=== PATIENT | male | born 1930 | race Caucasian/White ===

== ENCOUNTER 2016-12-13 21:48 | Inpatient (IN) ==
[2016-12-13] MEDS ORDERED: NITROGLYCERIN 2% OINT 1 INCH/GM PACK TOP STA (22:16)
[2016-12-13] MEDS ORDERED: FUROSEMIDE 100 MG/10 ML VIAL IV STA (22:16)
[2016-12-13] MEDS ORDERED: MORPHINE 2 MG/1 ML SYRINGE IV STA (22:16)
[2016-12-13] MEDS ORDERED: ONDANSETRON 4 MG/2 ML VIAL IV STA (22:16)
[2016-12-13] MEDS ORDERED: methylPREDNISolone SOD SUC 125 MG/2 ML VIAL IV STA (22:16)
--- NOTE | 2016-12-13 22:19 | EKG Report ---
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
[2016-12-13] MEDS ORDERED: MORPHINE 2 MG/1 ML SYRINGE ONE (22:20)
[2016-12-13] MEDS ORDERED: methylPREDNISolone SOD SUC 125 MG/2 ML VIAL ONE (22:20)
[2016-12-13] MEDS ORDERED: FUROSEMIDE 100 MG/10 ML VIAL ONE (22:20)
[2016-12-13] MEDS ORDERED: ONDANSETRON 4 MG/2 ML VIAL ONE (22:20)
[2016-12-13] MEDS ORDERED: ALBUTEROL 2.5 MG/3 ML NEB RESP TX SCH (22:30)
[2016-12-13 22:31] LABS: Basophils % 0.2 % (0.0-0.8); Eosinophils # 0.1 10*3/uL (0.0-0.87); Eosinophils % 0.4 % (0.00-10.9); Hematocrit 38.5 VOL% (42.0-52.0); Immature Granulocytes % 1.5 %; Lymphocytes # 1.6 10*3/uL (1.4-4.0); Lymphocytes % 11.7 % (21.2-54.2); Mean Corpuscular HGB Conc 31.2 GM/DL (32-36); Mean Corpuscular Hemoglobin 26 PG (27-34); Mean Corpuscular Volume 81.7 FL (87-102); Mean Platelet Volume 9.1 FL (9.6-12.0); Monocytes # 0.6 10*3/uL (0.11-0.8); Monocytes % 4.3 % (1.7-12.7); Neutrophils % 81.9 % (38.7-73.9); Platelet Count 266 T/CUMM (130-400); Red Blood Count 4.71 MC/CUMM (3.8-5.5); Red Cell Distribution Width 18.1 % (9.3-17.3); White Blood Count 13.4 T/CUMM (4-12)
[2016-12-13 22:37] LABS: PT Patient Result 10.9 SECS; Partial Thromboplastin Time 22.6 SECS (0-40)
[2016-12-13 22:44] LABS: ABG Base Excess 2.7 MMOL/L (-2.5-2.5); ABG HCO3 26.8 MMOL/L (20-26); ABG Oxygen Saturation 95.5 % (95-100); ABG PCO2 36.5 MM HG (35-48); ABG PH 7.466 (7.35-7.45); ABG PO2 75.9 MM HG (80-95); ABG TCO2 23.2 MMOL/L (23-27)
[2016-12-13 22:47] LABS: Apearance,Urine CLEAR (Clear); Bilirubin,Urine Negative (Negative); Blood, Urine Negative (Negative); Glucose,Urine (UA) Negative (Negative); Ketones,Urine Negative (Negative); Mucus,Urine Occasional /LPF (Occasional); Nitrite,Urine Negative (Negative); Protein,Urine Negative; RBC,Urine 2 /HPF (0-4); Squamous Epithelial Cell,Urine Occasional /HPF (0-10); Urine Color Yellow (Yellow); Urine Specific Gravity 1.024 (1.001-1.035); WBC,Urine 1 /HPF (0-6)
[2016-12-13 22:48] LABS: Alanine Aminotransferase 23 U/L (16-61); Albumin 2.9 G/DL (3.4-5.0); Alkaline Phosphatase 61 U/L (45-117); Aspartate Amino Transferase 22 U/L (0-37); Blood Urea Nitrogen 18 MG/DL (7-18); Calcium 8.4 MG/DL (8.5-10.1); Glucose 110 MG/DL (74-106); Magnesium 2.4 MG/DL (1.8-2.4); Osmolality,Calculated 275.8 MOS/KG (273-304); Potassium 4.4 MMOL/L (3.5-5.1); Sodium 137 MMOL/L (136-145); Total Protein 6.6 G/DL (6.4-8.3); Troponin I Only < 0.015 NG/ML (0.00-0.045)
[2016-12-13] MEDS ORDERED: NITROGLYCERIN 2% OINT 1 INCH/GM PACK TOP ONE (22:54)
[2016-12-13] MEDS ORDERED: cefTRIAXone 1,000 MG in SODIUM CHLORIDE 0.9% 100 ML IV STA (23:08)
--- NOTE | 2016-12-13 23:08 | Emergency Department Note ---
Juan F Muir Brittany, am scribing for, and in the presence of, Jose Cruz Meza MD 22:29. Derrick Muir Charles R, MD, personally performed the services described in this documentation, ascribed by Lina Rogel in my presence, and it is both accurate and complete . Arrival - Arrival Chief Complaint: Shortness of Breath Stated Complaint: shortness of breath ED Nursing Triage Note: Patient to room via ems. Patient is from [facility]. They state that patient has been SOB for 3 days. Patient has wet lung sounds and O2sat is 82 on room air. Mode of Arrival: Stretcher Limitations: No Limitations Source: Patient Time Seen by Provider: 12/13/16 21:58 - History of Present Illness HPI Narrative: This is an 86 y/o white male, who presents to the ED by EMS for further evaluation of fluid overload which started 3 days ago. Pt is a current resident of [facility]. He states he has had chest pain, LE edema, and weight loss over the past few days. He reports he is SOB with the chest pain and it is worse when laying down. Pt has no other complaints/pain in the ED at this time. PT has a pMHx of HTN, CAD, dyslipidemia, ASHD, RA, COPD, pneumonia, prostate problems, problems, polyps, GERD, anemia, and back/neck problems. Pt has had an eye surgery, appendectomy, cystoscopy, orthopedic surgery, colonoscopy, EGD, spinal surgery, and genitourinary surgery. Pt has a family medical Hx of lung cancer, diabetes, heart disease, HTN, and stroke. Pt denies a socia Hx. Onset (ago): day(s) (Started 3 days ago) Consistency: constant Severity: moderate, severe Allergies/Adverse Reactions: Allergies Allergy/AdvReac Type Severity Reaction Status Date / Time lisinopril Allergy Unknown RASH Verified 12/13/16 21:57 carvedilol [From Coreg] Allergy RASH Verified 12/13/16 21:57 hydrochlorothiazide Allergy RASH Verified 12/13/16 21:57 metoclopramide [From Reglan] Allergy Unknown/Unable Verified 12/13/16 21:57 to obtain propoxyphene Allergy RASH Verified 12/13/16 21:57 [From Darvocet-N] Sulfa (Sulfonamide Allergy RASH Verified 12/13/16 21:57 Antibiotics) tramadol Allergy RASH Verified 12/13/16 21:57 aspirin AdvReac Intermediate Gastrointestinal Verified 12/13/16 21:57 Upset rofecoxib [From Vioxx] AdvReac Intermediate Gastrointestinal Verified 12/13/16 21:57 Upset Home Medications: Home Medications Medication Instructions Recorded Confirmed Type Acetaminophen Tab [Tylenol Tab] 650 mg PO Q6H PRN 10/25/16 12/11/16 History Calcium Carbonate Chew [Tums] 1 tablet PO Q8H 10/25/16 12/11/16 History Cyanocobalamin (Vitamin B-12) 1,000 mcg IJ Q30D 10/25/16 12/11/16 History [Cyanocobalamin Injection] Dexlansoprazole [Dexilant] 60 mg PO DAILY 10/25/16 12/06/16 History Docusate Sodium Cap [Colace Cap] 100 mg PO BID 10/25/16 12/11/16 History Loratadine [Claritin] 10 mg PO BEDTIME 10/25/16 12/11/16 History Magnesium Oxide 400 mg PO BID 10/25/16 12/06/16 History Meclizine [Antivert] 25 mg PO TID 10/25/16 12/06/16 History Megestrol Acetate [Megace] 400 mg PO BID 10/25/16 12/11/16 History Metoprolol Tartrate 25 mg PO BID 10/25/16 12/06/16 History Montelukast Tab [Singulair Tab] 10 mg PO BEDTIME 10/25/16 12/06/16 History Polyethylene Glycol Powder 17 gm PO DAILY PRN 10/25/16 12/11/16 History [Miralax] Polyvinyl Alcohol 1.4% Oph Marylou 1 drop BOTH EYES QID PRN 10/25/16 12/11/16 History [Artificial Tears Oph Soln] Simvastatin 5 mg PO BEDTIME 10/25/16 12/06/16 History Tamsulosin [Flomax] 0.4 mg PO DAILY 10/25/16 12/06/16 History amLODIPine [Norvasc] 5 mg PO BID 10/25/16 12/06/16 History methylPREDNISolone 4 mg PO BID 10/25/16 12/06/16 History [Methylprednisolone] Oxycodone HCl/Acetaminophen 1 each PO Q8HR 12/06/16 12/11/16 History [Percocet 10-325 mg Tablet] Albuterol/Ipratropium Neb [Duoneb] 3 ml RESP TX RT Q4H PRN 12/11/16 12/11/16 History HydrOXYzine PAMOATE CAP [Vistaril 25 mg PO Q6HR PRN 12/11/16 12/11/16 History Cap] Phenyleph/Mineral Oil/Petrolat 1 applic TOP Q4HR PRN 12/11/16 12/11/16 History [Preparation H Ointment] Pramoxine 1% Rectal Foam 1 applic TOP Q8HR PRN 12/11/16 12/11/16 History [Proctofoam 1% Foam] Review of System - Review of System 12 point system: reviewed and no additional remarkable complaints except as stated - Review of System Respiratory: Present: other (Fluid overload) Cardiovascular: Present: chest pain, dyspnea on exertion, orthopnea Musculoskeletal: Present: other (LE Edema) Medical,Surgical,& Family Hx - Medical History Cardio: History of: Cardiac Dysrhythmia (Hx: A. Fib), CAD, Hypertension, Cardiovascular Problems (ASHD) No history of: [place], Pacemaker Neurology: History of: Dementia, Peripheral Neuropathy, Vertigo No history of: Seizures HEENT: History of: HEENT Problems (zoster, right side of face) Endocrine: History of: Dyslipidemia No history of: Diabetes Mellitus (NIDDM) Rheumatology: History of;: Rheumatoid Arthritis, Rheumatological Problems Respiratory: History of: COPD, Pneumonia (x12 times since 2010), Respiratory Problems (Bronchospastic Disease) No history of: Obstructive Sleep Apnea Genitourinary: History of: Prostate Problems (enlarged), Problems (r/t enlarged prostate) Gastrointestinal: History of: GERD, Polyps (Colon and Gastric), GI Problems ( esophageal stricture, Sena's esophagus, erosive gastritis, hiatal hernia) Musculoskeletal: History of: Back/Neck Problems (chronic back pain ), Musculoskeletal Problems (wedge comp. fx t11, t12; DJD) No history of: Amputation Hematology: History of: Anemia (Pernicious) No history of: Blood Transfusion Reaction Other: History of: Skin Problems (marylou 2013) No history of: Anesthesia Reactions, Cancer - Surgical History Cardiac Surgeries: Patient Denies: Cardiac Catheterization, Cardiac Surgery Thoracic Surgeries: Patient denies;: Kidney (Renal Surgery), Lithotripsy, Nephrectomy HEENT Surgeries: Surgical HX of: Eye Surgery (cataract) Patient denies: Tonsilectomy & Adenoidectomy Abdominal Surgeries: Surgical HX of: Abdominal Surgery, Appendectomy, Colonoscopy, EGD Patient denies: Cholecystectomy, Gastric Bypass Surgery, Hernia Repair Reproductive Surgeries: Surgical HX of;: Cystoscopy (HE THINKS MAY HAVE HAD), Genitourinary Surgery Patient denies;: Prostate Surgery Orthopedic Surgeries: Surgical HX of;: Orthopedic Surgery (ankles, wrist, back, neck), Spinal Surgery (kypoplasty) Patient denies;: Implanted Devices - Family History Family History: Reports;: Family Cancer (Brother (lung)), Family Diabetes ( Mother), Family Heart Disease (Mother), Family Hypertension (Mother), Family Stroke Denies;: Family Anesthesia Reaction, Family Psychiatric Problems - Social History Smoking Status: Unknown if ever smoked Frequency of Alcohol Use: None Type of Drug Use: None Exam Vital Signs: Vital Signs Temperature 98.0 F 12/13/16 21:49 Pulse Rate 84 12/13/16 23:04 Respiratory Rate 28 H 12/13/16 23:04 Blood Pressure 138/68 12/13/16 21:49 O2 Sat by Pulse Oximetry 95 12/13/16 23:04 - General General appearance: alert, in distress - Head Head exam: Present: atraumatic, normocephalic, normal inspection - Eye Eye exam: Present: normal appearance, PERRL, EOMI. Absent: nystagmus, miosis, mydriasis - ENT ENT exam: Present: normal exam, normal oropharynx, mucous membranes moist - Neck Neck exam: Present: normal inspection, full ROM, trachea midline. Absent: tenderness, meningismus, lymphadenopathy, thyromegaly - Chest Chest inspection: Present: normal inspection, symmetric chest wall rise. Absent : tenderness, rash, abscess - Respiratory Respiratory exam: Present: accessory muscle use, rales, other (Decreased Breath sounds bilaterally) - Cardiovascular Cardiovascular exam: Present: normal rhythm, normal heart sounds, other. Absent : regular rate (Tachypnea, Retractions) - Abdominal Exam Abdominal exam: Present: soft, distention, normal bowel sounds. Absent: tenderness, guarding, rebound, rigidity - Rectal Exam Rectal exam: Present: deferred - Extremities Exam Extremities exam: Present: normal capillary refill, pedal edema (+3 pitting edema to the bilateral LE). Absent: normal inspection, full ROM, tenderness, joint swelling, calf tenderness - Back Exam Back exam: Present: normal inspection, full ROM. Absent: tenderness, muscle spasm, rashes - Neurological Exam Neurological exam: Present: alert, oriented X3, CN II-XII intact. Absent: motor sensory deficit - Psychiatric Psychiatric exam: Present: normal affect, normal mood. Absent: depressed, agitated, anxious, flat affect, manic - Skin Skin exam: Present: warm, dry, intact, normal color. Absent: rash, cyanosis, diaphoresis, erythema, pallor, mottled Course - Consultations Consultation #1: Hospitalist will admit patient Time: 23:05 Results - Labs CBC & BMP: 12/13/16 22:11 12/13/16 22:11 Lab Results: I have reviewed the patients labs Critical Care Time Critical Care Time: Yes Total Critical Care Time: 60 Disposition Clinical Impression: Congestive heart failure, Respiratory distress, Debility, COPD (chronic obstructive pulmonary disease), Lumbar back pain, Acute bronchitis with chronic obstructive pulmonary disease (COPD), Compression fracture of body of thoracic vertebra, T12 compression fracture, Chronic respiratory failure, Chest pain, Hypoxia, Leukocytosis Case discussed with: patient, patient's family Disposition: Still a Patient Condition: Guarded Time of Disposition: 23:07
[2016-12-13] MEDS ORDERED: SODIUM CHLORIDE 0.9% 100 ML IV ONE (23:13)
[2016-12-13] MEDS ORDERED: cefTRIAXone 1,000 MG VIAL ONE (23:13)
[2016-12-14] MEDS ORDERED: MORPHINE 2 MG/1 ML SYRINGE ONE (00:24)
[2016-12-14] MEDS ORDERED: MORPHINE 2 MG/1 ML SYRINGE IV STA (00:25)
--- NOTE | 2016-12-14 02:37 | Hospitalist History & Physical ---
Assessment and Plan (1) Bronchopneumonia Status: Acute Current Visit: No (2) COPD (chronic obstructive pulmonary disease) Status: Chronic Current Visit: Yes Qualifiers: COPD type: COPD with acute exacerbation Qualified Code(s): J44.1 - Chronic obstructive pulmonary disease with (acute) exacerbation (3) GERD (gastroesophageal reflux disease) Status: Acute Current Visit: No (4) HTN (hypertension) Status: Chronic Current Visit: No Qualifiers: Hypertension type: essential hypertension Qualified Code(s): I10 - Essential (primary) hypertension (5) Aspiration pneumonia Status: Acute Current Visit: No (6) Respiratory distress Status: Acute Current Visit: Yes (7) Hypoxia Status: Acute Current Visit: Yes (8) Leukocytosis Status: Acute Assessment and plan: Based on recent history of esophageal stricture do feel the patient probably has had an aspiration event. He is improved while in the emergency room. We have held him in the emergency room for an extended period of time. But I think he is gotten well enough while in the emergency room to go to a floor bed. He does have a DNR status. Do feel we need to treat him with breathing schedule breathing treatments IV antibiotics. I would like to consult pulmonary to see if they think the patient would benefit from a bronch. Current Visit: Yes History of Present Illness Chief complaint: Shortness of breath and decreased O2 sats History of present illness: Mr. Duckworth is a 86 year old male with past medical history significant for COPD and esophageal stricture. He is a resident at home and does carry a DNR status. According to alf information they stated that he has been short of breath 3 days. Patient has bilateral rhonchi and congestion. I was consulted to admit him. Home Medications Medication Instructions Recorded Confirmed Type Acetaminophen Tab [Tylenol Tab] 650 mg PO Q6H PRN 10/25/16 12/11/16 History Calcium Carbonate Chew [Tums] 1 tablet PO Q8H 10/25/16 12/11/16 History Cyanocobalamin (Vitamin B-12) 1,000 mcg IJ Q30D 10/25/16 12/11/16 History [Cyanocobalamin Injection] Dexlansoprazole [Dexilant] 60 mg PO DAILY 10/25/16 12/06/16 History Docusate Sodium Cap [Colace Cap] 100 mg PO BID 10/25/16 12/11/16 History Loratadine [Claritin] 10 mg PO BEDTIME 10/25/16 12/11/16 History Magnesium Oxide 400 mg PO BID 10/25/16 12/06/16 History Meclizine [Antivert] 25 mg PO TID 10/25/16 12/06/16 History Megestrol Acetate [Megace] 400 mg PO BID 10/25/16 12/11/16 History Metoprolol Tartrate 25 mg PO BID 10/25/16 12/06/16 History Montelukast Tab [Singulair Tab] 10 mg PO BEDTIME 10/25/16 12/06/16 History Polyethylene Glycol Powder 17 gm PO DAILY PRN 10/25/16 12/11/16 History [Miralax] Polyvinyl Alcohol 1.4% Oph Marylou 1 drop BOTH EYES QID PRN 10/25/16 12/11/16 History [Artificial Tears Oph Soln] Simvastatin 5 mg PO BEDTIME 10/25/16 12/06/16 History Tamsulosin [Flomax] 0.4 mg PO DAILY 10/25/16 12/06/16 History amLODIPine [Norvasc] 5 mg PO BID 10/25/16 12/06/16 History methylPREDNISolone 4 mg PO BID 10/25/16 12/06/16 History [Methylprednisolone] Oxycodone HCl/Acetaminophen 1 each PO Q8HR 12/06/16 12/11/16 History [Percocet 10-325 mg Tablet] Albuterol/Ipratropium Neb [Duoneb] 3 ml RESP TX RT Q4H PRN 12/11/16 12/11/16 History HydrOXYzine PAMOATE CAP [Vistaril 25 mg PO Q6HR PRN 12/11/16 12/11/16 History Cap] Phenyleph/Mineral Oil/Petrolat 1 applic TOP Q4HR PRN 12/11/16 12/11/16 History [Preparation H Ointment] Pramoxine 1% Rectal Foam 1 applic TOP Q8HR PRN 12/11/16 12/11/16 History [Proctofoam 1% Foam] Allergies Allergy/AdvReac Type Severity Reaction Status Date / Time lisinopril Allergy Unknown RASH Verified 12/13/16 21:57 carvedilol [From Coreg] Allergy RASH Verified 12/13/16 21:57 hydrochlorothiazide Allergy RASH Verified 12/13/16 21:57 metoclopramide [From Reglan] Allergy Unknown/Unable Verified 12/13/16 21:57 to obtain propoxyphene Allergy RASH Verified 12/13/16 21:57 [From Darvocet-N] Sulfa (Sulfonamide Allergy RASH Verified 12/13/16 21:57 Antibiotics) tramadol Allergy RASH Verified 12/13/16 21:57 aspirin AdvReac Intermediate Gastrointestinal Verified 12/13/16 21:57 Upset rofecoxib [From Vioxx] AdvReac Intermediate Gastrointestinal Verified 12/13/16 21:57 Upset Medical,Surgical,& Family Hx - Medical History Cardio: History of: Cardiac Dysrhythmia (Hx: A. Fib), CAD, Hypertension, Cardiovascular Problems (ASHD) No history of: [place], Pacemaker Neurology: History of: Dementia, Peripheral Neuropathy, Vertigo No history of: Seizures HEENT: History of: HEENT Problems (zoster, right side of face) Endocrine: History of: Dyslipidemia No history of: Diabetes Mellitus (NIDDM) Rheumatology: History of;: Rheumatoid Arthritis, Rheumatological Problems Respiratory: History of: COPD, Pneumonia (x12 times since 2010), Respiratory Problems (Bronchospastic Disease) No history of: Obstructive Sleep Apnea Genitourinary: History of: Prostate Problems (enlarged), Problems (r/t enlarged prostate) Gastrointestinal: History of: GERD, Polyps (Colon and Gastric), GI Problems ( esophageal stricture, Sena's esophagus, erosive gastritis, hiatal hernia) Musculoskeletal: History of: Back/Neck Problems (chronic back pain ), Musculoskeletal Problems (wedge comp. fx t11, t12; DJD) No history of: Amputation Hematology: History of: Anemia (Pernicious) No history of: Blood Transfusion Reaction Other: History of: Skin Problems (shingles 2013) No history of: Anesthesia Reactions, Cancer - Surgical History Cardiac Surgeries: Patient Denies: Cardiac Catheterization, Cardiac Surgery Thoracic Surgeries: Patient denies;: Kidney (Renal Surgery), Lithotripsy, Nephrectomy HEENT Surgeries: Surgical HX of: Eye Surgery (cataract) Patient denies: Tonsilectomy & Adenoidectomy Abdominal Surgeries: Surgical HX of: Abdominal Surgery, Appendectomy, Colonoscopy, EGD Patient denies: Cholecystectomy, Gastric Bypass Surgery, Hernia Repair Reproductive Surgeries: Surgical HX of;: Cystoscopy (HE THINKS MAY HAVE HAD), Genitourinary Surgery Patient denies;: Prostate Surgery Orthopedic Surgeries: Surgical HX of;: Orthopedic Surgery (ankles, wrist, back, neck), Spinal Surgery (kypoplasty) Patient denies;: Implanted Devices - Family History Family History: Reports;: Family Cancer (Brother (lung)), Family Diabetes ( Mother), Family Heart Disease (Mother), Family Hypertension (Mother), Family Stroke Denies;: Family Anesthesia Reaction, Family Psychiatric Problems - Social History Smoking Status: Unknown if ever smoked Frequency of Alcohol Use: None Type of Drug Use: None 12 point system: reviewed and no additional remarkable complaints except as stated Exam - Constitutional Vitals: Period Temp Pulse Resp BP Sys/Briceno Pulse Ox Last 24 Hr 98.0 F-98.0 F 84-87 24-28 138-138/68-68 82-95 General appearance: over weight - Head Head exam: Present: normal inspection - Eye Eye exam: Present: EOMI Pupils: Present: ANAYELI - ENT ENT exam: Present: normal exam - Neck Neck exam: Present: normal inspection - Respiratory Respiratory exam: Present: other (Patient has bilateral upper airway congestion) - Cardiovascular Cardiovascular exam: Present: regular rate and rhythm - GI/Abdominal GI/Abdominal exam: Present: normal bowel sounds, distended - Extremities Exam Extremities exam: Present: edema - Back Exam Back exam: Present: normal inspection Results - Labs CBC & BMP: 12/13/16 22:11 12/13/16 22:11
[2016-12-14] MEDS ORDERED: ONDANSETRON 4 MG/2 ML VIAL IV PRN (02:42)
[2016-12-14] MEDS ORDERED: ALBUTEROL 2.5 MG/3 ML NEB RESP TX PRN (02:42)
[2016-12-14] MEDS ORDERED: AZITHROMYCIN INJ 500 MG in SODIUM CHLORIDE 0.9% 250 ML IV SCH (03:00)
[2016-12-14] MEDS: methylPREDNISolone SOD SUC 40 MG/1 ML VIAL IV SCH ×4 (04:40→22:41)
[2016-12-14] MEDS: CLINDAMYCIN INJ 900 MG in PREMIX 1 EACH IV SCH ×3 (04:40→20:45)
--- NOTE | 2016-12-14 05:58 | XRay Report ---
XR chest 1V portable Indication: Shortness of breath Comparison: Chest x-ray 10/25/2016 Technique: Portable AP chest was performed. Findings: Mild cardiomegaly appears stable. Central vascular prominence and interstitial stranding in the lung bases is noted. Multilevel vertebroplasty is again demonstrated. There is been interval addition of bone cement within the mid thoracic spine. Impression: 1. Appearance of chest suggests pulmonary venous congestive changes and/or crowding secondary to technique. Mild pulmonary edema is not excluded. 12/14/2016 5:55 AM PROCEDURE INTERPRETED AT [facility] DEPARTMENT OF RADIOLOGY Final Report Signed by: Dr. Viet Kimbrough
[2016-12-14] MEDS: ALBUTEROL/IPRATROPIUM 3 ML NEB RESP TX SCH ×3 (07:12→19:50)
[2016-12-14 07:37] LABS: Basophils % 0.2 % (0.0-0.8); Hematocrit 36.7 VOL% (42.0-52.0); Hemoglobin 11.5 GM/DL (14.0-18.0); Immature Granulocytes % 1.2 %; Immature Granulocytes Absolute 0.14 #; Lymphocytes # 0.4 10*3/uL (1.4-4.0); Lymphocytes % 3.2 % (21.2-54.2); Mean Corpuscular HGB Conc 31.3 GM/DL (32-36); Mean Corpuscular Hemoglobin 25 PG (27-34); Mean Corpuscular Volume 80.7 FL (87-102); Mean Platelet Volume 9.1 FL (9.6-12.0); Monocytes # 0.2 10*3/uL (0.11-0.8); Monocytes % 1.4 % (1.7-12.7); Platelet Count 231 T/CUMM (130-400); Red Blood Count 4.55 MC/CUMM (3.8-5.5); White Blood Count 11.6 T/CUMM (4-12)
[2016-12-14 08:10] LABS: Osmolality,Calculated 280.7 MOS/KG (273-304); Potassium 4.3 MMOL/L (3.5-5.1)
[2016-12-14 08:12] LABS: Band Neutrophils 10 % (0-10); Hypochromasia 1+; Lymphocytes 6 % (20-55); Platelet Estimate Adequate; Segmented Neutrophils 82 % (50-85); Total Cells Counted 100
--- NOTE | 2016-12-14 09:37 | Hospitalist Progress Note ---
Assessment and Plan (1) GERD (gastroesophageal reflux disease) Status: Acute Assessment and plan: Stable. He is presently being treated with pantoprazole. Current Visit: No (2) Pneumonia Status: Acute Assessment and plan: He was begun last night and intravenous clindamycin and ceftriaxone. He will probably require a minimum of 7 days of treatment. Current Visit: No Qualifiers: Pneumonia type: aspiration pneumonia (3) HTN (hypertension) Status: Chronic Current Visit: No Qualifiers: Hypertension type: essential hypertension Qualified Code(s): I10 - Essential (primary) hypertension (4) Acute exacerbation of chronic obstructive pulmonary disease Status: Acute Assessment and plan: He is comfortable at the present time. He is presently being treated with intravenous antibiotics, intravenous methylprednisolone, and albuterol ipratropium nebulizer treatments. Current Visit: No Hospitalist: Subjective Interval history: Mr. Duckworth is an 86-year-old white male with past medical history of chronic obstructive pulmonary disease and esophageal stricture. He was hospitalized here last night with chief complaint of shortness of breath. Chest x-ray demonstrated evidence of pneumonia. He was begun on intravenous clindamycin and ceftriaxone. He states that he is comfortable this morning he denies shortness of breath or chest pain. Exam - Constitutional Vitals: Period Temp Pulse Resp BP Sys/Briceno Pulse Ox Last 24 Hr 97.3 F-98.1 F 87-99 19-28 131-150/74-85 90-94 General appearance: no acute distress - Head Head exam: Present: normal inspection, normocephalic - Eye Eye exam: Present: EOMI Pupils: Present: ANAYELI - Neck Neck exam: Present: normal inspection - Respiratory Respiratory exam: Present: rhonchi - Cardiovascular Cardiovascular exam: Present: regular rate and rhythm - GI/Abdominal GI/Abdominal exam: Present: normal bowel sounds, soft - Extremities Exam Extremities exam: Present: normal inspection - Neurological Exam Neurological exam: Present: alert, oriented X3 - Psychiatric Psychiatric exam: Present: normal affect, normal mood - Skin Skin exam: Present: normal color, warm, dry Results - Labs CBC & BMP: 12/14/16 07:11 12/14/16 07:11 Quality Measures - Stroke Symptom Onset Unknown: No
--- NOTE | 2016-12-14 10:48 | Pulmonology Consult Note ---
History of Present Illness Chief complaint: Pneumonia History of present illness: Jayjay Yates, ANP-BC, GNP-BC, acting as scribe for Dr. Santos Schaefer Mr. Duckworth is an 86 year old white male long-time patient of Dr. Schaefer'nasrin who we have been asked to see in pulmonary consultation for evaluation and treatment. The request for consultation was made by Dr. Mayberry. Mr. Duckworth presented to [facility] emergency room by EMS on the night of 12/13/2016 with complaints of increased shortness of breath which started 3 days prior to admission. Of note , on 12/11/2016 the patient underwent an outpatient EGD without complications. Nonetheless, in the emergency room the patient was found to have an acute pneumonia with leukocytosis. He was subsequently admitted to the hospitalist service for further evaluation and care. In speaking with the patient, he is not at his baseline mentation. No family was present. Nursing staff was present. Therefore, his review of systems and history was taken from the patient's electronic medical records. He has had increased shortness of breath and dyspnea on exertion for 3 days prior to admission. There was no reported cardiac angina or palpitations. He has a long history of reflux and microaspiration which have often led to aspiration pneumonia which was followed by bacterial pneumonia, but he reports no solid dysphagia at this time. See above regarding recent EGD. There were no reported TIA symptoms or syncope. There has been no bleeding from any site. The remainder of his ROS is noncontributory. Allergies: Amoxicillin, ASA, Darvocet N-100, Tramadol, and Vioxx Medication: See list Vaccinations: Flu vaccine was given in 2013. Pneumovax was given 09-22-2009. Tetanus vaccine was given in 1999. Past Medical History: [facility] hospitalization 10/25/2016 through 10/30/1999 1700 care of the hospitalist. During that admission he was treated for acute exacerbation of COPD. [facility] hospitalization 10/15/2016 through 10/20/2016 under the care of the hospitalist. During that admission the patient was treated for an acute left lower lung pneumonia and chronic back pain with history of acute T12 compression fracture which required kyphoplasty by Dr. Hammond. EGD was done during that admission by Dr. Perez. [facility] hospitalization 08/20/2016 through 08/21/2016 under the care of the hospitalist. During that admission he was treated for acute abdominal pain and bladder outlet obstruction. Patient also had a heme positive stool. He was seen by Dr. Perez and Dr. Deleon. No other workup was felt necessary during that admission. [facility] hospitalization 08/06/2016 through 08/08/2016 under the care of Dr. Schaefer. During that admission he was treated for an acute exacerbation of COPD. He also had chronic back pain and had a recent acute T12 compression fracture which required kyphoplasty by Dr. Hammond. [facility] hospitalization 07/19/16 through 07/25/16 under the care of Dr. Schaefer. During that admission he was treated for an acute RLL infiltrate secondary to Klebsiella. [facility] 06/21/16 through 07/02/16 under the care of the hospitalists. During that admission he was treated for an acute exacerbation of COPD. He was transferred to [facility] on 06/22/16 and remained there until 07/18/16. [facility] 06/17/16 through 06/20/16 under the care of the hospitalists. During that admission he was treated for dysphagia and an esophageal stricture. [facility] hospitalization 05/22/16 through 06/01/16 under the care of Dr. Moore. [facility] through 04/05/16 under the care of the hospitalists. He was seen in consultation by Dr. Schaefer and treated for an acute exacerbation of COPD. [facility] 12/24/15 through 12/29/15 under the care of the hospitalists. During that admission he was treated for an acute exacerbation of COPD and an esophageal stricture which required dilatation. [facility] 09/25/15 through 09/30/15 under the care of the hospitalists. During that hospitalization he was treated for an acute pneumonia secondary to Klebsiella. [facility] 04/13/15 through 04/18/15 under the care of the hospitalists. He was seen in pulmonary consultation by Dr. Schaefer. He was treated for accelerated HTN, dysphagia, and acute exacerbation of COPD. [facility] 09-23-13 for acute gastroenteritis, acute upper respiratory infection which was thought to be influenza. He also had a possible acute RUL pneumonia probably occurring after the onset of the flu. [facility] 07-17-13 for acute non- cardiac chest pain, esophageal motility dysfunction, and acute tachycardia that resolved with the addition of Metoprolol. [facility] hospitalization November 2012 with acute pneumonia. [facility] hospitalization 08-05-2012 for palpitations. [facility] hospitalization 07-07-2012 for probable acute pneumonia that did not show up on xray, gram positive sepsis. Gram stains showed gram positive cocci and gram negative rods. [facility] hospitalization for acute T8 compression fracture and acute T2 compression fracture. He also had a herpetic lesion on his lip 02-10-12. [facility] hospitalization 07-17-11 for acute lower GI bleed. Hospitalized twice in 2010 for pneumonia. [facility] hospitalization 05-12-10 with injuries sustained after a trauma. He had an acute T5 pathologic compression fracture, left ankle fracture--repaired, bilateral forearm fractures with closed reduction, and an ileus of the colon with obstipation. Family History: His mother had diabetes, arthritis. His brother had lung cancer. His father had lung disease. Social History: The patient quit smoking 12-05-89. He denies alcohol. He is retired. 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 He has a high school education. Laboratory: White count at admission was 13,400 and has now improved to 11,600 with 94.0% segs; H&H 11.5/36.7 with decreased indices and increased red blood cell distribution with; platelet count 231,000; INR 1.0; creatinine 1.00, BUN 18 , sodium 138, potassium 4.3, magnesium 2.4; liver function tests within normal limits; calcium is low at 8.0 reflected in a low albumin of 2.9, total protein 6.6; urinalysis showed no evidence of infection ABGs. Done at admission 12/13/2016. On an FiO2 of 28% pH was 7.466, PCO2 36.5, PO2 75.9, bicarb 26.8, oxygen saturation 95.5%. CXR: Shows a possible acute left lower lobe pneumonia. No other acute changes are noted. Home Medications Medication Instructions Recorded Confirmed Type Acetaminophen Tab [Tylenol Tab] 650 mg PO Q6H PRN 10/25/16 12/14/16 History Calcium Carbonate Chew [Tums] 1 tablet PO Q8H 10/25/16 12/14/16 History Cyanocobalamin (Vitamin B-12) 1,000 mcg IJ Q30D 10/25/16 12/14/16 History [Cyanocobalamin Injection] Dexlansoprazole [Dexilant] 60 mg PO DAILY 10/25/16 12/14/16 History Docusate Sodium Cap [Colace Cap] 100 mg PO BID 10/25/16 12/14/16 History Loratadine [Claritin] 10 mg PO BEDTIME 10/25/16 12/14/16 History Magnesium Oxide 400 mg PO BID 10/25/16 12/14/16 History Meclizine [Antivert] 25 mg PO TID 10/25/16 12/14/16 History Megestrol Acetate [Megace] 400 mg PO BID 10/25/16 12/14/16 History Metoprolol Tartrate 25 mg PO BID 10/25/16 12/14/16 History Montelukast Tab [Singulair Tab] 10 mg PO BEDTIME 10/25/16 12/14/16 History Polyethylene Glycol Powder 17 gm PO DAILY PRN 10/25/16 12/14/16 History [Miralax] Polyvinyl Alcohol 1.4% Oph Marylou 1 drop BOTH EYES QID PRN 10/25/16 12/14/16 History [Artificial Tears Oph Soln] Simvastatin 5 mg PO BEDTIME 10/25/16 12/14/16 History Tamsulosin [Flomax] 0.4 mg PO DAILY 10/25/16 12/14/16 History amLODIPine [Norvasc] 5 mg PO BID 10/25/16 12/14/16 History methylPREDNISolone 4 mg PO BID 10/25/16 12/14/16 History [Methylprednisolone] Oxycodone HCl/Acetaminophen 1 each PO Q8HR 12/06/16 12/14/16 History [Percocet 10-325 mg Tablet] Albuterol/Ipratropium Neb [Duoneb] 3 ml RESP TX RT Q4H PRN 12/11/16 12/14/16 History HydrOXYzine PAMOATE CAP [Vistaril 25 mg PO Q6HR PRN 12/11/16 12/14/16 History Cap] Phenyleph/Mineral Oil/Petrolat 1 applic TOP Q4HR PRN 12/11/16 12/14/16 History [Preparation H Ointment] Pramoxine 1% Rectal Foam 1 applic TOP Q8HR PRN 12/11/16 12/14/16 History [Proctofoam 1% Foam] Allergies Allergy/AdvReac Type Severity Reaction Status Date / Time lisinopril Allergy Unknown RASH Verified 12/13/16 21:57 carvedilol [From Coreg] Allergy RASH Verified 12/13/16 21:57 hydrochlorothiazide Allergy RASH Verified 12/13/16 21:57 metoclopramide [From Reglan] Allergy Unknown/Unable Verified 12/13/16 21:57 to obtain propoxyphene Allergy RASH Verified 12/13/16 21:57 [From Darvocet-N] Sulfa (Sulfonamide Allergy RASH Verified 12/13/16 21:57 Antibiotics) tramadol Allergy RASH Verified 12/13/16 21:57 aspirin AdvReac Intermediate Gastrointestinal Verified 12/13/16 21:57 Upset rofecoxib [From Vioxx] AdvReac Intermediate Gastrointestinal Verified 12/13/16 21:57 Upset Exam (Pulmonay) H&P - Constitutional Vitals: Period Temp Pulse Resp BP Sys/Briceno Pulse Ox Last 24 Hr 97.3 F-98.1 F 87-99 19-28 131-150/74-85 90-94 Exam: Psych: Oriented to person at this time, certainly an acute altered mental status ; angry HEENT: Pupils, irises, sclera, conjunctiva, and eye lids are normal. The face is symmetrical with no masses or rash. Lips, tongue, buccal mucosa, soft and hard palate, and pharynx within normal limits. The neck is symmetrical and slightly kyphotic without masses. There is a firm palpable nodule on the superior edge of the thyroid. Lymphatic: No cervical, supraclavicular or submandibular adenopathy Chest: Symmetrical with loose large airway congestion and very mild large airway wheeze Heart: Regular with a slightly lateral PMI. No murmur, rub, or gallop. Abd: Obese, but nontender, nondistended. No appreciable organomegaly, masses, tenderness, or bruit. The aorta was not palpated. BS positive x 4. /Rectal: Deferred Extremities: No clubbing, cyanosis, or obvious DVT; no significant edema. TAMIKO hose are in use. Arterial: Carotids are normal. Upper extremity pulses and posterior tibial pulses are palpable. Venous: Neck, upper, and lower extremities is normal. Skin: Actinic damage especially over the face and dorsum of the upper extremities with associated purpura over the upper extremities. No appreciable signs of infection are noted. M/S: Mild loss of the curvature of the cervical, thoracic, and lumbar spine. Neuro: Cranial nerves are intact with decreased hearing acuity bilaterally. Long tract motor function appears to be intact. Sensory exam was not done. Gait was not tested. The remainder of the exam is noncontributory. Impression: #1: Possible acute left lower lung pneumonia #2: Acute altered mental status #3: Long history of recurrent pneumonias #4: GERD with hx of esophageal stricture. Note, EGD with dilatation was done by Dr. Perez. #5: Hx of multiple compression fractures of the thoracic spine #6: Esophageal motility dysfunction #7: Hypertension #8: Hx of lower GI bleed #9: COPD #10: See past history Plan: #1: Check ammonia level #2: Agree with present antibiotics and steroids #3: Repeat ABGs #4: Check TSH and free T4 #5: See orders We appreciate this consult and will follow along with you. Medical,Surgical,& Family Hx - Medical History Cardio: History of: Cardiac Dysrhythmia (Hx: A. Fib), CAD, Hypertension, Cardiovascular Problems (ASHD) No history of: MO, Pacemaker Neurology: History of: Dementia, Peripheral Neuropathy, Vertigo No history of: Seizures HEENT: History of: HEENT Problems (zoster, right side of face) Endocrine: History of: Dyslipidemia No history of: Diabetes Mellitus (NIDDM) Rheumatology: History of;: Rheumatoid Arthritis, Rheumatological Problems Respiratory: History of: COPD, Pneumonia (x12 times since 2010), Respiratory Problems (Bronchospastic Disease) No history of: Obstructive Sleep Apnea Genitourinary: History of: Prostate Problems (enlarged), Problems (r/t enlarged prostate) Gastrointestinal: History of: GERD, Polyps (Colon and Gastric), GI Problems ( esophageal stricture, Sena's esophagus, erosive gastritis, hiatal hernia) Musculoskeletal: History of: Back/Neck Problems (chronic back pain ), Musculoskeletal Problems (wedge comp. fx t11, t12; DJD) No history of: Amputation Hematology: History of: Anemia (Pernicious) No history of: Blood Transfusion Reaction Other: History of: Skin Problems (shingles 2013) No history of: Anesthesia Reactions, Cancer - Surgical History Cardiac Surgeries: Patient Denies: Cardiac Catheterization, Cardiac Surgery Thoracic Surgeries: Patient denies;: Kidney (Renal Surgery), Lithotripsy, Nephrectomy HEENT Surgeries: Surgical HX of: Eye Surgery (cataract) Patient denies: Tonsilectomy & Adenoidectomy Abdominal Surgeries: Surgical HX of: Abdominal Surgery, Appendectomy, Colonoscopy, EGD Patient denies: Cholecystectomy, Gastric Bypass Surgery, Hernia Repair Reproductive Surgeries: Surgical HX of;: Cystoscopy (HE THINKS MAY HAVE HAD), Genitourinary Surgery Patient denies;: Prostate Surgery Orthopedic Surgeries: Surgical HX of;: Orthopedic Surgery (ankles, wrist, back, neck), Spinal Surgery (kypoplasty) Patient denies;: Implanted Devices - Family History Family History: Reports;: Family Cancer (Brother (lung)), Family Diabetes ( Mother), Family Heart Disease (Mother), Family Hypertension (Mother), Family Stroke Denies;: Family Anesthesia Reaction, Family Psychiatric Problems - Social History Smoking Status: Unknown if ever smoked Frequency of Alcohol Use: None Type of Drug Use: None Results - Labs CBC & BMP: 12/14/16 07:11 12/14/16 07:11 Quality Measures - Stroke Symptom Onset Unknown: No
[2016-12-14 11:29] LABS: Allen Test Positive; Pt O2 Delivery Device Venturi Mask
[2016-12-14 11:30] LABS: ABG Base Excess 4.6 MMOL/L (-2.5-2.5); ABG HCO3 28.5 MMOL/L (20-26); ABG Oxygen Saturation 96.7 % (95-100); ABG PCO2 43.1 MM HG (35-48); ABG PO2 84.3 MM HG (80-95); ABG TCO2 26.3 MMOL/L (23-27)
[2016-12-14] MEDS: PANTOPRAZOLE 40 MG TABLET PO SCH (11:36)
[2016-12-14 11:56] LABS: Free T4 (Free Thyroxine) 1.3 NG/DL (0.76-1.46); Thyroid Stimulating Hormone 0.506 uIU/ml (0.358-3.74)
[2016-12-14] MEDS: MORPHINE 2 MG/1 ML SYRINGE IV PRN ×2 (16:40→20:40)
[2016-12-14] MEDS: ACETAMINOPHEN 325 MG TABLET PO PRN (20:17)
[2016-12-14] MEDS: cefTRIAXone 1,000 MG in SODIUM CHLORIDE 0.9% 100 ML IV SCH (20:45)
[2016-12-15] MEDS: ALBUTEROL/IPRATROPIUM 3 ML NEB RESP TX SCH ×4 (00:27→19:23)
[2016-12-15] MEDS: methylPREDNISolone SOD SUC 40 MG/1 ML VIAL IV SCH ×2 (03:41→09:42)
[2016-12-15] MEDS: CLINDAMYCIN INJ 900 MG in PREMIX 1 EACH IV SCH ×2 (03:41→12:03)
[2016-12-15] MEDS: PANTOPRAZOLE 40 MG TABLET PO SCH (08:20)
--- NOTE | 2016-12-15 10:14 | Hospitalist Progress Note ---
Assessment and Plan (1) GERD (gastroesophageal reflux disease) Status: Acute Assessment and plan: Stable. He is presently being treated with pantoprazole. Current Visit: No (2) Pneumonia Status: Acute Assessment and plan: He was begun last night and intravenous clindamycin and ceftriaxone. He will probably require a minimum of 7 days of treatment. Current Visit: No Qualifiers: Pneumonia type: aspiration pneumonia (3) HTN (hypertension) Status: Chronic Current Visit: No Qualifiers: Hypertension type: essential hypertension Qualified Code(s): I10 - Essential (primary) hypertension (4) Acute exacerbation of chronic obstructive pulmonary disease Status: Acute Assessment and plan: He is comfortable at the present time. He is presently being treated with intravenous antibiotics, intravenous methylprednisolone, and albuterol ipratropium nebulizer treatments. Current Visit: No (5) Lumbar back pain Status: Acute Assessment and plan: He is receiving intravenous morphine as necessary. Current Visit: Yes Hospitalist: Subjective Interval history: Donita was hospitalized here with acute lower lobe pneumonia. He is being treated with intravenous clindamycin and ceftriaxone. He is not complaining of shortness of breath or chest pain. He has chronic low back pain for which he requests opiate analgesia. He was seen in consultation yesterday by pulmonary who is following him. Exam - Constitutional Vitals: Period Temp Pulse Resp BP Sys/Briceno Pulse Ox Last 24 Hr 96.2 F-98.8 F 69-102 12- 116-154/63-81 86-97 General appearance: no acute distress - Head Head exam: Present: normal inspection, normocephalic - Eye Eye exam: Present: EOMI Pupils: Present: ANAYELI - Neck Neck exam: Present: normal inspection - Respiratory Respiratory exam: Present: rhonchi - Cardiovascular Cardiovascular exam: Present: regular rate and rhythm - GI/Abdominal GI/Abdominal exam: Present: normal bowel sounds, soft, other (Nontender with no palpable masses or hepatosplenomegaly.) - Extremities Exam Extremities exam: Present: normal inspection - Back Exam Back exam: Present: normal inspection - Neurological Exam Neurological exam: Present: alert, oriented X3 - Psychiatric Psychiatric exam: Present: normal affect, normal mood - Skin Skin exam: Present: normal color, warm, dry Results - Labs CBC & BMP: 12/14/16 07:11 12/14/16 07:11 Quality Measures - Stroke Symptom Onset Unknown: No
--- NOTE | 2016-12-15 10:43 | Pulmonology Progress Note ---
Pulmonary - PN: Subj Interval history: This 86-year-old white male has COPD. He came in with probable bronchopneumonia. He is on antibiotics and steroids as well as bronchodilators. He is somewhat confused. I am concerned that there may be some steroid psychosis. Exam (Progress Note) - Constitutional Vitals: Period Temp Pulse Resp BP Sys/Briceno Pulse Ox Last 24 Hr 96.2 F-98.8 F 69-102 12-28 116-154/63-81 86-97 Exam: He is alert but confused. Vital signs normal. Oxygen saturation in the upper 90s on 50% Ventimask. ABGs look okay with no hypercarbia. Neck supple. Chest with a few rhonchi. He is not tight. Heart normal rate and rhythm no murmurs. Abdomen soft nontender no masses. Extremities no clubbing cyanosis edema. Calves nontender. Results - Labs CBC & BMP: 12/14/16 07:11 12/14/16 07:11 Lab Results: I have reviewed the past 24 hour labs Assessment and Plan (1) Bronchopneumonia Status: Acute Assessment and plan: Radiographically this does not look severe. Current Visit: No (2) COPD (chronic obstructive pulmonary disease) Status: Chronic Assessment and plan: ABGs acceptable but requiring a good bit of oxygen. He is on steroids and bronchodilators. Will reduce him from 40 mg every 6 hours of Solu-Medrol down to every 12 hours. Current Visit: Yes Qualifiers: COPD type: COPD with acute exacerbation Qualified Code(s): J44.1 - Chronic obstructive pulmonary disease with (acute) exacerbation (3) Barretts esophagus Status: Chronic Assessment and plan: Managed by GI. Current Visit: No
[2016-12-16] MEDS: ALBUTEROL/IPRATROPIUM 3 ML NEB RESP TX SCH ×4 (00:39→19:17)
[2016-12-16] MEDS: methylPREDNISolone SOD SUC 40 MG/1 ML VIAL IV SCH ×2 (01:49→09:07)
[2016-12-16] MEDS: MORPHINE 2 MG/1 ML SYRINGE IV PRN ×4 (01:50→18:16)
[2016-12-16] MEDS: CLINDAMYCIN INJ 900 MG in PREMIX 1 EACH IV SCH ×4 (01:52→20:42)
[2016-12-16] MEDS: cefTRIAXone 1,000 MG in SODIUM CHLORIDE 0.9% 100 ML IV SCH ×2 (03:04→22:04)
[2016-12-16] MEDS: PANTOPRAZOLE 40 MG TABLET PO SCH (09:07)
--- NOTE | 2016-12-16 09:29 | Pulmonology Progress Note ---
Pulmonary - PN: Subj Interval history: This 86-year-old white male has COPD. He came in with probable bronchopneumonia. He is on antibiotics and steroids as well as bronchodilators. He is somewhat confused. I am concerned that there may be some steroid psychosis. 12/16/2016 this 86-year-old man is in with an exacerbation of COPD and bronchopneumonia. He seems to be better with antibiotics and steroids. I think he may have had some steroid psychosis. His mental status is better with the reduced dose of Solu-Medrol. Each day 1 of come into his room he said his facemask oxygen off. I think he would be better with nasal biprong's. We just need an O2 sat in the upper 80s. Exam (Progress Note) - Constitutional Vitals: Period Temp Pulse Resp BP Sys/Briceno Pulse Ox Last 24 Hr 97.5 F-98.4 F 77-99 18-22 112-156/62-86 94-99 Exam: He is alert not confused today. Vital signs normal. ABGs look okay with no hypercarbia. Neck supple. Chest with a few rhonchi. He is not tight. Heart normal rate and rhythm no murmurs. Abdomen soft nontender no masses. Extremities no clubbing cyanosis edema. Calves nontender. Results - Labs CBC & BMP: 12/14/16 07:11 12/14/16 07:11 Lab Results: I have reviewed the past 24 hour labs Assessment and Plan (1) Bronchopneumonia Status: Acute Assessment and plan: Radiographically this does not look severe. 12/16/2016 continuing empiric antibiotics. Current Visit: No (2) COPD (chronic obstructive pulmonary disease) Status: Chronic Assessment and plan: ABGs acceptable but requiring a good bit of oxygen. He is on steroids and bronchodilators. Will reduce him from 40 mg every 6 hours of Solu-Medrol down to every 12 hours. 12/16/2016 try on lower dose of nasal oxygen hopefully he will wear it. Reducing steroids further because of mental status. Current Visit: Yes Qualifiers: COPD type: COPD with acute exacerbation Qualified Code(s): J44.1 - Chronic obstructive pulmonary disease with (acute) exacerbation (3) Barretts esophagus Status: Chronic Assessment and plan: Managed by GI. 12/16/2016 patient asking about having an EGD. Probably needs another couple of days to improve from a pulmonary standpoint before sedation for that. Current Visit: No
--- NOTE | 2016-12-16 10:50 | Hospitalist Progress Note ---
Assessment and Plan (1) GERD (gastroesophageal reflux disease) Status: Acute Assessment and plan: Stable. He is presently being treated with pantoprazole. Current Visit: No (2) Pneumonia Status: Acute Assessment and plan: He is being treated with intravenous clindamycin and ceftriaxone. He will probably require a minimum of 7 days of treatment. Current Visit: No Qualifiers: Pneumonia type: aspiration pneumonia (3) HTN (hypertension) Status: Chronic Current Visit: No Qualifiers: Hypertension type: essential hypertension Qualified Code(s): I10 - Essential (primary) hypertension (4) Acute exacerbation of chronic obstructive pulmonary disease Status: Acute Assessment and plan: He is comfortable at the present time. He is presently being treated with intravenous antibiotics, intravenous methylprednisolone, and albuterol ipratropium nebulizer treatments. Current Visit: No (5) Lumbar back pain Status: Acute Assessment and plan: He is receiving intravenous morphine as necessary. Current Visit: Yes Hospitalist: Subjective Interval history: Mr. Duckworth was hospitalized here with acute left lower lobe pneumonia. He is being treated with intravenous clindamycin and ceftriaxone. He is not complaining of shortness of breath or chest pain today. He states that he feels somewhat better. He is being followed by Dr. Nelson of pulmonary. Exam - Constitutional Vitals: Period Temp Pulse Resp BP Sys/Briceno Pulse Ox Last 24 Hr 97.5 F-98.4 F 77-99 18-22 112-162/62-86 94-99 General appearance: no acute distress - Head Head exam: Present: normal inspection, normocephalic - Eye Eye exam: Present: EOMI Pupils: Present: ANAYELI - Neck Neck exam: Present: normal inspection - Respiratory Respiratory exam: Present: rhonchi - Cardiovascular Cardiovascular exam: Present: regular rate and rhythm - GI/Abdominal GI/Abdominal exam: Present: normal bowel sounds, soft, other (Nontender with no palpable masses or hepatosplenomegaly.) - Extremities Exam Extremities exam: Present: normal inspection - Neurological Exam Neurological exam: Present: alert, oriented X3 - Psychiatric Psychiatric exam: Present: normal affect, normal mood - Skin Skin exam: Present: normal color, warm, dry Results - Labs CBC & BMP: 12/14/16 07:11 12/14/16 07:11 Quality Measures - Stroke Symptom Onset Unknown: No
[2016-12-17] MEDS: ALBUTEROL/IPRATROPIUM 3 ML NEB RESP TX SCH ×4 (00:39→20:00)
[2016-12-17] MEDS: MORPHINE 2 MG/1 ML SYRINGE IV PRN ×4 (02:03→21:13)
[2016-12-17] MEDS: CLINDAMYCIN INJ 900 MG in PREMIX 1 EACH IV SCH ×3 (03:21→21:16)
[2016-12-17 06:35] LABS: Basophils % 0.3 % (0.0-0.8); Hemoglobin 11.9 GM/DL (14.0-18.0); Immature Granulocytes Absolute 0.42 #; Lymphocytes # 1.8 10*3/uL (1.4-4.0); Mean Corpuscular HGB Conc 31.3 GM/DL (32-36); Mean Corpuscular Hemoglobin 26 PG (27-34); Mean Corpuscular Volume 81.4 FL (87-102); Mean Platelet Volume 9.1 FL (9.6-12.0); Monocytes % 9.5 % (1.7-12.7); Neutrophils # 7.3 10*3/uL (1.4-7.4); Neutrophils % 69.2 % (38.7-73.9); Platelet Count 288 T/CUMM (130-400); Red Blood Count 4.67 MC/CUMM (3.8-5.5); Red Cell Distribution Width 17.9 % (9.3-17.3); White Blood Count 10.6 T/CUMM (4-12)
[2016-12-17 07:01] LABS: Calcium 8.6 MG/DL (8.5-10.1); Osmolality,Calculated 276.7 MOS/KG (273-304); Potassium 4.7 MMOL/L (3.5-5.1)
--- NOTE | 2016-12-17 09:04 | Hospitalist Progress Note ---
Assessment and Plan (1) Bronchopneumonia Status: Acute Assessment and plan: Impression: 1. Pneumonia 2. COPD with acute exacerbation 3. Chronic low back pain Plan: Continue current therapy. He appears to be about ready to go home from the standpoint of pneumonia. He says that his back is no better despite numerous interventions over the past couple of months. He could certainly receive PT at the residential where he resides. I will get PT to evaluate while he is here. Awaiting further recommendations from pulmonary. This note was completed using [employer] voice recognition software. There may be information technology manager errors as a result. Current Visit: No Hospitalist: Subjective Interval history: Follow-up for pneumonia, COPD with acute exacerbation, and low back pain. The patient continues with a productive cough. He describes white sputum without hemoptysis. Sputum cultures growing yeast. I suspect this is oral colonization. He reports a long history of back pain ever since an injury about 6 or 7 years ago. He reports that he fell about 2 months ago and injured his back. He has since received an epidural steroid, kyphoplasty, and rhizotomy. He reports that the pain continues. He describes the location as mid scapular all the way down to the tip of his spine. He says that the pain is constant. There are no exacerbating or relieving factors. Exam - Constitutional Vitals: Period Temp Pulse Resp BP Sys/Briceno Pulse Ox Last 24 Hr 97.6 F-98.8 F 57-91 16-25 120-165/61-82 24-99 Vital signs are noted above. Heart is regular with distant tones and no murmur. He has a prolonged expiratory phase with expiratory wheezes. I do not hear any rales. Results - Labs CBC & BMP: 12/17/16 06:09 12/17/16 06:09 Lab Results: I have reviewed the past 24 hour labs Quality Measures - Stroke Symptom Onset Unknown: No
[2016-12-17] MEDS: methylPREDNISolone SOD SUC 40 MG/1 ML VIAL IV SCH (09:17)
[2016-12-17] MEDS: PANTOPRAZOLE 40 MG TABLET PO SCH (09:17)
--- NOTE | 2016-12-17 09:45 | XRay Report ---
XR chest 1V portable Indication: Pneumonia. Chest one view: Comparison 12/13/2016. Lungs remain hypoinflated with continued obscuration of the left hemidiaphragm medially. Branching kyphoplasty cement within the pulmonary arteries, multiple levels of thoracic kyphoplasty, cardiomegaly and tortuous calcification of thoracic aorta are stable. No new infiltrates are identified. Impression: No change. PROCEDURE INTERPRETED AT [facility] DEPARTMENT OF RADIOLOGY Final Report Signed by: Taye Macias M.D.
--- NOTE | 2016-12-17 10:50 | Pulmonology Progress Note ---
Pulmonary - PN: Subj Interval history: This 86-year-old white male. I saw him in pulmonary consultation 12/14/2016. I felt his main problems were #1: Possible acute left lower lung pneumonia #2: Acute altered mental status #3: Long history of recurrent pneumonias #4: GERD with hx of esophageal stricture. Note, EGD with dilatation was done by Dr. Perez. #5: Hx of multiple compression fractures of the thoracic spine #6: Esophageal motility dysfunction #7: Hypertension #8: Hx of lower GI bleed #9: COPD #10: See past history 12/17/2016. Today's chest x-ray is clear. He appears to have a small apical cardiac fat pad and a small scar interstitial in character in the lingula. His sputum is growing a gram-positive cocci and a light growth of Samreen albicans. ID and sensitivities are pending. Labs been reviewed. White count is dropped to 10,600 with 69 segs. Thyroid function tests are normal. Ammonia level on 12/14/2016 was 41 natruretic peptide was 70. Patient's on Solu-Medrol 40 mg IV push every 24 hours, clindamycin, and Rocephin. When he gets ready to go home I would recommend methylprednisolone 4 mg twice daily (first thing in the morning and around noon) for 10 days and then 4 mg p.o. every morning for 10 days and then 4 mg every other day for 10 doses. Discharge antibiotics should be Cleocin 300 mg 3 times a day for 7 days and Ceftin 500 twice daily for 7 days Physical exam. Vital signs see below Psychiatric oriented 3 Face. Symmetrical. Neck. Symmetrical. No meningismus Lymphatics. No submandibular cervical supraclavicular or epitrochlear Chest. Fairly clear Heart no gallop Abdomen. Obese. Nontender. Positive bowel sounds Lower extremities. Nothing to suggest deep venous thrombophlebitis. The remainder the physical exam is noncontributory. Plan: #1. See my note 12/17/2069 Exam (Progress Note) - Constitutional Vitals: Period Temp Pulse Resp BP Sys/Briceno Pulse Ox Last 24 Hr 97.6 F-98.8 F 57-91 16-25 120-165/61-84 24-99 Results - Labs CBC & BMP: 12/17/16 06:09 12/17/16 06:09
[2016-12-17] MEDS: cefTRIAXone 1,000 MG in SODIUM CHLORIDE 0.9% 100 ML IV SCH (21:51)
[2016-12-18] MEDS: ALBUTEROL/IPRATROPIUM 3 ML NEB RESP TX SCH ×4 (01:22→19:05)
[2016-12-18] MEDS: MORPHINE 2 MG/1 ML SYRINGE IV PRN ×3 (03:56→13:46)
[2016-12-18] MEDS: CLINDAMYCIN INJ 900 MG in PREMIX 1 EACH IV SCH ×3 (03:56→21:29)
[2016-12-18] MEDS: ACETAMINOPHEN 325 MG TABLET PO PRN (07:35)
--- NOTE | 2016-12-18 08:11 | Hospitalist Progress Note ---
Assessment and Plan (1) Bronchopneumonia Status: Acute Assessment and plan: Impression: 1. Pneumonia 2. COPD with acute exacerbation 3. Chronic low back pain Plan: Consult with his pain management physician. If they can see him in the hospital , we will await their recommendations. If not, I will discharge him back to the care home, and he can follow-up with pain management as an outpatient. Regardless, he can continue physical therapy at the care home. This note was completed using [employer] voice recognition software. There may be baggage handling supervisor errors as a result. Current Visit: No Hospitalist: Subjective Interval history: Follow-up pneumonia, COPD with acute exacerbation, and low back pain. Pulmonary saw the patient yesterday, and recommended discharge antibiotics and steroids. The patient's main complaint today is chronic low back pain. As outlined in yesterday's note, he has had numerous procedures. His back pain persists. He has requested that we call his pain management physician prior to discharge. I told the patient that we would enter the consult, and that whether he was discharged or not would be dependent on whether or not pain management can see him in the hospital. He is agreeable with that plan. Exam - Constitutional Vitals: Period Temp Pulse Resp BP Sys/Briceno Pulse Ox Last 24 Hr 97.3 F-99.1 F 70-98 18-24 143-164/76-92 93-99 Vital signs are noted above. Heart is regular with no murmur or gallop. He has some scattered expiratory wheezes in the chest. He is awake and alert. Results - Labs CBC & BMP: 12/17/16 06:09 12/17/16 06:09 Quality Measures - Stroke Symptom Onset Unknown: No
[2016-12-18] MEDS: methylPREDNISolone SOD SUC 40 MG/1 ML VIAL IV SCH (08:30)
[2016-12-18] MEDS: PANTOPRAZOLE 40 MG TABLET PO SCH (08:30)
--- NOTE | 2016-12-18 10:12 | Pulmonology Progress Note ---
Pulmonary - PN: Subj Interval history: This 86-year-old white male. I saw him in pulmonary consultation 12/14/2016. I felt his main problems were #1: Possible acute left lower lung pneumonia #2: Acute altered mental status #3: Long history of recurrent pneumonias #4: GERD with hx of esophageal stricture. Note, EGD with dilatation was done by Dr. Perez. #5: Hx of multiple compression fractures of the thoracic spine #6: Esophageal motility dysfunction #7: Hypertension #8: Hx of lower GI bleed #9: COPD #10: See past history 12/17/2016. Today's chest x-ray is clear. He appears to have a small apical cardiac fat pad and a small scar interstitial in character in the lingula. His sputum is growing a gram-positive cocci and a light growth of Samreen albicans. ID and sensitivities are pending. Labs been reviewed. White count is dropped to 10,600 with 69 segs. Thyroid function tests are normal. Ammonia level on 12/14/2016 was 41 natruretic peptide was 70. Patient's on Solu-Medrol 40 mg IV push every 24 hours, clindamycin, and Rocephin. When he gets ready to go home I would recommend methylprednisolone 4 mg twice daily (first thing in the morning and around noon) for 10 days and then 4 mg p.o. every morning for 10 days and then 4 mg every other day for 10 doses. Discharge antibiotics should be Cleocin 300 mg 3 times a day for 7 days and Ceftin 500 twice daily for 7 days 12/18/2016. I have reviewed Dr. Barry Grimaldo's note and I agree 100%. Patient has back pain. He is refused treatment in the past. He is to be seen by pain medicine today. His chest is much clearer. His sputum is growing an unidentified gram-positive cocci and also Samreen albicans. See my note 2016 for post hospital treatment suggestions. Labs been reviewed. Reviewed. Physical exam. General. No apparent distress. Vital signs see below Psychiatric oriented 3 Face. Symmetrical. Neck. Symmetrical. No meningismus Lymphatics. No submandibular cervical supraclavicular or epitrochlear Chest. Fairly clear Heart no gallop Abdomen. Obese. Nontender. Positive bowel sounds Lower extremities. Nothing to suggest deep venous thrombophlebitis. The remainder the physical exam is noncontributory. Plan: #1. See my note 12/17/2016 and my note 12/18/2016 Exam (Progress Note) - Constitutional Vitals: Period Temp Pulse Resp BP Sys/Briceno Pulse Ox Last 24 Hr 97.3 F-99.1 F 66-98 18-24 143-164/76-92 93-99 Results - Labs CBC & BMP: 12/17/16 06:09 12/17/16 06:09
--- NOTE | 2016-12-18 10:43 | Pain Management Consult Note ---
Assessment and Plan (1) lumbar spinal stenosis Status: Acute Assessment and plan: We will go ahead and obtain MRI of the lumbar spine to determine further need for procedures Current Visit: No (2) Osteoporosis Status: Chronic Assessment and plan: MRI of the thoracic spine will be obtained today to evaluate for T12 compression fracture Current Visit: No History of Present Illness Chief complaint: Severe mid to low back pain History of present illness: Mr. Duckworth is a 86 year old male Patient well-known to me with history of lumbar spondylosis and osteoporosis. I have done multiple kyphoplasty procedures in the thoracic and lumbar spine. A couple months ago he had acute T12 compression fracture repair could not have the kyphoplasty done due to multiple hospitalization. [facility] Patient is currently in the hospital and request to get further treatment done for intractable pain in the thoracic and lumbar spine. Home Medications Medication Instructions Recorded Confirmed Type Acetaminophen Tab [Tylenol Tab] 650 mg PO Q6H PRN 10/25/16 12/14/16 History Calcium Carbonate Chew [Tums] 1 tablet PO Q8H 10/25/16 12/14/16 History Cyanocobalamin (Vitamin B-12) 1,000 mcg IJ Q30D 10/25/16 12/14/16 History [Cyanocobalamin Injection] Dexlansoprazole [Dexilant] 60 mg PO DAILY 10/25/16 12/14/16 History Docusate Sodium Cap [Colace Cap] 100 mg PO BID 10/25/16 12/14/16 History Loratadine [Claritin] 10 mg PO BEDTIME 10/25/16 12/14/16 History Magnesium Oxide 400 mg PO BID 10/25/16 12/14/16 History Meclizine [Antivert] 25 mg PO TID 10/25/16 12/14/16 History Megestrol Acetate [Megace] 400 mg PO BID 10/25/16 12/14/16 History Metoprolol Tartrate 25 mg PO BID 10/25/16 12/14/16 History Montelukast Tab [Singulair Tab] 10 mg PO BEDTIME 10/25/16 12/14/16 History Polyethylene Glycol Powder 17 gm PO DAILY PRN 10/25/16 12/14/16 History [Miralax] Polyvinyl Alcohol 1.4% Oph Marylou 1 drop BOTH EYES QID PRN 10/25/16 12/14/16 History [Artificial Tears Oph Soln] Simvastatin 5 mg PO BEDTIME 10/25/16 12/14/16 History Tamsulosin [Flomax] 0.4 mg PO DAILY 10/25/16 12/14/16 History amLODIPine [Norvasc] 5 mg PO BID 10/25/16 12/14/16 History methylPREDNISolone 4 mg PO BID 10/25/16 12/14/16 History [Methylprednisolone] Oxycodone HCl/Acetaminophen 1 each PO Q8HR 12/06/16 12/14/16 History [Percocet 10-325 mg Tablet] Albuterol/Ipratropium Neb [Duoneb] 3 ml RESP TX RT Q4H PRN 12/11/16 12/14/16 History HydrOXYzine PAMOATE CAP [Vistaril 25 mg PO Q6HR PRN 12/11/16 12/14/16 History Cap] Phenyleph/Mineral Oil/Petrolat 1 applic TOP Q4HR PRN 12/11/16 12/14/16 History [Preparation H Ointment] Pramoxine 1% Rectal Foam 1 applic TOP Q8HR PRN 12/11/16 12/14/16 History [Proctofoam 1% Foam] Allergies Allergy/AdvReac Type Severity Reaction Status Date / Time lisinopril Allergy Unknown RASH Verified 12/13/16 21:57 carvedilol [From Coreg] Allergy RASH Verified 12/13/16 21:57 hydrochlorothiazide Allergy RASH Verified 12/13/16 21:57 metoclopramide [From Reglan] Allergy Unknown/Unable Verified 12/13/16 21:57 to obtain propoxyphene Allergy RASH Verified 12/13/16 21:57 [From Darvocet-N] Sulfa (Sulfonamide Allergy RASH Verified 12/13/16 21:57 Antibiotics) tramadol Allergy RASH Verified 12/13/16 21:57 aspirin AdvReac Intermediate Gastrointestinal Verified 12/13/16 21:57 Upset rofecoxib [From Vioxx] AdvReac Intermediate Gastrointestinal Verified 12/13/16 21:57 Upset Medical,Surgical,& Family Hx - Medical History Cardio: History of: Cardiac Dysrhythmia (Hx: A. Fib), CAD, Hypertension, Cardiovascular Problems (ASHD) No history of: NE, Pacemaker Neurology: History of: Dementia, Peripheral Neuropathy, Vertigo No history of: Seizures HEENT: History of: HEENT Problems (zoster, right side of face) Endocrine: History of: Dyslipidemia No history of: Diabetes Mellitus (NIDDM) Rheumatology: History of;: Rheumatoid Arthritis, Rheumatological Problems Respiratory: History of: COPD, Pneumonia (x12 times since 2010), Respiratory Problems (Bronchospastic Disease) No history of: Obstructive Sleep Apnea Genitourinary: History of: Prostate Problems (enlarged), Problems (r/t enlarged prostate) Gastrointestinal: History of: GERD, Polyps (Colon and Gastric), GI Problems ( esophageal stricture, Sena's esophagus, erosive gastritis, hiatal hernia) Musculoskeletal: History of: Back/Neck Problems (chronic back pain ), Musculoskeletal Problems (wedge comp. fx t11, t12; DJD) No history of: Amputation Hematology: History of: Anemia (Pernicious) No history of: Blood Transfusion Reaction Other: History of: Skin Problems (marylou 2013) No history of: Anesthesia Reactions, Cancer - Surgical History Cardiac Surgeries: Patient Denies: Cardiac Catheterization, Cardiac Surgery Thoracic Surgeries: Patient denies;: Kidney (Renal Surgery), Lithotripsy, Nephrectomy HEENT Surgeries: Surgical HX of: Eye Surgery (cataract) Patient denies: Tonsilectomy & Adenoidectomy Abdominal Surgeries: Surgical HX of: Abdominal Surgery, Appendectomy, Colonoscopy, EGD Patient denies: Cholecystectomy, Gastric Bypass Surgery, Hernia Repair Reproductive Surgeries: Surgical HX of;: Cystoscopy (HE THINKS MAY HAVE HAD), Genitourinary Surgery Patient denies;: Prostate Surgery Orthopedic Surgeries: Surgical HX of;: Orthopedic Surgery (ankles, wrist, back, neck), Spinal Surgery (kypoplasty) Patient denies;: Implanted Devices - Family History Family History: Reports;: Family Cancer (Brother (lung)), Family Diabetes ( Mother), Family Heart Disease (Mother), Family Hypertension (Mother), Family Stroke Denies;: Family Anesthesia Reaction, Family Psychiatric Problems - Social History Smoking Status: Unknown if ever smoked Frequency of Alcohol Use: None Type of Drug Use: None Quality Measures - Stroke Symptom Onset Unknown: No 12 point system: reviewed and no additional remarkable complaints except as stated Exam - Constitutional Vitals: Period Temp Pulse Resp BP Sys/Briceno Pulse Ox Last 24 Hr 97.3 F-99.1 F 66-98 18-24 143-164/76-92 93-99 General appearance: mild distress - Head Head exam: Present: normal inspection - Eye Eye exam: Present: EOMI Pupils: Present: ANAYELI - ENT ENT exam: Present: normal exam Ear exam: Present: intact Mouth exam: Present: normal external inspection - Neck Neck exam: Present: normal inspection - Respiratory Respiratory exam: Present: clear to auscultation bilaterally - Cardiovascular Cardiovascular exam: Present: RRR - GI/Abdominal GI/Abdominal exam: Present: normal bowel sounds - Extremities Exam Extremities exam: Present: normal inspection - Back Exam Back exam: Present: vertebral tenderness - Neurological Exam Neurological exam: Present: alert, oriented X3, abnormal gait - Skin Skin exam: Present: normal color Results - Labs CBC & BMP: 12/17/16 06:09 12/17/16 06:09 Lab Results: I have reviewed the past 24 hour labs
--- NOTE | 2016-12-18 13:52 | Magnetic Resonance Report ---
Exam: MRI thoracic spine without contrast Date: December 18, 2016 Comparison: MRI thoracic spine June 27, 2016 Reason: Degenerative disc disease of the thoracic spine, mid back pain, T12 compression fracture Technique: MRI of the thoracic spine was performed without the use of contrast. Obtained sequences include sagittal T2, sagittal T1, sagittal STIR, axial T2 and axial T1 sequences. A 1.5 Crys magnet was used. Findings: There is again a severe remote compression fracture of T5 with kyphoplasty/vertebroplasty change. There is a recent compression fracture of T6 with edema within the vertebral body and approximately 80% height loss, mainly at the inferior endplate and anteriorly. No significant retropulsion is seen. There is also a severe compression fracture of T7 with kyphoplasty/vertebroplasty change. There is mild edema within the T7 vertebral body, which suggests that this could be acute or subacute. There is mild retropulsion at the posterior aspect of the superior endplate of T7 (0.3 cm). There is again a moderate compression fracture of T8. There is mild edema within the T8 vertebral body and slight progression of height loss, suggesting a recent component. No significant retropulsion is seen. There is also minimal recent compression fracture at the superior plate of T9. There is a moderate remote compression fracture of T12, involving the superior and inferior endplates. Kyphoplasty/vertebroplasty change is present. There has been interval progression of height loss and retropulsion (0.35 cm compared to 0.2-0.3 cm previously). There is edema in the region of the right transverse process of T8. This could represent a nondisplaced fracture or osseous lesion. Correlation with CT is recommended There is multilevel disc desiccation, mild to moderate disc space narrowing and mild endplate degenerative change at the thoracic spine. There is also kyphosis at the upper thoracic spine. The retropulsion at the T7 compression fracture abuts the anterior aspect of the spinal cord at T7-T8, and the retropulsion at T12 slightly effaces the anterior CSF sleeve. However, no significant spinal canal stenosis is seen at any thoracic level. Evaluation of the neuroforamina is limited. The visualized spinal cord demonstrates normal signal. Degenerative change is noted at the cervical spine. There is a partially visualized right renal cyst. Impression: 1. There is a severe recent compression fracture of T6 but no significant retropulsion. 2. There is kyphoplasty/vertebroplasty change and height loss at the T7 vertebral body. Edema is seen within the T7 vertebra, and this compression fracture may be recent. 3. There is again kyphoplasty/vertebroplasty change and anterior wedging of the T8 vertebral body. There is slight progression of height loss at the T8 compression fracture as well as mild edema, suggesting a recent component. 4. There is minimal height loss and edema at the superior endplate of the T9, suggesting a minimal recent compression fracture. 5. There is moderate compression fracture at T12 with kyphoplasty/vertebroplasty change. Height loss and retropulsion at this level has slightly progressed since June 27, 2016. There is also a stable severe compression fracture of T5 with kyphoplasty/vertebroplasty change. 6. Edema is now seen in the region of the right transverse process of T8. This could reflect a nondisplaced fracture or osseous lesion. Correlation with CT is recommended. 7. Multilevel degenerative change at the thoracic spine as above. There is retropulsion of some of the vertebra but no significant spinal canal stenosis. The neural foramina are not well evaluated. PROCEDURE INTERPRETED AT [facility] DEPARTMENT OF RADIOLOGY Final Report Signed by: Dr. Tanya Young
--- NOTE | 2016-12-18 14:10 | Magnetic Resonance Report ---
Referring physician: Barry Fernandes MD Exam: MRI lumbar spine without contrast Date: December 18, 2016 Comparison: MRI lumbar spine June 27, 2016, MRI lumbar spine December 18, 2016 Reason: Degenerative disc disease lumbosacral spine, low back pain, compression fractures Technique: MRI of the lumbar spine was performed without the use of contrast. Imaging sequences include sagittal T1, sagittal T2, sagittal STIR, axial T1 and axial T2 sequences. A 1.5 Crys magnet was used. Findings: There is a transitional vertebra at the lumbosacral junction. The last lumbar type vertebral body will be labeled S1, in keeping with the previous MRI of the lumbar spine and MRI of the thoracic spine performed today. There is a moderate compression fracture of T12 with kyphoplasty/vertebroplasty and retropulsion. Please see the MRI of the thoracic spine performed today for further details. There is also a mild remote compression fracture of L5 with kyphoplasty/vertebroplasty change. No acute compression fracture is identified at the lumbar spine. There is multilevel disc desiccation. Endplate degenerative change and mild to moderate disc space narrowing are seen at L2-L3 and L5-S1, and there is mild disc space narrowing at L4-L5. Sagittal alignment is within normal limits The visualized spinal cord is unremarkable, and the conus ends at L1. At T12-L1, no spinal canal stenosis or neuroforaminal narrowing is identified. At L1-L2, there is a minimal diffuse posterior disc bulge. No spinal canal stenosis or neuroforaminal narrowing is seen. At L2-L3, there is a diffuse posterior disc bulge and minimal bilateral facet arthropathy. No significant spinal canal stenosis or neuroforaminal narrowing is seen. At L3-L4, there is minimal bilateral facet arthropathy and a questionable minimal diffuse posterior disc bulge. No spinal canal stenosis or neuroforaminal narrowing is seen. At L4-L5, there is a posterior disc bulge which is slightly asymmetric to the left. There is also minimal posterior marginal spurring and mild bilateral facet arthropathy. No spinal canal stenosis is present, but there is mild left neuroforaminal narrowing. At L5-S1, there is a diffuse posterior disc bulge, minimal posterior marginal spurring and mild bilateral facet arthropathy. No significant spinal canal stenosis is seen, but there is moderate left neuroforaminal narrowing. The paravertebral soft tissue structures are unremarkable. The abdominal aorta is slightly ectatic, measuring 2.6 cm in diameter. Impression: 1. There is a transitional segment at the lumbosacral junction. It was labeled S1 for the purposes of this study, in keeping with the MRI of the thoracic spine performed today. 2. No acute compression fracture is identified at the lumbar spine. There is a mild remote compression fracture at L5 with no significant retropulsion. It was labeled L4 on some prior studies due to a transitional segment at the lumbosacral junction 3. Degenerative change at the lumbar spine as above, similar to before. PROCEDURE INTERPRETED AT [facility] DEPARTMENT OF RADIOLOGY Final Report Signed by: Dr. Tanya Young
--- NOTE | 2016-12-18 15:28 | Event Note ---
Acute T6 compression fracture seen on recent MRI I will discuss with the primary about possibly doing a kyphoplasty this admission
[2016-12-18] MEDS: cefTRIAXone 1,000 MG in SODIUM CHLORIDE 0.9% 100 ML IV SCH (22:05)
[2016-12-19] MEDS: ALBUTEROL/IPRATROPIUM 3 ML NEB RESP TX SCH ×4 (00:30→19:23)
[2016-12-19] MEDS: MORPHINE 2 MG/1 ML SYRINGE IV PRN ×4 (02:14→20:47)
[2016-12-19] MEDS: CLINDAMYCIN INJ 900 MG in PREMIX 1 EACH IV SCH ×3 (04:41→20:40)
[2016-12-19] MEDS: ACETAMINOPHEN 325 MG TABLET PO PRN (04:51)
--- NOTE | 2016-12-19 05:59 | Pain Management Progress Note ---
Assessment and Plan (1) lumbar spinal stenosis Status: Acute Assessment and plan: We will go ahead and obtain MRI of the lumbar spine to determine further need for procedures Current Visit: No (2) Osteoporosis Status: Chronic Assessment and plan: MRI of the thoracic spine will be obtained today to evaluate for T12 compression fracture 5/3 if okay with primary and Dr. Schaefer would like to proceed with T6 kyphoplasty later this afternoon Current Visit: No Pain - Subjective Interval history: Still complaining of severe pain in the upper thoracic area. MRI thoracic spine yesterday shows acute T6 compression fracture. I believe due to the severe pain and patient request it is appropriate to proceed with T6 kyphoplasty later today Exam - Constitutional Vitals: Period Temp Pulse Resp BP Sys/Briceno Pulse Ox Last 24 Hr 97.1 F-99.1 F 66-101 18-24 131-162/71-92 94-100 General appearance: mild distress - Head Head exam: Present: normal inspection - Eye Eye exam: Present: EOMI Pupils: Present: ANAYELI - ENT ENT exam: Present: normal exam Ear exam: Present: intact Mouth exam: Present: normal external inspection - Neck Neck exam: Present: normal inspection - Respiratory Respiratory exam: Present: accessory muscle use, decreased breath sounds - Cardiovascular Cardiovascular exam: Present: RRR - GI/Abdominal GI/Abdominal exam: Present: normal bowel sounds - Back Exam Back exam: Present: vertebral tenderness (Patient is tender around T6 area) - Neurological Exam Neurological exam: Present: abnormal gait - Skin Skin exam: Present: normal color Results - Labs CBC & BMP: 12/17/16 06:09 12/17/16 06:09 Lab Results: I have reviewed the past 24 hour labs Quality Measures - Stroke Symptom Onset Unknown: No
[2016-12-19] MEDS ORDERED: ceFAZolin 2,000 MG in PREMIX 1 EACH IV ONE (06:00)
--- NOTE | 2016-12-19 08:17 | Hospitalist Progress Note ---
Assessment and Plan (1) Bronchopneumonia Status: Acute Assessment and plan: Impression: 1. Pneumonia 2. COPD with acute exacerbation 3. Chronic low back pain with acute T6 compression fracture. Plan: He is going to receive kyphoplasty today. Will await further direction from pain management regarding discharge planning. He would benefit from an antiresorptive agent. There are lots of options. This note was completed using [employer] voice recognition software. There may be director of distance learning errors as a result. Current Visit: No Hospitalist: Subjective Interval history: Follow-up COPD with acute exacerbation, pneumonia, and back pain. Pain management saw the patient yesterday, and got an MRI of the T-spine and L- spine. He apparently has some acute compression injuries. The most severe is at T6, and they are planning on kyphoplasty today. The patient has received numerous rounds of steroids for his COPD, and would likely benefit from some sort of antiresorptive agent. He is going to discuss this with his primary care physician. Depending on pain management recommendations, he should be able to go back to the long term today or tomorrow following the kyphoplasty. Exam - Constitutional Vitals: Period Temp Pulse Resp BP Sys/Briceno Pulse Ox Last 24 Hr 97.1 F-98 F 72-103 20-23 131-178/71-94 92-100 Vital signs are noted above. Examination reveals some expiratory wheezes, and a prolonged expiratory phase. Heart is regular with distant tones and no murmur. He is awake and alert. Results - Labs CBC & BMP: 12/17/16 06:09 12/17/16 06:09 Quality Measures - Stroke Symptom Onset Unknown: No
[2016-12-19] MEDS: PANTOPRAZOLE 40 MG TABLET PO SCH (08:56)
[2016-12-19] MEDS: methylPREDNISolone SOD SUC 40 MG/1 ML VIAL IV SCH (08:56)
--- NOTE | 2016-12-19 09:36 | Pulmonology Progress Note ---
Pulmonary - PN: Subj Interval history: This 86-year-old white male. I saw him in pulmonary consultation 12/14/2016. I felt his main problems were #1: Possible acute left lower lung pneumonia #2: Acute altered mental status #3: Long history of recurrent pneumonias #4: GERD with hx of esophageal stricture. Note, EGD with dilatation was done by Dr. Perez. #5: Hx of multiple compression fractures of the thoracic spine #6: Esophageal motility dysfunction #7: Hypertension #8: Hx of lower GI bleed #9: COPD #10: See past history 12/17/2016. Today's chest x-ray is clear. He appears to have a small apical cardiac fat pad and a small scar interstitial in character in the lingula. His sputum is growing a gram-positive cocci and a light growth of Samreen albicans. ID and sensitivities are pending. Labs been reviewed. White count is dropped to 10,600 with 69 segs. Thyroid function tests are normal. Ammonia level on 12/14/2016 was 41 natruretic peptide was 70. Patient's on Solu-Medrol 40 mg IV push every 24 hours, clindamycin, and Rocephin. When he gets ready to go home I would recommend methylprednisolone 4 mg twice daily (first thing in the morning and around noon) for 10 days and then 4 mg p.o. every morning for 10 days and then 4 mg every other day for 10 doses. Discharge antibiotics should be Cleocin 300 mg 3 times a day for 7 days and Ceftin 500 twice daily for 7 days 12/18/2016. I have reviewed Dr. Barry Grimaldo's note and I agree 100%. Patient has back pain. He is refused treatment in the past. He is to be seen by pain medicine today. His chest is much clearer. His sputum is growing an unidentified gram-positive cocci and also Samreen albicans. See my note 2016 for post hospital treatment suggestions. Labs been reviewed. Reviewed. 12/19/2016. I agree with Dr. parnell is plan for T6 kyphoplasty today. Patient informed me today that there are medicines that he could take to help prevent osteoporosis with compression fractures while on steroids. I reminded him that we have to probably talk about this more than 20 times in the office and it each time he is declined to give this a try, say unless not do that right now. He says, "that sounds like me".. I told him if he has any questions about it I have it documented. I previously proposed to the patient that he start with a small dose of Fosamax such as 35 mg once a week since he has severe gastroesophageal reflux. I told him if he went a month without any joint complications of this medicine we could go with Prolia every 6 months. Physical exam. General. No apparent distress. Vital signs see below Psychiatric oriented 3 Face. Symmetrical. Neck. Symmetrical. No meningismus Lymphatics. No submandibular cervical supraclavicular or epitrochlear Chest. Fairly clear Heart no gallop Abdomen. Obese. Nontender. Positive bowel sounds Lower extremities. Nothing to suggest deep venous thrombophlebitis. The remainder the physical exam is noncontributory. Plan: #1. See my note 12/17/2016 and my note 12/18/2016 2. See my note 12/19/2016. I think we should proceed with kyphoplasty. Certainly wholeheartedly endorse a trial of Fosamax as outlined above Exam (Progress Note) - Constitutional Vitals: Period Temp Pulse Resp BP Sys/Briceno Pulse Ox Last 24 Hr 97.1 F-98 F 72-103 20-23 131-178/71-94 92-100 Results - Labs CBC & BMP: 12/17/16 06:09 12/17/16 06:09
[2016-12-19] MEDS ORDERED: ceFAZolin 1,000 MG VIAL ONE (15:35)
[2016-12-19] MEDS ORDERED: DEXAMETHASONE 4 MG/1 ML VIAL ONE (15:35)
[2016-12-19] MEDS ORDERED: TISSUE ADHESIVE 1 EACH APPLICATOR TOP ONE (16:22)
--- NOTE | 2016-12-19 16:38 | Operative Note ---
Date of procedure: 12/19/16 Pre-op diagnosis: Acute pathologic T6 compression fracture, Osteoporosis Post-op diagnosis: same Procedure: The procedure was a T6 kyphoplasty with an inflatable balloon tamp to reduce compression fracture under fluoroscopic guidance Informed consent was signed and patient was taken to the operating room and placed prone on the OR table with adequate padding. MAC anesthesia and Ancef 2 g were given. Sterile prep and drape was done and a timeout was called and procedure was started. Bilateral T6 pedicles were identified under fluoroscopic guidance. Local infiltration was 1% lidocaine 8 cc. Skin incisions were made in 14-gauge needle was placed through bilateral T6 pedicle into the anterior one third of T6 vertebral body. Inflatable balloon tamps were placed and inflated up to 6 cc each with dye inside the balloon to reduce compression fracture under fluoroscopic guidance. Bone cement was mixed in about 6 7-1/2 cc of cement was placed in the T6. Vertebral body with no leakage into the spinal epidural space. Needle was removed intact AP and lateral views pictures were saved in the system. Skin incision was closed with liquid adhesive and Steri-Strips and sterile dressings were applied. Patient had no known complications from the procedure Anesthesia: MAC Surgeon / Physician: Asher Hammond Estimated blood loss: none Specimens: none sent Condition: stable Disposition: floor Results - Labs CBC & BMP: 12/17/16 06:09 12/17/16 06:09 Discharge Plan - Discharge Medications No Action Cyanocobalamin (Vitamin B-12) [Cyanocobalamin Injection] 1,000 mcg IJ Q30D Megestrol Acetate [Megace] 400 mg PO BID Loratadine [Claritin] 10 mg PO BEDTIME Docusate Sodium Cap [Colace Cap] 100 mg PO BID Calcium Carbonate Chew [Tums] 1 tablet PO Q8H methylPREDNISolone [Methylprednisolone] 4 mg PO BID Simvastatin 5 mg PO BEDTIME Montelukast Tab [Singulair Tab] 10 mg PO BEDTIME Meclizine [Antivert] 25 mg PO TID Magnesium Oxide 400 mg PO BID Metoprolol Tartrate 25 mg PO BID Dexlansoprazole [Dexilant] 60 mg PO DAILY Tamsulosin [Flomax] 0.4 mg PO DAILY Acetaminophen Tab [Tylenol Tab] 650 mg PO Q6H PRN PRN Reason: Pain Polyethylene Glycol Powder [Miralax] 17 gm PO DAILY PRN PRN Reason: Constipation Pramoxine 1% Rectal Foam [Proctofoam 1% Foam] 1 applic TOP Q8HR PRN PRN Reason: Hemorrhoids HydrOXYzine PAMOATE CAP [Vistaril Cap] 25 mg PO Q6HR PRN PRN Reason: Anxiety Albuterol/Ipratropium Neb [Duoneb] 3 ml RESP TX RT Q4H PRN PRN Reason: Shortness Of Breath/Wheezing Phenyleph/Mineral Oil/Petrolat [Preparation H Ointment] 1 applic TOP Q4HR PRN PRN Reason: Hemorrhoids Polyvinyl Alcohol 1.4% Oph Marylou [Artificial Tears Oph Soln] 1 drop BOTH EYES QID PRN PRN Reason: Dry Eyes amLODIPine [Norvasc] 5 mg PO BID Oxycodone HCl/Acetaminophen [Percocet 10-325 mg Tablet] 1 each PO Q8HR - Follow Up or Referral - Forms/Instructions
[2016-12-19] MEDS ORDERED: fentaNYL 100 MCG/2 ML VIAL ONE (16:52)
[2016-12-19] MEDS ORDERED: PROPOFOL 200 MG/20 ML VIAL IV ONE (16:52)
[2016-12-19] MEDS ORDERED: MIDAZOLAM 2 MG/2 ML VIAL ONE (16:53)
--- NOTE | 2016-12-19 19:04 | Anesthesia Post-Op ---
Anesthesia Post OP - Post Ansesthetic Evaluation Patient seen in post op: Yes Resp: within normal limits CV: within normal limits Mental: within normal limits Temp: within normal limits [id number]: within normal limits Nausea and Vomiting: within normal limits Pain: within normal limits
[2016-12-19] MEDS: cefTRIAXone 1,000 MG in SODIUM CHLORIDE 0.9% 100 ML IV SCH (22:38)
[2016-12-20] MEDS: ALBUTEROL/IPRATROPIUM 3 ML NEB RESP TX SCH ×2 (00:20→06:52)
[2016-12-20] MEDS: MORPHINE 2 MG/1 ML SYRINGE IV PRN ×3 (00:27→09:18)
[2016-12-20] MEDS: CLINDAMYCIN INJ 900 MG in PREMIX 1 EACH IV SCH ×2 (03:25→11:06)
[2016-12-20] MEDS: ACETAMINOPHEN 325 MG TABLET PO PRN (04:30)
--- NOTE | 2016-12-20 06:11 | Pain Management Progress Note ---
Assessment and Plan (1) lumbar spinal stenosis Status: Acute Assessment and plan: We will go ahead and obtain MRI of the lumbar spine to determine further need for procedures Current Visit: No (2) Osteoporosis Status: Chronic Assessment and plan: MRI of the thoracic spine will be obtained today to evaluate for T12 compression fracture 12/19 if okay with primary and Dr. Schaefer would like to proceed with T6 kyphoplasty later this afternoon / ok to start ambulating and disposition to NC or acute care therapy Current Visit: No Pain - Subjective Interval history: he reports doing much better since the T6 kyphoplasty yesterday and is happpy with pain management plan Exam - Constitutional Vitals: Period Temp Pulse Resp BP Sys/Briceno Pulse Ox Last 24 Hr 97.6 F-98.1 F 75-88 16-35 122-175/61-89 92-98 General appearance: no acute distress - Head Head exam: Present: normal inspection - Eye Eye exam: Present: EOMI Pupils: Present: ANAYELI - ENT ENT exam: Present: normal exam Ear exam: Present: intact Mouth exam: Present: normal external inspection - Neck Neck exam: Present: normal inspection - Respiratory Respiratory exam: Present: decreased breath sounds - Cardiovascular Cardiovascular exam: Present: RRR - GI/Abdominal GI/Abdominal exam: Present: normal bowel sounds - Extremities Exam Extremities exam: Present: edema - Back Exam Back exam: Present: vertebral tenderness - Neurological Exam Neurological exam: Present: alert, oriented X3 - Skin Skin exam: Present: normal color Results - Labs CBC & BMP: 12/17/16 06:09 12/17/16 06:09 Lab Results: I have reviewed the past 24 hour labs Quality Measures - Stroke Symptom Onset Unknown: No
--- NOTE | 2016-12-20 08:12 | Discharge Summary ---
Hospital Course - Hospital Course Hospital Course: Discharge diagnosis: 1. COPD with acute exacerbation 2. Pneumonia 3. Acute thoracic spine compression, status post kyphoplasty The patient presented to the hospital with some respiratory complaints. He was found to have what appeared to be pneumonia. He also had a COPD exacerbation. He was seen by pulmonary. His symptoms improved with appropriate management. He continued to complain of some back pain. Pain management saw the patient. MRI of the thoracic spine showed a T6 compression fracture that appeared to be acute. He underwent kyphoplasty. Mobility is now poor due to recovery from the kyphoplasty. However, his pulmonary symptoms have now improved to the point that we can send him back to the [facility]. Medication reconciliation has been performed. He can resume his regular diet. Activity as tolerated. He will speak with his primary care physician regarding therapy for osteoporosis. This note was completed using [employer] voice recognition software. There may be restaurant line server errors as a result. Diagnosis - Discharge Diagnosis (1) Bronchopneumonia Status: Acute Discharge Plan - Discharge Data Disposition: Disch/Xfer to Snf Condition at Discharge: Stable Discharge Diet: advance to your usual diet Activity: resume usual activities as tolerated Hygiene: no restrictions Weight Bearing at Discharge: weight bear as tolerated - Discharge Medications Continue Cyanocobalamin (Vitamin B-12) [Cyanocobalamin Injection] 1,000 mcg IJ Q30D Megestrol Acetate [Megace] 400 mg PO BID Loratadine [Claritin] 10 mg PO BEDTIME Docusate Sodium Cap [Colace Cap] 100 mg PO BID Calcium Carbonate Chew [Tums] 1 tablet PO Q8H Simvastatin 5 mg PO BEDTIME Montelukast Tab [Singulair Tab] 10 mg PO BEDTIME Meclizine [Antivert] 25 mg PO TID Magnesium Oxide 400 mg PO BID Metoprolol Tartrate 25 mg PO BID Dexlansoprazole [Dexilant] 60 mg PO DAILY Tamsulosin [Flomax] 0.4 mg PO DAILY Acetaminophen Tab [Tylenol Tab] 650 mg PO Q6H PRN PRN Reason: Pain Polyethylene Glycol Powder [Miralax] 17 gm PO DAILY PRN PRN Reason: Constipation Pramoxine 1% Rectal Foam [Proctofoam 1% Foam] 1 applic TOP Q8HR PRN PRN Reason: Hemorrhoids HydrOXYzine PAMOATE CAP [Vistaril Cap] 25 mg PO Q6HR PRN PRN Reason: Anxiety Albuterol/Ipratropium Neb [Duoneb] 3 ml RESP TX RT Q4H PRN PRN Reason: Shortness Of Breath/Wheezing Phenyleph/Mineral Oil/Petrolat [Preparation H Ointment] 1 applic TOP Q4HR PRN PRN Reason: Hemorrhoids Polyvinyl Alcohol 1.4% Oph Marylou [Artificial Tears Oph Soln] 1 drop BOTH EYES QID PRN PRN Reason: Dry Eyes amLODIPine [Norvasc] 5 mg PO BID Oxycodone HCl/Acetaminophen [Percocet 10-325 mg Tablet] 1 each PO Q8HR methylPREDNISolone [Methylprednisolone] 4 mg PO BID 7 Days - Follow Up or Referral - Forms/Instructions Exam - Constitutional Vitals: Period Temp Pulse Resp BP Sys/Briceno Pulse Ox Last 24 Hr 97.6 F-98.3 F 74-88 16-35 133-175/79-89 92-99 He is sitting in a chair at the bedside. Heart is regular with distant tones and no murmur. He has some expiratory wheezes, and a prolonged expiratory phase. He is awake and alert DS: Provider Date of admission: 12/14/16 00:12 Primary care physician: Jayy Wiley MD Attending physician on admission: Josafat Stoll Consults: 12/14/16 02:42 Consult to Physician [CONS] Routine Comment: Consulting Provider: Santos Schaefer Consult to Specialist Group: Pulmonology When should Consulting Provider be notified: In am Person Notified: NIKOLAS Date Notified: 12/14/16 Time Notified: 07:31 12/18/16 08:07 Consult to Physician [CONS] Routine Comment: patient of yours with back pain Consulting Provider: Asher Hammond Consulting Provider Notified: No When should Consulting Provider be notified: Now Person Notified: GINETTE Date Notified: 12/18/16 Time Notified: 08:24 Discharging clinician: Barry Fernandes MD Expected date of discharge: 12/20/16
[2016-12-20] MEDS: methylPREDNISolone SOD SUC 40 MG/1 ML VIAL IV SCH (08:28)
[2016-12-20] MEDS: PANTOPRAZOLE 40 MG TABLET PO SCH (08:28)
[2016-12-20 09:36] VITALS: BP 148/95
--- NOTE | 2016-12-20 10:23 | Pulmonology Progress Note ---
Pulmonary - PN: Subj Interval history: Jayjay Yates, ANP-BC, GNP-BC, acting as scribe for Dr. Santos Schaefer This 86-year-old white male. We saw him in initial pulmonary consultation on . At that time, we felt his main problems were: #1: Possible acute left lower lung pneumonia #2: Acute altered mental status #3: Long history of recurrent pneumonias #4: GERD with hx of esophageal stricture. Note, EGD with dilatation was done by Dr. Perez. #5: Hx of multiple compression fractures of the thoracic spine #6: Esophageal motility dysfunction #7: Hypertension #8: Hx of lower GI bleed #9: COPD #10: See past history 12/17/2016. Today's chest x-ray is clear. He appears to have a small apical cardiac fat pad and a small scar interstitial in character in the lingula. His sputum is growing a gram-positive cocci and a light growth of Samreen albicans. ID and sensitivities are pending. Labs been reviewed. White count is dropped to 10,600 with 69 segs. Thyroid function tests are normal. Ammonia level on 12/14/2016 was 41 natruretic peptide was 70. Patient's on Solu-Medrol 40 mg IV push every 24 hours, clindamycin, and Rocephin. When he gets ready to go home I would recommend methylprednisolone 4 mg twice daily (first thing in the morning and around noon) for 10 days and then 4 mg p.o. every morning for 10 days and then 4 mg every other day for 10 doses. Discharge antibiotics should be Cleocin 300 mg 3 times a day for 7 days and Ceftin 500 twice daily for 7 days 12/18/2016. I have reviewed Dr. Barry Grimaldo's note and I agree 100%. Patient has back pain. He is refused treatment in the past. He is to be seen by pain medicine today. His chest is much clearer. His sputum is growing an unidentified gram-positive cocci and also Samreen albicans. See my note 2016 for post hospital treatment suggestions. Labs been reviewed. Reviewed. 12/19/2016. I agree with Dr. Hammond's plan for T6 kyphoplasty today. Patient informed me today that there are medicines that he could take to help prevent osteoporosis with compression fractures while on steroids. I reminded him that we have to probably talk about this more than 20 times in the office and it each time he is declined to give this a try, say unless not do that right now. He says, "that sounds like me". I told him if he has any questions about it I have it documented. I previously proposed to the patient that he start with a small dose of Fosamax such as 35 mg once a week since he has severe gastroesophageal reflux. I told him if he went a month without any joint complications of this medicine we could go with Prolia every 6 months. 12/20/2016. The patient underwent T6 kyphoplasty by Dr. Hammond yesterday. There were no complications from this. The patient states today his pain is markedly improved. He is able now to twist and move without any pain. From a pulmonary standpoint, the patient has remained stable. He denies any increased shortness of breath, dyspnea on exertion, or cough. He states that he is swallowing fine. Cold agglutinins were negative. Legionella was negative. Sputum culture has grown MRSA and Samreen albicans. Exam (Progress Note) - Constitutional Vitals: Period Temp Pulse Resp BP Sys/Briceno Pulse Ox Last 24 Hr 97.6 F-98.3 F 74-110 16-35 133-175/79-95 92-99 Exam: Chest is fairly clear in approximately the patient's baseline Heart no gallop Abdomen is obese but nontender and nondistended; bowel sounds are positive 4 Extremities with nothing to suggest acute deep venous thrombus phlebitis Psychiatric oriented 3 Neurologic long-term motor function is intact Plan: Your plans for discharge are noted. He will need short course of antibiotics at discharge secondary to light growth of MRSA on sputum culture. We have spoken with the patient's nurse, Larisa, and she will get in touch with Dr. Fernandes for any medication adjustments. It is our understanding that he is being transferred back to the assisted. We will sign off. Please reconsult as needed. Results - Labs CBC & BMP: 12/17/16 06:09 12/17/16 06:09 Specialty Discharge - Follow Up or Referrals
--- NOTE | 2016-12-21 08:29 | Physician Query Form ---
CLICK EDIT DOCUMENT TO SELECT QUERY ANSWER --> OK --> SIGN Joy Kimbrough RN, CCDS Certified Clinical [employer] Filler W) [phone] (f) [phone] [email or web address] PROVIDERS: Make your selection(s) from the choices in EACH section by typing an "x" and enter comments in the comment section. Please use your independent medical judgment in providing your response. This request does not imply that any particular answer is desired or expected. CLINICAL INDICATORS: (Providers should not edit this section) The medical record indicates that the patient was admitted with aspiration pneumonia, respiratory distress, "hypoxia", "Accessory muscle use, rales, other (Decrease breath sounds bilaterally)", RR 28# and the patient was treated with Venturi Mask @ about 15 liters for about 48 hours. If possible, please further clarify the type and acuity of respiratory diagnosis : ACUITY: ( x) Acute ( ) Chronic ( ) Acute on Chronic TYPE: ( ) Respiratory failure with hypoxia ( ) Respiratory failure with hypercapnia ( ) Respiratory Arrest ( ) Postprocedural/postoperative respiratory failure (x) Respiratory Insufficiency ( ) ARDS (Adult/Acute Respiratory Distress Syndrome) ( ) Other, please specify: ( ) Clinically unable to determine Recognized criteria for respiratory failure PH <7.35 or >7.45 PO2 <60 PCO2 >50 RR >24 O2 Sat <90% on RA or <95% on O2 Use of accessory muscles Unable to speak in full sentences Intubation is not required COMMENTS: Use of terms such as suspected, likely, or probable (associated with a specific diagnosis that is being evaluated, monitored, or treated as if it exists) are acceptable and can be restated in the discharge summary if not ruled out. MTDD
== END 2016-12-20 12:12 | disposition home or self-care (01) | DRG 982 ==
LOC: EDUNIT# → EDBD → N.ED 21:48 → N.EDINP 12-14 00:12 → SUATTDRO 12-14 00:12 → N.2E 12-14 03:50
PROVIDERS: ATTEND Internal Medicine Geriatric Medicine

== ENCOUNTER 2017-01-30 08:07 | Inpatient (IN) ==
[2017-01-30] MEDS ORDERED: ALBUTEROL/IPRATROPIUM 3 ML NEB RESP TX STA (08:41)
[2017-01-30] MEDS ORDERED: methylPREDNISolone SOD SUC 125 MG/2 ML VIAL IV STA (08:41)
[2017-01-30 08:49] LABS: Basophils % 0.5 % (0.0-0.8); Eosinophils # 0.4 10*3/uL (0.0-0.87); Eosinophils % 6.7 % (0.00-10.9); Hematocrit 35.7 VOL% (42.0-52.0); Hemoglobin 11.5 GM/DL (14.0-18.0); Immature Granulocytes % 0.5 %; Immature Granulocytes Absolute 0.03 #; Lymphocytes # 1.5 10*3/uL (1.4-4.0); Lymphocytes % 25.6 % (21.2-54.2); Mean Corpuscular HGB Conc 32.2 GM/DL (32-36); Mean Corpuscular Hemoglobin 27 PG (27-34); Mean Corpuscular Volume 82.8 FL (87-102); Mean Platelet Volume 9.1 FL (9.6-12.0); Monocytes # 0.5 10*3/uL (0.11-0.8); Monocytes % 8.1 % (1.7-12.7); Neutrophils # 3.4 10*3/uL (1.4-7.4); Neutrophils % 58.6 % (38.7-73.9); Platelet Count 169 T/CUMM (130-400); Red Blood Count 4.31 MC/CUMM (3.8-5.5); Red Cell Distribution Width 15.9 % (9.3-17.3); White Blood Count 5.8 T/CUMM (4-12)
[2017-01-30] MEDS ORDERED: methylPREDNISolone SOD SUC 125 MG/2 ML VIAL ONE (09:09)
--- NOTE | 2017-01-30 09:10 | XRay Report ---
Portable chest. Indication: Shortness of breath. Comparison: December 17, 2016. The heart is enlarged. Calcific plaque is present within the aortic knob. Aspirated barium is noted, chronic. Interstitial fibrosis is noted. There is mild atelectasis or fluid at the lateral aspect of the left lung base, improved from the previous. Previous vertebroplasty. Degenerative changes of the shoulders. Impression: Cardiomegaly. Chronic lung changes. Improved aeration of the left lung base. PROCEDURE INTERPRETED AT [facility] DEPARTMENT OF RADIOLOGY Final Report Signed by: Dr. Terrie Morrison
--- NOTE | 2017-01-30 09:16 | EKG Report ---
Stationary ECG Study [facility] ER Test Date: 01/30/2017 8:18:54 AM Pat Name: CARRI MELENDEZ Department: Room: Gender: M Care Navigator: : 1930 Requested by: Lance Pro Order Number: [id number] Reading MD: VICKI WREN Intervals [place] Rate: 87 P: 999 NM: 0 QRS: 249 QRSD: 166 T: 13 QT: 411 QTc: 455 Interpretive Statements ATRIAL FIBRILLATION MARKED RIGHT AXIS DEVIATION RIGHT BUNDLE BRANCH BLOCK Electronically Signed On 01-31-17 07:36:23 CDT by VICKI WREN [email or web address]
[2017-01-30 09:31] LABS: Alanine Aminotransferase 16 U/L (16-61); Albumin 3.3 G/DL (3.4-5.0); Alkaline Phosphatase 74 U/L (45-117); Aspartate Amino Transferase 14 U/L (0-37); Blood Urea Nitrogen 6 MG/DL (7-18); Calcium 9.1 MG/DL (8.5-10.1); Glucose 92 MG/DL (74-106); Osmolality,Calculated 278.3 MOS/KG (273-304); Potassium 3.8 MMOL/L (3.5-5.1); Sodium 141 MMOL/L (136-145); Total Protein 6.2 G/DL (6.4-8.3); Troponin I Only < 0.015 NG/ML (0.00-0.045)
--- NOTE | 2017-01-30 09:47 | Emergency Department Note ---
Natalya Muir Mantricia, am scribing for, and in the presence of, Lance Yang MD 08:49. Celia Muir Phillip K, MD, personally performed the services described in this documentation, ascribed by Liu Hoang in my presence, and it is both accurate and complete 947 . Arrival - Arrival Chief Complaint: Shortness of Breath ED Nursing Triage Note: c/o SOB since 2199 last night, denies any CP/fever -- reports coughing up phlegm Mode of Arrival: Stretcher Limitations: No Limitations Source: Patient Time Seen by Provider: 01/30/17 08:35 - History of Present Illness HPI Narrative: Pt is an 86 y/o white female arriving to ED with c/o SOB that worsened last night around 1899. He states that he has always had problems with breathing and currently does breathing treatments at his Residence but he states that he could barely breathe last night. He also reports pain all over and a chronic cough. Pt has a PMHx of COPD, Afib, and dementia. He reports no other complaints to ED. Onset (ago): hour(s) Consistency: constant Allergies/Adverse Reactions: Allergies Allergy/AdvReac Type Severity Reaction Status Date / Time lisinopril Allergy Unknown RASH Verified 12/13/16 21:57 carvedilol [From Coreg] Allergy RASH Verified 12/13/16 21:57 hydrochlorothiazide Allergy RASH Verified 12/13/16 21:57 metoclopramide [From Reglan] Allergy Unknown/Unable Verified 12/13/16 21:57 to obtain propoxyphene Allergy RASH Verified 12/13/16 21:57 [From Darvocet-N] Sulfa (Sulfonamide Allergy RASH Verified 12/13/16 21:57 Antibiotics) tramadol Allergy RASH Verified 12/13/16 21:57 aspirin AdvReac Intermediate Gastrointestinal Verified 12/13/16 21:57 Upset rofecoxib [From Vioxx] AdvReac Intermediate Gastrointestinal Verified 12/13/16 21:57 Upset Home Medications: Home Medications Medication Instructions Recorded Confirmed Type Acetaminophen Tab [Tylenol Tab] 650 mg PO Q6H PRN 10/25/16 12/14/16 History Calcium Carbonate Chew [Tums] 1 tablet PO Q8H 10/25/16 12/14/16 History Cyanocobalamin (Vitamin B-12) 1,000 mcg IJ Q30D 10/25/16 12/14/16 History [Cyanocobalamin Injection] Dexlansoprazole [Dexilant] 60 mg PO DAILY 10/25/16 12/14/16 History Docusate Sodium Cap [Colace Cap] 100 mg PO BID 10/25/16 12/14/16 History Loratadine [Claritin] 10 mg PO BEDTIME 10/25/16 12/14/16 History Magnesium Oxide 400 mg PO BID 10/25/16 12/14/16 History Meclizine [Antivert] 25 mg PO TID 10/25/16 12/14/16 History Megestrol Acetate [Megace] 400 mg PO BID 10/25/16 12/14/16 History Metoprolol Tartrate 25 mg PO BID 10/25/16 12/14/16 History Montelukast Tab [Singulair Tab] 10 mg PO BEDTIME 10/25/16 12/14/16 History Polyethylene Glycol Powder 17 gm PO DAILY PRN 10/25/16 12/14/16 History [Miralax] Polyvinyl Alcohol 1.4% Oph Marylou 1 drop BOTH EYES QID PRN 10/25/16 12/14/16 History [Artificial Tears Oph Soln] Simvastatin 5 mg PO BEDTIME 10/25/16 12/14/16 History Tamsulosin [Flomax] 0.4 mg PO DAILY 10/25/16 12/14/16 History amLODIPine [Norvasc] 5 mg PO BID 10/25/16 12/14/16 History Oxycodone HCl/Acetaminophen 1 each PO Q8HR 12/06/16 12/14/16 History [Percocet 10-325 mg Tablet] Albuterol/Ipratropium Neb [Duoneb] 3 ml RESP TX RT Q4H PRN 12/11/16 12/14/16 History HydrOXYzine PAMOATE CAP [Vistaril 25 mg PO Q6HR PRN 12/11/16 12/14/16 History Cap] Phenyleph/Mineral Oil/Petrolat 1 applic TOP Q4HR PRN 12/11/16 12/14/16 History [Preparation H Ointment] Pramoxine 1% Rectal Foam 1 applic TOP Q8HR PRN 12/11/16 12/14/16 History [Proctofoam 1% Foam] methylPREDNISolone 4 mg PO BID 7 Days 12/20/16 12/14/16 Rx [Methylprednisolone] Review of System - Review of System 12 point system: reviewed and no additional remarkable complaints except as stated - Review of System Constitutional: Present: other. Absent: chills, diaphoresis Eyes: Absent: pain Respiratory: Present: cough Cardiovascular: Present: dyspnea on exertion Gastrointestinal: Absent: abdominal pain, nausea, vomiting, diarrhea Genitourinary male: Absent: urgency Medical,Surgical,& Family Hx - Medical History Cardio: History of: Cardiac Dysrhythmia (Hx: A. Fib), CAD, Hypertension, Cardiovascular Problems (ASHD) No history of: [place], Pacemaker Neurology: History of: Dementia, Peripheral Neuropathy, Vertigo No history of: Seizures HEENT: History of: HEENT Problems (zoster, right side of face) Endocrine: History of: Dyslipidemia No history of: Diabetes Mellitus (NIDDM) Rheumatology: History of;: Rheumatoid Arthritis, Rheumatological Problems Respiratory: History of: COPD, Pneumonia (x12 times since 2010), Respiratory Problems (Bronchospastic Disease) No history of: Obstructive Sleep Apnea Genitourinary: History of: Prostate Problems (enlarged), Problems (r/t enlarged prostate) Gastrointestinal: History of: GERD, Polyps (Colon and Gastric), GI Problems ( esophageal stricture, Sena's esophagus, erosive gastritis, hiatal hernia) Musculoskeletal: History of: Back/Neck Problems (chronic back pain ), Musculoskeletal Problems (wedge comp. fx t11, t12; DJD) No history of: Amputation Hematology: History of: Anemia (Pernicious) No history of: Blood Transfusion Reaction Other: History of: Skin Problems (shingles 2013) No history of: Anesthesia Reactions, Cancer - Surgical History Cardiac Surgeries: Patient Denies: Cardiac Catheterization, Cardiac Surgery Thoracic Surgeries: Patient denies;: Kidney (Renal Surgery), Lithotripsy, Nephrectomy HEENT Surgeries: Surgical HX of: Eye Surgery (cataract) Patient denies: Tonsilectomy & Adenoidectomy Abdominal Surgeries: Surgical HX of: Abdominal Surgery, Appendectomy, Colonoscopy, EGD Patient denies: Cholecystectomy, Gastric Bypass Surgery, Hernia Repair Reproductive Surgeries: Surgical HX of;: Cystoscopy (HE THINKS MAY HAVE HAD), Genitourinary Surgery Patient denies;: Prostate Surgery Orthopedic Surgeries: Surgical HX of;: Orthopedic Surgery (ankles, wrist, back, neck), Spinal Surgery (kypoplasty) Patient denies;: Implanted Devices - Family History Family History: Reports;: Family Cancer (Brother (lung)), Family Diabetes ( Mother), Family Heart Disease (Mother), Family Hypertension (Mother), Family Stroke Denies;: Family Anesthesia Reaction, Family Psychiatric Problems - Social History Smoking Status: Unknown if ever smoked Frequency of Alcohol Use: None Type of Drug Use: None Exam Vital Signs: Vital Signs Temperature 98.0 F 01/30/17 08:33 Pulse Rate 82 01/30/17 09:11 Respiratory Rate 20 01/30/17 09:14 Blood Pressure 144/77 01/30/17 08:33 O2 Sat by Pulse Oximetry 97 01/30/17 09:11 - General General appearance: alert, in no apparent distress - Head Head exam: Present: atraumatic, normocephalic, normal inspection - Eye Eye exam: Present: normal appearance, PERRL, EOMI - ENT ENT exam: Present: normal exam, normal oropharynx, mucous membranes dry, TM's normal bilaterally, normal external ear exam - Neck Neck exam: Present: normal inspection, full ROM, trachea midline. Absent: tenderness - Chest Chest inspection: Present: normal inspection, symmetric chest wall rise. Absent : tenderness - Respiratory Respiratory exam: Present: wheezes (inspiratory and expiratory ) - Cardiovascular Cardiovascular exam: Present: regular rate, irregular rhythm, normal heart sounds - Abdominal Exam Abdominal exam: Present: soft, tenderness (mid-epigastric TTP), normal bowel sounds. Absent: distention, guarding, rebound - Extremities Exam Extremities exam: Present: normal inspection, full ROM, normal capillary refill , other (trace edema bilat LE). Absent: tenderness - Back Exam Back exam: Present: normal inspection, full ROM. Absent: tenderness - Neurological Exam Neurological exam: Present: alert, oriented X3, CN II-XII intact, normal gait, reflexes normal - Psychiatric Psychiatric exam: Present: normal affect, normal mood - Skin Skin exam: Present: warm, dry, intact, normal color Course Course Narrative: Patient discussed with the hospitalist. Results - Labs CBC & BMP: 01/30/17 08:43 01/30/17 08:43 Lab Results: I have reviewed the patients labs Labs: Laboratory Tests 01/30/17 01/30/17 08:43 08:43 Hgb 11.5 L Hct 35.7 L MCV 82.8 L MPV 9.1 L BUN 6 L Total Protein 6.2 L Albumin 3.3 L - Diagnostic Findings Procedure: Chest x-ray: report reviewed by me (Cardiomegaly. Chronic lung changes. Improved aeration of the left lung base. ) Disposition Clinical Impression: Acute bronchitis with chronic obstructive pulmonary disease (COPD), Chronic respiratory failure, SOB (shortness of breath), Hypoxia Case discussed with: patient Disposition: Still a Patient Condition: Guarded Additional Instructions: Admit to the hospitalist.
[2017-01-30] MEDS ORDERED: LEVOFLOXACIN INJ 500 MG in PREMIX 1 EACH IV STA (09:49)
[2017-01-30] MEDS ORDERED: LEVOFLOXACIN INJ 100 ML IV ONE (10:05)
--- NOTE | 2017-01-30 10:31 | Hospitalist History & Physical ---
<Radha Finley - Last Filed: 01/30/17 10:22> Assessment and Plan - Time spent with patient Time spent with patient: Greater than 30 minutes (1) Atrial fibrillation Status: Acute Assessment and plan: Mr. Duckworth is an 86-year-old white male with history of hypertension and esophageal stricture admitted by the hospitalist service with 1 day history of shortness of breath and dysphagia. Patient also had A. fib on EKG but normal sinus rhythm upon exam. We will go ahead and admit to a monitored bed. Will start patient on breathing treatments, steroids, and antibiotics. We will go ahead and consult Dr. Perez for dysphagia for possible esophageal dilation. Will continue patient's home medicines when reconciled in the computer. Dr. Hernandez will see and examine patient and further recommendations to follow. Current Visit: No (2) HTN (hypertension) Status: Chronic Current Visit: No Qualifiers: Hypertension type: essential hypertension Qualified Code(s): I10 - Essential (primary) hypertension (3) Esophageal stricture Status: Chronic Current Visit: No (4) Acute exacerbation of chronic obstructive pulmonary disease Status: Acute Current Visit: No (5) Status post kyphoplasty Status: Chronic Current Visit: No (6) Abdominal pain Status: Acute Current Visit: No History of Present Illness Chief complaint: Shortness of breath History of present illness: Mr. Duckworth is a 86 year old white male with history of hypertension, COPD, history of esophageal strictures and chronic back pain presenting to the ED with a 1 day history of increasing shortness of breath. Patient was admitted in November with shortness of breath and pneumonia and discharged to [facility]. Patient states last night about 10:00 he started having increasing shortness of breath that continues today. He received albuterol, Levaquin, and prednisone in the ED with only minor improvements. Patient also is complaining of strangling with food and liquids and he states he was last dilated by Dr. Perez in September. Patient states he has loss of appetite because he feels like he is going to choke if he eats. Patient denies headache, blurred vision, chest pain, constipation, or lower extremity edema. Patient does say he is having some minor left lower quadrant abdominal pain and some diarrhea. Patient 's EKG is showing some A. fib and compared to his previous EKGs this is new. But upon exam patient is in normal sinus rhythm. Patient's chest x-ray shows cardiomegaly with chronic lung changes. No signs of pneumonia. Patient's labs are relatively normal. Patient is afebrile and vital signs stable. Patient's case was discussed with Dr. Hernandez the hospitalist and Dr. Yang the ED physician, it was agreed patient would be admitted for evaluation and treatment. Home Medications Medication Instructions Recorded Confirmed Type RX: Acetaminophen Tab [Tylenol Tab] 650 mg PO Q6H PRN 10/25/16 01/30/17 History RX: Calcium Carbonate Chew [Tums] 1 tablet PO Q8H 10/25/16 01/30/17 History RX: Cyanocobalamin (Vitamin B-12) 1,000 mcg IM Q30D 10/25/16 01/30/17 History [Cyanocobalamin Injection] RX: Dexlansoprazole [Dexilant] 60 mg PO DAILY 10/25/16 01/30/17 History RX: Docusate Sodium Cap [Colace 100 mg PO BID 10/25/16 01/30/17 History Cap] RX: Loratadine [Claritin] 10 mg PO BEDTIME 10/25/16 01/30/17 History RX: Magnesium Oxide 400 mg PO BID 10/25/16 01/30/17 History RX: Meclizine [Antivert] 25 mg PO TID 10/25/16 01/30/17 History RX: Metoprolol Tartrate 25 mg PO BID 10/25/16 01/30/17 History RX: Montelukast Tab [Singulair Tab] 10 mg PO BEDTIME 10/25/16 01/30/17 History RX: Polyethylene Glycol Powder 17 gm PO DAILY PRN 10/25/16 01/30/17 History [Miralax] RX: Polyvinyl Alcohol 1.4% Oph Marylou 1 drop BOTH EYES QID PRN 10/25/16 01/30/17 History [Artificial Tears Oph Soln] RX: Simvastatin 5 mg PO BEDTIME 10/25/16 01/30/17 History RX: Tamsulosin [Flomax] 0.4 mg PO DAILY 10/25/16 01/30/17 History RX: amLODIPine [Norvasc] 5 mg PO BID 10/25/16 01/30/17 History RX: Albuterol/Ipratropium Neb 3 ml RESP TX RT Q4H PRN 12/11/16 01/30/17 History [Duoneb] RX: HydrOXYzine PAMOATE CAP 25 mg PO DAILY 12/11/16 01/30/17 History [Vistaril Cap] RX: Phenyleph/Mineral Oil/Petrolat 1 applic TOP Q4HR PRN 12/11/16 01/30/17 History [Preparation H Ointment] RX: Pramoxine 1% Rectal Foam 1 applic TOP Q8HR PRN 12/11/16 01/30/17 History [Proctofoam 1% Foam] Gabapentin Cap/Tab [Neurontin 100 mg PO BID 01/30/17 01/30/17 History Cap/Tab] Oxycodone HCl/Acetaminophen 1 each PO Q8H PRN 01/30/17 01/30/17 History [Oxycodon-Acetaminophen 7.5-325] RX: hydrOXYzine HCl [Hydroxyzine 25 mg PO Q6H PRN 01/30/17 01/30/17 History HCl] Allergies Allergy/AdvReac Type Severity Reaction Status Date / Time lisinopril Allergy Unknown RASH Verified 12/13/16 21:57 carvedilol [From Coreg] Allergy RASH Verified 12/13/16 21:57 hydrochlorothiazide Allergy RASH Verified 12/13/16 21:57 metoclopramide [From Reglan] Allergy Unknown/Unable Verified 12/13/16 21:57 to obtain propoxyphene Allergy RASH Verified 12/13/16 21:57 [From Darvocet-N] Sulfa (Sulfonamide Allergy RASH Verified 12/13/16 21:57 Antibiotics) tramadol Allergy RASH Verified 12/13/16 21:57 aspirin AdvReac Intermediate Gastrointestinal Verified 12/13/16 21:57 Upset rofecoxib [From Vioxx] AdvReac Intermediate Gastrointestinal Verified 12/13/16 21:57 Upset Medical,Surgical,& Family Hx - Medical History Cardio: History of: Cardiac Dysrhythmia (Hx: A. Fib), CAD, Hypertension, Cardiovascular Problems (ASHD) No history of: [place], Pacemaker Neurology: History of: Dementia, Peripheral Neuropathy, Vertigo No history of: Seizures HEENT: History of: HEENT Problems (zoster, right side of face) Endocrine: History of: Dyslipidemia No history of: Diabetes Mellitus (NIDDM) Rheumatology: History of;: Rheumatoid Arthritis, Rheumatological Problems Respiratory: History of: COPD, Pneumonia (x12 times since 2010), Respiratory Problems (Bronchospastic Disease) No history of: Obstructive Sleep Apnea Genitourinary: History of: Prostate Problems (enlarged), Problems (r/t enlarged prostate) Gastrointestinal: History of: GERD, Polyps (Colon and Gastric), GI Problems ( esophageal stricture, Sena's esophagus, erosive gastritis, hiatal hernia) Musculoskeletal: History of: Back/Neck Problems (chronic back pain ), Musculoskeletal Problems (wedge comp. fx t11, t12; DJD) No history of: Amputation Hematology: History of: Anemia (Pernicious) No history of: Blood Transfusion Reaction Other: History of: Skin Problems (shingles 2013) No history of: Anesthesia Reactions, Cancer - Surgical History Cardiac Surgeries: Patient Denies: Cardiac Catheterization, Cardiac Surgery Thoracic Surgeries: Patient denies;: Kidney (Renal Surgery), Lithotripsy, Nephrectomy HEENT Surgeries: Surgical HX of: Eye Surgery (cataract) Patient denies: Tonsilectomy & Adenoidectomy Abdominal Surgeries: Surgical HX of: Abdominal Surgery, Appendectomy, Colonoscopy, EGD Patient denies: Cholecystectomy, Gastric Bypass Surgery, Hernia Repair Reproductive Surgeries: Surgical HX of;: Cystoscopy (HE THINKS MAY HAVE HAD), Genitourinary Surgery Patient denies;: Prostate Surgery Orthopedic Surgeries: Surgical HX of;: Orthopedic Surgery (ankles, wrist, back, neck), Spinal Surgery (kypoplasty) Patient denies;: Implanted Devices - Family History Family History: Reports;: Family Cancer (Brother (lung)), Family Diabetes ( Mother), Family Heart Disease (Mother), Family Hypertension (Mother), Family Stroke Denies;: Family Anesthesia Reaction, Family Psychiatric Problems - Social History Smoking Status: Unknown if ever smoked Frequency of Alcohol Use: None Type of Drug Use: None Marital Status: Single Lives With:: half-way Functional capacity: independent ambulation Review of systems: Complete 10 system review of systems was obtained and pertinent positives and negatives per HPI Exam - Constitutional Vitals: Period Temp Pulse Resp BP Sys/Briceno Pulse Ox Last 24 Hr 98.0 F-98.0 F 76-82 18-22 144-144/77-77 97-98 Exam: Constitutional System: Mild distress. No tremulousness. Head: Normocephalic, atraumatic. Ears, Nose and Throat System: No evidence of Otitis or Mastoiditis. No epistaxis or discharge Eyes System: Pupils equal, round, and reactive. Extraocular muscles intact. Neck: Supple, without adenopathy, No jugular venous distention. No thyromegaly, neck mass, or prior surgery apparent. Respiratory System: Chest crackles at bases to auscultation. Cardiovascular System: Heart with regular rate and rhythm. No murmur. GI System: Abdomen soft, mildly tender left lower quadrant. Normo active bowel sounds present. Musculoskeletal System: limbs with mild pedal edema left ankle. Diminished distal pulses. Neurological System: No discernable sensory deficit. No aphasia Psychiatric System: Conversation is rational Results - Labs CBC & BMP: 01/30/17 08:43 01/30/17 08:43 Lab Results: I have reviewed the past 24 hour labs - EKG EKG shows: atrial fibrillation - Diagnostic Findings Procedure: Chest x-ray: report reviewed by me (Cardiomegaly. Chronic lung changes.) <Richie Hernandez - Last Filed: 01/30/17 17:25> History of Present Illness History of present illness: Patient seen and examined independently of CHAPIN Finley, agree with history, assessment and plan as documented. 86 y/o WM admitted with sob. Treating for COPD exacerbation with steroids, duonebs and levaquin. Also complaining of dysphagia with a history of recent esophageal stricture. GI consulted. Exam - Constitutional Vitals: Period Temp Pulse Resp BP Sys/Briceno Pulse Ox Last 24 Hr 98.0 F-98.5 F 76-84 18-32 107-144/74-82 93-98 Results - Labs CBC & BMP: 01/30/17 08:43 01/30/17 08:43
[2017-01-30] MEDS ORDERED: ACETAMINOPHEN 325 MG TABLET PO PRN ×3 (10:45→10:47)
[2017-01-30] MEDS ORDERED: DOCUSATE SODIUM 100 MG CAPSULE PO PRN (10:45)
[2017-01-30] MEDS ORDERED: ONDANSETRON 4 MG/2 ML VIAL IV PRN (10:45)
[2017-01-30] MEDS ORDERED: MORPHINE 2 MG/1 ML SYRINGE IV PRN (10:45)
[2017-01-30] MEDS ORDERED: diphenhydrAMINE CAP 25 MG CAPSULE PO PRN (10:45)
[2017-01-30] MEDS ORDERED: PHENYLEPH/MINERAL OIL/PETROLAT 57 GM TUBE TOP PRN (10:47)
[2017-01-30] MEDS ORDERED: POLYVINYL ALCOHOL 1.4% OPH SOLN 15 ML BOTTLE BOTH EYES PRN (10:47)
[2017-01-30] MEDS ORDERED: POLYETHYLENE GLYCOL POWDER 17 GM PACK PO PRN (10:47)
[2017-01-30] MEDS ORDERED: PRAMOXINE 1% RECTAL FOAM 15 GM CAN TOP PRN (10:47)
[2017-01-30] MEDS ORDERED: CYANOCOBALAMIN 1000 MCG/1 ML VIAL IM SCH (11:00)
--- NOTE | 2017-01-30 11:37 | Gastrointestinal Consult Note ---
<Diane Yin - Last Filed: 01/30/17 11:30> Assessment and Plan (1) Dysphagia Status: Acute Assessment and plan: 01/30-history of esophageal strictures now with fairly recent onset of dysphagia to solids, liquids and pills. Last known EGD in November of this year with dilation. Reported 27 pound weight loss over the last several months. Plan an addendum to follow by Dr. Perez. Current Visit: Yes History of Present Illness Chief complaint: Dysphagia History of present illness: Mr. Duckworth is a 86 year old male who was admitted to the hospital with increased shortness of breath 1 day. Patient has a prior history of hypertension, COPD, chronic back pain, and recurrent esophageal strictures. Patient has a history also of atrial fibrillation. Patient was last admitted in November for shortness of breath and pneumonia. Upon discharge patient was admitted to long-term skilled care snf. He states that last night he had a sudden onset of shortness of breath which did not resolve with his breathing treatments. He was brought to the ER for further evaluation. Upon admission patient was also reporting that he is having increased difficulty with swallowing liquids, food, and solids. He states that at times recently his pills will not go down and he will have to regurgitate them back up. He states that this is been gradually coming back, but over the last 2 weeks he has had greater difficulty swallowing. He does report a 27 pound weight loss since admission to the snf. He denies any odynophagia. Denies any nausea or vomiting, coffee-ground emesis or hematemesis. Denies any melena hematochezia. Denies any fever or chills. Patient has a history of esophageal strictures with dilations in the past. Last known EGD was in November of this year in which patient had findings of GERD and esophageal stricture with dilation. He denies any worsening GERD symptoms at this time. Currently noted to be taking Dexilant and Protonix. Currently on Lovenox injections. Denies any NSAID use are anticoagulants. Home Medications Medication Instructions Recorded Confirmed Type Acetaminophen Tab [Tylenol Tab] 650 mg PO Q6H PRN 10/25/16 01/30/17 History Calcium Carbonate Chew [Tums] 1 tablet PO Q8H 10/25/16 01/30/17 History Cyanocobalamin (Vitamin B-12) 1,000 mcg IM Q30D 10/25/16 01/30/17 History [Cyanocobalamin Injection] Dexlansoprazole [Dexilant] 60 mg PO DAILY 10/25/16 01/30/17 History Docusate Sodium Cap [Colace Cap] 100 mg PO BID 10/25/16 01/30/17 History Loratadine [Claritin] 10 mg PO BEDTIME 10/25/16 01/30/17 History Magnesium Oxide 400 mg PO BID 10/25/16 01/30/17 History Meclizine [Antivert] 25 mg PO TID 10/25/16 01/30/17 History Metoprolol Tartrate 25 mg PO BID 10/25/16 01/30/17 History Montelukast Tab [Singulair Tab] 10 mg PO BEDTIME 10/25/16 01/30/17 History Polyethylene Glycol Powder 17 gm PO DAILY PRN 10/25/16 01/30/17 History [Miralax] Polyvinyl Alcohol 1.4% Oph Marylou 1 drop BOTH EYES QID PRN 10/25/16 01/30/17 History [Artificial Tears Oph Soln] Simvastatin 5 mg PO BEDTIME 10/25/16 01/30/17 History Tamsulosin [Flomax] 0.4 mg PO DAILY 10/25/16 01/30/17 History amLODIPine [Norvasc] 5 mg PO BID 10/25/16 01/30/17 History Albuterol/Ipratropium Neb [Duoneb] 3 ml RESP TX RT Q4H PRN 12/11/16 01/30/17 History HydrOXYzine PAMOATE CAP [Vistaril 25 mg PO DAILY 12/11/16 01/30/17 History Cap] Phenyleph/Mineral Oil/Petrolat 1 applic TOP Q4HR PRN 12/11/16 01/30/17 History [Preparation H Ointment] Pramoxine 1% Rectal Foam 1 applic TOP Q8HR PRN 12/11/16 01/30/17 History [Proctofoam 1% Foam] Gabapentin Cap/Tab [Neurontin 100 mg PO BID 01/30/17 01/30/17 History Cap/Tab] Oxycodone HCl/Acetaminophen 1 each PO Q8H PRN 01/30/17 01/30/17 History [Oxycodon-Acetaminophen 7.5-325] hydrOXYzine HCl [Hydroxyzine HCl] 25 mg PO Q6H PRN 01/30/17 01/30/17 History Allergies Allergy/AdvReac Type Severity Reaction Status Date / Time lisinopril Allergy Unknown RASH Verified 12/13/16 21:57 carvedilol [From Coreg] Allergy RASH Verified 12/13/16 21:57 hydrochlorothiazide Allergy RASH Verified 12/13/16 21:57 metoclopramide [From Reglan] Allergy Unknown/Unable Verified 12/13/16 21:57 to obtain propoxyphene Allergy RASH Verified 12/13/16 21:57 [From Darvocet-N] Sulfa (Sulfonamide Allergy RASH Verified 12/13/16 21:57 Antibiotics) tramadol Allergy RASH Verified 12/13/16 21:57 aspirin AdvReac Intermediate Gastrointestinal Verified 12/13/16 21:57 Upset rofecoxib [From Vioxx] AdvReac Intermediate Gastrointestinal Verified 12/13/16 21:57 Upset Medical,Surgical,& Family Hx - Medical History Cardio: History of: Cardiac Dysrhythmia (Hx: A. Fib), CAD, Hypertension, Cardiovascular Problems (ASHD) No history of: RI, Pacemaker Neurology: History of: Dementia, Peripheral Neuropathy, Vertigo No history of: Seizures HEENT: History of: HEENT Problems (zoster, right side of face) Endocrine: History of: Dyslipidemia No history of: Diabetes Mellitus (NIDDM) Rheumatology: History of;: Rheumatoid Arthritis, Rheumatological Problems Respiratory: History of: COPD, Pneumonia (x12 times since 2010), Respiratory Problems (Bronchospastic Disease) No history of: Obstructive Sleep Apnea Genitourinary: History of: Prostate Problems (enlarged), Problems (r/t enlarged prostate) Gastrointestinal: History of: GERD, Polyps (Colon and Gastric), GI Problems ( esophageal stricture, Sena's esophagus, erosive gastritis, hiatal hernia) Musculoskeletal: History of: Back/Neck Problems (chronic back pain ), Musculoskeletal Problems (wedge comp. fx t11, t12; DJD) No history of: Amputation Hematology: History of: Anemia (Pernicious) No history of: Blood Transfusion Reaction Other: History of: Skin Problems (shingles 2013) No history of: Anesthesia Reactions, Cancer - Surgical History Cardiac Surgeries: Patient Denies: Cardiac Catheterization, Cardiac Surgery Thoracic Surgeries: Patient denies;: Kidney (Renal Surgery), Lithotripsy, Nephrectomy HEENT Surgeries: Surgical HX of: Eye Surgery (cataract) Patient denies: Tonsilectomy & Adenoidectomy Abdominal Surgeries: Surgical HX of: Abdominal Surgery, Appendectomy, Colonoscopy, EGD Patient denies: Cholecystectomy, Gastric Bypass Surgery, Hernia Repair Reproductive Surgeries: Surgical HX of;: Cystoscopy (HE THINKS MAY HAVE HAD), Genitourinary Surgery Patient denies;: Prostate Surgery Orthopedic Surgeries: Surgical HX of;: Orthopedic Surgery (ankles, wrist, back, neck), Spinal Surgery (kypoplasty) Patient denies;: Implanted Devices - Family History Family History: Reports;: Family Cancer (Brother (lung)), Family Diabetes ( Mother), Family Heart Disease (Mother), Family Hypertension (Mother), Family Stroke Denies;: Family Anesthesia Reaction, Family Psychiatric Problems - Social History Smoking Status: Unknown if ever smoked Frequency of Alcohol Use: None Type of Drug Use: None 12 point system: reviewed and no additional remarkable complaints except as stated - Constitutional Constitutional: Present: as per HPI - EENT Eyes: Present: as per HPI Ears: Present: as per HPI Nose, mouth and throat: Present: as per HPI, dysphagia - Cardiovascular Cardiovascular: Present: as per HPI, dyspnea - Respiratory Respiratory: Present: as per HPI - Gastrointestinal Gastrointestinal: Present: as per HPI, dysphagia - Genitourinary Genitourinary: Present: as per HPI - Musculoskeletal Musculoskeletal: Present: as per HPI - Neurological Neurological: Present: as per HPI - Psychiatric Psychiatric: Present: as per HPI - Endocrine Endocrine: Present: as per HPI - Hematologic/Lymphatic Hematologic/Lymphatic: Present: as per HPI Exam - Constitutional Vitals: Period Temp Pulse Resp BP Sys/Briceno Pulse Ox Last 24 Hr 98.0 F-98.0 F 76-84 18-32 139-144/77-82 93-98 General appearance: normal weight, no acute distress - Head Head exam: Present: normal inspection, normocephalic - Eye Eye exam: Present: other (Lids and conjunctivae unremarkable). Absent: scleral icterus - ENT ENT exam: Present: normal exam, normal oropharynx - Neck Neck exam: Present: normal inspection - Respiratory Respiratory exam: Present: clear to auscultation bilaterally. Absent: rales, rhonchi, wheezes - Cardiovascular Cardiovascular exam: Present: regular rate and rhythm. Absent: diastolic murmur , JVD, systolic murmur - GI/Abdominal GI/Abdominal exam: Present: normal bowel sounds, soft. Absent: ascites, distended, mass, organomegaly, tenderness - Extremities Exam Extremities exam: Present: normal inspection, full ROM - Back Exam Back exam: Present: normal inspection - Neurological Exam Neurological exam: Present: alert, oriented X3 - Psychiatric Psychiatric exam: Present: normal affect, normal mood - Skin Skin exam: Present: normal color, warm, dry Results - Labs CBC & BMP: 01/30/17 08:43 01/30/17 08:43 Lab Results: I have reviewed the past 24 hour labs <Oscar Perez - Last Filed: 01/30/17 18:28> History of Present Illness Chief complaint: 3030 History of present illness: Mr. Duckworth is a 86 year old male Exam - Constitutional Vitals: Period Temp Pulse Resp BP Sys/Briceno Pulse Ox Last 24 Hr 98.0 F-98.5 F 76-84 18-32 107-144/74-82 93-98 Results - Labs CBC & BMP: 01/30/17 08:43 01/30/17 08:43
[2017-01-30] MEDS: MAGNESIUM OXIDE 400 MG TABLET PO SCH ×2 (14:34→21:45)
[2017-01-30] MEDS: amLODIPine 5 MG TABLET PO SCH ×2 (14:34→21:46)
[2017-01-30] MEDS: METOPROLOL TARTRATE 25 MG TABLET PO SCH ×2 (14:34→21:45)
[2017-01-30] MEDS: GABAPENTIN 100 MG CAPSULE PO SCH ×2 (14:34→21:45)
[2017-01-30] MEDS: TAMSULOSIN 0.4 MG CAPSULE PO SCH (14:34)
[2017-01-30] MEDS: DOCUSATE SODIUM 100 MG CAPSULE PO SCH ×2 (14:34→21:46)
[2017-01-30] MEDS: CALCIUM CARBONATE CHEW 500 MG TABLET PO SCH ×2 (14:34→21:45)
[2017-01-30] MEDS: HydrOXYzine PAMOATE 25 MG CAPSULE PO SCH (14:34)
[2017-01-30] MEDS: ENOXAPARIN 40 MG/0.4 ML SYRINGE SUBCUT SCH (14:35)
[2017-01-30] MEDS: PANTOPRAZOLE 40 MG VIAL IV SCH (14:35)
[2017-01-30] MEDS: SODIUM CHLORIDE 0.9% 1,000 ML IV SCH ×2 (14:36→21:46)
[2017-01-30] MEDS: BUDESONIDE/FORMOTEROL 160-4.5 INHALER 6 GM INH SCH ×2 (14:47→21:46)
[2017-01-30] MEDS: MECLIZINE 25 MG TABLET PO SCH ×2 (14:59→21:45)
[2017-01-30] MEDS: ALBUTEROL/IPRATROPIUM 3 ML NEB RESP TX SCH ×2 (15:12→19:53)
[2017-01-30] MEDS: methylPREDNISolone SOD SUC 40 MG/1 ML VIAL IV SCH (21:45)
[2017-01-30] MEDS: LORATADINE 10 MG TABLET PO SCH (21:46)
[2017-01-30] MEDS: MONTELUKAST 10 MG TABLET PO SCH (21:46)
[2017-01-30] MEDS: SIMVASTATIN 10 MG TABLET PO SCH (21:47)
[2017-01-31] MEDS: ALBUTEROL/IPRATROPIUM 3 ML NEB RESP TX SCH ×6 (00:27→21:10)
[2017-01-31] MEDS: ALBUTEROL 2.5 MG/3 ML NEB RESP TX PRN (07:08)
--- NOTE | 2017-01-31 07:13 | EKG Report ---
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
--- NOTE | 2017-01-31 07:52 | XRay Report ---
XR chest 2V Date: 01/31/2017 10:45 AM History: Shortness of breath Comparison: 01/30/2017 Technique: PA and lateral chest Findings: Stable cardiomegaly with uncoiling of the aorta and diffuse arterial calcification. Multilevel kyphoplasty with intravascular bone cement and chronic scarring in the lungs. Progressive atelectasis especially at the left lung base. Stable mediastinum and osseous structures. Impression: COPD/bullous emphysema with chronic scarring. Progressive atelectasis especially at the left lung base. Osteopenia with multilevel kyphoplasty. PROCEDURE INTERPRETED AT [facility] Final Report Signed by: Dr. Babita Reynoso
[2017-01-31] MEDS: SODIUM CHLORIDE 0.9% 1,000 ML IV SCH ×3 (08:10→18:24)
[2017-01-31 08:39] LABS: Basophils % 0.1 % (0.0-0.8); Hematocrit 34.9 VOL% (42.0-52.0); Hemoglobin 11.3 GM/DL (14.0-18.0); Immature Granulocytes % 0.7 %; Immature Granulocytes Absolute 0.05 #; Lymphocytes # 0.8 10*3/uL (1.4-4.0); Lymphocytes % 10.8 % (21.2-54.2); Mean Corpuscular HGB Conc 32.4 GM/DL (32-36); Mean Corpuscular Hemoglobin 27 PG (27-34); Mean Corpuscular Volume 81.7 FL (87-102); Mean Platelet Volume 9.5 FL (9.6-12.0); Monocytes # 0.4 10*3/uL (0.11-0.8); Monocytes % 4.6 % (1.7-12.7); Neutrophils # 6.5 10*3/uL (1.4-7.4); Neutrophils % 83.8 % (38.7-73.9); Platelet Count 211 T/CUMM (130-400); Red Blood Count 4.27 MC/CUMM (3.8-5.5); Red Cell Distribution Width 15.7 % (9.3-17.3); White Blood Count 7.7 T/CUMM (4-12)
--- NOTE | 2017-01-31 08:52 | Hospitalist Progress Note ---
Assessment and Plan (1) Acute exacerbation of chronic obstructive pulmonary disease Status: Acute Assessment and plan: Duonebs, steroids, levaquin, supplemental oxygen Current Visit: No (2) History of esophageal stricture Status: Chronic Current Visit: No (3) Dysphagia Status: Acute Assessment and plan: History of stricture GI following Possible EGD soon Current Visit: Yes Hospitalist: Subjective Interval history: No acute events overnight. Reports that his breathing might be slightly better today. Still with visible sob. Exam - Constitutional Vitals: Period Temp Pulse Resp BP Sys/Briceno Pulse Ox Last 24 Hr 97.5 F-98.8 F 71-116 20-32 107-146/71-82 93-98 General appearance: over weight - Head Head exam: Present: normocephalic, atraumatic - Eye Eye exam: Present: EOMI Pupils: Present: ANAYELI - ENT ENT exam: Present: normal exam - Neck Neck exam: Present: normal inspection - Respiratory Respiratory exam: Present: decreased breath sounds, wheezes - Cardiovascular Cardiovascular exam: Present: regular rate and rhythm - GI/Abdominal GI/Abdominal exam: Present: normal bowel sounds, soft. Absent: mass - Extremities Exam Extremities exam: Present: normal inspection - Back Exam Back exam: Present: normal inspection - Neurological Exam Neurological exam: Present: alert - Psychiatric Psychiatric exam: Present: normal affect, normal mood - Skin Skin exam: Present: warm, intact Results - Labs CBC & BMP: 01/31/17 08:09 01/30/17 08:43
[2017-01-31] MEDS ORDERED: PANTOPRAZOLE 40 MG TABLET PO SCH (09:00)
[2017-01-31 09:26] LABS: Albumin 3.3 G/DL (3.4-5.0); Bilirubin,Total 0.4 MG/DL (0.2-1.0); Calcium 8.7 MG/DL (8.5-10.1); Osmolality,Calculated 280.3 MOS/KG (273-304); Potassium 3.8 MMOL/L (3.5-5.1); Total Protein 6.3 G/DL (6.4-8.3)
[2017-01-31] MEDS: MECLIZINE 25 MG TABLET PO SCH ×3 (09:53→20:18)
[2017-01-31] MEDS: MAGNESIUM OXIDE 400 MG TABLET PO SCH ×2 (09:55→20:19)
[2017-01-31] MEDS: GABAPENTIN 100 MG CAPSULE PO SCH ×2 (09:55→20:18)
[2017-01-31] MEDS: METOPROLOL TARTRATE 25 MG TABLET PO SCH ×2 (09:55→20:19)
[2017-01-31] MEDS: amLODIPine 5 MG TABLET PO SCH ×2 (09:55→20:19)
[2017-01-31] MEDS: CALCIUM CARBONATE CHEW 500 MG TABLET PO SCH ×2 (09:55→17:30)
[2017-01-31] MEDS: HydrOXYzine PAMOATE 25 MG CAPSULE PO SCH (09:55)
[2017-01-31] MEDS: TAMSULOSIN 0.4 MG CAPSULE PO SCH (09:55)
[2017-01-31] MEDS: DOCUSATE SODIUM 100 MG CAPSULE PO SCH ×2 (09:56→20:14)
[2017-01-31] MEDS: BUDESONIDE/FORMOTEROL 160-4.5 INHALER 6 GM INH SCH ×2 (09:57→20:19)
[2017-01-31] MEDS: PANTOPRAZOLE 40 MG VIAL IV SCH (10:02)
--- NOTE | 2017-01-31 10:05 | Gastrointestinal Progress Note ---
<Diane Yin - Last Filed: 01/31/17 10:03> Assessment and Plan (1) Dysphagia Status: Acute Assessment and plan: 01/31-continued dysphagia to solids. Respiratory status unchanged. Continue to monitor present time. Proceed with EGD when respiratory status improved. Plan an addendum to follow Dr. Perez. 01/30-history of esophageal strictures now with fairly recent onset of dysphagia to solids, liquids and pills. Last known EGD in November of this year with dilation. Reported 27 pound weight loss over the last several months. Plan an addendum to follow by Dr. Perez. Current Visit: Yes Gastroenterology - PN: Subj Interval history: CC: Dysphagia Patient is seen awake alert sitting up in chair. States he did not rest well overnight due to people in and out of his room checking on him. States that he does not feel like his breathing is improved anymore today than on admission. Has continued solid dysphagia however is eating the best he can at this time. Afebrile without leukocytosis. Oxygen saturation noted to be in the mid to high 90s on 2 L. Abdomen soft, nontender. ROS: Denies shortness of breath or chest pain at present Exam (Progress Note) - Constitutional Vitals: Period Temp Pulse Resp BP Sys/Briceno Pulse Ox Last 24 Hr 97.5 F-98.8 F 71-116 20-32 107-146/71-82 93-98 General appearance: normal weight, no acute distress - Head Head exam: Present: normal inspection, normocephalic - Eye Eye exam: Present: other (Lids and conjunctive are unremarkable). Absent: scleral icterus - ENT ENT exam: Present: normal exam, normal oropharynx - Neck Neck exam: Present: normal inspection - Respiratory Respiratory exam: Present: clear to auscultation bilaterally. Absent: rales, rhonchi, wheezes - Cardiovascular Cardiovascular exam: Present: regular rate and rhythm. Absent: diastolic murmur , JVD, systolic murmur - GI/Abdominal GI/Abdominal exam: Present: normal bowel sounds, soft. Absent: ascites, distended, mass, organomegaly, tenderness - Extremities Exam Extremities exam: Present: normal inspection, full ROM - Back Exam Back exam: Present: normal inspection - Neurological Exam Neurological exam: Present: alert, oriented X3 - Psychiatric Psychiatric exam: Present: normal affect, normal mood - Skin Skin exam: Present: normal color, warm, dry Results - Labs CBC & BMP: 01/31/17 08:09 01/31/17 08:09 Lab Results: I have reviewed the past 24 hour labs <Oscar Perez - Last Filed: 01/31/17 11:41> Exam (Progress Note) - Constitutional Vitals: Period Temp Pulse Resp BP Sys/Briceno Pulse Ox Last 24 Hr 97.5 F-98.8 F 71-116 20-28 107-146/66-78 93-98 Results - Labs CBC & BMP: 01/31/17 08:09 01/31/17 08:09
[2017-01-31] MEDS: methylPREDNISolone SOD SUC 40 MG/1 ML VIAL IV SCH ×2 (10:10→20:18)
[2017-01-31] MEDS: LEVOFLOXACIN INJ 750 MG in PREMIX 1 EACH IV SCH (10:21)
[2017-01-31] MEDS: ENOXAPARIN 40 MG/0.4 ML SYRINGE SUBCUT SCH (12:02)
[2017-01-31] MEDS: MONTELUKAST 10 MG TABLET PO SCH (20:18)
[2017-01-31] MEDS: guaiFENesin/DM ER 600-30 MG TABLET PO PRN (20:18)
[2017-01-31] MEDS: oxyCODONE/ACETAMINOPHEN 5-325 MG TABLET PO PRN (20:18)
[2017-01-31] MEDS: SIMVASTATIN 10 MG TABLET PO SCH (20:19)
[2017-01-31] MEDS: LORATADINE 10 MG TABLET PO SCH (20:19)
[2017-02-01] MEDS: ALBUTEROL/IPRATROPIUM 3 ML NEB RESP TX SCH ×7 (00:08→23:11)
[2017-02-01] MEDS: CALCIUM CARBONATE CHEW 500 MG TABLET PO SCH ×3 (00:38→16:44)
[2017-02-01 06:31] LABS: Basophils % 0.1 % (0.0-0.8); Hematocrit 34.6 VOL% (42.0-52.0); Hemoglobin 10.8 GM/DL (14.0-18.0); Immature Granulocytes % 0.6 %; Immature Granulocytes Absolute 0.05 #; Lymphocytes # 0.7 10*3/uL (1.4-4.0); Lymphocytes % 8.4 % (21.2-54.2); Mean Corpuscular HGB Conc 31.2 GM/DL (32-36); Mean Corpuscular Hemoglobin 26 PG (27-34); Mean Corpuscular Volume 83.6 FL (87-102); Mean Platelet Volume 9.4 FL (9.6-12.0); Monocytes # 0.3 10*3/uL (0.11-0.8); Monocytes % 3.6 % (1.7-12.7); Neutrophils # 7.1 10*3/uL (1.4-7.4); Neutrophils % 87.3 % (38.7-73.9); Platelet Count 214 T/CUMM (130-400); Red Blood Count 4.14 MC/CUMM (3.8-5.5); Red Cell Distribution Width 15.9 % (9.3-17.3); White Blood Count 8.1 T/CUMM (4-12)
[2017-02-01 06:58] LABS: Calcium 8.7 MG/DL (8.5-10.1); Magnesium 2.1 MG/DL (1.8-2.4); Osmolality,Calculated 280.3 MOS/KG (273-304); Potassium 3.8 MMOL/L (3.5-5.1)
--- NOTE | 2017-02-01 09:46 | Hospitalist Progress Note ---
Assessment and Plan (1) COPD (chronic obstructive pulmonary disease) Status: Chronic Assessment and plan: Slowly improving. Will continue with current dosage of Solumedrol, and nebs. Continue Levofloxacin for now. Wheezing less audible today. No overt increased work of breathing at rest. Continue the course for now. Current Visit: Yes Qualifiers: COPD type: COPD with acute exacerbation Qualified Code(s): J44.1 - Chronic obstructive pulmonary disease with (acute) exacerbation (2) HTN (hypertension) Status: Chronic Assessment and plan: BP stable. Continue to monitor on Amlodipine 5mg po bid. Current Visit: No Qualifiers: Hypertension type: essential hypertension Qualified Code(s): I10 - Essential (primary) hypertension (3) Esophageal stricture Status: Chronic Assessment and plan: GI following. Appreciate assistance. Will evaluate this morning to see if patient is stable from a pulmonary standpoint for possible EGD. Will f/u. Current Visit: No Hospitalist: Subjective Interval history: Patient has been admitted with an exacerbation of COPD and noted dysphasia. Patient has a history of esophageal stricture and thus GI has been consulted for evaluation of possible dilatation. He is improved from a pulmonary standpoint with decreased wheezing and decreased work of breathing. And he continues to have some difficulty with shortness of breath with activity. GI is planning on possible EGD today or when they have deemed his pulmonary status stable. Exam - Constitutional Vitals: Period Temp Pulse Resp BP Sys/Briceno Pulse Ox Last 24 Hr 97.5 F-98.8 F 64-96 20-26 117-148/66-85 92-98 Exam: General appearance: over weight - Head Head exam: Present: normocephalic, atraumatic - Eye Eye exam: Present: EOMI - ENT ENT exam: Present: normal exam - Neck Neck exam: Present: normal inspection - Respiratory Respiratory exam: Present: course breath sounds with mild expiratory wheezes - Cardiovascular Cardiovascular exam: Present: regular rate and rhythm - GI/Abdominal GI/Abdominal exam: Present: normal bowel sounds, soft. - Extremities Exam Extremities exam: Present: normal inspection - Neurological Exam Neurological exam: Present: alert - Psychiatric Psychiatric exam: Present: normal affect, normal mood - Skin Skin exam: Present: warm, intact Results - Labs CBC & BMP: 02/01/17 05:46 02/01/17 05:46
--- NOTE | 2017-02-01 10:56 | History and Physical Update ---
History and Physical Update - Physical Exam Mental Status: alert and oriented Heart: regular rate and rhythm Lung: clear to auscultation Abdomen: within normal limits Vitals: within normal limits
--- NOTE | 2017-02-01 11:00 | Operative Note ---
Date of procedure: 02/01/17 Pre-op diagnosis: Dysphagia Procedure: EGD with esophageal dilatation 86-year-old gentleman with complaints of dysphagia admitted with bronchitis with improvement in his clinical breathing. Informed symptoms of the patient He was sedated with MAC anesthesia per anesthesia protocol. Patient placed left lateral decubitus position the Olympus flexible video upper endoscope inserted oral cavity under direct vision the esophagus intubated findings: Esophagus-normal proximal mid esophageal mucosa distal esophagus with valvular stricture moderate hiatal hernia Stomach-normal insufflation normal mucosa to direct retroflexed views of the body fundus cardia and antrum the stomach. Pylorus-normal Duodenum-normal for the bulb and duodenum to the third portion of duodenum. The scope was removed and subsequently 54 [place] bougie was passed without difficulty no resistance no blood was present on the dilator. The procedure terminated placed our procedure well his discharge recovery in good condition Postop diagnosis: 1. Gastroesophageal reflux disease-continue PPI treatment antireflux precautions 2. Esophageal stricture repeat dilatation on as-needed basis. 3. I will sign off call if I can be of further assistance. Anesthesia: MAC Surgeon / Physician: Oscar Perez Estimated blood loss: none Specimens: none sent Condition: stable Disposition: post procedure unit Results - Labs CBC & BMP: 02/01/17 05:46 02/01/17 05:46 Discharge Plan - Discharge Medications No Action Cyanocobalamin (Vitamin B-12) [Cyanocobalamin Injection] 1,000 mcg IM Q30D Loratadine [Claritin] 10 mg PO BEDTIME Docusate Sodium Cap [Colace Cap] 100 mg PO BID Calcium Carbonate Chew [Tums] 1 tablet PO Q8H Simvastatin 5 mg PO BEDTIME Montelukast Tab [Singulair Tab] 10 mg PO BEDTIME Meclizine [Antivert] 25 mg PO TID Magnesium Oxide 400 mg PO BID Metoprolol Tartrate 25 mg PO BID Dexlansoprazole [Dexilant] 60 mg PO DAILY Tamsulosin [Flomax] 0.4 mg PO DAILY Acetaminophen Tab [Tylenol Tab] 650 mg PO Q6H PRN PRN Reason: Pain Polyethylene Glycol Powder [Miralax] 17 gm PO DAILY PRN PRN Reason: Constipation Pramoxine 1% Rectal Foam [Proctofoam 1% Foam] 1 applic TOP Q8HR PRN PRN Reason: Hemorrhoids HydrOXYzine PAMOATE CAP [Vistaril Cap] 25 mg PO DAILY Albuterol/Ipratropium Neb [Duoneb] 3 ml RESP TX RT Q4H PRN PRN Reason: Shortness Of Breath/Wheezing Phenyleph/Mineral Oil/Petrolat [Preparation H Ointment] 1 applic TOP Q4HR PRN PRN Reason: Hemorrhoids hydrOXYzine HCl [Hydroxyzine HCl] 25 mg PO Q6H PRN PRN Reason: Anxiety Oxycodone HCl/Acetaminophen [Oxycodon-Acetaminophen 7.5-325] 1 each PO Q8H PRN PRN Reason: Pain Polyvinyl Alcohol 1.4% Oph Marylou [Artificial Tears Oph Soln] 1 drop BOTH EYES QID PRN PRN Reason: Dry Eyes amLODIPine [Norvasc] 5 mg PO BID Gabapentin Cap/Tab [Neurontin Cap/Tab] 100 mg PO BID - Follow Up or Referral - Forms/Instructions
--- NOTE | 2017-02-01 11:20 | Anesthesia Post-Op ---
Anesthesia Post OP - Post Ansesthetic Evaluation Patient seen in post op: Yes Resp: within normal limits CV: within normal limits Mental: within normal limits Temp: within normal limits Yyll-Ky-Pvjulfmmm: within normal limits Nausea and Vomiting: within normal limits Pain: within normal limits
[2017-02-01] MEDS: methylPREDNISolone SOD SUC 40 MG/1 ML VIAL IV SCH ×2 (12:05→21:55)
[2017-02-01] MEDS: amLODIPine 5 MG TABLET PO SCH ×2 (12:06→21:49)
[2017-02-01] MEDS: GABAPENTIN 100 MG CAPSULE PO SCH ×2 (12:06→21:50)
[2017-02-01] MEDS: guaiFENesin/DM ER 600-30 MG TABLET PO PRN (12:06)
[2017-02-01] MEDS: HydrOXYzine PAMOATE 25 MG CAPSULE PO SCH (12:06)
[2017-02-01] MEDS: TAMSULOSIN 0.4 MG CAPSULE PO SCH (12:06)
[2017-02-01] MEDS: PANTOPRAZOLE 40 MG VIAL IV SCH (12:06)
[2017-02-01] MEDS: MAGNESIUM OXIDE 400 MG TABLET PO SCH ×2 (12:07→21:50)
[2017-02-01] MEDS: METOPROLOL TARTRATE 25 MG TABLET PO SCH ×2 (12:07→21:50)
[2017-02-01] MEDS: DOCUSATE SODIUM 100 MG CAPSULE PO SCH ×2 (12:07→21:50)
[2017-02-01] MEDS: MECLIZINE 25 MG TABLET PO SCH ×3 (12:07→21:50)
[2017-02-01] MEDS: BUDESONIDE/FORMOTEROL 160-4.5 INHALER 6 GM INH SCH ×2 (12:09→21:49)
[2017-02-01] MEDS: oxyCODONE/ACETAMINOPHEN 5-325 MG TABLET PO PRN ×2 (12:39→21:59)
[2017-02-01] MEDS: ENOXAPARIN 40 MG/0.4 ML SYRINGE SUBCUT SCH ×2 (12:40→12:46)
[2017-02-01] MEDS: hydrOXYzine HCL 25 MG TABLET PO PRN (12:40)
[2017-02-01] MEDS: SODIUM CHLORIDE 0.9% 1,000 ML IV SCH ×3 (12:40→21:56)
[2017-02-01] MEDS: LEVOFLOXACIN INJ 750 MG in PREMIX 1 EACH IV SCH (12:41)
[2017-02-01] MEDS: MONTELUKAST 10 MG TABLET PO SCH (21:49)
[2017-02-01] MEDS: LORATADINE 10 MG TABLET PO SCH (21:50)
[2017-02-01] MEDS: SIMVASTATIN 10 MG TABLET PO SCH (21:51)
[2017-02-02] MEDS: CALCIUM CARBONATE CHEW 500 MG TABLET PO SCH ×3 (02:25→16:52)
[2017-02-02] MEDS: ALBUTEROL/IPRATROPIUM 3 ML NEB RESP TX SCH ×6 (03:19→23:55)
[2017-02-02] MEDS: BUDESONIDE/FORMOTEROL 160-4.5 INHALER 6 GM INH SCH ×2 (08:58→21:02)
[2017-02-02] MEDS: GABAPENTIN 100 MG CAPSULE PO SCH ×2 (08:58→21:02)
[2017-02-02] MEDS: PANTOPRAZOLE 40 MG VIAL IV SCH (08:58)
[2017-02-02] MEDS: methylPREDNISolone SOD SUC 40 MG/1 ML VIAL IV SCH ×2 (08:58→20:48)
[2017-02-02] MEDS: DOCUSATE SODIUM 100 MG CAPSULE PO SCH ×2 (08:58→21:02)
[2017-02-02] MEDS: TAMSULOSIN 0.4 MG CAPSULE PO SCH (08:59)
[2017-02-02] MEDS: MAGNESIUM OXIDE 400 MG TABLET PO SCH ×2 (08:59→21:03)
[2017-02-02] MEDS: MECLIZINE 25 MG TABLET PO SCH ×3 (08:59→21:03)
[2017-02-02] MEDS: amLODIPine 5 MG TABLET PO SCH ×2 (08:59→21:03)
[2017-02-02] MEDS: METOPROLOL TARTRATE 25 MG TABLET PO SCH ×2 (08:59→21:02)
[2017-02-02] MEDS: HydrOXYzine PAMOATE 25 MG CAPSULE PO SCH (08:59)
[2017-02-02] MEDS: guaiFENesin/DM ER 600-30 MG TABLET PO PRN (08:59)
[2017-02-02] MEDS: SODIUM CHLORIDE 0.9% 1,000 ML IV SCH ×2 (09:00→16:51)
[2017-02-02] MEDS: oxyCODONE/ACETAMINOPHEN 5-325 MG TABLET PO PRN ×2 (09:05→21:03)
[2017-02-02] MEDS: LEVOFLOXACIN INJ 750 MG in PREMIX 1 EACH IV SCH (09:06)
--- NOTE | 2017-02-02 10:37 | Hospitalist Progress Note ---
Assessment and Plan (1) COPD (chronic obstructive pulmonary disease) Status: Chronic Assessment and plan: Still with moderate dyspnea with activity. Also with resting hyoxia in the low 90's. While this is an adequate sat in the setting of COPD, I think that this may drop significantly with activity. Previous CXR's noting progressive left lung base atelectasis. We will repeat chest x-ray and obtain an ABG for further evaluation. For now, will continue with current dosage of Solumedrol, and nebs. Continue Levofloxacin. Wheezing less audible today. No overt increased work of breathing at rest. May consider a pulmonary consult pending the results of the repeat chest x-ray, ABG and clinical exam. Current Visit: Yes Qualifiers: COPD type: COPD with acute exacerbation Qualified Code(s): J44.1 - Chronic obstructive pulmonary disease with (acute) exacerbation (2) HTN (hypertension) Status: Chronic Assessment and plan: BP remains stable. Continue to monitor on Amlodipine 5mg po bid and metoprolol 25 mg p.o. twice daily. Current Visit: No Qualifiers: Hypertension type: essential hypertension Qualified Code(s): I10 - Essential (primary) hypertension (3) Esophageal stricture Status: Chronic Assessment and plan: Status post esophageal dilation by GI on yesterday. Patient tolerated the procedure without difficulty. Reports he ate all of his breakfast without any problems. Continue to monitor. Appreciate GI's assistance. Current Visit: Yes Hospitalist: Subjective Interval history: Patient has been admitted with an exacerbation of COPD and subsequently noted dysphasia. Patient has a history of esophageal stricture and thus GI has been consulted and following. He is s/p esophageal dilation on yesterday. Tolerated the procedure will. Patient reports eating all of his breakfast this morning without any difficulty. He continues to improve from a pulmonary standpoint with decreased wheezing and decreased work of breathing. Difficulty breathing with activity remains a problem. I think we may need to give a little more time with meds. Exam - Constitutional Vitals: Period Temp Pulse Resp BP Sys/Briceno Pulse Ox Last 24 Hr 97.3 F-97.9 F 61-101 18-26 131-140/60-80 93-100 Exam: General appearance: over weight - Head Head exam: Present: normocephalic, atraumatic - Eye Eye exam: Present: EOMI - Respiratory Respiratory exam: Present: course breath sounds with very mild expiratory wheezes - Cardiovascular Cardiovascular exam: Present: regular rate and rhythm - GI/Abdominal GI/Abdominal exam: Present: normal bowel sounds, soft. - Extremities Exam Extremities exam: Present: normal inspection - Neurological Exam Neurological exam: Present: alert - Psychiatric Psychiatric exam: Present: normal affect, normal mood - Skin Skin exam: Present: warm, intact Results - Labs CBC & BMP: 02/01/17 05:46 02/01/17 05:46
[2017-02-02 11:32] LABS: ABG Base Excess 0.2 MMOL/L (-2.5-2.5); ABG HCO3 24.6 MMOL/L (20-26); ABG Oxygen Saturation 93.5 % (95-100); ABG PCO2 40.4 MM HG (35-48); ABG PH 7.399 (7.35-7.45); ABG PO2 66.5 MM HG (80-95); ABG TCO2 22.8 MMOL/L (23-27)
[2017-02-02] MEDS: ENOXAPARIN 40 MG/0.4 ML SYRINGE SUBCUT SCH (12:51)
--- NOTE | 2017-02-02 13:34 | XRay Report ---
XR chest 1V Indication: Persistent shortness of breath and hypoxia. Chest one view: Comparison 01/31/2017. Lung volumes are decreased when compared to the prior examination with progressive bibasilar atelectasis. Medial left hemidiaphragm is completely obscured at this point. Cardiomegaly, tortuous thoracic aorta and multiple levels of vertebroplasty are again shown. Scattered calcified granulomata are present. Impression: Worsening pulmonary hypoinflation. Worsening left basilar atelectasis or pneumonia. PROCEDURE INTERPRETED AT [facility] DEPARTMENT OF RADIOLOGY Final Report Signed by: Taye Macias M.D.
[2017-02-02] MEDS: SIMVASTATIN 10 MG TABLET PO SCH (21:02)
[2017-02-02] MEDS: LORATADINE 10 MG TABLET PO SCH (21:02)
[2017-02-02] MEDS: MONTELUKAST 10 MG TABLET PO SCH (21:02)
[2017-02-03] MEDS: CALCIUM CARBONATE CHEW 500 MG TABLET PO SCH ×3 (02:02→16:29)
[2017-02-03] MEDS: ALBUTEROL/IPRATROPIUM 3 ML NEB RESP TX SCH ×6 (03:07→23:58)
[2017-02-03] MEDS: BUDESONIDE/FORMOTEROL 160-4.5 INHALER 6 GM INH SCH ×2 (08:49→21:15)
[2017-02-03] MEDS: oxyCODONE/ACETAMINOPHEN 5-325 MG TABLET PO PRN ×2 (08:50→21:16)
[2017-02-03] MEDS: guaiFENesin/DM ER 600-30 MG TABLET PO PRN (08:51)
[2017-02-03] MEDS: MECLIZINE 25 MG TABLET PO SCH ×3 (08:52→21:16)
[2017-02-03] MEDS: HydrOXYzine PAMOATE 25 MG CAPSULE PO SCH (08:52)
[2017-02-03] MEDS: MAGNESIUM OXIDE 400 MG TABLET PO SCH ×2 (08:52→21:17)
[2017-02-03] MEDS: METOPROLOL TARTRATE 25 MG TABLET PO SCH ×2 (08:52→21:17)
[2017-02-03] MEDS: DOCUSATE SODIUM 100 MG CAPSULE PO SCH ×2 (08:52→21:17)
[2017-02-03] MEDS: PANTOPRAZOLE 40 MG VIAL IV SCH (08:53)
[2017-02-03] MEDS: amLODIPine 5 MG TABLET PO SCH ×2 (08:53→21:16)
[2017-02-03] MEDS: methylPREDNISolone SOD SUC 40 MG/1 ML VIAL IV SCH (08:53)
[2017-02-03] MEDS: TAMSULOSIN 0.4 MG CAPSULE PO SCH (08:53)
[2017-02-03] MEDS: LEVOFLOXACIN INJ 750 MG in PREMIX 1 EACH IV SCH (09:00)
[2017-02-03] MEDS: GABAPENTIN 100 MG CAPSULE PO SCH ×2 (09:30→21:17)
[2017-02-03] MEDS: SODIUM CHLORIDE 0.9% 1,000 ML IV SCH (10:32)
[2017-02-03] MEDS: ENOXAPARIN 40 MG/0.4 ML SYRINGE SUBCUT SCH (11:05)
--- NOTE | 2017-02-03 11:32 | Hospitalist Progress Note ---
Assessment and Plan (1) COPD (chronic obstructive pulmonary disease) Status: Chronic Assessment and plan: Remains with moderate dyspnea with activity and resting hypoxia in the low 90' s. While this is an adequate sat in the setting of COPD, I think that this may drop significantly with activity. Repeat chest x-ray noting worsening atelectasis now extending bilaterally at the bases. We have consulted pulmonary medicine for assistance. Will continue with current dosage of Solumedrol, and nebs. Continue Levofloxacin. Wheezing improved but with decreased air movement overall. Current Visit: Yes Qualifiers: COPD type: COPD with acute exacerbation Qualified Code(s): J44.1 - Chronic obstructive pulmonary disease with (acute) exacerbation (2) HTN (hypertension) Status: Chronic Assessment and plan: BP remains stable. Continue to monitor on Amlodipine 5mg po bid and metoprolol 25 mg p.o. twice daily. Current Visit: No Qualifiers: Hypertension type: essential hypertension Qualified Code(s): I10 - Essential (primary) hypertension (3) Esophageal stricture Status: Chronic Assessment and plan: Status post esophageal dilation by GI on Saturday. Patient tolerated the procedure without difficulty. Eating well without any difficulties. Continue to monitor. Appreciate GI's assistance. Current Visit: Yes Hospitalist: Subjective Interval history: Patient seen and examined at the bedside. No acute events overnight. Patient declined BiPAP on last evening and additionally declined incentive spirometry. I talked to Mr. Duckworth this morning to encourage him to use both of these modalities in order to open up his lungs that had already collapsed and to keep an open airway maintained. He states that he would not give it a try that he did not know what it was for however this was explained to him previously. He continues to have shortness of breath with activity. He is maintaining adequate sats in the low 90s on 2-3 L of oxygen. We have placed a consult to pulmonary medicine who will evaluate the patient. He is improving but slowly and anticipate discharge in the next 2-3 days. Exam - Constitutional Vitals: Period Temp Pulse Resp BP Sys/Briceno Pulse Ox Last 24 Hr 97.8 F-98.4 F 60-96 18-28 131-154/66-89 85-98 Exam: General appearance: over weight - Head Head exam: Present: normocephalic, atraumatic - Eye Eye exam: Present: EOMI - Respiratory Respiratory exam: Present: Labored breathing, (just returned from the bathroom) course breath sounds without wheezing - Cardiovascular Cardiovascular exam: Present: regular rate and rhythm - GI/Abdominal GI/Abdominal exam: Present: normal bowel sounds, soft. - Extremities Exam Extremities exam: Present: normal inspection - Neurological Exam Neurological exam: Present: alert - Psychiatric Psychiatric exam: Present: normal affect, normal mood - Skin Skin exam: Present: warm, intact Results - Labs CBC & BMP: 02/01/17 05:46 02/01/17 05:46
--- NOTE | 2017-02-03 15:27 | Pulmonology Consult Note ---
Assessment and Plan (1) SOB (shortness of breath) Status: Acute Assessment and plan: Patient complains of ongoing, chronic shortness of breath with 1 day of acute worsening prior to admission. Patient ongoing shortness of breath is likely related to COPD. His acute worsening has many possible etiologies including pneumonia. Other items in the differential include cardiac disease, heart failure, PE, pulmonary hypertension, and aspiration related to his esophageal stricture. Recommend further evaluation with CT chest as well as echocardiogram. Would also consider broadening antibiotics to cover MRSA growing from sputum culture. Otherwise continue therapy for COPD. Recommendations -CT chest -Echocardiogram -Broaden antibiotics for MRSA coverage -Continue therapies for COPD Current Visit: Yes (2) COPD (chronic obstructive pulmonary disease) Status: Chronic Assessment and plan: No wheezing on exam currently. Continue current therapies and can likely taper steroids in the near future. Evaluation for acute shortness of breath as above. Current Visit: Yes Qualifiers: COPD type: COPD with acute exacerbation Qualified Code(s): J44.1 - Chronic obstructive pulmonary disease with (acute) exacerbation (3) Esophageal stricture Status: Chronic Assessment and plan: Patient is status post esophageal dilation of stricture. Current Visit: Yes History of Present Illness Chief complaint: Shortness of breath History of present illness: Mr. Duckworth is a 86 year old male with a history of COPD and esophageal strictures admitted for complaint of shortness of breath and dysphasia. Patient states the shortness of breath has been ongoing for the last 6 months with acute worsening 1 day prior to admission. Since admission, patient has been treated with antibiotics, bronchodilators, and glucocorticoids with marginal improvement. He is also undergone an EGD with esophageal dilation for his distal esophageal stricture. Today he states his breathing is mildly improved at rest, though he still notes dyspnea with minimal exertion. He admits to having a cough but denies significant sputum production. He has been afebrile. He denies chest pain/palpitations. Home Medications Medication Instructions Recorded Confirmed Type Acetaminophen Tab [Tylenol Tab] 650 mg PO Q6H PRN 10/25/16 01/30/17 History Calcium Carbonate Chew [Tums] 1 tablet PO Q8H 10/25/16 01/30/17 History Cyanocobalamin (Vitamin B-12) 1,000 mcg IM Q30D 10/25/16 01/30/17 History [Cyanocobalamin Injection] Dexlansoprazole [Dexilant] 60 mg PO DAILY 10/25/16 01/30/17 History Docusate Sodium Cap [Colace Cap] 100 mg PO BID 10/25/16 01/30/17 History Loratadine [Claritin] 10 mg PO BEDTIME 10/25/16 01/30/17 History Magnesium Oxide 400 mg PO BID 10/25/16 01/30/17 History Meclizine [Antivert] 25 mg PO TID 10/25/16 01/30/17 History Metoprolol Tartrate 25 mg PO BID 10/25/16 01/30/17 History Montelukast Tab [Singulair Tab] 10 mg PO BEDTIME 10/25/16 01/30/17 History Polyethylene Glycol Powder 17 gm PO DAILY PRN 10/25/16 01/30/17 History [Miralax] Polyvinyl Alcohol 1.4% Oph Marylou 1 drop BOTH EYES QID PRN 10/25/16 01/30/17 History [Artificial Tears Oph Soln] Simvastatin 5 mg PO BEDTIME 10/25/16 01/30/17 History Tamsulosin [Flomax] 0.4 mg PO DAILY 10/25/16 01/30/17 History amLODIPine [Norvasc] 5 mg PO BID 10/25/16 01/30/17 History Albuterol/Ipratropium Neb [Duoneb] 3 ml RESP TX RT Q4H PRN 12/11/16 01/30/17 History HydrOXYzine PAMOATE CAP [Vistaril 25 mg PO DAILY 12/11/16 01/30/17 History Cap] Phenyleph/Mineral Oil/Petrolat 1 applic TOP Q4HR PRN 12/11/16 01/30/17 History [Preparation H Ointment] Pramoxine 1% Rectal Foam 1 applic TOP Q8HR PRN 12/11/16 01/30/17 History [Proctofoam 1% Foam] Gabapentin Cap/Tab [Neurontin 100 mg PO BID 01/30/17 01/30/17 History Cap/Tab] Oxycodone HCl/Acetaminophen 1 each PO Q8H PRN 01/30/17 01/30/17 History [Oxycodon-Acetaminophen 7.5-325] hydrOXYzine HCl [Hydroxyzine HCl] 25 mg PO Q6H PRN 01/30/17 01/30/17 History Allergies Allergy/AdvReac Type Severity Reaction Status Date / Time lisinopril Allergy Unknown RASH Verified 12/13/16 21:57 carvedilol [From Coreg] Allergy RASH Verified 12/13/16 21:57 hydrochlorothiazide Allergy RASH Verified 12/13/16 21:57 metoclopramide [From Reglan] Allergy Unknown/Unable Verified 12/13/16 21:57 to obtain propoxyphene Allergy RASH Verified 12/13/16 21:57 [From Darvocet-N] Sulfa (Sulfonamide Allergy RASH Verified 12/13/16 21:57 Antibiotics) tramadol Allergy RASH Verified 12/13/16 21:57 aspirin AdvReac Intermediate Gastrointestinal Verified 12/13/16 21:57 Upset rofecoxib [From Vioxx] AdvReac Intermediate Gastrointestinal Verified 12/13/16 21:57 Upset 12 point system: reviewed and no additional remarkable complaints except as stated Exam (Pulmonay) H&P - Constitutional Vitals: Period Temp Pulse Resp BP Sys/Briceno Pulse Ox Last 24 Hr 97.8 F-98.5 F 60-96 18-28 131-154/66-84 85-98 General appearance: over weight, other (Tremulous) - Head Head exam: Present: normal inspection - Eye Eye exam: Present: EOMI Pupils: Present: ANAYELI - Neck Neck exam: Present: normal inspection - Respiratory Respiratory exam: Present: prolonged expiratory phase, rhonchi (Bilaterally). Absent: accessory muscle use, rales, wheezes - Cardiovascular Cardiovascular exam: Present: regular rate and rhythm - GI/Abdominal GI/Abdominal exam: Present: normal bowel sounds, soft, other (Obese) - Extremities Exam Extremities exam: Present: edema (Left lower extremity) - Neurological Exam Neurological exam: Present: alert, oriented X3 - Skin Skin exam: Present: normal color, warm, dry Medical,Surgical,& Family Hx - Medical History Cardio: History of: Cardiac Dysrhythmia (Hx: A. Fib), CAD, Hypertension, Cardiovascular Problems (ASHD) No history of: VA, Pacemaker Neurology: History of: Dementia, Peripheral Neuropathy, Vertigo No history of: Seizures HEENT: History of: HEENT Problems (zoster, right side of face) Endocrine: History of: Dyslipidemia No history of: Diabetes Mellitus (NIDDM) Rheumatology: History of;: Rheumatoid Arthritis, Rheumatological Problems Respiratory: History of: COPD, Pneumonia (x12 times since 2010), Respiratory Problems (Bronchospastic Disease) No history of: Obstructive Sleep Apnea Genitourinary: History of: Prostate Problems (enlarged), Problems (r/t enlarged prostate) Gastrointestinal: History of: GERD, Polyps (Colon and Gastric), GI Problems ( esophageal stricture, Sena's esophagus, erosive gastritis, hiatal hernia) Musculoskeletal: History of: Back/Neck Problems (chronic back pain ), Musculoskeletal Problems (wedge comp. fx t11, t12; DJD) No history of: Amputation Hematology: History of: Anemia (Pernicious) No history of: Blood Transfusion Reaction Other: History of: Skin Problems (shingles 2013) No history of: Anesthesia Reactions, Cancer - Surgical History Cardiac Surgeries: Patient Denies: Cardiac Catheterization, Cardiac Surgery Thoracic Surgeries: Patient denies;: Kidney (Renal Surgery), Lithotripsy, Nephrectomy HEENT Surgeries: Surgical HX of: Eye Surgery (cataract) Patient denies: Tonsilectomy & Adenoidectomy Abdominal Surgeries: Surgical HX of: Abdominal Surgery, Appendectomy, Colonoscopy, EGD Patient denies: Cholecystectomy, Gastric Bypass Surgery, Hernia Repair Reproductive Surgeries: Surgical HX of;: Cystoscopy (HE THINKS MAY HAVE HAD), Genitourinary Surgery Patient denies;: Prostate Surgery Orthopedic Surgeries: Surgical HX of;: Orthopedic Surgery (ankles, wrist, back, neck), Spinal Surgery (kypoplasty) Patient denies;: Implanted Devices - Family History Family History: Reports;: Family Cancer (Brother (lung)), Family Diabetes ( Mother), Family Heart Disease (Mother), Family Hypertension (Mother), Family Stroke Denies;: Family Anesthesia Reaction, Family Psychiatric Problems - Social History Smoking Status: Former smoker Frequency of Alcohol Use: None Type of Drug Use: None Results - Labs CBC & BMP: 02/01/17 05:46 02/01/17 05:46 - Diagnostic Findings Procedure: Chest x-ray: image reviewed by me, report reviewed by me
[2017-02-03] MEDS: VANCOMYCIN INJ 1,250 MG in SODIUM CHLORIDE 0.9% 250 ML IV SCH (16:29)
--- NOTE | 2017-02-03 16:59 | CT Report ---
CT chest w con Indication: Hypoxia. CT CHEST WITH CONTRAST DLP: 419 mGy*cm. One or more of the following dose reduction techniques was used: Automated exposure control, adjustment of the mA and/or kV according the patient size, or use of iterative reconstruction techniques. Comparison: None Technique: Axial CT images of the chest were obtained after the IV administration of Omnipaque 350, 80 cc. Findings: Borderline cardiomegaly. Extensive calcified atheromatous disease of the aorta and coronary arteries noted. Aortic arch is elongated and tortuous without aneurysm or dissection evident. Great vessels are widely patent but tortuous as well. No mediastinal, axillary or hilar lymphadenopathy. Left lower lobes collapsed with volume loss. Airway appears occluded extending to the left lower lobe. Additional patchy areas of groundglass opacity are present within the posterior left upper lobe, and additional parenchymal bands involving posterior aspect of the right lung, likely scarring. There is a thin-walled 10 mm cyst within the right upper lobe. Pleural spaces are clear. Limited views of the upper abdomen demonstrate bilateral renal cysts and calcified atheromatous disease. Upper abdomen is otherwise benign-appearing. Osteopenia noted with multiple levels of kyphoplasty. No new compression fractures are believed present. Impression: 1. Left lower lobe atelectasis with occlusion of the left lower lobe airway. Consider mucous plug. 2. Additional diffuse interstitial lung disease with parenchymal bands, likely scarring, and patchy groundglass opacity involving the posterior left upper lobe. Underlying infection cannot be excluded. 3. Borderline cardiomegaly. Extensive calcified atheromatous disease and tortuosity of thoracic aorta. 4. Renal cysts. 5. Multiple levels of kyphoplasty. Osteoporosis. PROCEDURE INTERPRETED AT [facility] DEPARTMENT OF RADIOLOGY Final Report Signed by: Taye Macias M.D.
[2017-02-03] MEDS: SIMVASTATIN 10 MG TABLET PO SCH (21:16)
[2017-02-03] MEDS: MONTELUKAST 10 MG TABLET PO SCH (21:16)
[2017-02-03] MEDS: LORATADINE 10 MG TABLET PO SCH (21:16)
[2017-02-04] MEDS: methylPREDNISolone SOD SUC 40 MG/1 ML VIAL IV SCH ×3 (00:24→22:10)
[2017-02-04] MEDS: CALCIUM CARBONATE CHEW 500 MG TABLET PO SCH ×3 (01:00→17:00)
[2017-02-04] MEDS: ALBUTEROL/IPRATROPIUM 3 ML NEB RESP TX SCH ×6 (02:29→23:35)
[2017-02-04] MEDS: VANCOMYCIN INJ 1,250 MG in SODIUM CHLORIDE 0.9% 250 ML IV SCH ×2 (04:15→15:56)
[2017-02-04 05:18] LABS: Basophils % 0.1 % (0.0-0.8); Eosinophils % 0.1 % (0.00-10.9); Hematocrit 35.1 VOL% (42.0-52.0); Hemoglobin 11.2 GM/DL (14.0-18.0); Immature Granulocytes % 1.6 %; Immature Granulocytes Absolute 0.12 #; Lymphocytes # 0.6 10*3/uL (1.4-4.0); Mean Corpuscular HGB Conc 31.9 GM/DL (32-36); Mean Corpuscular Hemoglobin 26 PG (27-34); Mean Corpuscular Volume 82.8 FL (87-102); Mean Platelet Volume 9.6 FL (9.6-12.0); Monocytes # 0.5 10*3/uL (0.11-0.8); Monocytes % 6.6 % (1.7-12.7); Neutrophils # 6.5 10*3/uL (1.4-7.4); Neutrophils % 83.6 % (38.7-73.9); Platelet Count 226 T/CUMM (130-400); Red Blood Count 4.24 MC/CUMM (3.8-5.5); Red Cell Distribution Width 15.4 % (9.3-17.3); White Blood Count 7.7 T/CUMM (4-12)
[2017-02-04 05:44] LABS: Calcium 8.5 MG/DL (8.5-10.1); Magnesium 2.3 MG/DL (1.8-2.4); Osmolality,Calculated 279.4 MOS/KG (273-304)
--- NOTE | 2017-02-04 09:26 | XRay Report ---
History: Pneumonia Date: 02/04/2017 Study: Chest x-ray PA and lateral Comparison exam: February 02, 2017 There is stable cardiomegaly. The mediastinal contours are unchanged. There is mild ectasia and tortuosity of thoracic aorta. The pulmonary vasculature is not engorged. There are some scattered emphysematous changes in the lungs. There is some continued atelectatic parenchymal consolidation in the left lower lobe, though this is perhaps minimally improved. There is no gross interval worsening. Radiopaque cement from previous kyphoplasty overlies multiple thoracic vertebral body levels as before. Impression: Continued atelectatic parenchymal consolidation left lower lobe, thought to be mildly improved. No interval worsening PROCEDURE INTERPRETED AT [facility] DEPARTMENT OF RADIOLOGY Final Report Signed by: Dr. Sera Villalpando
[2017-02-04] MEDS: HydrOXYzine PAMOATE 25 MG CAPSULE PO SCH (09:50)
[2017-02-04] MEDS: METOPROLOL TARTRATE 25 MG TABLET PO SCH ×2 (09:50→20:58)
[2017-02-04] MEDS: MAGNESIUM OXIDE 400 MG TABLET PO SCH ×2 (09:51→20:57)
[2017-02-04] MEDS: TAMSULOSIN 0.4 MG CAPSULE PO SCH (09:51)
[2017-02-04] MEDS: DOCUSATE SODIUM 100 MG CAPSULE PO SCH ×2 (09:51→20:57)
[2017-02-04] MEDS: amLODIPine 5 MG TABLET PO SCH ×2 (09:51→20:57)
[2017-02-04] MEDS: GABAPENTIN 100 MG CAPSULE PO SCH ×2 (09:51→20:57)
[2017-02-04] MEDS: MECLIZINE 25 MG TABLET PO SCH ×3 (09:51→20:57)
[2017-02-04] MEDS: oxyCODONE/ACETAMINOPHEN 5-325 MG TABLET PO PRN ×2 (09:52→21:06)
[2017-02-04] MEDS: ENOXAPARIN 40 MG/0.4 ML SYRINGE SUBCUT SCH (09:55)
[2017-02-04] MEDS: PANTOPRAZOLE 40 MG VIAL IV SCH (09:56)
[2017-02-04] MEDS: BUDESONIDE/FORMOTEROL 160-4.5 INHALER 6 GM INH SCH ×2 (10:14→21:08)
[2017-02-04] MEDS: LEVOFLOXACIN INJ 750 MG in PREMIX 1 EACH IV SCH (10:14)
--- NOTE | 2017-02-04 10:55 | Pulmonology Progress Note ---
Pulmonary - PN: Subj Interval history: Jayjay Yates, ANP-BC, GNP-BC, acting as scribe for Dr. Santos Schaefer Mr. Duckworth is an 86-year-old white male who is well-known to us. He has been a long-term patient of Dr. Schaefer. He presented to [facility] emergency room on with complaints of increased shortness of breath. He was found to have an acute exacerbation of COPD and was admitted for further evaluation and care. He has been seen by Dr. Perez dismission an EGD was done on 02/01/2017. This showed gastroesophageal reflux disease and an esophageal stricture which was dilated. Prior to this admission, EGD was done 12/11/2016. 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 02/04/2017. Patient was seen today along with his nurse. He states his breathing is improving, but has significant large airway congestion. Today we have added Pulmozyme and Mucinex twice daily. 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 Sputum also grew MRSA during his November 2016 hospitalization. He is presently being treated with Levaquin and vancomycin. He is on Solu-Medrol 40 mg every 12 hours. Medications have been reviewed. We added Mucinex 600 mg twice daily and Pulmozyme inhaled twice daily today. Labs been reviewed. White count is 7700 with 83.6% segs; H&H 11.2/35.1 with decreased indices and top normal red blood cell distribution with; platelet count 226,000; creatinine 0.60, BUN 16, electrolytes are normal ABGs done 02/02/2017 on an FiO2 28% showed a pH of 7.39 9, PCO2 40.4, PO2 66.5, bicarb 24.6, and oxygen saturation 93.5% Exam (Progress Note) - Constitutional Vitals: Period Temp Pulse Resp BP Sys/Briceno Pulse Ox Last 24 Hr 97.9 F-98.5 F 65-91 18-28 124-157/68-87 90-99 Exam: Chest... See above Heart no gallop Abdomen is obese, but nontender nondistended; bowel sounds are positive 4 Extremities with nothing to suggest acute deep venous thrombophlebitis Psychiatric presently oriented 3 Neurologic long-term motor function is intact Plan: Mucinex 600 mg p.o. twice daily. Pulmozyme nebulized twice daily. Check cold agglutinins and Legionella. See orders. Results - Labs CBC & BMP: 02/04/17 04:06 02/04/17 04:06
[2017-02-04] MEDS: DORNASE ALFA 2.5 MG/2.5 ML VIAL RESP TX SCH ×2 (11:49→18:59)
--- NOTE | 2017-02-04 15:40 | ECHO Report ---
Jaleel Duckworth Exam Date: 02/04/2017 10:41 Referring Physician: Technologist: yong Jeffers ARDMS, RVT Age: 86 Ht (in): 66 Wt (lb): 207 Gender: M Exam Location: [facility] Echo Indications: Essential (primary) hypertension, COPD, Esophageal stricture BP: 124 / 68 HR: 78 Rhythm: Sinus Technical Quality: IMPRESSIONS Left ventricular ejection fraction is estimated at 55% with no regional wall motion abnormality. There is grade I diastolic dysfunction. Mild left ventricular hypertrophy. Tricuspid regurgitation velocities suggest a RVSP of 32 mmHg. MEASUREMENTS (Male / Female) Normal Values 2D ECHO LV Diastolic Diameter PLAX 4.7 cm 4.2 - 5.9 / 3.9 - 5.3 cm LV Systolic Diameter PLAX 2.6 cm LV Fractional Shortening PLAX 43.7 % IVS Diastolic Thickness 1.6 cm 0.6 - 1.0 / 0.6 - 0.9 cm LVPW Diastolic Thickness 2.0 cm 0.6 - 1.0 / 0.6 - 0.9 cm RV Internal Dim ED PLAX 4.3 cm Aortic Root Diameter 3.5 cm LA Systolic Diameter LX 4.6 cm 3.0 - 4.0 / 2.7 - 3.8 cm DOPPLER TR Peak Velocity 285.0 cm/s TR Peak Gradient 32.5 mmHg FINDINGS Left Ventricle Normal left ventricular cavity size. Mild left ventricular hypertrophy. Left ventricular ejection fraction is estimated at 55% with no regional wall motion abnormality. There is grade I diastolic dysfunction. Right Ventricle The right ventricle is normal in size and function. Right Atrium The right atrium is normal in size. Left Atrium The left atrium is mildly enlarged. Mitral Valve Morphologically normal mitral valve without significant stenosis or prolapse. There is no mitral regurgitation. Aortic Valve Morphologically normal aortic valve without significant sclerosis or stenosis. There is no aortic regurgitation. Tricuspid Valve Morphologically normal tricuspid valve. Mild tricuspid valve regurgitation. Tricuspid regurgitation velocities suggest a RVSP of 32 mmHg. Pulmonic Valve Morphologically normal pulmonic valve. Trace pulmonary valve regurgitation. Pericardium Normal pericardium without effusion. Aorta Normal ascending aorta dimension. Stephanie Roche (Electronically Signed) Final Date: 04 February 2017 15:39
--- NOTE | 2017-02-04 17:03 | Hospitalist Progress Note ---
Assessment and Plan - Time spent with patient Time spent with patient: Less than 30 minutes (1) COPD (chronic obstructive pulmonary disease) Status: Chronic Assessment and plan: Patient seems to be stabilizing from a pulmonary standpoint. CT thorax did reveal left lower lobe atelectasis with occlusion of the left lower lobe airway. Consideration should be given to mucous plugging. Pulmonary is following along and recommended adding Pulmozyme and Mucinex which have been done. Continue with incentive spirometry and CPAP at night. Will continue with current dosage of Solumedrol, and nebs. Continue Levofloxacin and vancomycin. Wheezing resolved but with decreased air movement overall. Remains hemodynamically stable. Current Visit: Yes Qualifiers: COPD type: COPD with acute exacerbation Qualified Code(s): J44.1 - Chronic obstructive pulmonary disease with (acute) exacerbation (2) HTN (hypertension) Status: Chronic Assessment and plan: BP remains stable. Continue to monitor on Amlodipine 5mg po bid and metoprolol 25 mg p.o. twice daily. Current Visit: No Qualifiers: Hypertension type: essential hypertension Qualified Code(s): I10 - Essential (primary) hypertension (3) Esophageal stricture Status: Chronic Assessment and plan: Status post esophageal dilation by GI on Saturday. Patient tolerated the procedure without difficulty. Eating well without any difficulties. Continue to monitor. Current Visit: Yes Hospitalist: Subjective Interval history: Patient seen and evaluated at the bedside. No acute events noted overnight. Patient seems to be slowly improving. CT chest obtained shows bilateral atelectasis possibly secondary to mucous plugging. Evaluated by pulmonary today and recommended adding Pulmozyme and Mucinex to current therapy. Patient states that he is improving with shortness of breath at rest but still has dyspnea with minimal activity. Echo obtained on yesterday shows an estimated ejection fraction of about 55% with no regional wall motion abnormality. There is grade 1 diastolic dysfunction. RVSP estimated to approximately 32 mmHg. Exam - Constitutional Vitals: Period Temp Pulse Resp BP Sys/Briceno Pulse Ox Last 24 Hr 98.0 F-98.7 F 65-91 18-28 124-161/68-88 90-99 Exam: General appearance: over weight - Head Head exam: Present: normocephalic, atraumatic - Eye Eye exam: Present: EOMI - Respiratory Respiratory exam: Present: Breathing comfortably in bed. Course breath sounds without wheezing. Maintaining O2 sats in the upper 90s. - Cardiovascular Cardiovascular exam: Present: regular rate and rhythm - GI/Abdominal GI/Abdominal exam: Present: normal bowel sounds, soft. - Extremities Exam Extremities exam: Present: normal inspection - Psychiatric Psychiatric exam: Present: normal affect, normal mood - Skin Skin exam: Present: warm, intact Results - Labs CBC & BMP: 02/04/17 04:06 02/04/17 04:06
[2017-02-04] MEDS: SIMVASTATIN 10 MG TABLET PO SCH (20:57)
[2017-02-04] MEDS: LORATADINE 10 MG TABLET PO SCH (20:57)
[2017-02-04] MEDS: MONTELUKAST 10 MG TABLET PO SCH (20:57)
[2017-02-05] MEDS: CALCIUM CARBONATE CHEW 500 MG TABLET PO SCH ×3 (03:32→17:28)
[2017-02-05] MEDS: ALBUTEROL/IPRATROPIUM 3 ML NEB RESP TX SCH ×6 (03:37→23:59)
[2017-02-05] MEDS: VANCOMYCIN INJ 1,250 MG in SODIUM CHLORIDE 0.9% 250 ML IV SCH ×2 (04:40→17:31)
[2017-02-05] MEDS: DORNASE ALFA 2.5 MG/2.5 ML VIAL RESP TX SCH ×2 (07:35→19:08)
--- NOTE | 2017-02-05 09:19 | Pulmonology Progress Note ---
Pulmonary - PN: Subj Interval history: Mr. Duckworth is an 86-year-old white male who is well-known to us. He has been a long-term patient of Dr. Schaefer. He presented to [facility]'s emergency room on with complaints of increased shortness of breath. He was found to have an acute exacerbation of COPD and was admitted for further evaluation and care. He has been seen by Dr. Perez dismission an EGD was done on 02/01/2017. This showed gastroesophageal reflux disease and an esophageal stricture which was dilated. Prior to this admission, EGD was done 12/11/2016. 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 02/04/2017. Patient was seen today along with his nurse. He states his breathing is improving, but has significant large airway congestion. Today we have added Pulmozyme and Mucinex twice daily. 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 Sputum also grew MRSA during his November 2016 hospitalization. He is presently being treated with Levaquin and vancomycin. He is on Solu-Medrol 40 mg every 12 hours. Medications have been reviewed. We added Mucinex 600 mg twice daily and Pulmozyme inhaled twice daily today. Labs been reviewed. White count is 7700 with 83.6% segs; H&H 11.2/35.1 with decreased indices and top normal red blood cell distribution with; platelet count 226,000; creatinine 0.60, BUN 16, electrolytes are normal ABGs done 02/02/2017 on an FiO2 28% showed a pH of 7.39 9, PCO2 40.4, PO2 66.5, bicarb 24.6, and oxygen saturation 93.5% 02/04/2017. Patient's been stable overnight. He is mobilized sputum better. He is presently on Levaquin and vancomycin. His sputum has grown MRSA SA during this admission and also during in November 2016 hospitalization. There are not a lot of good oral medicines for him to take once he goes home. He will not be able to pay for Zyvox. He is sensitive to doxycycline which is bacteriostatic and not bactericidal. Echocardiogram has shown mild left ventricular hypertrophy with an ejection fraction 55% and grade 1 diastolic dysfunction. The right atrium and right ventricle are normal in size. There is mild enlargement of the left atrium. Right ventricular systolic pressures are estimated to be 32 mmHg which should reflect his pulmonary artery pressure. This is in the normal range. White count is 7784 segs and 8 lymphs. H&H 11.2 /35.1. Electrolytes are normal. Creatinine is 0.6 with a BUN of 16. Labs been reviewed. Medicines been reviewed. Exam (Progress Note) - Constitutional Vitals: Period Temp Pulse Resp BP Sys/Briceno Pulse Ox Last 24 Hr 97.9 F-98.5 F 65-91 18-28 124-157/68-87 90-99 Exam: Face. Symmetrical. No edema no swelling of the tongue Neck. Symmetrical. No meningismus. Lymphatics. No submandibular cervical supraclavicular or epitrochlear adenopathy. Chest. Loose large airway congestion with prolonged expiration. No chest wall tenderness Heart no gallop Abdomen is obese, but nontender nondistended; bowel sounds are positive 4 Extremities with nothing to suggest acute deep venous thrombophlebitis Psychiatric presently oriented 3 Neurologic long-term motor function is intact. Cranial nerves are intact Plan: 02/04/2017. 1. Mucinex 600 mg p.o. twice daily. Pulmozyme nebulized twice daily. Check cold agglutinins and Legionella. 2. See orders. 02/05/2017. 1. See my note above for today 2. Continue present regimen. Exam (Progress Note) - Constitutional Vitals: Period Temp Pulse Resp BP Sys/Briceno Pulse Ox Last 24 Hr 97.3 F-98.7 F 18-97 16-24 136-175/70-92 92-99 Results - Labs CBC & BMP: 02/04/17 04:06 02/04/17 04:06
[2017-02-05] MEDS: HydrOXYzine PAMOATE 25 MG CAPSULE PO SCH (09:30)
[2017-02-05] MEDS: MAGNESIUM OXIDE 400 MG TABLET PO SCH ×2 (09:30→21:40)
[2017-02-05] MEDS: MECLIZINE 25 MG TABLET PO SCH ×3 (09:30→21:40)
[2017-02-05] MEDS: amLODIPine 5 MG TABLET PO SCH ×2 (09:31→21:40)
[2017-02-05] MEDS: METOPROLOL TARTRATE 25 MG TABLET PO SCH ×2 (09:31→21:51)
[2017-02-05] MEDS: TAMSULOSIN 0.4 MG CAPSULE PO SCH (09:31)
[2017-02-05] MEDS: GABAPENTIN 100 MG CAPSULE PO SCH ×2 (09:32→21:40)
[2017-02-05] MEDS: DOCUSATE SODIUM 100 MG CAPSULE PO SCH ×2 (09:32→21:40)
[2017-02-05] MEDS: PANTOPRAZOLE 40 MG VIAL IV SCH (09:32)
[2017-02-05] MEDS: methylPREDNISolone SOD SUC 40 MG/1 ML VIAL IV SCH ×2 (09:36→22:41)
[2017-02-05] MEDS: LEVOFLOXACIN INJ 750 MG in PREMIX 1 EACH IV SCH (09:39)
--- NOTE | 2017-02-05 09:40 | Hospitalist Progress Note ---
Hospitalist: Subjective Interval history: Pt reports his SOB and CHINO persists but feels it is better compared to admission. No fever. No nausea or vomiting. Tolerating po with good appetite. Last BM was last night without melena, BRBPR, diarrhea or constipation. No abd pain. He does report upper chest wall pain with cough. Also reports pain in left arm where he "used to have a clot" He reportedly was off anticoagulants 4- 5 years ago. Also requests rolling walker at discharge. Exam - Constitutional Vitals: Period Temp Pulse Resp BP Sys/Briceno Pulse Ox Last 24 Hr 97.3 F-98.7 F 18-97 16-24 136-175/70-92 92-99 Exam: GEN: A and Ox 3, chronically ill appearing. HEENT: Clear sclera, MMM CV: RRR no M distant heart tones LUNGS: distant breath sounds, intermittent coarse breath sounds bilaterally, nonlabored, speaks in phrases ABDOMEN: Soft, NT, ND, +BS Warm no c/c/e Results - Labs CBC & BMP: 02/04/17 04:06 02/04/17 04:06 - Impressions (1) Acute COPD (chronic obstructive pulmonary disease) exacerbation with mucus plugging Status: Chronic Assessment and plan: - Pulm following - CT thorax did reveal left lower lobe atelectasis with occlusion of the left lower lobe airway likely due to mucous plugging. - Cont Pulmozyme and Mucinex. - Continue with current dosage of Solumedrol, and bronchodilators/ inhalers. - Continue IV Levofloxacin and vancomycin. - Continue pulmonary toileting - DC Claritin which is an anticholinergic and will dry secretions. Qualifiers: COPD type: COPD with acute exacerbation Qualified Code(s): J44.1 - Chronic obstructive pulmonary disease with (acute) exacerbation (2) JAKE - BIPAP at night. Current Visit: Yes (3) Essential HTN (hypertension) Status: Chronic Assessment and plan: - BP remains stable. Continue to monitor on Amlodipine 5mg po bid and metoprolol 25 mg p.o. twice daily. Current Visit: No Qualifiers: Hypertension type: essential hypertension Qualified Code(s): I10 - Essential (primary) hypertension (4) Esophageal stricture Status: Chronic Assessment and plan: Status post esophageal dilation by GI on 02/01. Patient tolerated the procedure without difficulty. Eating well without any difficulties. Continue to monitor. Current Visit: Yes (5) Left arm pain/ Hx DVT - Check LUE duplex DVT prophylaxis- Lovenox Dispo: Home with HH at discharge when cleared by pulm. showcase trimmer arranging for rolling walker. D/W pt and all questions answered.
[2017-02-05] MEDS: ENOXAPARIN 40 MG/0.4 ML SYRINGE SUBCUT SCH (09:44)
[2017-02-05] MEDS: oxyCODONE/ACETAMINOPHEN 5-325 MG TABLET PO PRN ×2 (10:19→21:41)
[2017-02-05] MEDS: BUDESONIDE/FORMOTEROL 160-4.5 INHALER 6 GM INH SCH ×2 (10:19→21:41)
--- NOTE | 2017-02-05 14:07 | Ultrasound Report ---
History: Arm pain. History of DVT Date: 02/05/2017 Study: Left upper extremity color-flow venous Doppler study Comparison exam: No previous Color Doppler, wave form analysis, and compression analysis of the deep veins of the left upper extremity from the internal jugular and subclavian vein level through the elbow level shows that the veins are readily compressible. There is no abnormal intraluminal material to suggest thrombus. Waveform analysis is unremarkable. Ultrasound images were captured and archived Impression: No evidence of DVT left arm PROCEDURE INTERPRETED AT [facility] DEPARTMENT OF RADIOLOGY Final Report Signed by: Dr. Sera Villalpando
[2017-02-05] MEDS: MONTELUKAST 10 MG TABLET PO SCH (21:40)
[2017-02-05] MEDS: SIMVASTATIN 10 MG TABLET PO SCH (21:40)
[2017-02-06] MEDS: ALBUTEROL/IPRATROPIUM 3 ML NEB RESP TX SCH ×6 (03:10→23:20)
[2017-02-06] MEDS: VANCOMYCIN INJ 1,250 MG in SODIUM CHLORIDE 0.9% 250 ML IV SCH ×2 (04:57→15:58)
[2017-02-06] MEDS: CALCIUM CARBONATE CHEW 500 MG TABLET PO SCH ×3 (04:58→16:36)
[2017-02-06] MEDS: DORNASE ALFA 2.5 MG/2.5 ML VIAL RESP TX SCH ×2 (07:23→19:18)
--- NOTE | 2017-02-06 08:05 | Hospitalist Progress Note ---
Hospitalist: Subjective Interval history: Pt states he is breathing better. Reports dry cough. No cp. BM x 3. No fever. left sided chest pain with cough. He is refusing Lovenox at this time. He lost IV. Exam - Constitutional Vitals: Period Temp Pulse Resp BP Sys/Briceno Pulse Ox Last 24 Hr 96.5 F-98.6 F 73-98 16-24 123-156/57-83 92-99 Exam: GEN: A and Ox 3, chronically ill appearing, sitting on side of bed. HEENT: Clear sclera, MMM CV: RRR no M distant heart tones LUNGS: better aeration today. distant breath sounds more at the bases, No wheezes. occasional coarse breath sounds bilaterally, nonlabored. ABDOMEN: Soft, NT, ND, +BS Warm no c/c/e Results - Labs CBC & BMP: 02/04/17 04:06 02/04/17 04:06 - Impressions (1) Acute COPD (chronic obstructive pulmonary disease) exacerbation with mucus plugging Status: Chronic Assessment and plan: - Pulm following - CT thorax did reveal left lower lobe atelectasis with occlusion of the left lower lobe airway likely due to mucous plugging. - CXR 02/04 showed improvement in LLL - Cont Pulmozyme and Mucinex. - I do not feel comfortable starting PICC or CVC in him with declining anticoagulation here in the hospital and he states he had a clot in left arm in the past. I will defer line placement to Pulmonology. Continue with current dosage of Solumedrol, and bronchodilators/ inhalers. - Continue IV Levofloxacin and vancomycin. - Continue pulmonary toileting - Cont to hold DC Claritin which is an antihistamine and will dry secretions. Qualifiers: COPD type: COPD with acute exacerbation Qualified Code(s): J44.1 - Chronic obstructive pulmonary disease with (acute) exacerbation (2) JAKE - BIPAP at night. Current Visit: Yes (3) Essential HTN (hypertension) Status: Chronic Assessment and plan: - BP remains stable. Continue to monitor on Amlodipine 5mg po bid and metoprolol 25 mg p.o. twice daily. Current Visit: No Qualifiers: Hypertension type: essential hypertension Qualified Code(s): I10 - Essential (primary) hypertension (4) Esophageal stricture Status: Chronic Assessment and plan: Status post esophageal dilation by GI on 02/01. Patient tolerated the procedure without difficulty. Eating well without any difficulties. Continue to monitor. Current Visit: Yes (5) Left arm pain/ Hx DVT - LUE duplex negative for DVT DVT prophylaxis- TAMIKO kramer. Pt is off Lovenox now. Dispo: Home with HH at discharge when cleared by pulm. pillowcase cleaner arranging for rolling walker. D/W pt and nurse and all questions answered.
[2017-02-06] MEDS: MAGNESIUM OXIDE 400 MG TABLET PO SCH ×2 (08:44→21:27)
[2017-02-06] MEDS: DOCUSATE SODIUM 100 MG CAPSULE PO SCH ×2 (08:44→21:27)
[2017-02-06] MEDS: GABAPENTIN 100 MG CAPSULE PO SCH ×2 (08:44→21:27)
[2017-02-06] MEDS: TAMSULOSIN 0.4 MG CAPSULE PO SCH (08:44)
[2017-02-06] MEDS: PANTOPRAZOLE 40 MG VIAL IV SCH (08:44)
[2017-02-06] MEDS: MECLIZINE 25 MG TABLET PO SCH ×3 (08:44→21:27)
[2017-02-06] MEDS: METOPROLOL TARTRATE 25 MG TABLET PO SCH ×2 (08:44→21:27)
[2017-02-06] MEDS: HydrOXYzine PAMOATE 25 MG CAPSULE PO SCH (08:44)
[2017-02-06] MEDS: amLODIPine 5 MG TABLET PO SCH ×2 (08:44→21:27)
[2017-02-06] MEDS: ENOXAPARIN 40 MG/0.4 ML SYRINGE SUBCUT SCH (08:45)
[2017-02-06] MEDS: methylPREDNISolone SOD SUC 40 MG/1 ML VIAL IV SCH ×2 (08:45→21:29)
[2017-02-06] MEDS: BUDESONIDE/FORMOTEROL 160-4.5 INHALER 6 GM INH SCH ×2 (08:45→21:29)
[2017-02-06] MEDS: oxyCODONE/ACETAMINOPHEN 5-325 MG TABLET PO PRN ×2 (09:15→21:43)
--- NOTE | 2017-02-06 10:08 | Pulmonology Progress Note ---
Pulmonary - PN: Subj Interval history: Mr. Duckworth is an 86-year-old white male who is well-known to us. He has been a long-term patient of Dr. Schaefer. He presented to [facility]'s emergency room on with complaints of increased shortness of breath. He was found to have an acute exacerbation of COPD and was admitted for further evaluation and care. He has been seen by Dr. Perez dismission an EGD was done on 02/01/2017. This showed gastroesophageal reflux disease and an esophageal stricture which was dilated. Prior to this admission, EGD was done 12/11/2016. 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 02/04/2017. Patient was seen today along with his nurse. He states his breathing is improving, but has significant large airway congestion. Today we have added Pulmozyme and Mucinex twice daily. 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 Sputum also grew MRSA during his November 2016 hospitalization. He is presently being treated with Levaquin and vancomycin. He is on Solu-Medrol 40 mg every 12 hours. Medications have been reviewed. We added Mucinex 600 mg twice daily and Pulmozyme inhaled twice daily today. Labs been reviewed. White count is 7700 with 83.6% segs; H&H 11.2/35.1 with decreased indices and top normal red blood cell distribution with; platelet count 226,000; creatinine 0.60, BUN 16, electrolytes are normal ABGs done 02/02/2017 on an FiO2 28% showed a pH of 7.39 9, PCO2 40.4, PO2 66.5, bicarb 24.6, and oxygen saturation 93.5% 02/04/2017. Patient's been stable overnight. He is mobilized sputum better. He is presently on Levaquin and vancomycin. His sputum has grown MRSA SA during this admission and also during in November 2016 hospitalization. There are not a lot of good oral medicines for him to take once he goes home. He will not be able to pay for Zyvox. He is sensitive to doxycycline which is bacteriostatic and not bactericidal. Echocardiogram has shown mild left ventricular hypertrophy with an ejection fraction 55% and grade 1 diastolic dysfunction. The right atrium and right ventricle are normal in size. There is mild enlargement of the left atrium. Right ventricular systolic pressures are estimated to be 32 mmHg which should reflect his pulmonary artery pressure. This is in the normal range. White count is 7784 segs and 8 lymphs. H&H 11.2 /35.1. Electrolytes are normal. Creatinine is 0.6 with a BUN of 16. Labs been reviewed. Medicines been reviewed. 02/06/2017. Patient is up and moving about. He has teds below the knee stockings on. He would like to stop his Lovenox. I am agreeable. He has never had deep venous thrombophlebitis in any extremity. In the past he did have a abdominal hematoma secondary to Lovenox. Patient has staph aureus pulmonary infection which is being treated with vancomycin. He is asked for PICC line and I am in agreement with this his chest is sounding much better. I will repeat 2 view chest x-ray to make sure he has no residual atelectasis. He seemed stronger more alert today. Exam (Progress Note) - Constitutional Vitals: Period Temp Pulse Resp BP Sys/Briceno Pulse Ox Last 24 Hr 97.9 F-98.5 F 65-91 18-28 124-157/68-87 90-99 Exam: Face. Symmetrical. No edema no swelling of the tongue Neck. Symmetrical. No meningismus. Lymphatics. No submandibular cervical supraclavicular or epitrochlear adenopathy. Chest. Large airway congestion has resolved. Expiration is mildly to moderate prolonged. No wheezes heard. No chest wall tenderness Heart no gallop Abdomen is obese, but nontender nondistended; bowel sounds are positive 4 Extremities with nothing to suggest acute deep venous thrombophlebitis Psychiatric presently oriented 3 Neurologic long-term motor function is intact. Cranial nerves are intact Plan: 02/04/2017. 1. Mucinex 600 mg p.o. twice daily. Pulmozyme nebulized twice daily. Check cold agglutinins and Legionella. 2. See orders. 02/05/2017. 1. See my note above for today 2. Continue present regimen. 02/06/2017. 1. See today's note above. #2 repeat E PA and lateral chest Exam (Progress Note) - Constitutional Vitals: Period Temp Pulse Resp BP Sys/Briceno Pulse Ox Last 24 Hr 96.5 F-98.6 F 73-98 16-24 123-156/57-83 92-99 Results - Labs CBC & BMP: 02/04/17 04:06 02/04/17 04:06
[2017-02-06] MEDS: LEVOFLOXACIN INJ 750 MG in PREMIX 1 EACH IV SCH (10:22)
--- NOTE | 2017-02-06 12:12 | Hospitalist Progress Note ---
Exam - Constitutional Vitals: Period Temp Pulse Resp BP Sys/Briceno Pulse Ox Last 24 Hr 97.0 F-98.6 F 73-98 16-22 123-151/57-83 92-99 Exam: GEN: A and Ox 3, chronically ill appearing, sitting on side of bed. HEENT: Clear sclera, MMM CV: RRR no M distant heart tones LUNGS: better aeration today. distant breath sounds more at the bases, No wheezes and occasional coarse breath sounds bilaterally, nonlabored. ABDOMEN: Soft, NT, ND, +BS Warm no c/c/e Results - Labs CBC & BMP: 02/04/17 04:06 02/04/17 04:06
[2017-02-06] MEDS: ALBUTEROL 2.5 MG/3 ML NEB RESP TX PRN (19:18)
[2017-02-06] MEDS: SIMVASTATIN 10 MG TABLET PO SCH (21:27)
[2017-02-06] MEDS: MONTELUKAST 10 MG TABLET PO SCH (21:27)
[2017-02-06] MEDS: hydrOXYzine HCL 25 MG TABLET PO PRN (21:44)
[2017-02-07] MEDS: CALCIUM CARBONATE CHEW 500 MG TABLET PO SCH ×3 (02:52→18:01)
[2017-02-07] MEDS: ALBUTEROL/IPRATROPIUM 3 ML NEB RESP TX SCH ×6 (03:20→23:10)
[2017-02-07] MEDS: VANCOMYCIN INJ 1,250 MG in SODIUM CHLORIDE 0.9% 250 ML IV SCH ×2 (06:51→11:51)
--- NOTE | 2017-02-07 07:20 | Hospitalist Progress Note ---
Hospitalist: Subjective Interval history: No change per pt. Tolerating po. No fever. +BM. No abd pain. PICC placed. Case management has arranged for IV antibiotics at [place] and they will be able to adjust at nursing facility. Exam - Constitutional Vitals: Period Temp Pulse Resp BP Sys/Briceno Pulse Ox Last 24 Hr 96.6 F-98.6 F 72-86 16-20 110-151/49-84 92-99 Exam: GEN: A and Ox 3, chronically ill appearing, sitting on side of bed. HEENT: Clear sclera, MMM CV: RRR no M distant heart tones LUNGS: better aeration today. distant breath sounds more at the bases. Occasional coarse breath sounds bilaterally, no wheezing auscultated. Nonlabored breathing. ABDOMEN: Soft, NT, ND, +BS EXT: Warm no c/c/e Results - Labs CBC & BMP: 02/04/17 04:06 02/04/17 04:06 - Impressions (1) Acute COPD (chronic obstructive pulmonary disease) exacerbation with mucus plugging Status: Chronic Assessment and plan: - Pulm following - CT thorax did reveal left lower lobe atelectasis with occlusion of the left lower lobe airway likely due to mucous plugging. - CXR 02/04 showed improvement in LLL - CXR 02/07 continues to show improvement. - Cont Pulmozyme and Mucinex. - Off Solumedrol. Cont bronchodilators/ inhalers. - Continue IV Levofloxacin and vancomycin. - Continue pulmonary toileting - Cont to hold DC Claritin which is an antihistamine and will dry secretions. Qualifiers: COPD type: COPD with acute exacerbation Qualified Code(s): J44.1 - Chronic obstructive pulmonary disease with (acute) exacerbation (2) JAKE - BIPAP at night. Current Visit: Yes (3) Essential HTN (hypertension) Status: Chronic Assessment and plan: - BP remains stable. Continue to monitor on Amlodipine 5mg po bid and metoprolol 25 mg p.o. twice daily. Current Visit: No Qualifiers: Hypertension type: essential hypertension Qualified Code(s): I10 - Essential (primary) hypertension (4) Esophageal stricture Status: Chronic Assessment and plan: Status post esophageal dilation by GI on 02/01. Patient tolerated the procedure without difficulty. Eating well without any difficulties. Continue to monitor. Current Visit: Yes (5) Left arm pain/ Hx DVT - LUE duplex negative for DVT DVT prophylaxis- TAMIKO kramer. Pt is off Lovenox now. Dispo: To skilled nursing hopefully in am. technical manager chemical plant has arranged for rolling walker at discharge to [place]. D/W pt and nurse and all questions answered.
[2017-02-07] MEDS: DORNASE ALFA 2.5 MG/2.5 ML VIAL RESP TX SCH ×2 (07:32→19:46)
[2017-02-07] MEDS: TAMSULOSIN 0.4 MG CAPSULE PO SCH (08:51)
[2017-02-07] MEDS: MECLIZINE 25 MG TABLET PO SCH ×3 (08:51→20:12)
[2017-02-07] MEDS: DOCUSATE SODIUM 100 MG CAPSULE PO SCH ×2 (08:51→20:12)
[2017-02-07] MEDS: amLODIPine 5 MG TABLET PO SCH ×2 (08:52→20:12)
[2017-02-07] MEDS: ENOXAPARIN 40 MG/0.4 ML SYRINGE SUBCUT SCH (08:52)
[2017-02-07] MEDS: GABAPENTIN 100 MG CAPSULE PO SCH ×2 (08:52→20:12)
[2017-02-07] MEDS: PANTOPRAZOLE 40 MG VIAL IV SCH (08:52)
[2017-02-07] MEDS: METOPROLOL TARTRATE 25 MG TABLET PO SCH ×2 (08:52→20:12)
[2017-02-07] MEDS: MAGNESIUM OXIDE 400 MG TABLET PO SCH ×2 (08:52→20:12)
[2017-02-07] MEDS: HydrOXYzine PAMOATE 25 MG CAPSULE PO SCH (08:53)
[2017-02-07] MEDS: BUDESONIDE/FORMOTEROL 160-4.5 INHALER 6 GM INH SCH ×2 (08:53→20:11)
[2017-02-07] MEDS: methylPREDNISolone SOD SUC 40 MG/1 ML VIAL IV SCH ×2 (08:53→20:52)
[2017-02-07] MEDS: LEVOFLOXACIN INJ 750 MG in PREMIX 1 EACH IV SCH (09:08)
--- NOTE | 2017-02-07 09:20 | Pulmonology Progress Note ---
Pulmonary - PN: Subj Interval history: Mr. Duckworth is an 86-year-old white male who is well-known to us. He has been a long-term patient of Dr. Schaefer. He presented to [facility]'s emergency room on with complaints of increased shortness of breath. He was found to have an acute exacerbation of COPD and was admitted for further evaluation and care. He has been seen by Dr. Perez dismission an EGD was done on 02/01/2017. This showed gastroesophageal reflux disease and an esophageal stricture which was dilated. Prior to this admission, EGD was done 12/11/2016. 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 02/04/2017. Patient was seen today along with his nurse. He states his breathing is improving, but has significant large airway congestion. Today we have added Pulmozyme and Mucinex twice daily. 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 Sputum also grew MRSA during his November 2016 hospitalization. He is presently being treated with Levaquin and vancomycin. He is on Solu-Medrol 40 mg every 12 hours. Medications have been reviewed. We added Mucinex 600 mg twice daily and Pulmozyme inhaled twice daily today. Labs been reviewed. White count is 7700 with 83.6% segs; H&H 11.2/35.1 with decreased indices and top normal red blood cell distribution with; platelet count 226,000; creatinine 0.60, BUN 16, electrolytes are normal ABGs done 02/02/2017 on an FiO2 28% showed a pH of 7.39 9, PCO2 40.4, PO2 66.5, bicarb 24.6, and oxygen saturation 93.5% 02/04/2017. Patient's been stable overnight. He is mobilized sputum better. He is presently on Levaquin and vancomycin. His sputum has grown MRSA SA during this admission and also during in November 2016 hospitalization. There are not a lot of good oral medicines for him to take once he goes home. He will not be able to pay for Zyvox. He is sensitive to doxycycline which is bacteriostatic and not bactericidal. Echocardiogram has shown mild left ventricular hypertrophy with an ejection fraction 55% and grade 1 diastolic dysfunction. The right atrium and right ventricle are normal in size. There is mild enlargement of the left atrium. Right ventricular systolic pressures are estimated to be 32 mmHg which should reflect his pulmonary artery pressure. This is in the normal range. White count is 7784 segs and 8 lymphs. H&H 11.2 /35.1. Electrolytes are normal. Creatinine is 0.6 with a BUN of 16. Labs been reviewed. Medicines been reviewed. 02/06/2017. Patient is up and moving about. He has teds below the knee stockings on. He would like to stop his Lovenox. I am agreeable. He has never had deep venous thrombophlebitis in any extremity. In the past he did have a abdominal hematoma secondary to Lovenox. Patient has staph aureus pulmonary infection which is being treated with vancomycin. He is asked for PICC line and I am in agreement with this his chest is sounding much better. I will repeat 2 view chest x-ray to make sure he has no residual atelectasis. He seemed stronger more alert today. 02/07/2017. Today's chest x-ray shows a small residual infiltrate in the medial basal segment of the left lower lung and there may be a small residual infiltrate in the lingula. This patient has grown methicillin-resistant staph aureus. He needs at least another week of vancomycin. Of the other medicines that have sensitivities to this methicillin-resistant staph aureus, Zyvox is bacteriostatic and doxycycline is bacteriostatic. Rifampin would not be tolerated well by this patient because of his liver toxicity. We have asked social service to find out if the patient's [facility] will give IV antibiotics of home health brings them out. The patient is stable he is making good improvement. He has more congestion and a little bit of wheezing today on pulmonary exam. Exam (Progress Note) - Constitutional Vitals: Period Temp Pulse Resp BP Sys/Briceno Pulse Ox Last 24 Hr 97.9 F-98.5 F 65-91 18-28 124-157/68-87 90-99 Exam: Face. Symmetrical. No edema no swelling of the tongue Neck. Symmetrical. No meningismus. Lymphatics. No submandibular cervical supraclavicular or epitrochlear adenopathy. Chest. Large airway congestion has returned. This is prominent on the right and the left.. Expiration is mildly to moderate prolonged. No wheezes heard. No chest wall tenderness Heart no gallop Abdomen is obese, but nontender nondistended; bowel sounds are positive 4 Extremities with nothing to suggest acute deep venous thrombophlebitis Psychiatric presently oriented 3 Neurologic long-term motor function is intact. Cranial nerves are intact Plan: 02/04/2017. 1. Mucinex 600 mg p.o. twice daily. Pulmozyme nebulized twice daily. Check cold agglutinins and Legionella. 2. See orders. 02/05/2017. 1. See my note above for today 2. Continue present regimen. 02/06/2017. 1. See today's note above. #2 repeat E PA and lateral chest 02/07/2017. 1. See today's note above. Exam (Progress Note) - Constitutional Vitals: Period Temp Pulse Resp BP Sys/Briceno Pulse Ox Last 24 Hr 96.6 F-98.6 F 72-90 16-22 110-143/49-84 92-99 Results - Labs CBC & BMP: 02/04/17 04:06 02/04/17 04:06
--- NOTE | 2017-02-07 11:07 | XRay Report ---
History: Pneumonia Date: 02/07/2017 Study: Chest x-ray PA and lateral Comparison exam: February 04, 2017 There is stable cardiomegaly. The mediastinal contours are unchanged. There is mild tortuosity and ectasia of the thoracic aorta as before. The pulmonary vasculature is not engorged. There are scattered emphysematous changes. Shallow breath. There is improved aeration in the left lower lobe compared to the previous study. There is some minor atelectatic change in the right lower lobe. There is no layering pleural effusion. There has been kyphoplasty at multiple levels of the thoracic spine as before. Osteopenia. Impression: Improved aeration in the left lower lobe compared to the previous study. Mild atelectatic changes right lower lobe. Stable cardiomegaly PROCEDURE INTERPRETED AT [facility] DEPARTMENT OF RADIOLOGY Final Report Signed by: Dr. Sera Villalpando
--- NOTE | 2017-02-07 12:27 | Post Interventional Procedure ---
Pre-op diagnosis: COPD exacerbation Post-op diagnosis: same Procedure: PICC placement Contrast: none Flouroscopy: 0.2 min Radiologist: Venkat Dorsey Anesthesia: local Specimens: none sent Estimated blood loss: minimal (5 mL) Complications: none Condition: stable Description/Findings: Left arm Cephalic vein 5 Fr dual lumen picc placement completed and ready for use. Assessment and Plan - Time spent with patient Time spent with patient: Less than 30 minutes
--- NOTE | 2017-02-07 12:31 | Interventional Radiology Rpt ---
IR PICC line insertion, US guide vascular access IR PICC Placement Peripherally-inserted central catheter (PICC) placement using ultrasound and fluoroscopic guidance Ultrasound of the left upper extremity Clinical Information: 86-year-old male with COPD exacerbation and needs long-term intravenous antibiotic administration. PICC line is requested Physician: Dr. Dorsey Procedure: The patient was advised of the benefits, risks, and alternatives of the procedure and informed consent was obtained. A time out was performed with verification of the patient's name, MRN, site of procedure, and type of procedure to be performed. The patient was positioned in the supine position on the angiographic table. The site was prepped and draped in the usual sterile fashion. Additionally, maximal sterile barrier technique was employed for the procedure. A campus interviews intern radiograph reveals no relevant abnormality. Ultrasound examination of the left arm demonstrates patent and compressible cephalic, brachial and basilic veins. The left arm was prepped and draped in the usual sterile fashion. The left cephalic vein was again identified. Using ultrasound guidance, a 21 gauge needle was used to access the vein. A permanent ultrasound recording of vascular access was obtained for the patient's record. A 0.018" cope wire was then advanced into the vein. The needle was exchanged for a 5 Tamazight peel-away sheath. A 5 Tamazight double lumen Bard Solo PICC catheter was measured and trimmed to the 45 cm velma. The PICC line was advanced through the sheath and into the central circulation. The catheter tip was positioned at the cavo-atrial junction. The peel-away sheath was then removed. At the conclusion of the procedure, the catheter was secured in place using a Stat-Lock device. A sterile dressing was applied. The lumens aspirate and flush freely. The catheter is ready for immediate use. The patient tolerated the procedure well and was returned to the PRU in stable condition. EBL: < 5 mL. Complications: None. Fluoroscopy time: 0.2 minutes Total number of images for this study: 3 Conclusion: Successful placement of a 5 Tamazight double lumen Bard Solo power injectable PICC via the left cephalic vein. The catheter is ready for immediate use. PROCEDURE INTERPRETED AT [facility], [place] DEPARTMENT OF RADIOLOGY Final Report Signed by: Venkat Dorsey
[2017-02-07] MEDS: oxyCODONE/ACETAMINOPHEN 5-325 MG TABLET PO PRN (20:11)
[2017-02-07] MEDS: hydrOXYzine HCL 25 MG TABLET PO PRN (20:12)
[2017-02-07] MEDS: MONTELUKAST 10 MG TABLET PO SCH (20:12)
[2017-02-07] MEDS: SIMVASTATIN 10 MG TABLET PO SCH (20:13)
[2017-02-08] MEDS: VANCOMYCIN INJ 1,250 MG in SODIUM CHLORIDE 0.9% 250 ML IV SCH ×2 (00:02→11:49)
[2017-02-08] MEDS: CALCIUM CARBONATE CHEW 500 MG TABLET PO SCH ×2 (01:26→09:56)
[2017-02-08] MEDS: ALBUTEROL/IPRATROPIUM 3 ML NEB RESP TX SCH ×3 (02:50→10:54)
--- NOTE | 2017-02-08 07:25 | Discharge Summary ---
Hospital Course - Hospital Course Hospital Course: Pt is a 86 year old male with a history of COPD/ Asthma who presented to the hospital with increased shortness of breath cough and wheezing. He was found to have an acute COPD exacerbation. Pulmonology was consulted to assist with his management. CT thorax did reveal left lower lobe atelectasis with occlusion of the left lower lobe airway likely due to mucous plugging. CXR showed improvement in LLL. CXR 02/07 continues to show improvement. Patient was treated with Pulmozyme and Mucinex, IV Solumedrol, bronchodilators/ inhalers , IV Levofloxacin and vancomycin. Respiratory therapy also performed aggressive pulmonary toileting and Claritin was held due to the antihistamine drying out his secretions. IV steroids were able to be transitioned to oral. Patient completed Levaquin IV. Pulmonology recommended an additional 7 days of vancomycin with a recheck of his creatinine and Vanco trough per the pharmacy at the longterm. For obstructive sleep apnea, patient was given BiPAP at night. For essential hypertension, patient's blood pressure was stable on amlodipine and metoprolol. Patient complained of severe acid reflux and dysphasia. GI was consulted and patient underwent an EGD on 02/01. An esophageal stricture was noted and he underwent an esophageal dilation. Patient tolerated the procedure without difficulty. Eating well without any difficulties. Patient complained of left arm pain and reported a history of a clot in his left upper extremity. Venous duplex was negative for DVT. Patient refused Lovenox during hospitalization as reportedly he had hematoma previously. TAMIKO hose were placed instead for DVT prophylaxis. Once PICC was placed and patient was clinically improved, and he was cleared by all consultants patient was discharged to the longterm/rehab for ongoing care. - Time spent with patient Time with patient DS: Greater than 30 minutes (37 minutes) Diagnosis - Discharge Diagnosis (1) Acute bronchitis with chronic obstructive pulmonary disease (COPD) Status: Acute (2) Dysphagia Status: Resolved (3) Esophageal stricture Status: Resolved (4) Aspiration pneumonia Status: Acute (5) GERD (gastroesophageal reflux disease) Status: Chronic (6) History of atrial fibrillation Status: Chronic Specialty Discharge - Follow Up or Referrals Follow up with: Santos Schaefer MD [Physician] - 2 Weeks Discharge Plan - Discharge Data Disposition: Disch/Xfer to Snf Condition at Discharge: Stable Discharge Diet: advance to your usual diet Activity: as per physical therapy Contact your physician if you experience:: fever over 101, Difficulty voiding, Redness or swelling, Nausea/Vomiting, Shortness of breath, Bleeding, pain uncontrolled by pain medications - Discharge Medications New Budesonide/Formoterol 160-4.5 [Symbicort 160-4.5] 2 puff INH BID inhaler Heparin Lock Flush 50 units IV PRN PRN syringe PRN Reason: central line lock Heparin Lock Flush 50 units IV Q12H syringe Vancomycin Inj 1,250 mg IV Q12H 7 Days Albuterol/Ipratropium Neb [Duoneb] 3 ml RESP TX RT Q4H Dornase Teodoro [Pulmozyme] 2.5 mg RESP TX RT Q12H vial guaiFENesin ER TAB [Mucinex] 600 mg PO BID tablet predniSONE TAB [PredniSONE] 40 mg PO DAILY #11 tablet Continue Cyanocobalamin (Vitamin B-12) [Cyanocobalamin Injection] 1,000 mcg IM Q30D Docusate Sodium Cap [Colace Cap] 100 mg PO BID Calcium Carbonate Chew [Tums] 1 tablet PO Q8H Simvastatin 5 mg PO BEDTIME Montelukast Tab [Singulair Tab] 10 mg PO BEDTIME Meclizine [Antivert] 25 mg PO TID Magnesium Oxide 400 mg PO BID Metoprolol Tartrate 25 mg PO BID Dexlansoprazole [Dexilant] 60 mg PO DAILY Tamsulosin [Flomax] 0.4 mg PO DAILY Acetaminophen Tab [Tylenol Tab] 650 mg PO Q6H PRN PRN Reason: Pain Polyethylene Glycol Powder [Miralax] 17 gm PO DAILY PRN PRN Reason: Constipation Pramoxine 1% Rectal Foam [Proctofoam 1% Foam] 1 applic TOP Q8HR PRN PRN Reason: Hemorrhoids HydrOXYzine PAMOATE CAP [Vistaril Cap] 25 mg PO DAILY Albuterol/Ipratropium Neb [Duoneb] 3 ml RESP TX RT Q4H PRN PRN Reason: Shortness Of Breath/Wheezing Phenyleph/Mineral Oil/Petrolat [Preparation H Ointment] 1 applic TOP Q4HR PRN PRN Reason: Hemorrhoids hydrOXYzine HCl [Hydroxyzine HCl] 25 mg PO Q6H PRN PRN Reason: Anxiety Oxycodone HCl/Acetaminophen [Oxycodon-Acetaminophen 7.5-325] 1 each PO Q8H PRN #3 PRN Reason: Pain Polyvinyl Alcohol 1.4% Oph Marylou [Artificial Tears Oph Soln] 1 drop BOTH EYES QID PRN PRN Reason: Dry Eyes amLODIPine [Norvasc] 5 mg PO BID Gabapentin Cap/Tab [Neurontin Cap/Tab] 100 mg PO BID Discontinued Loratadine [Claritin] 10 mg PO BEDTIME - Follow Up or Referral Follow Up: Santos Schaefer MD [Physician] - 2 Weeks - Forms/Instructions Exam - Constitutional Vitals: Period Temp Pulse Resp BP Sys/Briceno Pulse Ox Last 24 Hr 97.4 F-98.0 F 71-96 16-26 132-162/70-81 90-100 Exam: GEN: A and Ox 3, chronically ill appearing, sitting on side of bed. HEENT: Clear sclera, MMM CV: RRR no M distant heart tones LUNGS: better aeration today. distant breath sounds more at the bases. Clear to auscultation bilaterally, no wheezing auscultated. Nonlabored breathing. ABDOMEN: Soft, NT, ND, +BS EXT: Warm no c/c/e Discharge Results Labs on day of discharge: Labs from last 24 hours 02/04/17 11:14 Legionella pneumophila Ab Negative DS: Provider Date of admission: 01/30/17 09:58 Primary care physician: Jayy Wiley MD Attending physician on admission: Richie Hernandez MD Consults: 01/30/17 10:41 Consult to Physician [CONS] Routine Comment: dysphagia, seen carmela before Consulting Provider: Oscar Perez When should Consulting Provider be notified: Now Person Notified: Dr. Perez Date Notified: 02/01/17 01/30/17 11:52 Consult to Pastoral Services [CONS] Routine Comment: Pastoral Screen: Request Veterinary Nurse Visit Pastoral Screen Source of Request: Patient 02/02/17 16:13 Consult to Physician [CONS] Routine Comment: Persistent hypoxemia, worsening atelectasis Consulting Provider: Marisa Orr Person Notified: Dr. Orr Date Notified: 02/02/17 Time Notified: 16:28 02/03/17 07:37 Consult to Physical Therapy [CONS] Routine Reason for Physical Therapy: Evaluate and Treat Weakness Ambulation Consult Comment: patient request rolling walker 02/03/17 15:51 Consult to Pharmacy [CONS] Routine Reason for Pharmacy Consult: Dose/Manage Vancomycin 02/07/17 09:12 Consult to Case Mgmt/Social Srvs [CONS] Routine Reason for Case Mgmt/Social Srvs: Home IV Therapy Consult Comment: See if HH can give IV Vanc at [facility]; He will need IV abx for 1 week Discharging clinician: Minna Roper MD
[2017-02-08] MEDS: DORNASE ALFA 2.5 MG/2.5 ML VIAL RESP TX SCH (07:27)
--- NOTE | 2017-02-08 09:30 | Pulmonology Progress Note ---
Pulmonary - PN: Subj Interval history: Mr. Duckworth is an 86-year-old white male who is well-known to us. He has been a long-term patient of Dr. Schaefer. He presented to [facility] room on with complaints of increased shortness of breath. He was found to have an acute exacerbation of COPD and was admitted for further evaluation and care. He has been seen by Dr. Perez dismission an EGD was done on 02/01/2017. This showed gastroesophageal reflux disease and an esophageal stricture which was dilated. Prior to this admission, EGD was done 12/11/2016. 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 02/04/2017. Patient was seen today along with his nurse. He states his breathing is improving, but has significant large airway congestion. Today we have added Pulmozyme and Mucinex twice daily. 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 Sputum also grew MRSA during his November 2016 hospitalization. He is presently being treated with Levaquin and vancomycin. He is on Solu-Medrol 40 mg every 12 hours. Medications have been reviewed. We added Mucinex 600 mg twice daily and Pulmozyme inhaled twice daily today. Labs been reviewed. White count is 7700 with 83.6% segs; H&H 11.2/35.1 with decreased indices and top normal red blood cell distribution with; platelet count 226,000; creatinine 0.60, BUN 16, electrolytes are normal ABGs done 02/02/2017 on an FiO2 28% showed a pH of 7.39 9, PCO2 40.4, PO2 66.5, bicarb 24.6, and oxygen saturation 93.5% 02/04/2017. Patient's been stable overnight. He is mobilized sputum better. He is presently on Levaquin and vancomycin. His sputum has grown MRSA SA during this admission and also during in November 2016 hospitalization. There are not a lot of good oral medicines for him to take once he goes home. He will not be able to pay for Zyvox. He is sensitive to doxycycline which is bacteriostatic and not bactericidal. Echocardiogram has shown mild left ventricular hypertrophy with an ejection fraction 55% and grade 1 diastolic dysfunction. The right atrium and right ventricle are normal in size. There is mild enlargement of the left atrium. Right ventricular systolic pressures are estimated to be 32 mmHg which should reflect his pulmonary artery pressure. This is in the normal range. White count is 7784 segs and 8 lymphs. H&H 11.2 /35.1. Electrolytes are normal. Creatinine is 0.6 with a BUN of 16. Labs been reviewed. Medicines been reviewed. 02/06/2017. Patient is up and moving about. He has teds below the knee stockings on. He would like to stop his Lovenox. I am agreeable. He has never had deep venous thrombophlebitis in any extremity. In the past he did have a abdominal hematoma secondary to Lovenox. Patient has staph aureus pulmonary infection which is being treated with vancomycin. He is asked for PICC line and I am in agreement with this his chest is sounding much better. I will repeat 2 view chest x-ray to make sure he has no residual atelectasis. He seemed stronger more alert today. 02/07/2017. Today's chest x-ray shows a small residual infiltrate in the medial basal segment of the left lower lung and there may be a small residual infiltrate in the lingula. This patient has grown methicillin-resistant staph aureus. He needs at least another week of vancomycin. Of the other medicines that have sensitivities to this methicillin-resistant staph aureus, Zyvox is bacteriostatic and doxycycline is bacteriostatic. Rifampin would not be tolerated well by this patient because of his liver toxicity. We have asked social service to find out if the patient's [facility] will give IV antibiotics of home health brings them out. The patient is stable he is making good improvement. He has more congestion and a little bit of wheezing today on pulmonary exam. 02/08/2017. Patient has cough and mobilize a tremendous amount of sputum earlier this morning. His chest is now clear. He is on vancomycin. The dose is being managed by pharmacology. Patient appears to have been accepted back at the [facility] where he can have infusion of vancomycin. I would suggest today's dose for at least another 7 days since he has grown out methicillin- resistant staph this admission and last admission. He should have a follow-up creatinine. His last creatinine was 0.60 with a BUN of 16. His dose of vancomycin is 1250 mg every 24 hours. Last vancomycin trough level was 14.9. Cold agglutinins were negative. Legionella titer was negative. Labs been reviewed and medicines have been reviewed. Patient was asking when he would go back to the [facility] and I told him that looks like it will be today based on notes from forensic social worker Exam (Progress Note) - Constitutional Vitals: Period Temp Pulse Resp BP Sys/Briceno Pulse Ox Last 24 Hr 97.9 F-98.5 F 65-91 18-28 124-157/68-87 90-99 Exam: Face. Symmetrical. No edema no swelling of the tongue Neck. Symmetrical. No meningismus. Lymphatics. No submandibular cervical supraclavicular or epitrochlear adenopathy. Chest. Large airway congestion has returned. This is prominent on the right and the left.. Expiration is mildly to moderate prolonged. No wheezes heard. No chest wall tenderness Heart no gallop Abdomen is obese, but nontender nondistended; bowel sounds are positive 4 Extremities with nothing to suggest acute deep venous thrombophlebitis Psychiatric presently oriented 3 Neurologic long-term motor function is intact. Cranial nerves are intact Plan: 02/04/2017. 1. Mucinex 600 mg p.o. twice daily. Pulmozyme nebulized twice daily. Check cold agglutinins and Legionella. 2. See orders. 02/05/2017. 1. See my note above for today 2. Continue present regimen. 02/06/2017. 1. See today's note above. #2 repeat E PA and lateral chest 02/07/2017. 1. See today's note above. 02/08/2017. 1. See my note above. 2. I will sign off. 3. The patient has an appointment to see me at a later date. Exam (Progress Note) - Constitutional Vitals: Period Temp Pulse Resp BP Sys/Briceno Pulse Ox Last 24 Hr 97.4 F-97.7 F 71-96 16-26 132-162/70-81 90-100 Results - Labs CBC & BMP: 02/04/17 04:06 02/04/17 04:06 Specialty Discharge - Follow Up or Referrals Follow up with: Santos Schaefer MD [Physician] - 2 Weeks
[2017-02-08] MEDS: DOCUSATE SODIUM 100 MG CAPSULE PO SCH (09:53)
[2017-02-08] MEDS: MECLIZINE 25 MG TABLET PO SCH (09:53)
[2017-02-08] MEDS: TAMSULOSIN 0.4 MG CAPSULE PO SCH (09:53)
[2017-02-08] MEDS: ENOXAPARIN 40 MG/0.4 ML SYRINGE SUBCUT SCH (09:54)
[2017-02-08] MEDS: LEVOFLOXACIN INJ 750 MG in PREMIX 1 EACH IV SCH (09:54)
[2017-02-08] MEDS: METOPROLOL TARTRATE 25 MG TABLET PO SCH (09:54)
[2017-02-08] MEDS: GABAPENTIN 100 MG CAPSULE PO SCH (09:55)
[2017-02-08] MEDS: PANTOPRAZOLE 40 MG VIAL IV SCH (09:55)
[2017-02-08] MEDS: amLODIPine 5 MG TABLET PO SCH (09:55)
[2017-02-08] MEDS: MAGNESIUM OXIDE 400 MG TABLET PO SCH (09:55)
[2017-02-08] MEDS: BUDESONIDE/FORMOTEROL 160-4.5 INHALER 6 GM INH SCH (09:56)
[2017-02-08] MEDS: methylPREDNISolone SOD SUC 40 MG/1 ML VIAL IV SCH (09:56)
[2017-02-08] MEDS: HydrOXYzine PAMOATE 25 MG CAPSULE PO SCH (09:56)
[2017-02-08 11:09] VITALS: BP 153/73
--- NOTE | 2017-02-14 08:20 | Physician Query Form ---
CLICK EDIT DOCUMENT TO SELECT QUERY ANSWER --> OK --> SIGN Sharita Rodriguez RN Clinical [employer] Drawing Checker W) [phone] (f) [phone] [email or web address]: Make your selection(s) from the choices in EACH section by typing an "x" and enter comments in the comment section. Please use your independent medical judgment in providing your response. This request does not imply that any particular answer is desired or expected. CLINICAL INDICATORS: (Providers should not edit this section) Based on documentation of "Chronic respiratory failure" "He states that he has always had problems with breathing and currently does breathing treatments at his Residence but he states that he could barely breathe last night." O2 @ 4L/ NC applied. "COPD with acute exacerbation" Treated with IV Solu Medrol. If possible, please further clarify the type and acuity of respiratory diagnosis : ACUITY: ( ) Acute ( ) Chronic ( x) Acute on Chronic TYPE: ( ) Respiratory failure with hypoxia ( ) Respiratory failure with hypercapnia ( ) Respiratory Arrest ( ) Postprocedural/postoperative respiratory failure (x ) Respiratory Insufficiency ( ) ARDS (Adult/Acute Respiratory Distress Syndrome) ( ) Other, please specify: ( ) Clinically unable to determine Recognized criteria for respiratory failure PH <7.35 or >7.45 PO2 <60 PCO2 >50 RR >24 O2 Sat <90% on RA or <95% on O2 Use of accessory muscles Unable to speak in full sentences Intubation is not required COMMENTS: PLEASE ALSO DOCUMENT RESPONSE IN PROGRESS NOTES AND/OR DISCHARGE SUMMARY Use of terms such as suspected, likely, or probable (associated with a specific diagnosis that is being evaluated, monitored, or treated as if it exists) are acceptable and can be restated in the discharge summary if not ruled out. MTDD
== END 2017-02-08 13:15 | disposition home or self-care (01) | DRG 192 ==
LOC: EDBD → EDUNIT# → N.ED 08:07 → SUATTDRO 09:58 → N.EDINP 09:58 → N.2E 11:25
PROVIDERS: ADMIT Internal Medicine; ATTEND Pediatrics

== ENCOUNTER 2017-03-31 19:22 | Inpatient (IN) ==
[2017-03-31] MEDS ORDERED: LEVOFLOXACIN INJ 750 MG in PREMIX 1 EACH IV STA (19:36)
[2017-03-31] MEDS ORDERED: FUROSEMIDE 100 MG/10 ML VIAL IV STA (19:36)
[2017-03-31] MEDS ORDERED: methylPREDNISolone SOD SUC 125 MG/2 ML VIAL IV STA (19:36)
--- NOTE | 2017-03-31 19:42 | Emergency Department Note ---
Arrival - Arrival Chief Complaint: Shortness of Breath Stated Complaint: Resp distress ED Nursing Triage Note: pt to er 09 via ems coming from [facility] with c/o having sob respiratory distress. pt was in the low 80% on 02@ 2L NC. 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 pt was then placed on nonrebreather per ems. pt c/o having abd distention. Mode of Arrival: Stretcher Limitations: No Limitations Source: Patient Time Seen by Provider: 03/31/17 19:36 - History of Present Illness HPI Narrative: This 86-year-old white male long term resident presents with what he describes as 2 days of increasing shortness of breath, cough productive of discolored sputum, shaking chills, and fever. History is limited because of the patient's breathlessness but surprisingly he is fairly alert and oriented excepting for time. He denies chest pain, nausea, or vomiting. Per the long term the patient had desaturation and increased work of breathing precipitating this visit. Onset (ago): day(s) (Patient presents 2 days post onset of symptoms) Allergies/Adverse Reactions: Allergies Allergy/AdvReac Type Severity Reaction Status Date / Time lisinopril Allergy Unknown RASH Verified 03/31/17 19:36 carvedilol [From Coreg] Allergy RASH Verified 03/31/17 19:36 hydrochlorothiazide Allergy RASH Verified 03/31/17 19:36 metoclopramide [From Reglan] Allergy Unknown/Unable Verified 03/31/17 19:36 to obtain propoxyphene Allergy RASH Verified 03/31/17 19:36 [From Darvocet-N] Sulfa (Sulfonamide Allergy RASH Verified 03/31/17 19:36 Antibiotics) tramadol Allergy RASH Verified 03/31/17 19:36 aspirin AdvReac Intermediate Gastrointestinal Verified 03/31/17 19:36 Upset rofecoxib [From Vioxx] AdvReac Intermediate Gastrointestinal Verified 03/31/17 19:36 Upset Home Medications: Home Medications Medication Instructions Recorded Confirmed Type Acetaminophen Tab [Tylenol Tab] 650 mg PO Q6H PRN 10/25/16 03/31/17 History Calcium Carbonate Chew [Tums] 1 tablet PO Q8H 10/25/16 03/31/17 History Cyanocobalamin (Vitamin B-12) 1,000 mcg IM Q30D 10/25/16 03/31/17 History [Cyanocobalamin Injection] Dexlansoprazole [Dexilant] 60 mg PO DAILY 10/25/16 03/31/17 History Docusate Sodium Cap [Colace Cap] 100 mg PO BID 10/25/16 03/31/17 History Magnesium Oxide 400 mg PO BID 10/25/16 03/31/17 History Meclizine [Antivert] 25 mg PO TID 10/25/16 03/31/17 History Metoprolol Tartrate 25 mg PO BID 10/25/16 03/31/17 History Montelukast Tab [Singulair Tab] 10 mg PO BEDTIME 10/25/16 03/31/17 History Polyethylene Glycol Powder 17 gm PO DAILY PRN 10/25/16 03/31/17 History [Miralax] Polyvinyl Alcohol 1.4% Oph Marylou 1 drop BOTH EYES QID PRN 10/25/16 03/31/17 History [Artificial Tears Oph Soln] Simvastatin 5 mg PO BEDTIME 10/25/16 03/31/17 History Tamsulosin [Flomax] 0.4 mg PO DAILY 10/25/16 03/31/17 History amLODIPine [Norvasc] 5 mg PO BID 10/25/16 03/31/17 History HydrOXYzine PAMOATE CAP [Vistaril 25 mg PO DAILY 12/11/16 03/31/17 History Cap] Phenyleph/Mineral Oil/Petrolat 1 applic TOP Q4HR PRN 12/11/16 03/31/17 History [Preparation H Ointment] Pramoxine 1% Rectal Foam 1 applic TOP Q8HR PRN 12/11/16 03/31/17 History [Proctofoam 1% Foam] Gabapentin Cap/Tab [Neurontin 100 mg PO TID 01/30/17 03/31/17 History Cap/Tab] hydrOXYzine HCl [Hydroxyzine HCl] 25 mg PO Q6H PRN 01/30/17 03/31/17 History Dornase Teodoro [Pulmozyme] 2.5 mg RESP TX RT Q12H vial 02/08/17 03/31/17 Rx Oxycodone HCl/Acetaminophen 1 each PO Q8H PRN #3 02/08/17 03/31/17 Rx [Oxycodon-Acetaminophen 7.5-325] guaiFENesin ER TAB [Mucinex] 600 mg PO BID tablet 02/08/17 03/31/17 Rx Albuterol/Ipratropium Neb [Duoneb] 3 ml RESP TX RT Q4H 03/31/17 03/31/17 History Fluticasone/Salmeterol 100-50 1 puff INH BID 03/31/17 03/31/17 History [Advair 100-50] Review of System - Review of System 12 point system: reviewed and no additional remarkable complaints except as stated - Review of System Constitutional: Present: as per HPI Respiratory: Present: as per HPI Cardiovascular: Present: as per HPI Medical,Surgical,& Family Hx - Medical History Cardio: History of: Cardiac Dysrhythmia (Hx: A. Fib), CAD, Hypertension, Cardiovascular Problems (ASHD) No history of: [place], Pacemaker Neurology: History of: Peripheral Neuropathy, Vertigo No history of: Seizures HEENT: History of: HEENT Problems (zoster, right side of face) Endocrine: History of: Dyslipidemia No history of: Diabetes Mellitus (NIDDM) Rheumatology: History of;: Rheumatoid Arthritis, Rheumatological Problems Respiratory: History of: COPD, Pneumonia (x12 times since 2010), Respiratory Problems (Bronchospastic Disease) No history of: Obstructive Sleep Apnea Genitourinary: History of: Prostate Problems (enlarged), Problems (r/t enlarged prostate) Gastrointestinal: History of: GERD, Polyps (Colon and Gastric), GI Problems ( esophageal stricture, Sena's esophagus, erosive gastritis, hiatal hernia) Musculoskeletal: History of: Back/Neck Problems (chronic back pain ), Musculoskeletal Problems (wedge comp. fx t11, t12; DJD) No history of: Amputation Hematology: History of: Anemia (Pernicious) No history of: Blood Transfusion Reaction Other: History of: Skin Problems (shingles 2013) No history of: Anesthesia Reactions, Cancer - Surgical History Cardiac Surgeries: Patient Denies: Cardiac Catheterization, Cardiac Surgery Thoracic Surgeries: Patient denies;: Kidney (Renal Surgery), Lithotripsy, Nephrectomy HEENT Surgeries: Surgical HX of: Eye Surgery (cataract) Patient denies: Tonsilectomy & Adenoidectomy Abdominal Surgeries: Surgical HX of: Abdominal Surgery, Appendectomy, Colonoscopy, EGD Patient denies: Cholecystectomy, Gastric Bypass Surgery, Hernia Repair Reproductive Surgeries: Surgical HX of;: Cystoscopy (HE THINKS MAY HAVE HAD), Genitourinary Surgery Patient denies;: Prostate Surgery Orthopedic Surgeries: Surgical HX of;: Orthopedic Surgery (ankles, wrist, back, neck), Spinal Surgery (kypoplasty) Patient denies;: Implanted Devices - Family History Family History: Reports;: Family Cancer (Brother (lung)), Family Diabetes ( Mother), Family Heart Disease (Mother), Family Hypertension (Mother), Family Stroke Denies;: Family Anesthesia Reaction, Family Psychiatric Problems - Social History Smoking Status: Former smoker Frequency of Alcohol Use: None Type of Drug Use: None Exam Physical Examination: GENERAL: Well developed, well nourished elderly white male in no acute distress. HEENT: Normocephalic. No trauma. Moist mucous membranes. EOMI. PERRLA. ENT NML NECK: Supple. No adenopathy. CARDIAC: Regular. No murmurs. Heart rate 100 CHEST: Scattered expiratory pino. No respiratory distress. O2 sat 98% on nonrebreather ABDOMEN: Soft. Nontender. Active bowel sounds. EXTREMITIES: No trauma. Normal ROM. No pedal edema. SKIN: No diaphoresis. No rash. NEURO: Alert. Oriented to person and place. Motor, sensory, vibratory intact. No focal deficits. Vital Signs: Vital Signs Temperature 101.9 F H 03/31/17 19:29 Pulse Rate 108 H 03/31/17 19:29 Respiratory Rate 30 H 03/31/17 19:29 Blood Pressure 148/85 03/31/17 19:29 O2 Sat by Pulse Oximetry 96 03/31/17 19:29 Course - Reevaluation(s) Reevaluation #1: Advised patient of need for admission - Consultations Consultation #1: Discussed with hospitalist service who will admit for further evaluation and treatment peer Results - Labs CBC & BMP: 03/31/17 19:46 03/31/17 19:46 Labs: I reviewed the laboratory noted its gross normalcy - Impressions EKG: Sinus tachycardia with normal WA interval and right bundle branch block. Nonspecific ST changes. No acute injury pattern noted. - Diagnostic Findings Procedure: Chest x-ray: image reviewed by me, report reviewed by me (Left lower lobe infiltrate and effusion.) Disposition Clinical Impression: Left lower lobe pneumonia/effusion Case discussed with: patient Disposition: Still a Patient Condition: Guarded Time of Disposition: 21:36
[2017-03-31 19:54] LABS: Basophils % 0.4 % (0.0-0.8); Eosinophils # 0.1 10*3/uL (0.0-0.87); Eosinophils % 1.5 % (0.00-10.9); Hematocrit 38.3 VOL% (42.0-52.0); Hemoglobin 12.1 GM/DL (14.0-18.0); Immature Granulocytes % 0.3 %; Immature Granulocytes Absolute 0.02 #; Lymphocytes # 0.8 10*3/uL (1.4-4.0); Lymphocytes % 10.7 % (21.2-54.2); Mean Corpuscular HGB Conc 31.6 GM/DL (32-36); Mean Corpuscular Hemoglobin 25 PG (27-34); Mean Corpuscular Volume 79.3 FL (87-102); Mean Platelet Volume 9.2 FL (9.6-12.0); Monocytes # 0.3 10*3/uL (0.11-0.8); Monocytes % 3.7 % (1.7-12.7); Neutrophils # 6.3 10*3/uL (1.4-7.4); Neutrophils % 83.4 % (38.7-73.9); Platelet Count 181 T/CUMM (130-400); Red Blood Count 4.83 MC/CUMM (3.8-5.5); Red Cell Distribution Width 14.6 % (9.3-17.3); White Blood Count 7.5 T/CUMM (4-12)
--- NOTE | 2017-03-31 19:56 | XRay Report ---
Portable chest Date: 03/31/2017 Clinical history: Shortness of breath Comparison: 02/07/2017 Technique: Portable AP sitting chest Findings: The heart is slightly larger in size with diffuse arterial calcifications. Persistent dilatation and uncoiling the aorta. Progressive parenchymal findings in the left mid to lower lung zone with small left pleural effusion. 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 Osteopenia with degenerative changes. Impression: The heart is larger in size with findings. Progressive diffuse infiltration/edema in the left lung with associated atelectasis and at least small left pleural effusion. Intervascular bone cement with multilevel kyphoplasty and osteopenia. Follow-up chest x-ray recommended to document clearing. PROCEDURE INTERPRETED AT [facility] DEPARTMENT OF RADIOLOGY Final Report Signed by: Dr. Babita Reynoso
[2017-03-31] MEDS ORDERED: ALBUTEROL 2.5 MG/3 ML NEB RESP TX SCH (20:00)
[2017-03-31 20:06] LABS: INR 1.1; PT Patient Result 11.4 SECS; Partial Thromboplastin Time 28.6 SECS (0-40)
[2017-03-31] MEDS ORDERED: methylPREDNISolone SOD SUC 125 MG/2 ML VIAL ONE (20:09)
[2017-03-31] MEDS ORDERED: LEVOFLOXACIN INJ 150 ML IV ONE (20:09)
[2017-03-31] MEDS ORDERED: FUROSEMIDE 20 MG/2 ML VIAL ONE (20:09)
[2017-03-31] MEDS ORDERED: FUROSEMIDE 40 MG/4 ML VIAL ONE (20:09)
[2017-03-31 20:17] LABS: Apearance,Urine CLEAR (Clear); Bilirubin,Urine Negative (Negative); Blood, Urine Negative (Negative); Glucose,Urine (UA) Negative (Negative); Ketones,Urine Negative (Negative); Nitrite,Urine Negative (Negative); Protein,Urine Negative; RBC,Urine <1 /HPF (0-4); Urine Color Yellow (Yellow); Urine Specific Gravity 1.011 (1.001-1.035); Urine Urobilinogen < 2.0 EU/DL (0.2-1.0); WBC,Urine <1 /HPF (0-6)
[2017-03-31 20:35] LABS: Alanine Aminotransferase 15 U/L (16-61); Albumin 3.4 G/DL (3.4-5.0); Alkaline Phosphatase 82 U/L (45-117); Aspartate Amino Transferase 13 U/L (0-37); Blood Urea Nitrogen 10 MG/DL (7-18); Calcium 8.8 MG/DL (8.5-10.1); Glucose 104 MG/DL (74-106); Osmolality,Calculated 264.4 MOS/KG (273-304); Potassium 4.3 MMOL/L (3.5-5.1); Sodium 133 MMOL/L (136-145); Total Protein 6.9 G/DL (6.4-8.3); Troponin I Only < 0.015 NG/ML (0.00-0.045)
[2017-03-31] MEDS ORDERED: ONDANSETRON 4 MG/2 ML VIAL IV PRN (21:49)
[2017-03-31] MEDS ORDERED: ACETAMINOPHEN 325 MG TABLET PO PRN (21:49)
[2017-03-31] MEDS ORDERED: ALBUTEROL 2.5 MG/3 ML NEB RESP TX PRN (21:49)
[2017-03-31] MEDS ORDERED: POLYVINYL ALCOHOL 1.4% OPH SOLN 15 ML BOTTLE BOTH EYES PRN (21:55)
[2017-03-31] MEDS ORDERED: PHENYLEPH/MINERAL OIL/PETROLAT 57 GM TUBE TOP PRN (21:55)
[2017-03-31] MEDS ORDERED: PRAMOXINE 1% RECTAL FOAM 15 GM CAN TOP PRN (21:55)
--- NOTE | 2017-03-31 22:03 | Hospitalist History & Physical ---
Assessment and Plan (1) COPD (chronic obstructive pulmonary disease) Status: Chronic Current Visit: No Qualifiers: COPD type: COPD with acute exacerbation Qualified Code(s): J44.1 - Chronic obstructive pulmonary disease with (acute) exacerbation (2) Pneumonia Status: Acute Current Visit: No (3) Chronic respiratory failure Status: Chronic Current Visit: No (4) SOB (shortness of breath) Status: Acute Current Visit: No (5) Respiratory distress Status: Acute Assessment and plan: Our plan for this patient will be admission to our service. We will schedule his breathing treatments every 6 hours and have breathing treatments available as needed. Levaquin started and started the emergency room blood cultures have been drawn. We will continue the Levaquin. Will continue his home meds as appropriate. If he does not improve fairly quickly I would consider a consult to Dr. Hankins for further evaluation from a pulmonary standpoint. Per records from the retirement patient is a DO NOT RESUSCITATE. Current Visit: No History of Present Illness Chief complaint: Shortness of breath History of present illness: Mr. Duckworth is a 86 year old male who presents to our hospital as a transfer from retirement. I discussed the with the patient about what had been going around he said he had been short of breath times several days. He had a productive cough and is been getting schedule breathing treatments at the retirement. According to the records that I have his O2 sats were on the low 80s on 2 L. Patient does have a history of COPD. Patient found to have a left lower lobe pneumonia per x-ray. He used to see Dr. Schaefer I was consulted for admission through the emergency room. Home Medications Medication Instructions Recorded Confirmed Type Acetaminophen Tab [Tylenol Tab] 650 mg PO Q6H PRN 10/25/16 03/31/17 History Calcium Carbonate Chew [Tums] 1 tablet PO Q8H 10/25/16 03/31/17 History Cyanocobalamin (Vitamin B-12) 1,000 mcg IM Q30D 10/25/16 03/31/17 History [Cyanocobalamin Injection] Dexlansoprazole [Dexilant] 60 mg PO DAILY 10/25/16 03/31/17 History Docusate Sodium Cap [Colace Cap] 100 mg PO BID 10/25/16 03/31/17 History Magnesium Oxide 400 mg PO BID 10/25/16 03/31/17 History Meclizine [Antivert] 25 mg PO TID 10/25/16 03/31/17 History Metoprolol Tartrate 25 mg PO BID 10/25/16 03/31/17 History Montelukast Tab [Singulair Tab] 10 mg PO BEDTIME 10/25/16 03/31/17 History Polyethylene Glycol Powder 17 gm PO DAILY PRN 10/25/16 03/31/17 History [Miralax] Polyvinyl Alcohol 1.4% Oph Marylou 1 drop BOTH EYES QID PRN 10/25/16 03/31/17 History [Artificial Tears Oph Soln] Simvastatin 5 mg PO BEDTIME 10/25/16 03/31/17 History Tamsulosin [Flomax] 0.4 mg PO DAILY 10/25/16 03/31/17 History amLODIPine [Norvasc] 5 mg PO BID 10/25/16 03/31/17 History HydrOXYzine PAMOATE CAP [Vistaril 25 mg PO DAILY 12/11/16 03/31/17 History Cap] Phenyleph/Mineral Oil/Petrolat 1 applic TOP Q4HR PRN 12/11/16 03/31/17 History [Preparation H Ointment] Pramoxine 1% Rectal Foam 1 applic TOP Q8HR PRN 12/11/16 03/31/17 History [Proctofoam 1% Foam] Gabapentin Cap/Tab [Neurontin 100 mg PO TID 01/30/17 03/31/17 History Cap/Tab] hydrOXYzine HCl [Hydroxyzine HCl] 25 mg PO Q6H PRN 01/30/17 03/31/17 History Dornase Teodoro [Pulmozyme] 2.5 mg RESP TX RT Q12H vial 02/08/17 03/31/17 Rx Oxycodone HCl/Acetaminophen 1 each PO Q8H PRN #3 02/08/17 03/31/17 Rx [Oxycodon-Acetaminophen 7.5-325] guaiFENesin ER TAB [Mucinex] 600 mg PO BID tablet 02/08/17 03/31/17 Rx Albuterol/Ipratropium Neb [Duoneb] 3 ml RESP TX RT Q4H 03/31/17 03/31/17 History Fluticasone/Salmeterol 100-50 1 puff INH BID 03/31/17 03/31/17 History [Advair 100-50] Allergies Allergy/AdvReac Type Severity Reaction Status Date / Time lisinopril Allergy Unknown RASH Verified 03/31/17 19:36 carvedilol [From Coreg] Allergy RASH Verified 03/31/17 19:36 hydrochlorothiazide Allergy RASH Verified 03/31/17 19:36 metoclopramide [From Reglan] Allergy Unknown/Unable Verified 03/31/17 19:36 to obtain propoxyphene Allergy RASH Verified 03/31/17 19:36 [From Darvocet-N] Sulfa (Sulfonamide Allergy RASH Verified 03/31/17 19:36 Antibiotics) tramadol Allergy RASH Verified 03/31/17 19:36 aspirin AdvReac Intermediate Gastrointestinal Verified 03/31/17 19:36 Upset rofecoxib [From Vioxx] AdvReac Intermediate Gastrointestinal Verified 03/31/17 19:36 Upset Medical,Surgical,& Family Hx - Medical History Cardio: History of: Cardiac Dysrhythmia (Hx: A. Fib), CAD, Hypertension, Cardiovascular Problems (ASHD) No history of: [place], Pacemaker Neurology: History of: Peripheral Neuropathy, Vertigo No history of: Seizures HEENT: History of: HEENT Problems (zoster, right side of face) Endocrine: History of: Dyslipidemia No history of: Diabetes Mellitus (NIDDM) Rheumatology: History of;: Rheumatoid Arthritis, Rheumatological Problems Respiratory: History of: COPD, Pneumonia (x12 times since 2010), Respiratory Problems (Bronchospastic Disease) No history of: Obstructive Sleep Apnea Genitourinary: History of: Prostate Problems (enlarged), Problems (r/t enlarged prostate) Gastrointestinal: History of: GERD, Polyps (Colon and Gastric), GI Problems ( esophageal stricture, Sena's esophagus, erosive gastritis, hiatal hernia) Musculoskeletal: History of: Back/Neck Problems (chronic back pain ), Musculoskeletal Problems (wedge comp. fx t11, t12; DJD) No history of: Amputation Hematology: History of: Anemia (Pernicious) No history of: Blood Transfusion Reaction Other: History of: Skin Problems (shingles 2013) No history of: Anesthesia Reactions, Cancer - Surgical History Cardiac Surgeries: Patient Denies: Cardiac Catheterization, Cardiac Surgery Thoracic Surgeries: Patient denies;: Kidney (Renal Surgery), Lithotripsy, Nephrectomy HEENT Surgeries: Surgical HX of: Eye Surgery (cataract) Patient denies: Tonsilectomy & Adenoidectomy Abdominal Surgeries: Surgical HX of: Abdominal Surgery, Appendectomy, Colonoscopy, EGD Patient denies: Cholecystectomy, Gastric Bypass Surgery, Hernia Repair Reproductive Surgeries: Surgical HX of;: Cystoscopy (HE THINKS MAY HAVE HAD), Genitourinary Surgery Patient denies;: Prostate Surgery Orthopedic Surgeries: Surgical HX of;: Orthopedic Surgery (ankles, wrist, back, neck), Spinal Surgery (kypoplasty) Patient denies;: Implanted Devices - Family History Family History: Reports;: Family Cancer (Brother (lung)), Family Diabetes ( Mother), Family Heart Disease (Mother), Family Hypertension (Mother), Family Stroke Denies;: Family Anesthesia Reaction, Family Psychiatric Problems - Social History Smoking Status: Former smoker Frequency of Alcohol Use: None Type of Drug Use: None 12 point system: reviewed and no additional remarkable complaints except as stated Exam - Constitutional Vitals: Period Temp Pulse Resp BP Sys/Briceno Pulse Ox Last 24 Hr 101.9 F-101.9 F 108-108 30-30 148-148/85-85 96 General appearance: over weight - Head Head exam: Present: normal inspection - Eye Eye exam: Present: EOMI Pupils: Present: ANAYELI - ENT ENT exam: Present: normal exam - Neck Neck exam: Present: normal inspection - Respiratory Respiratory exam: Present: rhonchi - Cardiovascular Cardiovascular exam: Present: regular rate and rhythm - GI/Abdominal GI/Abdominal exam: Present: normal bowel sounds - Extremities Exam Extremities exam: Present: normal inspection - Back Exam Back exam: Present: normal inspection - Neurological Exam Neurological exam: Present: alert - Psychiatric Psychiatric exam: Present: normal affect - Skin Skin exam: Present: normal color Results - Labs CBC & BMP: 03/31/17 19:46 03/31/17 19:46
[2017-03-31] MEDS: GABAPENTIN 100 MG CAPSULE PO SCH (23:50)
[2017-03-31] MEDS: MONTELUKAST 10 MG TABLET PO SCH (23:50)
[2017-03-31] MEDS: MECLIZINE 25 MG TABLET PO SCH (23:50)
[2017-03-31] MEDS: oxyCODONE/ACETAMINOPHEN 5-325 MG TABLET PO PRN (23:50)
[2017-03-31] MEDS: amLODIPine 5 MG TABLET PO SCH (23:50)
[2017-03-31] MEDS: CALCIUM CARBONATE CHEW 500 MG TABLET PO SCH (23:50)
[2017-03-31] MEDS: DOCUSATE SODIUM 100 MG CAPSULE PO SCH (23:51)
[2017-03-31] MEDS: MAGNESIUM OXIDE 400 MG TABLET PO SCH (23:51)
[2017-03-31] MEDS: METOPROLOL TARTRATE 25 MG TABLET PO SCH (23:51)
[2017-03-31] MEDS: HydrOXYzine PAMOATE 25 MG CAPSULE PO SCH (23:51)
[2017-03-31] MEDS: SIMVASTATIN 10 MG TABLET PO SCH (23:51)
[2017-04-01] MEDS: ALBUTEROL/IPRATROPIUM 3 ML NEB RESP TX SCH ×4 (00:45→19:33)
--- NOTE | 2017-04-01 02:31 | EKG Report ---
Stationary ECG Study [facility] ER Test Date: 03/31/2017 7:30:44 PM Pat Name: CARRI MELENDEZ Department: Room: 107 Gender: M Front End Java Developer: : 1930 Requested by: Robert Burns Order Number: [id number] Reading MD: DENG SHORE Intervals [place] Rate: 105 P: 999 MO: 0 QRS: -88 QRSD: 149 T: 34 QT: 345 QTc: 406 Interpretive Statements UNCERTAIN REGULAR RHYTHM RIGHT BUNDLE BRANCH BLOCK LEFT ANTERIOR FASCICULAR BLOCK POSSIBLE SEPTAL MYOCARDIAL INFARCTION, OF INDETERMINATE AGE Electronically Signed On 04-01-17 14:54:43 CDT by DENG SHORE [email or web address]
--- NOTE | 2017-04-01 03:06 | EKG Report ---
Stationary ECG Study [facility] Test Date: 04/01/2017 3:02:21 AM Pat Name: CARRI MELENDEZ Department: Room: 107 Gender: M Graphic Design Assistant: LUDWINRN : 1930 Requested by: Taye Mayberry Order Number: [id number] Reading MD: RUIZ FUCHS Intervals [place] Rate: 69 P: -5 MI: 237 QRS: -68 QRSD: 169 T: -10 QT: 457 QTc: 476 Interpretive Statements SINUS RHYTHM WITH first-degree A-V B RIGHT BUNDLE BRANCH BLOCK LEFT ANTERIOR FASCICULAR BLOCK MINIMAL VOLTAGE CRITERIA FOR LVH, CONSIDER NORMAL VARIANT POSSIBLE OLD SEPTAL MYOCARDIAL INFARCTION Electronically Signed On 04-01-17 15:02:32 CDT by RUIZ FUCHS [email or web address]
[2017-04-01 05:05] LABS: Basophils % 0.1 % (0.0-0.8); Hematocrit 34.4 VOL% (42.0-52.0); Hemoglobin 11.2 GM/DL (14.0-18.0); Immature Granulocytes % 0.6 %; Immature Granulocytes Absolute 0.09 #; Lymphocytes # 0.5 10*3/uL (1.4-4.0); Mean Corpuscular HGB Conc 32.6 GM/DL (32-36); Mean Corpuscular Hemoglobin 26 PG (27-34); Mean Corpuscular Volume 78.5 FL (87-102); Monocytes # 0.6 10*3/uL (0.11-0.8); Monocytes % 3.5 % (1.7-12.7); Neutrophils % 92.8 % (38.7-73.9); Platelet Count 171 T/CUMM (130-400); Red Blood Count 4.38 MC/CUMM (3.8-5.5); Red Cell Distribution Width 14.6 % (9.3-17.3); White Blood Count 16.2 T/CUMM (4-12)
[2017-04-01] MEDS ORDERED: SODIUM CHLORIDE 0.9% 250 ML IV ONE (05:15)
[2017-04-01 05:34] LABS: Albumin 2.9 G/DL (3.4-5.0); Bilirubin,Total 0.8 MG/DL (0.2-1.0); Calcium 8.7 MG/DL (8.5-10.1); Osmolality,Calculated 272.1 MOS/KG (273-304); Potassium 3.9 MMOL/L (3.5-5.1); Total Protein 6.2 G/DL (6.4-8.3)
[2017-04-01] MEDS: CALCIUM CARBONATE CHEW 500 MG TABLET PO SCH ×3 (05:40→22:07)
[2017-04-01 05:58] LABS: Anisocytosis 2+; Band Neutrophils 6 % (0-10); Hypochromasia 3+; Lymphocytes 5 % (20-55); Metamyelocytes 1 %; Microcytosis 2+; Platelet Estimate Normal; Segmented Neutrophils 84 % (50-85); Total Cells Counted 100
[2017-04-01] MEDS: DORNASE ALFA 2.5 MG/2.5 ML VIAL RESP TX SCH ×2 (07:19→19:33)
--- NOTE | 2017-04-01 08:21 | Hospitalist Progress Note ---
Assessment and Plan (1) Pneumonia Status: Acute Assessment and plan: He is presently being treated with intravenous levofloxacin. I will defer to Dr. Hankins for any further changes in his antibiotics. Current Visit: No Qualifiers: Pneumonia type: aspiration pneumonia (2) Acute exacerbation of chronic obstructive pulmonary disease Status: Acute Assessment and plan: Is being treated with the above antibiotic, intravenous corticosteroids, and albuterol ipratropium nebulizer therapy. I will defer to Dr. Hankins for any further changes. Current Visit: No Hospitalist: Subjective Interval history: Mr. Duckworth was readmitted to the hospital yesterday with recurrent pneumonia. He was begun in the emergency department on intravenous levofloxacin. He states that he is comfortable today. His poultry husbandry worker is Dr. Hankins who will see the patient in consultation today. Exam - Constitutional Vitals: Period Temp Pulse Resp BP Sys/Briceno Pulse Ox Last 24 Hr 97.0 F-101.9 F 59-108 16-35 84-148/40-85 90-100 General appearance: no acute distress - Head Head exam: Present: normal inspection - Neck Neck exam: Present: normal inspection - Respiratory Respiratory exam: Present: other (Scattered rhonchi and rales.) - Cardiovascular Cardiovascular exam: Present: regular rate and rhythm - GI/Abdominal GI/Abdominal exam: Present: normal bowel sounds, soft, other (Nontender with no palpable masses or hepatosplenomegaly.) - Extremities Exam Extremities exam: Present: normal inspection - Neurological Exam Neurological exam: Present: alert, oriented X3 - Psychiatric Psychiatric exam: Present: normal affect - Skin Skin exam: Present: normal color, warm, intact Results - Labs CBC & BMP: 04/01/17 04:41 04/01/17 04:41 Specialty Discharge - Follow Up or Referrals
[2017-04-01] MEDS ORDERED: PANTOPRAZOLE 40 MG TABLET PO SCH (09:00)
[2017-04-01] MEDS ORDERED: predniSONE 20 MG TABLET PO SCH (09:00)
[2017-04-01] MEDS ORDERED: CYANOCOBALAMIN 1000 MCG/1 ML VIAL IM SCH (09:00)
[2017-04-01] MEDS ORDERED: ENOXAPARIN 40 MG/0.4 ML SYRINGE SUBCUT SCH (09:00)
--- NOTE | 2017-04-01 09:09 | XRay Report ---
Portable chest. Indication: Shortness of breath. Comparison: March 31, 2017. The cardiac silhouette is enlarged. There is uncoiling of the thoracic aorta which often indicates chronic hypertension. The pulmonary vasculature shows improvement. The right lung is essentially clear. Is improvement in aeration of the left lung. Mild patchy infiltrate persists. Degenerative changes are noted within the spinal column and shoulders. There is been a previous vertebroplasty. Impression: Interval improvement in the venous congestion. Interval improvement in aeration of the left lung base. Patchy infiltrate persists at the left base. PROCEDURE INTERPRETED AT [facility] DEPARTMENT OF RADIOLOGY Final Report Signed by: Dr. Terrie Morrison
[2017-04-01] MEDS: GABAPENTIN 100 MG CAPSULE PO SCH ×3 (09:40→20:22)
[2017-04-01] MEDS: MAGNESIUM OXIDE 400 MG TABLET PO SCH ×2 (09:40→20:23)
[2017-04-01] MEDS: DOCUSATE SODIUM 100 MG CAPSULE PO SCH ×2 (09:40→20:23)
[2017-04-01] MEDS: METOPROLOL TARTRATE 25 MG TABLET PO SCH ×2 (09:40→20:24)
[2017-04-01] MEDS: PANTOPRAZOLE 40 MG TABLET PO SCH (09:40)
[2017-04-01] MEDS: TAMSULOSIN 0.4 MG CAPSULE PO SCH (09:40)
[2017-04-01] MEDS: MECLIZINE 25 MG TABLET PO SCH ×3 (09:41→20:21)
[2017-04-01] MEDS: FLUTICASONE/SALMETEROL 100-50 DISKUS 14 DOSE INH SCH ×2 (09:51→20:20)
--- NOTE | 2017-04-01 10:06 | Pulmonology Consult Note ---
History of Present Illness Chief complaint: Acute left lower lung pneumonia. COPD. G ERD with recurrent nocturnal aspi History of present illness: Mr. Duckworth is a 86 year old white male whom I been asked to see in pulmonary consultation for evaluation and treatment. This patient was [facility] a [facility]. Patient complains of a cough discolored sputum production he says he thinks he seen some blood. He says he has trouble swallowing but he cleaned his breakfast plate without any problems this morning. He does have a history of esophageal motility dysfunction and esophageal stricture. He has problems with gastroesophageal reflux in the past she has had lots of episodes of aspiration which have caused acute pneumonia. The patient denies any cardiac angina palpitations he has had no syncope near syncope or TIAs that he correct can recall. He denies epistaxis hemoptysis hematemesis hematochezia melena hematuria. The remainder the review of systems is negative Allergies: Amoxicillin, ASA, Darvocet N-100, Tramadol, and Vioxx Medication: See list Vaccinations: Flu vaccine was given in 2013. Pneumovax was given 09-22-2009. Tetanus vaccine was given in 1999. Past Medical History: [facility] hospitalization 10/25/2016 through 10/30/1999 1700 care of the hospitalist. During that admission he was treated for acute exacerbation of COPD. [facility] hospitalization 10/15/2016 through 10/20/2016 under the care of the hospitalist. During that admission the patient was treated for an acute left lower lung pneumonia and chronic back pain with history of acute T12 compression fracture which required kyphoplasty by Dr. Hammond. EGD was done during that admission by Dr. Perez. [facility] hospitalization 08/20/2016 through 08/21/2016 under the care of the hospitalist. During that admission he was treated for acute abdominal pain and bladder outlet obstruction. Patient also had a heme positive stool. He was seen by Dr. Perez and Dr. Deleon. No other workup was felt necessary during that admission. [facility] hospitalization 08/06/2016 through 08/08/2016 under the care of Dr. Schaefer. During that admission he was treated for an acute exacerbation of COPD. He also had chronic back pain and had a recent acute T12 compression fracture which required kyphoplasty by Dr. Hammond. [facility] 07/19/16 through 07/25/16 under the care of Dr. Schaefer. During that admission he was treated for an acute RLL infiltrate secondary to Klebsiella. [facility] hospitalization 06/21/16 through 07/02/16 under the care of the hospitalists. During that admission he was treated for an acute exacerbation of COPD. He was transferred to [facility] on 06/22/16 and remained there until 07/18/16. [facility] hospitalization 06/17/16 through 06/20/16 under the care of the hospitalists. During that admission he was treated for dysphagia and an esophageal stricture. [facility] hospitalization 05/22/16 through 06/01/16 under the care of Dr. Moore. [facility] through 04/05/16 under the care of the hospitalists. He was seen in consultation by Dr. Schaefer and treated for an acute exacerbation of COPD. [facility] 12/24/15 through 12/29/15 under the care of the hospitalists. During that admission he was treated for an acute exacerbation of COPD and an esophageal stricture which required dilatation. [facility] 09/25/15 through 09/30/15 under the care of the hospitalists. During that hospitalization he was treated for an acute pneumonia secondary to Klebsiella. [facility] 04/13/15 through 04/18/15 under the care of the hospitalists. He was seen in pulmonary consultation by Dr. Schaefer. He was treated for accelerated HTN, dysphagia, and acute exacerbation of COPD. [facility] 09-23-13 for acute gastroenteritis, acute upper respiratory infection which was thought to be influenza. He also had a possible acute RUL pneumonia probably occurring after the onset of the flu. [facility] 07-17-13 for acute non- cardiac chest pain, esophageal motility dysfunction, and acute tachycardia that resolved with the addition of Metoprolol. [facility] November 2012 with acute pneumonia. [facility] 08-05-2012 for palpitations. [facility] 07-07-2012 for probable acute pneumonia that did not show up on xray, gram positive sepsis. Gram stains showed gram positive cocci and gram negative rods. [facility] for acute T8 compression fracture and acute T2 compression fracture. He also had a herpetic lesion on his lip 02-10-12. [facility] 07-17-11 for acute lower GI bleed. Hospitalized twice in 2010 for pneumonia. [facility] 05-12-10 with injuries sustained after a trauma. He had an acute T5 pathologic compression fracture, left ankle fracture--repaired, bilateral forearm fractures with closed reduction, and an ileus of the colon with obstipation. Patient was here in November and December 2016 with an exacerbation of COPD, pneumonia and acute thoracic compression fracture that required kyphoplasty by Dr. Hammond. Family History: His mother had diabetes, arthritis. His brother had lung cancer. His father had lung disease. Social History: The patient quit smoking 12-05-89. He denies alcohol. He is retired. 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 He has a high school education. He resides at a nursing Admit chest x-ray showed a dense left lower lung infiltrate. Follow-up chest x- ray on 04/01/2017 shows 70% resolution Microbiology. No tests reported Lab. Electrolytes are normal. Creatinine is 1.0 with a BUN of 16. White count is 16,293% segs. H&H is 11.2/34.4 with decreased red blood cell indices and top normal red blood cell distribution with. INR is 1.1 EKG. Regular sinus rhythm Physical exam. Vital signs. See below Psychiatric oriented 3 only a fair historian. 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 Symmetrical. No edema of the lips or tongue Neck. Symmetrical. Kyphotic. No mass. No meningismus. Thyroid was not palpated Lymphatics. No submandibular cervical supraclavicular or epitrochlear adenopathy Chest. Hyperinflated. Kyphotic. Coarse tracheal and large airway wheeze with prolonged incomplete expiration. Mild anterior chest wall tenderness Heart. Regular. Lateral PMI. Abdomen. Obese and nontender. Bowel sounds are present. No organs can be palpated and rectal. Deferred Lower extremities. No edema. Nothing to suggest deep venous thrombophlebitis Musculoskeletal. Age-appropriate loss of normal curvature cervical thoracic and lumbar spine degenerative changes of the hands and knees. Skin of the face and hand showed no cancerous infectious lesions. No other areas of skin were examined. The remainder the physical exam is negative. Impression. 1. Acute left lower lung pneumonia. Probably bacterial. Note high white blood cell count. In the past aspiration pneumonia has been a problem 2. Obstructive lung disease with bronchospastic disease. Often steroid dependent 3. 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 4. Gastroesophageal reflux disease with recurrent history of nocturnal aspiration of gastric contents 5. Past history of atrial fib. Now in regular sinus rhythm. 6. Osteoporosis with multiple compression fracture that have required, 7. Hyperlipidemia 8. See past history Plan. 1. Sputum for Gram stain culture and sensitivity 2. Cold agglutinins. 3. Antireflux regimen 4. Follow-up chest x-ray 5. Watch for hemoptysis 6. Convert prednisone to Solu-Medrol. Patient has significant large airway wheeze. 7. Continue inhalation therapy and expectorants. 8. See orders Home Medications Medication Instructions Recorded Confirmed Type Acetaminophen Tab [Tylenol Tab] 650 mg PO Q6H PRN 10/25/16 03/31/17 History Calcium Carbonate Chew [Tums] 1 tablet PO Q8H 10/25/16 03/31/17 History Cyanocobalamin (Vitamin B-12) 1,000 mcg IM Q30D 10/25/16 03/31/17 History [Cyanocobalamin Injection] Dexlansoprazole [Dexilant] 60 mg PO DAILY 10/25/16 03/31/17 History Docusate Sodium Cap [Colace Cap] 100 mg PO BID 10/25/16 03/31/17 History Magnesium Oxide 400 mg PO BID 10/25/16 03/31/17 History Meclizine [Antivert] 25 mg PO TID 10/25/16 03/31/17 History Metoprolol Tartrate 25 mg PO BID 10/25/16 03/31/17 History Montelukast Tab [Singulair Tab] 10 mg PO BEDTIME 10/25/16 03/31/17 History Polyethylene Glycol Powder 17 gm PO DAILY PRN 10/25/16 03/31/17 History [Miralax] Polyvinyl Alcohol 1.4% Oph Marylou 1 drop BOTH EYES QID PRN 10/25/16 03/31/17 History [Artificial Tears Oph Soln] Simvastatin 5 mg PO BEDTIME 10/25/16 03/31/17 History Tamsulosin [Flomax] 0.4 mg PO DAILY 10/25/16 03/31/17 History amLODIPine [Norvasc] 5 mg PO BID 10/25/16 03/31/17 History HydrOXYzine PAMOATE CAP [Vistaril 25 mg PO DAILY 12/11/16 03/31/17 History Cap] Phenyleph/Mineral Oil/Petrolat 1 applic TOP Q4HR PRN 12/11/16 03/31/17 History [Preparation H Ointment] Pramoxine 1% Rectal Foam 1 applic TOP Q8HR PRN 12/11/16 03/31/17 History [Proctofoam 1% Foam] Gabapentin Cap/Tab [Neurontin 100 mg PO TID 01/30/17 03/31/17 History Cap/Tab] hydrOXYzine HCl [Hydroxyzine HCl] 25 mg PO Q6H PRN 01/30/17 03/31/17 History Dornase Teodoro [Pulmozyme] 2.5 mg RESP TX RT Q12H vial 02/08/17 03/31/17 Rx Oxycodone HCl/Acetaminophen 1 each PO Q8H PRN #3 02/08/17 03/31/17 Rx [Oxycodon-Acetaminophen 7.5-325] guaiFENesin ER TAB [Mucinex] 600 mg PO BID tablet 02/08/17 03/31/17 Rx Albuterol/Ipratropium Neb [Duoneb] 3 ml RESP TX RT Q4H 03/31/17 03/31/17 History Fluticasone/Salmeterol 100-50 1 puff INH BID 03/31/17 03/31/17 History [Advair 100-50] Allergies Allergy/AdvReac Type Severity Reaction Status Date / Time lisinopril Allergy Unknown RASH Verified 03/31/17 19:36 carvedilol [From Coreg] Allergy RASH Verified 03/31/17 19:36 hydrochlorothiazide Allergy RASH Verified 03/31/17 19:36 metoclopramide [From Reglan] Allergy Unknown/Unable Verified 03/31/17 19:36 to obtain propoxyphene Allergy RASH Verified 03/31/17 19:36 [From Darvocet-N] Sulfa (Sulfonamide Allergy RASH Verified 03/31/17 19:36 Antibiotics) tramadol Allergy RASH Verified 03/31/17 19:36 aspirin AdvReac Intermediate Gastrointestinal Verified 03/31/17 19:36 Upset rofecoxib [From Vioxx] AdvReac Intermediate Gastrointestinal Verified 03/31/17 19:36 Upset Exam (Pulmonay) H&P - Constitutional Vitals: Period Temp Pulse Resp BP Sys/Briceno Pulse Ox Last 24 Hr 97.0 F-101.9 F 59-108 16-35 84-148/40-85 90-100 Medical,Surgical,& Family Hx - Medical History Cardio: History of: Cardiac Dysrhythmia (Hx: A. Fib), CAD, Hypertension, Cardiovascular Problems (ASHD) No history of: [place], Pacemaker Neurology: History of: Peripheral Neuropathy, Vertigo No history of: Seizures HEENT: History of: HEENT Problems (zoster, right side of face) Endocrine: History of: Dyslipidemia No history of: Diabetes Mellitus (NIDDM) Rheumatology: History of;: Rheumatoid Arthritis, Rheumatological Problems Respiratory: History of: COPD, Pneumonia (x12 times since 2010), Respiratory Problems (Bronchospastic Disease) No history of: Obstructive Sleep Apnea Genitourinary: History of: Prostate Problems (enlarged), Problems (r/t enlarged prostate) Gastrointestinal: History of: GERD, Polyps (Colon and Gastric), GI Problems ( esophageal stricture, Sena's esophagus, erosive gastritis, hiatal hernia) Musculoskeletal: History of: Back/Neck Problems (chronic back pain ), Musculoskeletal Problems (wedge comp. fx t11, t12; DJD) No history of: Amputation Hematology: History of: Anemia (Pernicious) No history of: Blood Transfusion Reaction Other: History of: Skin Problems (shingles 2013) No history of: Anesthesia Reactions, Cancer - Surgical History Cardiac Surgeries: Patient Denies: Cardiac Catheterization, Cardiac Surgery Thoracic Surgeries: Patient denies;: Kidney (Renal Surgery), Lithotripsy, Nephrectomy HEENT Surgeries: Surgical HX of: Eye Surgery (cataract) Patient denies: Tonsilectomy & Adenoidectomy Abdominal Surgeries: Surgical HX of: Abdominal Surgery, Appendectomy, Colonoscopy, EGD Patient denies: Cholecystectomy, Gastric Bypass Surgery, Hernia Repair Reproductive Surgeries: Surgical HX of;: Cystoscopy (HE THINKS MAY HAVE HAD), Genitourinary Surgery Patient denies;: Prostate Surgery Orthopedic Surgeries: Surgical HX of;: Orthopedic Surgery (ankles, wrist, back, neck), Spinal Surgery (kypoplasty) Patient denies;: Implanted Devices - Family History Family History: Reports;: Family Cancer (Brother (lung)), Family Diabetes ( Mother), Family Heart Disease (Mother), Family Hypertension (Mother), Family Stroke Denies;: Family Anesthesia Reaction, Family Psychiatric Problems - Social History Smoking Status: Former smoker Frequency of Alcohol Use: None Type of Drug Use: None Results - Labs CBC & BMP: 04/01/17 04:41 04/01/17 04:41 Specialty Discharge - Follow Up or Referrals
[2017-04-01] MEDS: methylPREDNISolone SOD SUC 40 MG/1 ML VIAL IV SCH ×2 (14:23→22:05)
[2017-04-01] MEDS: amLODIPine 5 MG TABLET PO SCH ×2 (14:23→20:23)
[2017-04-01] MEDS: SIMVASTATIN 10 MG TABLET PO SCH (20:21)
[2017-04-01] MEDS: MONTELUKAST 10 MG TABLET PO SCH (20:24)
[2017-04-01] MEDS: HydrOXYzine PAMOATE 25 MG CAPSULE PO SCH (20:27)
[2017-04-01] MEDS: LEVOFLOXACIN INJ 750 MG in PREMIX 1 EACH IV SCH (20:40)
[2017-04-01] MEDS: oxyCODONE/ACETAMINOPHEN 5-325 MG TABLET PO PRN (22:06)
[2017-04-02] MEDS: ALBUTEROL/IPRATROPIUM 3 ML NEB RESP TX SCH ×4 (00:04→18:56)
[2017-04-02 03:18] LABS: ABG Base Excess 3.2 MMOL/L (-2.5-2.5); ABG HCO3 27.2 MMOL/L (20-26); ABG Oxygen Saturation 94.5 % (95-100); ABG PCO2 38.7 MM HG (35-48); ABG PH 7.456 (7.35-7.45); ABG PO2 71.7 MM HG (80-95); ABG TCO2 24.6 MMOL/L (23-27); Allen Test Positive
[2017-04-02 05:19] LABS: Basophils % 0.1 % (0.0-0.8); Hematocrit 32.1 VOL% (42.0-52.0); Hemoglobin 10.4 GM/DL (14.0-18.0); Immature Granulocytes % 0.6 %; Immature Granulocytes Absolute 0.08 #; Lymphocytes # 0.6 10*3/uL (1.4-4.0); Lymphocytes % 4.5 % (21.2-54.2); Mean Corpuscular HGB Conc 32.4 GM/DL (32-36); Mean Corpuscular Hemoglobin 25 PG (27-34); Mean Corpuscular Volume 78.1 FL (87-102); Mean Platelet Volume 10.1 FL (9.6-12.0); Monocytes # 0.5 10*3/uL (0.11-0.8); Monocytes % 3.8 % (1.7-12.7); Neutrophils # 12.2 10*3/uL (1.4-7.4); Platelet Count 172 T/CUMM (130-400); Red Blood Count 4.11 MC/CUMM (3.8-5.5); Red Cell Distribution Width 14.6 % (9.3-17.3); White Blood Count 13.4 T/CUMM (4-12)
[2017-04-02 05:48] LABS: Calcium 8.8 MG/DL (8.5-10.1)
[2017-04-02 06:02] LABS: Band Neutrophils 4 % (0-10); Giant Platelets Few; Hypochromasia 1+; Lymphocytes 4 % (20-55); Microcytosis Slight; Ovalocytes Slight; Platelet Estimate Normal; Segmented Neutrophils 90 % (50-85); Total Cells Counted 100
[2017-04-02] MEDS: CALCIUM CARBONATE CHEW 500 MG TABLET PO SCH ×3 (06:11→21:48)
[2017-04-02] MEDS: DORNASE ALFA 2.5 MG/2.5 ML VIAL RESP TX SCH ×2 (07:02→19:07)
--- NOTE | 2017-04-02 07:18 | XRay Report ---
XR chest 1V portable Indication: Pneumonia. Chest one view: Comparison 04/01/2017. Multilevel vertebroplasty and calcified atheromatous disease again shown. Cardiomegaly is stable. There is obscuration of the retrocardiac left lower lobe. Lung volumes are low with interstitial scarring diffusely. No discrete infiltrates are seen on the right. Barium containing cement is present in the pulmonary arterial tree of the upper lobes. Impression: Chronic opacification of the retrocardiac left lower lobe, likely pneumonia. Persistent cardiomegaly and pulmonary hypoinflation as described. PROCEDURE INTERPRETED AT [facility] DEPARTMENT OF RADIOLOGY Final Report Signed by: Taye Macias M.D.
[2017-04-02] MEDS: PANTOPRAZOLE 40 MG TABLET PO SCH (08:47)
[2017-04-02] MEDS: GABAPENTIN 100 MG CAPSULE PO SCH ×3 (08:47→20:22)
[2017-04-02] MEDS: TAMSULOSIN 0.4 MG CAPSULE PO SCH (08:48)
[2017-04-02] MEDS: MAGNESIUM OXIDE 400 MG TABLET PO SCH ×2 (08:48→20:23)
[2017-04-02] MEDS: DOCUSATE SODIUM 100 MG CAPSULE PO SCH ×2 (08:48→20:22)
[2017-04-02] MEDS: MECLIZINE 25 MG TABLET PO SCH ×3 (08:48→20:19)
[2017-04-02] MEDS: METOPROLOL TARTRATE 25 MG TABLET PO SCH ×2 (08:48→20:20)
[2017-04-02] MEDS: hydrOXYzine HCL 25 MG TABLET PO PRN ×2 (08:51→20:19)
[2017-04-02] MEDS: oxyCODONE/ACETAMINOPHEN 5-325 MG TABLET PO PRN ×2 (08:52→20:16)
[2017-04-02] MEDS: FLUTICASONE/SALMETEROL 100-50 DISKUS 14 DOSE INH SCH ×2 (09:04→20:16)
[2017-04-02] MEDS: methylPREDNISolone SOD SUC 40 MG/1 ML VIAL IV SCH ×2 (09:05→21:48)
[2017-04-02] MEDS: amLODIPine 5 MG TABLET PO SCH ×2 (09:08→20:18)
--- NOTE | 2017-04-02 10:46 | Pulmonology Progress Note ---
Pulmonary - PN: Subj Interval history: This 86-year-old white male residential patient who is well known to me. He was admitted with acute left lower lung pneumonia. He also may have had a small element of congestive heart failure. I saw this patient in pulmonary consultation on 04/01/2017. My impressions were. 1. Acute left lower lung pneumonia. Probably bacterial. Note high white blood cell count. In the past aspiration pneumonia has been a problem 2. Obstructive lung disease with bronchospastic disease. Often steroid dependent 3. 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 4. Gastroesophageal reflux disease with recurrent history of nocturnal aspiration of gastric contents 5. Past history of atrial fib. Now in regular sinus rhythm. 6. Osteoporosis with multiple compression fracture that have required, 7. Hyperlipidemia 8. See past history 04/02/2017. Patient's chest x-ray shows good improvement. Left lower lung infiltrate is nearly resolved. Patient still mobilizing sputum. He has MRSA from his nares. He is being started on Bactroban ointment. There are no other positive cultures. ABGs on FiO2 28% show a pH of 7.456, PCO2 38.7, PO2 of 71.2 and a bicarb of 27.2. Creatinine is 0.9 with a BUN of 23 and normal electrolytes. White count is dropped to 13,400 with 91 segs. H&H is 10.4/32.1 with decreased red blood cell indices. On 04/01/2017 BNP was mildly elevated 232. This will be repeated. This patient is making good progress from my standpoint and hopefully he can be moved from intensive care to pulmonary floor such as 5 E. 7 Physical exam. Vital signs. See below General. Comfortable in no distress. Psychiatric. Oriented 3. Appropriate. Cooperative. Face. Symmetrical. No edema of the lips or tongue. Neck. Symmetrical. Kyphotic. No meningismus. Lymphatics. No submandibular cervical supraclavicular or epitrochlear adenopathy. Chest. Symmetrical kyphotic with prolonged expiration. Slight large airway congestion. No wheeze. Heart. No gallop. Abdomen. Nontender. Positive bowel sounds Lower extremities. Nothing to suggest deep venous thrombophlebitis. Neurologic. Cranial nerves are intact with decreased hearing acuity bilaterally. Long track motor functions intact. Sensory exam was not done. Gait was not tested. The remainder of the physical exam was negative Plan. 04/01/2017 1. Sputum for Gram stain culture and sensitivity 2. Cold agglutinins. 3. Antireflux regimen 4. Follow-up chest x-ray 5. Watch for hemoptysis 6. Convert prednisone to Solu-Medrol. Patient has significant large airway wheeze. 7. Continue inhalation therapy and expectorants. 8. See orders 04/02/2017. 1. Bactroban to nares 2. Okay to move to floor. 3. Continue present regimen Exam (Progress Note) - Constitutional Vitals: Period Temp Pulse Resp BP Sys/Briceno Pulse Ox Last 24 Hr 97.0 F-97.8 F 60-76 17-35 99-138/47-65 90-100 Results - Labs CBC & BMP: 04/02/17 04:46 04/02/17 04:46 Specialty Discharge - Follow Up or Referrals
[2017-04-02] MEDS: MUPIROCIN 2% OINT 22 GM TUBE TOP SCH ×2 (11:48→20:24)
--- NOTE | 2017-04-02 12:43 | Fluoroscopy Report ---
FL barium swallow Indication: Dysphagia. Barium swallow: Fluoroscopy time 1 minute 48 seconds. Total images captured 1193. Findings: Single contrast barium swallow was performed. No aspiration identified. There is almost immediate breakup of primary peristalsis at the thoracic inlet with no stripping wave in the esophagus. Eventually, via gravity, there is some drainage into the stomach. The distal esophagus is widely patent and no strictures identified. Multiple tertiary contractions of the esophagus are noted. 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 Stasis of material in the esophagus. Multiple tertiary contractions consistent with esophageal spasm. No stricture or mass identified. No aspiration. PROCEDURE INTERPRETED AT [facility] DEPARTMENT OF RADIOLOGY Final Report Signed by: Taye Macias M.D.
[2017-04-02] MEDS: POLYETHYLENE GLYCOL POWDER 17 GM PACK PO PRN (13:45)
--- NOTE | 2017-04-02 15:41 | Hospitalist Progress Note ---
Assessment and Plan - Time spent with patient Time spent with patient: Greater than 30 minutes (1) COPD with acute exacerbation Status: Acute Assessment and plan: 04/02/2017: Pneumonia symptoms are improving as discussed above. Leukocytosis is decreasing. Today's total white count measures 13.4. Yesterday's measured 16.2. Patient's need for supplemental oxygen is decreasing. Consult physical therapy to assist with gait assessment once transferred out of the ICU. Continue supplemental oxygen, nebulizer treatments, incentive spirometry exercises. Current Visit: Yes (2) Dysphasia Status: Acute Assessment and plan: 04/02/2017: Severe presbyesophagus reported on barium swallow earlier this morning. Patient has severe dysmotility of the primary peristaltic wave. Stasis of material documented within esophagus. Multiple tertiary contractions consistent with esophageal spasm. No stricture or mass identified. No aspiration changes noted. Consider empiric trial of low-dose Reglan as a promotility agent. Current Visit: Yes (3) MRSA nasal colonization Status: Acute Assessment and plan: 04/02/2017: Begin Bactroban twice daily 5 days intra-nasal Current Visit: Yes (4) Anemia Status: Acute Assessment and plan: 04/02/2017: Associated with multiple chronic diseases. Currently hemodynamically stable. Continue monitoring. Current Visit: Yes Hospitalist: Subjective Interval history: 04/02/2017: Patient is an 86-year-old male admitted for management of pneumonia. He reports decreased work of breathing decreased productive cough. He is eager for plan transfer out of the ICU today. Exam - Constitutional Vitals: Period Temp Pulse Resp BP Sys/Briceno Pulse Ox Last 24 Hr 97.1 F-97.8 F 60-76 17-35 99-149/47-91 90-100 General appearance: normal weight - Head Head exam: Present: normal inspection - ENT ENT exam: Present: normal exam - Neck Neck exam: Absent: meningismus, tenderness - Respiratory Respiratory exam: Present: decreased breath sounds. Absent: rales, wheezes - Cardiovascular Cardiovascular exam: Present: regular rate and rhythm - GI/Abdominal GI/Abdominal exam: Present: normal bowel sounds, soft. Absent: tenderness, rebound - Extremities Exam Extremities exam: Absent: calf tenderness, edema - Neurological Exam Neurological exam: Present: alert, oriented X3 - Psychiatric Psychiatric exam: Present: normal affect - Skin Skin exam: Present: normal color, warm. Absent: rash Results - Labs CBC & BMP: 04/02/17 04:46 04/02/17 04:46 - Diagnostic Findings Procedure: X-ray: other Specialty Discharge - Follow Up or Referrals
[2017-04-02] MEDS: HydrOXYzine PAMOATE 25 MG CAPSULE PO SCH (20:18)
[2017-04-02] MEDS: MONTELUKAST 10 MG TABLET PO SCH (20:20)
[2017-04-02] MEDS: SIMVASTATIN 10 MG TABLET PO SCH (20:23)
[2017-04-02] MEDS: LEVOFLOXACIN INJ 750 MG in PREMIX 1 EACH IV SCH (20:24)
[2017-04-03] MEDS: ALBUTEROL/IPRATROPIUM 3 ML NEB RESP TX SCH ×4 (00:15→19:57)
[2017-04-03 04:19] LABS: ABG Base Excess 3.1 MMOL/L (-2.5-2.5); ABG HCO3 27.2 MMOL/L (20-26); ABG Oxygen Saturation 97.7 % (95-100); ABG PCO2 42.3 MM HG (35-48); ABG PH 7.426 (7.35-7.45); ABG PO2 95.5 MM HG (80-95); ABG TCO2 25.1 MMOL/L (23-27); Allen Test Positive
[2017-04-03] MEDS: CALCIUM CARBONATE CHEW 500 MG TABLET PO SCH ×3 (05:21→21:18)
[2017-04-03 06:07] LABS: Magnesium 2.4 MG/DL (1.8-2.4); Osmolality,Calculated 277.8 MOS/KG (273-304); Potassium 4.3 MMOL/L (3.5-5.1)
[2017-04-03] MEDS: DORNASE ALFA 2.5 MG/2.5 ML VIAL RESP TX SCH ×2 (07:09→20:00)
--- NOTE | 2017-04-03 08:39 | XRay Report ---
XR chest 1V portable Indication: Cough Comparison: Chest x-ray dated April 02, 2017 Technique: Single frontal view of the chest. Findings: Continued cardiomegaly. Continued nonspecific prominence of pulmonary interstitial markings. Mildly improved left basilar atelectasis/consolidation. Suspect small left pleural fluid. Visualized osseous and surrounding soft tissue structures appear grossly unchanged. Diffuse osteopenia with multilevel vertebroplasty change. IMPRESSION: As above. PROCEDURE INTERPRETED AT [facility] DEPARTMENT OF RADIOLOGY Final Report Signed by: Dr Ken Lopez
[2017-04-03 09:01] LABS: Basophils % 0.1 % (0.0-0.8); Hematocrit 32.3 VOL% (42.0-52.0); Hemoglobin 10.4 GM/DL (14.0-18.0); Immature Granulocytes % 0.5 %; Immature Granulocytes Absolute 0.06 #; Lymphocytes # 0.6 10*3/uL (1.4-4.0); Lymphocytes % 4.4 % (21.2-54.2); Mean Corpuscular HGB Conc 32.2 GM/DL (32-36); Mean Corpuscular Hemoglobin 26 PG (27-34); Mean Corpuscular Volume 79.2 FL (87-102); Mean Platelet Volume 10.2 FL (9.6-12.0); Monocytes # 0.3 10*3/uL (0.11-0.8); Monocytes % 2.4 % (1.7-12.7); Neutrophils % 92.6 % (38.7-73.9); Platelet Count 187 T/CUMM (130-400); Red Blood Count 4.08 MC/CUMM (3.8-5.5); Red Cell Distribution Width 14.7 % (9.3-17.3)
[2017-04-03 09:24] LABS: Band Neutrophils 5 % (0-10); Hypochromasia 1+; Lymphocytes 4 % (20-55); Platelet Estimate Adequate; Polychromasia Slight; Segmented Neutrophils 88 % (50-85); Total Cells Counted 100
--- NOTE | 2017-04-03 09:48 | Pulmonology Progress Note ---
Pulmonary - PN: Subj Interval history: Jayjay Milan, [facility]-, acting as scribe for Dr. Santos Schaefer This 86-year-old white male [facility] patient who is well known to us. 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 He was admitted with acute left lower lung pneumonia. He also may have had a small element of congestive heart failure. We saw this patient in pulmonary consultation on 04/01/2017. At that time, our impressions were: 1. Acute left lower lung pneumonia. Probably bacterial. Note high white blood cell count. In the past, aspiration pneumonia has been a problem. 2. Obstructive lung disease with bronchospastic disease. Often steroid dependent. 3. 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 4. Gastroesophageal reflux disease with recurrent history of nocturnal aspiration of gastric contents 5. Past history of atrial fib. Now in regular sinus rhythm. 6. Osteoporosis with multiple compression fracture that have required, 7. Hyperlipidemia 8. See past history 04/02/2017. Patient's chest x-ray shows good improvement. Left lower lung infiltrate is nearly resolved. Patient still mobilizing sputum. He has MRSA from his nares. He is being started on Bactroban ointment. There are no other positive cultures. ABGs on FiO2 28% show a pH of 7.456, PCO2 38.7, PO2 of 71.2 and a bicarb of 27.2. Creatinine is 0.9 with a BUN of 23 and normal electrolytes. White count is dropped to 13,400 with 91 segs. H&H is 10.4/32.1 with decreased red blood cell indices. On 04/01/2017 BNP was mildly elevated 232. This will be repeated. This patient is making good progress from my standpoint and hopefully he can be moved from intensive care to pulmonary floor such as [facility]. 04/03/2017. The patient was seen today along with Bhavin Ratliff RN. He is now been moved to the medical floor from intensive care. This morning he complains of dizziness. He is lying flat in bed and breathing comfortably. He does, however, complained of tongue and throat pain. This will be treated with Diflucan and nystatin swish and swallow. He complains of dysphasia. As noted above, he has a history of disordered swallowing with a history of esophageal stricture and esophageal motility dysfunction. This is been followed on a long- term basis by Dr. Perez. Barium swallow obtained yesterday as ordered by Dr. Fernandes showed severe presbyesophagus with severe dysmotility of the primary peristaltic wave. Stasis of material in the esophagus was seen. There were multiple tertiary contractions consistent with esophageal spasm. There is no stricture or mass identified and no aspiration. Because of his complaints, we will consult Dr. Perez for evaluation and possible treatment as he deems necessary. Mr. Duckworth reports that he coughed up a scant amount of bright red sputum again this morning. His most likely related to his recent pneumonia, but we will obtain sputum for cytology daily 3. His chest x-ray today shows his previously noted left lower longer lingular pneumonia has resolved. Medications have been reviewed. We started Diflucan for 7 days and nystatin swish and swallow for 5 days. Labs been reviewed. White count is 13,000 with 92.6% segs; H&H 10.4/32.3; platelet count 187,000; creatinine 0.80, BUN 18, electrolytes are normal Sputum Gram stain showed few gram-positive cocci in pairs, rare gram-positive rods, rare gram-negative rods, rare fungal elements; sputum culture is pending. ABGs this morning on FiO2 of 28% showed a pH of 7.46, PCO2 42.3, PO2 95.5, bicarb 27.2, and oxygen saturation 97.7%. Exam (Progress Note) - Constitutional Vitals: Period Temp Pulse Resp BP Sys/Briceno Pulse Ox Last 24 Hr 97.0 F-98.3 F 61-89 18-35 118-149/56-91 88-99 Exam: Chest is symmetrical and kyphotic with prolonged and slightly incomplete expiration; there is a slight amount of large airway congestion Heart no gallop Abdomen is obese but nontender and nondistended; bowel sounds are positive 4 Lower extremities with nothing to suggest acute deep venous thrombophlebitis Psychiatric presently oriented 3 Neurologic long-term motor function is intact; note, the patient complains of dizziness Plan: Start Diflucan and nystatin swish and swallow as above. Sputum for cytology daily 3. Consult Dr. Perez. Continue other present treatment. See orders. Results - Labs CBC & BMP: 04/03/17 04:51 04/03/17 04:51 Specialty Discharge - Follow Up or Referrals
[2017-04-03] MEDS: methylPREDNISolone SOD SUC 40 MG/1 ML VIAL IV SCH ×2 (09:51→21:17)
[2017-04-03] MEDS: DOCUSATE SODIUM 100 MG CAPSULE PO SCH ×2 (09:51→21:18)
[2017-04-03] MEDS: PANTOPRAZOLE 40 MG TABLET PO SCH (09:51)
[2017-04-03] MEDS: MAGNESIUM OXIDE 400 MG TABLET PO SCH ×2 (09:51→21:19)
[2017-04-03] MEDS: amLODIPine 5 MG TABLET PO SCH ×2 (09:51→21:18)
[2017-04-03] MEDS: METOPROLOL TARTRATE 25 MG TABLET PO SCH ×2 (09:51→21:18)
[2017-04-03] MEDS: MECLIZINE 25 MG TABLET PO SCH ×3 (09:51→21:18)
[2017-04-03] MEDS: TAMSULOSIN 0.4 MG CAPSULE PO SCH (09:51)
[2017-04-03] MEDS: GABAPENTIN 100 MG CAPSULE PO SCH ×3 (09:51→21:18)
[2017-04-03] MEDS: FLUTICASONE/SALMETEROL 100-50 DISKUS 14 DOSE INH SCH ×2 (09:52→21:22)
[2017-04-03] MEDS: FLUCONAZOLE 200 MG TABLET PO SCH (09:54)
[2017-04-03] MEDS: oxyCODONE/ACETAMINOPHEN 5-325 MG TABLET PO PRN ×2 (09:58→21:26)
--- NOTE | 2017-04-03 10:29 | Gastrointestinal Consult Note ---
<Diane Yin - Last Filed: 04/03/17 10:25> Assessment and Plan (1) Dysphagia Status: Chronic Assessment and plan: 04/03-history of esophageal stricture with repeat dilations in the past, last EGD in January. Recurrence fairly shortly after dilation. Now inpatient with recurring pneumonia/COPD exacerbation. Chest x-ray showing mildly improved left basilar atelectasis/consolidation. Afebrile with leukocytosis of 13,000. Barium swallow results noted. Continue to monitor at this time and can discuss repeat endoscopy when respiratory status improves. Plan an addendum to followed by Dr. Perez. Current Visit: No History of Present Illness Chief complaint: Dysphagia History of present illness: Mr. Duckworth is a 86 year old male who was admitted to the hospital on 03/31 with increased shortness of breath. Patient is a fair historian therefore inflammation obtained from patient interview as well as chart review. Patient is a resident at a skilled nursing facility. He reportedly had been having several days of increased shortness of breath and productive cough with a drop in his oxygen saturation. He was then brought to our facility for further evaluation. He has a prior history of COPD, recurring pneumonia and recurring esophageal stricture with dysphagia. On admission he was found to have left lower lobe pneumonia and was admitted for further workup. Patient has a long- term history of dysphagia with repeat EGDs for esophageal dilation. His last esophageal dilation was done in January of this year in which she states he had a good response initially however several weeks following the procedure his dysphagia returned. He states over the last month or so his dysphagia has worsened and he is having increased difficulty with solids liquids and pills. He also states it feels as though something is stuck in his throat at times. He denies any painful swallowing. Denies any melena or hematochezia. Denies any abdominal pain or nausea or vomiting. On admission he also had a barium swallow done which showed severe presbyesophagus with severe dysmotility of primary peristaltic wave as well as multiple tertiary contractions consistent with esophageal spasm without mass, stricture or aspiration seen. Home Medications Medication Instructions Recorded Confirmed Type Acetaminophen Tab [Tylenol Tab] 650 mg PO Q6H PRN 10/25/16 03/31/17 History Calcium Carbonate Chew [Tums] 1 tablet PO Q8H 10/25/16 03/31/17 History Cyanocobalamin (Vitamin B-12) 1,000 mcg IM Q30D 10/25/16 03/31/17 History [Cyanocobalamin Injection] Dexlansoprazole [Dexilant] 60 mg PO DAILY 10/25/16 03/31/17 History Docusate Sodium Cap [Colace Cap] 100 mg PO BID 10/25/16 03/31/17 History Magnesium Oxide 400 mg PO BID 10/25/16 03/31/17 History Meclizine [Antivert] 25 mg PO TID 10/25/16 03/31/17 History Metoprolol Tartrate 25 mg PO BID 10/25/16 03/31/17 History Montelukast Tab [Singulair Tab] 10 mg PO BEDTIME 10/25/16 03/31/17 History Polyethylene Glycol Powder 17 gm PO DAILY PRN 10/25/16 03/31/17 History [Miralax] Polyvinyl Alcohol 1.4% Oph Marylou 1 drop BOTH EYES QID PRN 10/25/16 03/31/17 History [Artificial Tears Oph Soln] Simvastatin 5 mg PO BEDTIME 10/25/16 03/31/17 History Tamsulosin [Flomax] 0.4 mg PO DAILY 10/25/16 03/31/17 History amLODIPine [Norvasc] 5 mg PO BID 10/25/16 03/31/17 History HydrOXYzine PAMOATE CAP [Vistaril 25 mg PO DAILY 12/11/16 03/31/17 History Cap] Phenyleph/Mineral Oil/Petrolat 1 applic TOP Q4HR PRN 12/11/16 03/31/17 History [Preparation H Ointment] Pramoxine 1% Rectal Foam 1 applic TOP Q8HR PRN 12/11/16 03/31/17 History [Proctofoam 1% Foam] Gabapentin Cap/Tab [Neurontin 100 mg PO TID 01/30/17 03/31/17 History Cap/Tab] hydrOXYzine HCl [Hydroxyzine HCl] 25 mg PO Q6H PRN 01/30/17 03/31/17 History Dornase Teodoro [Pulmozyme] 2.5 mg RESP TX RT Q12H vial 02/08/17 03/31/17 Rx Oxycodone HCl/Acetaminophen 1 each PO Q8H PRN #3 02/08/17 03/31/17 Rx [Oxycodon-Acetaminophen 7.5-325] guaiFENesin ER TAB [Mucinex] 600 mg PO BID tablet 02/08/17 03/31/17 Rx Albuterol/Ipratropium Neb [Duoneb] 3 ml RESP TX RT Q4H 03/31/17 03/31/17 History Fluticasone/Salmeterol 100-50 1 puff INH BID 03/31/17 03/31/17 History [Advair 100-50] Allergies Allergy/AdvReac Type Severity Reaction Status Date / Time lisinopril Allergy Unknown RASH Verified 03/31/17 19:36 carvedilol [From Coreg] Allergy RASH Verified 03/31/17 19:36 hydrochlorothiazide Allergy RASH Verified 03/31/17 19:36 metoclopramide [From Reglan] Allergy Unknown/Unable Verified 03/31/17 19:36 to obtain propoxyphene Allergy RASH Verified 03/31/17 19:36 [From Darvocet-N] Sulfa (Sulfonamide Allergy RASH Verified 03/31/17 19:36 Antibiotics) tramadol Allergy RASH Verified 03/31/17 19:36 aspirin AdvReac Intermediate Gastrointestinal Verified 03/31/17 19:36 Upset rofecoxib [From Vioxx] AdvReac Intermediate Gastrointestinal Verified 03/31/17 19:36 Upset Medical,Surgical,& Family Hx - Medical History Cardio: History of: Cardiac Dysrhythmia (Hx: A. Fib), CAD, Hypertension, Cardiovascular Problems (ASHD) No history of: [place], Pacemaker Neurology: History of: Peripheral Neuropathy, Vertigo No history of: Seizures HEENT: History of: HEENT Problems (zoster, right side of face) Endocrine: History of: Dyslipidemia No history of: Diabetes Mellitus (NIDDM) Rheumatology: History of;: Rheumatoid Arthritis, Rheumatological Problems Respiratory: History of: COPD, Pneumonia (x12 times since 2010), Respiratory Problems (Bronchospastic Disease) No history of: Obstructive Sleep Apnea Genitourinary: History of: Prostate Problems (enlarged), Problems (r/t enlarged prostate) Gastrointestinal: History of: GERD, Polyps (Colon and Gastric), GI Problems ( esophageal stricture, Sena's esophagus, erosive gastritis, hiatal hernia) Musculoskeletal: History of: Back/Neck Problems (chronic back pain ), Musculoskeletal Problems (wedge comp. fx t11, t12; DJD) No history of: Amputation Hematology: History of: Anemia (Pernicious) No history of: Blood Transfusion Reaction Other: History of: Skin Problems (marylou 2013) No history of: Anesthesia Reactions, Cancer - Surgical History Cardiac Surgeries: Patient Denies: Cardiac Catheterization, Cardiac Surgery Thoracic Surgeries: Patient denies;: Kidney (Renal Surgery), Lithotripsy, Nephrectomy HEENT Surgeries: Surgical HX of: Eye Surgery (cataract) Patient denies: Tonsilectomy & Adenoidectomy Abdominal Surgeries: Surgical HX of: Abdominal Surgery, Appendectomy, Colonoscopy, EGD Patient denies: Cholecystectomy, Gastric Bypass Surgery, Hernia Repair Reproductive Surgeries: Surgical HX of;: Cystoscopy (HE THINKS MAY HAVE HAD), Genitourinary Surgery Patient denies;: Prostate Surgery Orthopedic Surgeries: Surgical HX of;: Orthopedic Surgery (ankles, wrist, back, neck), Spinal Surgery (kypoplasty) Patient denies;: Implanted Devices - Family History Family History: Reports;: Family Cancer (Brother (lung)), Family Diabetes ( Mother), Family Heart Disease (Mother), Family Hypertension (Mother), Family Stroke Denies;: Family Anesthesia Reaction, Family Psychiatric Problems - Social History Smoking Status: Former smoker Frequency of Alcohol Use: None Type of Drug Use: None 12 point system: reviewed and no additional remarkable complaints except as stated - Constitutional Constitutional: Present: as per HPI - EENT Eyes: Present: as per HPI Ears: Present: as per HPI Nose, mouth and throat: Present: as per HPI, dysphagia - Cardiovascular Cardiovascular: Present: as per HPI - Respiratory Respiratory: Present: as per HPI - Gastrointestinal Gastrointestinal: Present: as per HPI, dysphagia - Genitourinary Genitourinary: Present: as per HPI - Musculoskeletal Musculoskeletal: Present: as per HPI - Neurological Neurological: Present: as per HPI - Psychiatric Psychiatric: Present: as per HPI - Endocrine Endocrine: Present: as per HPI - Hematologic/Lymphatic Hematologic/Lymphatic: Present: as per HPI Exam - Constitutional Vitals: Period Temp Pulse Resp BP Sys/Briceno Pulse Ox Last 24 Hr 97.0 F-98.3 F 61-89 18-30 118-149/56-91 88-99 General appearance: normal weight, no acute distress - Head Head exam: Present: normal inspection, normocephalic - Eye Eye exam: Present: other (Lids and conjunctive are unremarkable). Absent: scleral icterus - ENT ENT exam: Present: normal exam, normal oropharynx - Neck Neck exam: Present: normal inspection - Respiratory Respiratory exam: Present: clear to auscultation bilaterally. Absent: rales, rhonchi, wheezes - Cardiovascular Cardiovascular exam: Present: regular rate and rhythm. Absent: diastolic murmur , JVD, systolic murmur - GI/Abdominal GI/Abdominal exam: Present: normal bowel sounds, soft. Absent: ascites, distended, mass, organomegaly, tenderness - Extremities Exam Extremities exam: Present: normal inspection, full ROM - Back Exam Back exam: Present: normal inspection - Neurological Exam Neurological exam: Present: alert, oriented X3 - Psychiatric Psychiatric exam: Present: normal affect, normal mood - Skin Skin exam: Present: normal color, warm, dry Results - Labs CBC & BMP: 04/03/17 04:51 04/03/17 04:51 Lab Results: I have reviewed the past 24 hour labs Specialty Discharge - Follow Up or Referrals <Oscar Perez - Last Filed: 04/03/17 18:01> History of Present Illness History of present illness: Mr. Duckworth is a 86 year old male Exam - Constitutional Vitals: Period Temp Pulse Resp BP Sys/Briceno Pulse Ox Last 24 Hr 97.0 F-98.9 F 61-89 18-26 119-143/56-77 91-98 Results - Labs CBC & BMP: 04/03/17 04:51 04/03/17 04:51
[2017-04-03] MEDS: MUPIROCIN 2% OINT 22 GM TUBE TOP SCH ×2 (15:57→21:22)
[2017-04-03] MEDS: NYSTATIN 500,000 UNIT/5 ML UDCUP SWISH/SWAL SCH ×3 (15:58→21:18)
--- NOTE | 2017-04-03 17:23 | Hospitalist Progress Note ---
Assessment and Plan (1) COPD with acute exacerbation Status: Acute Assessment and plan: 04/02/2017: Pneumonia symptoms are improving as discussed above. Leukocytosis is decreasing. Today's total white count measures 13.4. Yesterday's measured 16.2. Patient's need for supplemental oxygen is decreasing. Consult physical therapy to assist with gait assessment once transferred out of the ICU. Continue supplemental oxygen, nebulizer treatments, incentive spirometry exercises. 04/03/2017: Continuing clinical improvement. Appreciate comanagement with Dr. Hankins. Patient states that he has been followed for approximately [address] Hankins's clinic practice. Patient describes mild blood-streaked sputum thought to be related to acute bronchitis illness. Dr. Schaefer is aware. Current Visit: Yes (2) Dysphasia Status: Acute Assessment and plan: 04/02/2017: Severe presbyesophagus reported on barium swallow earlier this morning. Patient has severe dysmotility of the primary peristaltic wave. Stasis of material documented within esophagus. Multiple tertiary contractions consistent with esophageal spasm. No stricture or mass identified. No aspiration changes noted. Consider empiric trial of low-dose Reglan as a promotility agent. 04/03/2017: GI consult note reviewed today. Repeat endoscopy recommended when patient's respiratory status improves. Current Visit: Yes (3) MRSA nasal colonization Status: Acute Assessment and plan: 04/02/2017: Begin Bactroban twice daily 5 days intra-nasal 04/03/2017: Day 2 of 5 Bactroban therapy Current Visit: Yes (4) Anemia Status: Acute Assessment and plan: 04/02/2017: Associated with multiple chronic diseases. Currently hemodynamically stable. Continue monitoring. 04/03/2017: Patient remains hemodynamically stable. No indication for immediate blood product transfusion. Current Visit: Yes Hospitalist: Subjective Interval history: 04/03/2017: Patient is alert and fully oriented. He reports improving ease of respiration. Esophageal dysmotility is also better. Exam - Constitutional Vitals: Period Temp Pulse Resp BP Sys/Briceno Pulse Ox Last 24 Hr 97.0 F-98.9 F 61-89 18-29 119-143/56-77 91-98 General appearance: normal weight - Head Head exam: Present: normal inspection - ENT ENT exam: Present: normal exam - Neck Neck exam: Absent: meningismus, tenderness - Respiratory Respiratory exam: Present: accessory muscle use, decreased breath sounds, rhonchi, wheezes - Cardiovascular Cardiovascular exam: Present: regular rate and rhythm - GI/Abdominal GI/Abdominal exam: Present: normal bowel sounds, soft. Absent: distended, tenderness, rebound - Extremities Exam Extremities exam: Present: normal inspection. Absent: calf tenderness, edema - Neurological Exam Neurological exam: Present: alert, oriented X3 - Psychiatric Psychiatric exam: Present: normal affect, normal mood - Skin Skin exam: Present: normal color, warm. Absent: rash Results - Labs CBC & BMP: 04/03/17 04:51 04/03/17 04:51 Specialty Discharge - Follow Up or Referrals
[2017-04-03] MEDS: LEVOFLOXACIN INJ 750 MG in PREMIX 1 EACH IV SCH (21:17)
[2017-04-03] MEDS: MONTELUKAST 10 MG TABLET PO SCH (21:18)
[2017-04-03] MEDS: SIMVASTATIN 10 MG TABLET PO SCH (21:18)
[2017-04-03] MEDS: HydrOXYzine PAMOATE 25 MG CAPSULE PO SCH (21:18)
[2017-04-04] MEDS: ALBUTEROL/IPRATROPIUM 3 ML NEB RESP TX SCH ×4 (00:42→20:00)
[2017-04-04] MEDS: CALCIUM CARBONATE CHEW 500 MG TABLET PO SCH ×3 (06:27→21:16)
[2017-04-04] MEDS: DORNASE ALFA 2.5 MG/2.5 ML VIAL RESP TX SCH ×2 (06:55→20:01)
[2017-04-04 07:01] LABS: Basophils % 0.1 % (0.0-0.8); Hematocrit 37.5 VOL% (42.0-52.0); Hemoglobin 11.9 GM/DL (14.0-18.0); Immature Granulocytes % 1.2 %; Immature Granulocytes Absolute 0.12 #; Lymphocytes # 0.9 10*3/uL (1.4-4.0); Mean Corpuscular HGB Conc 31.7 GM/DL (32-36); Mean Corpuscular Hemoglobin 25 PG (27-34); Mean Corpuscular Volume 79.3 FL (87-102); Mean Platelet Volume 9.9 FL (9.6-12.0); Monocytes # 0.3 10*3/uL (0.11-0.8); Monocytes % 3.2 % (1.7-12.7); Neutrophils # 8.7 10*3/uL (1.4-7.4); Neutrophils % 86.5 % (38.7-73.9); Platelet Count 240 T/CUMM (130-400); Red Blood Count 4.73 MC/CUMM (3.8-5.5); Red Cell Distribution Width 14.7 % (9.3-17.3)
[2017-04-04 07:29] LABS: Calcium 9.3 MG/DL (8.5-10.1); Magnesium 2.6 MG/DL (1.8-2.4); Osmolality,Calculated 275.8 MOS/KG (273-304); Potassium 4.7 MMOL/L (3.5-5.1)
[2017-04-04] MEDS: MUPIROCIN 2% OINT 22 GM TUBE TOP SCH ×2 (09:00→21:19)
[2017-04-04] MEDS: FLUTICASONE/SALMETEROL 100-50 DISKUS 14 DOSE INH SCH ×2 (09:00→21:19)
--- NOTE | 2017-04-04 10:32 | Pulmonology Progress Note ---
Pulmonary - PN: Subj Interval history: This 86-year-old white male assisted patient who is well known to me. He was admitted with acute left lower lung pneumonia. He also may have had a small element of congestive heart failure. I saw this patient in pulmonary consultation on 04/01/2017. My impressions were. 1. Acute left lower lung pneumonia. Probably bacterial. Note high white blood cell count. In the past aspiration pneumonia has been a problem 2. Obstructive lung disease with bronchospastic disease. Often steroid dependent 3. 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 4. Gastroesophageal reflux disease with recurrent history of nocturnal aspiration of gastric contents 5. Past history of atrial fib. Now in regular sinus rhythm. 6. Osteoporosis with multiple compression fracture that have required, 7. Hyperlipidemia 8. See past history 04/02/2017. Patient's chest x-ray shows good improvement. Left lower lung infiltrate is nearly resolved. Patient still mobilizing sputum. He has MRSA from his nares. He is being started on Bactroban ointment. There are no other positive cultures. ABGs on FiO2 28% show a pH of 7.456, PCO2 38.7, PO2 of 71.2 and a bicarb of 27.2. Creatinine is 0.9 with a BUN of 23 and normal electrolytes. White count is dropped to 13,400 with 91 segs. H&H is 10.4/32.1 with decreased red blood cell indices. On 04/01/2017 BNP was mildly elevated 232. This will be repeated. This patient is making good progress from my standpoint and hopefully he can be moved from intensive care to pulmonary floor such as 5 E. 7 04/03/2017. The patient was seen today along with Bhavin Ratliff RN. He is now been moved to the medical floor from intensive care. This morning he complains of dizziness. He is lying flat in bed and breathing comfortably. He does, however, complained of tongue and throat pain. This will be treated with Diflucan and nystatin swish and swallow. He complains of dysphasia. As noted above, he has a history of disordered swallowing with a history of esophageal stricture and esophageal motility dysfunction. This is been followed on a long- term basis by Dr. Perez. Barium swallow obtained yesterday as ordered by Dr. Fernandes showed severe presbyesophagus with severe dysmotility of the primary peristaltic wave. Stasis of material in the esophagus was seen. There were multiple tertiary contractions consistent with esophageal spasm. There is no stricture or mass identified and no aspiration. Because of his complaints, we will consult Dr. Perez for evaluation and possible treatment as he deems necessary. Mr. Duckworth reports that he coughed up a scant amount of bright red sputum again this morning. His most likely related to his recent pneumonia, but we will obtain sputum for cytology daily 3. His chest x-ray today shows his previously noted left lower longer lingular pneumonia has resolved. Medications have been reviewed. We started Diflucan for 7 days and nystatin swish and swallow for 5 days. Labs been reviewed. White count is 13,000 with 92.6% segs; H&H 10.4/32.3; platelet count 187,000; creatinine 0.80, BUN 18, electrolytes are normal Sputum Gram stain showed few gram-positive cocci in pairs, rare gram-positive rods, rare gram-negative rods, rare fungal elements; sputum culture is pending. ABGs this morning on FiO2 of 28% showed a pH of 7.46, PCO2 42.3, PO2 95.5, bicarb 27.2, and oxygen saturation 97.7%. 04/04/2017. Patient's 4E scope later today. His chest is clear and he is moving air well. He is able to lie flat in bed and breathing comfortably. His sputum is growing a gram-negative norman. This is not been identified. There are no sensitivities. White count is 10,000 with 86 segs. H&H is 11.9/37.5 with platelets of 240,000. Electrolytes are normal. Creatinine is 0.9 with a BUN of 20. Patient seems to have improved significantly. Physical exam. Vital signs. See below General. Comfortable in no distress. Psychiatric. Oriented 3. Appropriate. Cooperative. Face. Symmetrical. No edema of the lips or tongue. Neck. Symmetrical. Kyphotic. No meningismus. Lymphatics. No submandibular cervical supraclavicular or epitrochlear adenopathy. Chest. Symmetrical kyphotic with mild prolonged expiration. No wheeze. Heart. No gallop. Abdomen. Nontender. Positive bowel sounds Lower extremities. Nothing to suggest deep venous thrombophlebitis. Neurologic. Cranial nerves are intact with decreased hearing acuity bilaterally. Long track motor functions intact. Sensory exam was not done. Gait was not tested. The remainder of the physical exam was negative Plan. 04/01/2017 1. Sputum for Gram stain culture and sensitivity 2. Cold agglutinins. 3. Antireflux regimen 4. Follow-up chest x-ray 5. Watch for hemoptysis 6. Convert prednisone to Solu-Medrol. Patient has significant large airway wheeze. 7. Continue inhalation therapy and expectorants. 8. See orders 04/02/2017. 1. Bactroban to nares 2. Okay to move to floor. 3. Continue present regimen 04/04/2017. 1. See my note, above 2. Sputum growing gram-negative rods 3. E scope today. 4. Appreciate GI consultation. Exam (Progress Note) - Constitutional Vitals: Period Temp Pulse Resp BP Sys/Briceno Pulse Ox Last 24 Hr 97.6 F-98.9 F 63-94 16-20 119-152/59-83 87-99 Results - Labs CBC & BMP: 04/04/17 06:32 04/04/17 06:32 Specialty Discharge - Follow Up or Referrals
--- NOTE | 2017-04-04 11:16 | Hospitalist Progress Note ---
Assessment and Plan (1) COPD (chronic obstructive pulmonary disease) Status: Chronic Assessment and plan: This is improving.Continue bronchodilators, steroids and antibiotics. Current Visit: No Qualifiers: COPD type: COPD with acute exacerbation Qualified Code(s): J44.1 - Chronic obstructive pulmonary disease with (acute) exacerbation (2) Pneumonia Status: Acute Assessment and plan: Improving. Pulm is following. Plan Continue with antibiotics and current management. 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 Patient has severe dysmotility of the primary peristaltic wave. Stasis of material documented within esophagus. Multiple tertiary contractions consistent with esophageal spasm. No stricture or mass identified. No aspiration changes noted. 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 GI's recommendations-. Can repeat dilatation as needed. Other option would be to consider PEG tube in the event aspiration is suspected to be complicating his pulmonary toilet. Gastroesophageal reflux disease continue current treatment. Current Visit: No (4) Anemia Status: Acute Assessment and plan: due to chronic illness. H/H is stable. Current Visit: Yes (5) MRSA nasal colonization Status: Acute Assessment and plan: 04/04/2017: Day 3 of 5 Bactroban therapy Current Visit: Yes (6) History of atrial fibrillation Status: Chronic Assessment and plan: rate is controlled Current Visit: No Hospitalist: Subjective Interval history: Patient was seen sitting up at the edge of the bed. 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 . He has no new complaints. Exam - Constitutional Vitals: Period Temp Pulse Resp BP Sys/Briceno Pulse Ox Last 24 Hr 97.6 F-98.9 F 63-94 16-20 119-152/59-83 87-99 General appearance: no acute distress - Head Head exam: Present: normal inspection - Neck Neck exam: Present: normal inspection - Respiratory Respiratory exam: Present: clear to auscultation bilaterally - Cardiovascular Cardiovascular exam: Present: regular rate and rhythm - GI/Abdominal GI/Abdominal exam: Present: normal bowel sounds - Extremities Exam Extremities exam: Present: normal inspection - Neurological Exam Neurological exam: Present: alert, oriented X3 Results - Labs CBC & BMP: 04/04/17 06:32 08/17/17 06:32 Lab Results: I have reviewed the past 24 hour labs Specialty Discharge - Follow Up or Referrals
[2017-04-04] MEDS ORDERED: LIDOCAINE 1% 5 ML VIAL ONE (11:27)
[2017-04-04] MEDS ORDERED: PROPOFOL 200 MG/20 ML VIAL IV ONE (11:27)
[2017-04-04] MEDS: NYSTATIN 500,000 UNIT/5 ML UDCUP SWISH/SWAL SCH ×4 (11:28→21:16)
--- NOTE | 2017-04-04 11:43 | Operative Note ---
Date of procedure: 04/04/17 Pre-op diagnosis: Dysphagia Procedure: EGD with esophageal dilatation. 86-year-old gentleman with recurrent dysphagia complicated by esophageal dysmotility. Informed symptoms obtained patient He was sedated with MAC anesthesia per anesthesia protocol. Patient placed in left lateral decubitus position the Olympus flexible video upper endoscope was inserted lower cavity under direct vision the esophagus was intubated. Findings: Esophagus-normal esophageal mucosa no evidence of candidiasis was seen. No mass lesions were observed. In the distal soft tissue moderate hiatal and distal esophageal stricture is seen. Stomach-normal insufflation normal mucosa to direct and retroflexed views of the body fundus cardia and antrum the stomach. Pylorus-normal Duodenum-normal for the bulb duodenum to the third portion of duodenum. The scope was removed subsequently a 54 [place] bougie was passed with no resistance and no blood present on the dilator. Patient was discharged recovery in good condition. Postop diagnosis: 1. 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 Can repeat dilatation as needed. Other option would be to consider PEG tube in the event aspiration is suspected to be complicating his pulmonary toilet. 2. Gastroesophageal reflux disease continue current treatment. 3. I will sign off call if we can be of further assistance. Anesthesia: MAC Surgeon / Physician: Oscar Perez Estimated blood loss: none Specimens: none sent Condition: stable Disposition: post procedure unit Results - Labs CBC & BMP: 04/04/17 06:32 04/04/17 06:32 Discharge Plan - Discharge Medications No Action Cyanocobalamin (Vitamin B-12) [Cyanocobalamin Injection] 1,000 mcg IM Q30D Docusate Sodium Cap [Colace Cap] 100 mg PO BID Calcium Carbonate Chew [Tums] 1 tablet PO Q8H Simvastatin 5 mg PO BEDTIME Montelukast Tab [Singulair Tab] 10 mg PO BEDTIME Meclizine [Antivert] 25 mg PO TID Magnesium Oxide 400 mg PO BID Metoprolol Tartrate 25 mg PO BID Dexlansoprazole [Dexilant] 60 mg PO DAILY Tamsulosin [Flomax] 0.4 mg PO DAILY Acetaminophen Tab [Tylenol Tab] 650 mg PO Q6H PRN PRN Reason: Pain Polyethylene Glycol Powder [Miralax] 17 gm PO DAILY PRN PRN Reason: Constipation Pramoxine 1% Rectal Foam [Proctofoam 1% Foam] 1 applic TOP Q8HR PRN PRN Reason: Hemorrhoids HydrOXYzine PAMOATE CAP [Vistaril Cap] 25 mg PO DAILY Phenyleph/Mineral Oil/Petrolat [Preparation H Ointment] 1 applic TOP Q4HR PRN PRN Reason: Hemorrhoids hydrOXYzine HCl [Hydroxyzine HCl] 25 mg PO Q6H PRN PRN Reason: Anxiety Oxycodone HCl/Acetaminophen [Oxycodon-Acetaminophen 7.5-325] 1 each PO Q8H PRN #3 PRN Reason: Pain Albuterol/Ipratropium Neb [Duoneb] 3 ml RESP TX RT Q4H Polyvinyl Alcohol 1.4% Oph Marylou [Artificial Tears Oph Soln] 1 drop BOTH EYES QID PRN PRN Reason: Dry Eyes amLODIPine [Norvasc] 5 mg PO BID Gabapentin Cap/Tab [Neurontin Cap/Tab] 100 mg PO TID Dornase Teodoro [Pulmozyme] 2.5 mg RESP TX RT Q12H vial guaiFENesin ER TAB [Mucinex] 600 mg PO BID tablet Fluticasone/Salmeterol 100-50 [Advair 100-50] 1 puff INH BID - Follow Up or Referral - Forms/Instructions Instructions: Viral Pneumonia (GEN), COPD Exacerbation, Focuser (GEN)
--- NOTE | 2017-04-04 12:40 | Anesthesia Post-Op ---
Anesthesia Post OP - Post Ansesthetic Evaluation Patient seen in post op: Yes Resp: within normal limits CV: within normal limits Mental: within normal limits Temp: within normal limits [id number]: within normal limits Nausea and Vomiting: within normal limits Pain: within normal limits
[2017-04-04] MEDS: DOCUSATE SODIUM 100 MG CAPSULE PO SCH ×3 (13:02→21:17)
[2017-04-04] MEDS: MECLIZINE 25 MG TABLET PO SCH ×4 (13:02→21:17)
[2017-04-04] MEDS: GABAPENTIN 100 MG CAPSULE PO SCH ×4 (13:03→21:17)
[2017-04-04] MEDS: PANTOPRAZOLE 40 MG TABLET PO SCH (13:25)
[2017-04-04] MEDS: TAMSULOSIN 0.4 MG CAPSULE PO SCH (13:25)
[2017-04-04] MEDS: amLODIPine 5 MG TABLET PO SCH ×2 (13:25→21:17)
[2017-04-04] MEDS: MAGNESIUM OXIDE 400 MG TABLET PO SCH ×2 (13:25→21:17)
[2017-04-04] MEDS: FLUCONAZOLE 200 MG TABLET PO SCH (13:25)
[2017-04-04] MEDS: METOPROLOL TARTRATE 25 MG TABLET PO SCH ×2 (13:26→21:17)
[2017-04-04] MEDS: oxyCODONE/ACETAMINOPHEN 5-325 MG TABLET PO PRN ×2 (13:26→21:20)
[2017-04-04] MEDS: methylPREDNISolone SOD SUC 40 MG/1 ML VIAL IV SCH ×2 (13:26→21:17)
[2017-04-04] MEDS: CLOTRIMAZOLE/BETAMETHASONE CREAM 15 GM TUBE TOP SCH ×2 (17:53→21:19)
[2017-04-04] MEDS: MONTELUKAST 10 MG TABLET PO SCH (21:16)
[2017-04-04] MEDS: SIMVASTATIN 10 MG TABLET PO SCH (21:17)
[2017-04-04] MEDS: HydrOXYzine PAMOATE 25 MG CAPSULE PO SCH (21:17)
[2017-04-04] MEDS: hydrOXYzine HCL 25 MG TABLET PO PRN (21:25)
[2017-04-04] MEDS: LEVOFLOXACIN INJ 750 MG in PREMIX 1 EACH IV SCH (23:52)
[2017-04-05] MEDS: ALBUTEROL/IPRATROPIUM 3 ML NEB RESP TX SCH ×4 (01:59→19:10)
[2017-04-05] MEDS: CALCIUM CARBONATE CHEW 500 MG TABLET PO SCH ×3 (06:14→22:04)
[2017-04-05 06:50] LABS: Calcium 8.8 MG/DL (8.5-10.1); Magnesium 2.6 MG/DL (1.8-2.4); Osmolality,Calculated 275.1 MOS/KG (273-304); Potassium 4.3 MMOL/L (3.5-5.1)
[2017-04-05] MEDS: DORNASE ALFA 2.5 MG/2.5 ML VIAL RESP TX SCH ×2 (07:31→19:10)
[2017-04-05] MEDS: oxyCODONE/ACETAMINOPHEN 5-325 MG TABLET PO PRN ×2 (09:39→21:45)
[2017-04-05] MEDS: MUPIROCIN 2% OINT 22 GM TUBE TOP SCH ×2 (09:40→21:46)
[2017-04-05] MEDS: NYSTATIN 500,000 UNIT/5 ML UDCUP SWISH/SWAL SCH ×4 (09:41→21:46)
[2017-04-05] MEDS: MAGNESIUM OXIDE 400 MG TABLET PO SCH ×2 (09:41→21:33)
[2017-04-05] MEDS: amLODIPine 5 MG TABLET PO SCH ×2 (09:41→21:34)
[2017-04-05] MEDS: FLUCONAZOLE 200 MG TABLET PO SCH (09:41)
[2017-04-05] MEDS: PANTOPRAZOLE 40 MG TABLET PO SCH (09:41)
[2017-04-05] MEDS: TAMSULOSIN 0.4 MG CAPSULE PO SCH (09:41)
[2017-04-05] MEDS: DOCUSATE SODIUM 100 MG CAPSULE PO SCH ×2 (09:41→21:33)
[2017-04-05] MEDS: MECLIZINE 25 MG TABLET PO SCH ×3 (09:41→21:34)
[2017-04-05] MEDS: METOPROLOL TARTRATE 25 MG TABLET PO SCH ×2 (09:41→21:33)
[2017-04-05] MEDS: GABAPENTIN 100 MG CAPSULE PO SCH ×3 (09:45→21:34)
[2017-04-05] MEDS: FLUTICASONE/SALMETEROL 100-50 DISKUS 14 DOSE INH SCH ×2 (09:50→21:47)
[2017-04-05] MEDS: CLOTRIMAZOLE/BETAMETHASONE CREAM 15 GM TUBE TOP SCH ×3 (09:50→21:46)
[2017-04-05] MEDS: methylPREDNISolone SOD SUC 40 MG/1 ML VIAL IV SCH ×2 (10:02→21:50)
--- NOTE | 2017-04-05 12:08 | Pulmonology Progress Note ---
Pulmonary - PN: Subj Interval history: Jayjay Milan, [facility]-, acting as scribe for Dr. Santos Schaefer This 86-year-old white male assisted patient who is well known to us. He has been a correction patient of Dr. Schaefer. He was admitted with acute left lower lung pneumonia. He also may have had a small element of congestive heart failure. We saw this patient in pulmonary consultation on 04/01/2017. At that time, our impressions were: 1. Acute left lower lung pneumonia. Probably bacterial. Note high white blood cell count. In the past, aspiration pneumonia has been a problem. 2. Obstructive lung disease with bronchospastic disease. Often steroid dependent. 3. 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 4. Gastroesophageal reflux disease with recurrent history of nocturnal aspiration of gastric contents 5. Past history of atrial fib. Now in regular sinus rhythm. 6. Osteoporosis with multiple compression fracture that have required, 7. Hyperlipidemia 8. See past history 04/02/2017. Patient's chest x-ray shows good improvement. Left lower lung infiltrate is nearly resolved. Patient still mobilizing sputum. He has MRSA from his nares. He is being started on Bactroban ointment. There are no other positive cultures. ABGs on FiO2 28% show a pH of 7.456, PCO2 38.7, PO2 of 71.2 and a bicarb of 27.2. Creatinine is 0.9 with a BUN of 23 and normal electrolytes. White count is dropped to 13,400 with 91 segs. H&H is 10.4/32.1 with decreased red blood cell indices. On 04/01/2017 BNP was mildly elevated 232. This will be repeated. This patient is making good progress from my standpoint and hopefully he can be moved from intensive care to pulmonary floor such as [facility]. 04/03/2017. The patient was seen today along with Bhavin Ratliff RN. He is now been moved to the medical floor from intensive care. This morning he complains of dizziness. He is lying flat in bed and breathing comfortably. He does, however, complained of tongue and throat pain. This will be treated with Diflucan and nystatin swish and swallow. He complains of dysphasia. As noted above, he has a history of disordered swallowing with a history of esophageal stricture and esophageal motility dysfunction. This is been followed on a long- term basis by Dr. Perez. Barium swallow obtained yesterday as ordered by Dr. Fernandes showed severe presbyesophagus with severe dysmotility of the primary peristaltic wave. Stasis of material in the esophagus was seen. There were multiple tertiary contractions consistent with esophageal spasm. There is no stricture or mass identified and no aspiration. Because of his complaints, we will consult Dr. Perez for evaluation and possible treatment as he deems necessary. Mr. Duckworth reports that he coughed up a scant amount of bright red sputum again this morning. His most likely related to his recent pneumonia, but we will obtain sputum for cytology daily 3. His chest x-ray today shows his previously noted left lower longer lingular pneumonia has resolved. Medications have been reviewed. We started Diflucan for 7 days and nystatin swish and swallow for 5 days. Labs been reviewed. White count is 13,000 with 92.6% segs; H&H 10.4/32.3; platelet count 187,000; creatinine 0.80, BUN 18, electrolytes are normal Sputum Gram stain showed few gram-positive cocci in pairs, rare gram-positive rods, rare gram-negative rods, rare fungal elements; sputum culture is pending. ABGs this morning on FiO2 of 28% showed a pH of 7.46, PCO2 42.3, PO2 95.5, bicarb 27.2, and oxygen saturation 97.7%. 04/04/2017. Patient's 4E scope later today. His chest is clear and he is moving air well. He is able to lie flat in bed and breathing comfortably. His sputum is growing a gram-negative norman. This is not been identified. There are no sensitivities. White count is 10,000 with 86 segs. H&H is 11.9/37.5 with platelets of 240,000. Electrolytes are normal. Creatinine is 0.9 with a BUN of 20. Patient seems to have improved significantly. 04/05/2017. The patient was seen today along with Michelle Jeffers RN. Patient underwent EGD yesterday by Dr. Perez. This showed a distal esophageal stricture which was dilated. The patient also has an esophageal motility disorder. Dr. Perez noted that the patient can have repeat dilatation as needed. Another option to consider would be a PEG tube. Mr. Duckworth noted that he continues to have some mild difficulty with swallowing, but states "I have no trouble with chocolate ice cream". On chest exam, he is doing remarkably well from a pulmonary standpoint. He has no wheeze. He is hyperinflated with prolonged expiration, but this is his baseline. Sputum culture is growing an unidentified gram-positive cocci and E. coli. He is presently on Fortaz and Levaquin. These can be adjusted once the final IDs have been reported if need be. Labs been reviewed. Creatinine 0.70, BUN 22, sodium 135, potassium 4.3, magnesium 2.6 Exam (Progress Note) - Constitutional Vitals: Period Temp Pulse Resp BP Sys/Briceno Pulse Ox Last 24 Hr 97.4 F-98.4 F 60-107 16-22 126-133/64-72 93-99 Exam: Chest is symmetrical and kyphotic with prolonged and slightly incomplete expiration; wheeze free Heart no gallop Abdomen is obese but nontender and nondistended; bowel sounds are positive 4 Lower extremities with nothing to suggest acute deep venous thrombophlebitis Psychiatric presently oriented 3 Neurologic long-term motor function is intact Plan: Follow-up final sputum culture when available. Continue present treatment. See orders. Results - Labs CBC & BMP: 04/04/17 06:32 04/05/17 05:55 Specialty Discharge - Follow Up or Referrals
--- NOTE | 2017-04-05 12:49 | XRay Report ---
XR chest 2V Indication: Pneumonia. Chest 2 views: Comparison 04/03/2017 shows stable multilevel kyphoplasty, cardiomegaly, tortuous thoracic aorta and continued coarsened interstitial markings of the lungs. Chronic scarring or infiltrate of the retrocardiac left lower lobe was confirmed on lateral view. No new infiltrates are seen. Impression: Chronic scarring or infiltrate retrocardiac left lower lobe. Other chronic findings described above. PROCEDURE INTERPRETED AT [facility] DEPARTMENT OF RADIOLOGY Final Report Signed by: Taye Macias M.D.
--- NOTE | 2017-04-05 13:48 | Hospitalist Progress Note ---
Assessment and Plan (1) COPD (chronic obstructive pulmonary disease) Status: Chronic Assessment and plan: This is improving.Continue bronchodilators, steroids and antibiotics. Current Visit: No Qualifiers: COPD type: COPD with acute exacerbation Qualified Code(s): J44.1 - Chronic obstructive pulmonary disease with (acute) exacerbation (2) Pneumonia Status: Acute Assessment and plan: Improving. Pulm is following. Plan Continue with antibiotics and current management. 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 Patient has severe dysmotility of the primary peristaltic wave. Stasis of material documented within esophagus. Multiple tertiary contractions consistent with esophageal spasm. No stricture or mass identified. No aspiration changes noted. 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 He underwent dilatation. GI's recommendations-. Can repeat dilatation as needed. Other option would be to consider PEG tube in the event aspiration is suspected to be complicating his pulmonary toilet. Gastroesophageal reflux disease continue current treatment. Current Visit: No (4) Anemia Status: Acute Assessment and plan: due to chronic illness. H/H is stable. Current Visit: Yes (5) MRSA nasal colonization Status: Acute Assessment and plan: 04/05/2017: Day 4 of 5 Bactroban therapy Current Visit: Yes (6) History of atrial fibrillation Status: Chronic Assessment and plan: rate is controlled Current Visit: No Hospitalist: Subjective Interval history: He states he feels pretty good today.he is breathing better. Exam - Constitutional Vitals: Period Temp Pulse Resp BP Sys/Briceno Pulse Ox Last 24 Hr 97.4 F-98.4 F 60-107 16-22 126-133/64-72 93-99 General appearance: no acute distress - Head Head exam: Present: normal inspection - Respiratory Respiratory exam: Present: clear to auscultation bilaterally - Cardiovascular Cardiovascular exam: Present: regular rate and rhythm - GI/Abdominal GI/Abdominal exam: Present: normal bowel sounds - Extremities Exam Extremities exam: Present: normal inspection - Neurological Exam Neurological exam: Present: alert Results - Labs CBC & BMP: 04/04/17 06:32 04/05/17 05:55 Lab Results: I have reviewed the past 24 hour labs Specialty Discharge - Follow Up or Referrals
[2017-04-05] MEDS: LEVOFLOXACIN INJ 750 MG in PREMIX 1 EACH IV SCH ×2 (21:29→21:50)
[2017-04-05] MEDS: MONTELUKAST 10 MG TABLET PO SCH (21:33)
[2017-04-05] MEDS: HydrOXYzine PAMOATE 25 MG CAPSULE PO SCH (21:34)
[2017-04-05] MEDS: SIMVASTATIN 10 MG TABLET PO SCH (21:34)
[2017-04-05] MEDS: cephALEXin 500 MG CAPSULE PO SCH (22:09)
[2017-04-06] MEDS: ALBUTEROL/IPRATROPIUM 3 ML NEB RESP TX SCH ×4 (00:03→19:09)
[2017-04-06] MEDS: cephALEXin 500 MG CAPSULE PO SCH ×3 (05:54→21:01)
[2017-04-06 07:12] LABS: Calcium 8.6 MG/DL (8.5-10.1); Magnesium 2.6 MG/DL (1.8-2.4); Osmolality,Calculated 275.8 MOS/KG (273-304); Potassium 4.1 MMOL/L (3.5-5.1)
[2017-04-06] MEDS: DORNASE ALFA 2.5 MG/2.5 ML VIAL RESP TX SCH ×2 (07:18→19:09)
[2017-04-06] MEDS: NYSTATIN 500,000 UNIT/5 ML UDCUP SWISH/SWAL SCH ×3 (09:10→17:07)
[2017-04-06] MEDS: FLUCONAZOLE 200 MG TABLET PO SCH (09:11)
[2017-04-06] MEDS: TAMSULOSIN 0.4 MG CAPSULE PO SCH (09:11)
[2017-04-06] MEDS: amLODIPine 5 MG TABLET PO SCH ×2 (09:11→21:01)
[2017-04-06] MEDS: PANTOPRAZOLE 40 MG TABLET PO SCH (09:11)
[2017-04-06] MEDS: METOPROLOL TARTRATE 25 MG TABLET PO SCH ×2 (09:11→21:00)
[2017-04-06] MEDS: POLYETHYLENE GLYCOL POWDER 17 GM PACK PO PRN (09:11)
[2017-04-06] MEDS: MAGNESIUM OXIDE 400 MG TABLET PO SCH ×2 (09:11→21:00)
[2017-04-06] MEDS: DOCUSATE SODIUM 100 MG CAPSULE PO SCH ×2 (09:11→21:00)
[2017-04-06] MEDS: FLUTICASONE/SALMETEROL 100-50 DISKUS 14 DOSE INH SCH ×2 (09:12→21:00)
[2017-04-06] MEDS: MUPIROCIN 2% OINT 22 GM TUBE TOP SCH ×2 (09:12→21:00)
[2017-04-06] MEDS: GABAPENTIN 100 MG CAPSULE PO SCH ×3 (09:12→21:01)
[2017-04-06] MEDS: CLOTRIMAZOLE/BETAMETHASONE CREAM 15 GM TUBE TOP SCH ×3 (09:12→21:00)
[2017-04-06] MEDS: methylPREDNISolone SOD SUC 40 MG/1 ML VIAL IV SCH ×2 (09:15→09:20)
[2017-04-06] MEDS: CALCIUM CARBONATE CHEW 500 MG TABLET PO SCH ×3 (09:15→21:02)
[2017-04-06] MEDS: MECLIZINE 25 MG TABLET PO SCH ×3 (09:15→21:00)
--- NOTE | 2017-04-06 11:45 | Hospitalist Progress Note ---
Assessment and Plan (1) COPD (chronic obstructive pulmonary disease) Status: Chronic Assessment and plan: This is improving.Continue bronchodilators, steroids and antibiotics.Sputum grew E.Coli. Follow Dr Hankins's recommendations Current Visit: No Qualifiers: COPD type: COPD with acute exacerbation Qualified Code(s): J44.1 - Chronic obstructive pulmonary disease with (acute) exacerbation (2) Pneumonia Status: Acute Assessment and plan: Improving. Pulm is following. Plan Continue with antibiotics and current management. 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 Patient has severe dysmotility of the primary peristaltic wave. Stasis of material documented within esophagus. Multiple tertiary contractions consistent with esophageal spasm. No stricture or mass identified. No aspiration changes noted. 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 He underwent dilatation. GI's recommendations-. Can repeat dilatation as needed. Other option would be to consider PEG tube in the event aspiration is suspected to be complicating his pulmonary toilet. Gastroesophageal reflux disease continue current treatment. Current Visit: No (4) Anemia Status: Acute Assessment and plan: due to chronic illness. H/H is stable. Current Visit: Yes (5) MRSA nasal colonization Status: Acute Assessment and plan: 04/06/2017: Day 5 of 5 Bactroban therapy Current Visit: Yes (6) History of atrial fibrillation Status: Chronic Assessment and plan: rate is controlled Current Visit: No Hospitalist: Subjective Interval history: Patient was seen, eating his breakfast. He apparently has no upper teeth so it hurts when he chews. His sputum grew E.Coli. His line was infiltrated last night so he was switched to po antibiotics.He feels overall ok. Exam - Constitutional Vitals: Period Temp Pulse Resp BP Sys/Briceno Pulse Ox Last 24 Hr 97.2 F-98.3 F 64-91 17-20 120-143/68-75 94-99 General appearance: no acute distress - Head Head exam: Present: normal inspection - Respiratory Respiratory exam: Present: decreased breath sounds - Cardiovascular Cardiovascular exam: Present: regular rate and rhythm - GI/Abdominal GI/Abdominal exam: Present: normal bowel sounds - Extremities Exam Extremities exam: Present: normal inspection, other - Neurological Exam Neurological exam: Present: alert, oriented X3 Results - Labs CBC & BMP: 04/04/17 06:32 04/06/17 06:14 Lab Results: I have reviewed the past 24 hour labs Specialty Discharge - Follow Up or Referrals
[2017-04-06] MEDS: predniSONE 20 MG TABLET PO SCH (12:31)
[2017-04-06] MEDS ORDERED: MYLANTA/LIDO VISC/NYST 180 ML BOTTLE SWISH/SWAL PRN (17:00)
--- NOTE | 2017-04-06 17:03 | Pulmonology Progress Note ---
Pulmonary - PN: Subj Interval history: Patient of Dr Gray, doing well. States breathing is better. Complaining of sores in his mouth which i cannot appreciate. Also his nose is drying out from O2 (doesn't have humidfier) Exam (Progress Note) - Constitutional Vitals: Period Temp Pulse Resp BP Sys/Briceno Pulse Ox Last 24 Hr 97.2 F-98.9 F 62-86 17-20 110-140/65-68 95-99 General appearance: no acute distress - Head Head exam: Present: normal inspection - Respiratory Respiratory exam: Present: clear to auscultation bilaterally - Cardiovascular Cardiovascular exam: Present: regular rate and rhythm Results - Labs CBC & BMP: 04/04/17 06:32 04/06/17 06:14 Lab Results: I have reviewed the past 24 hour labs Assessment and Plan (1) COPD (chronic obstructive pulmonary disease) Status: Chronic Assessment and plan: clincially doing better. Will add a humidifier to his oxygen which should help with nasal dryness. Will change plain nystatin swish and swallow to magic mouth wash to help with pain. Otherwise continue current meds Current Visit: No Qualifiers: COPD type: COPD with acute exacerbation Qualified Code(s): J44.1 - Chronic obstructive pulmonary disease with (acute) exacerbation Specialty Discharge - Follow Up or Referrals
[2017-04-06] MEDS: SIMVASTATIN 10 MG TABLET PO SCH (21:01)
[2017-04-06] MEDS: MONTELUKAST 10 MG TABLET PO SCH (21:01)
[2017-04-06] MEDS: HydrOXYzine PAMOATE 25 MG CAPSULE PO SCH (21:01)
[2017-04-06] MEDS: oxyCODONE/ACETAMINOPHEN 5-325 MG TABLET PO PRN (21:06)
[2017-04-07] MEDS: ALBUTEROL/IPRATROPIUM 3 ML NEB RESP TX SCH ×4 (00:26→19:03)
[2017-04-07] MEDS: CALCIUM CARBONATE CHEW 500 MG TABLET PO SCH ×3 (05:40→21:02)
[2017-04-07] MEDS: cephALEXin 500 MG CAPSULE PO SCH ×3 (05:40→21:02)
[2017-04-07 06:42] LABS: Calcium 8.5 MG/DL (8.5-10.1); Magnesium 2.6 MG/DL (1.8-2.4); Potassium 4.3 MMOL/L (3.5-5.1)
[2017-04-07] MEDS: DORNASE ALFA 2.5 MG/2.5 ML VIAL RESP TX SCH ×2 (07:46→19:11)
[2017-04-07] MEDS: MAGNESIUM OXIDE 400 MG TABLET PO SCH ×2 (08:43→21:01)
[2017-04-07] MEDS: METOPROLOL TARTRATE 25 MG TABLET PO SCH ×2 (08:43→21:00)
[2017-04-07] MEDS: PANTOPRAZOLE 40 MG TABLET PO SCH (08:43)
[2017-04-07] MEDS: predniSONE 20 MG TABLET PO SCH (08:43)
[2017-04-07] MEDS: DOCUSATE SODIUM 100 MG CAPSULE PO SCH ×2 (08:43→21:00)
[2017-04-07] MEDS: MECLIZINE 25 MG TABLET PO SCH ×3 (08:43→21:00)
[2017-04-07] MEDS: amLODIPine 5 MG TABLET PO SCH ×2 (08:43→21:01)
[2017-04-07] MEDS: TAMSULOSIN 0.4 MG CAPSULE PO SCH (08:44)
[2017-04-07] MEDS: GABAPENTIN 100 MG CAPSULE PO SCH ×3 (08:44→21:01)
[2017-04-07] MEDS: oxyCODONE/ACETAMINOPHEN 5-325 MG TABLET PO PRN ×2 (08:44→21:02)
[2017-04-07] MEDS: CLOTRIMAZOLE/BETAMETHASONE CREAM 15 GM TUBE TOP SCH ×3 (08:47→21:00)
[2017-04-07] MEDS: FLUTICASONE/SALMETEROL 100-50 DISKUS 14 DOSE INH SCH ×2 (08:48→21:00)
[2017-04-07] MEDS: MUPIROCIN 2% OINT 22 GM TUBE TOP SCH (08:48)
--- NOTE | 2017-04-07 10:12 | Pulmonology Progress Note ---
Pulmonary - PN: Subj Interval history: Patient continues to do well. Breathing is at baseline. Continues to complain about sore around his mouth and in his mouth Exam (Progress Note) - Constitutional Vitals: Period Temp Pulse Resp BP Sys/Briceno Pulse Ox Last 24 Hr 96.8 F-98.9 F 61-84 18-20 110-146/65-81 93-99 General appearance: normal weight, no acute distress - Head Head exam: Present: normal inspection - ENT ENT exam: Present: normal exam - Neck Neck exam: Present: normal inspection - Respiratory Respiratory exam: Present: clear to auscultation bilaterally - Cardiovascular Cardiovascular exam: Present: regular rate and rhythm Results - Labs CBC & BMP: 04/04/17 06:32 04/07/17 05:56 Lab Results: I have reviewed the past 24 hour labs Assessment and Plan (1) COPD (chronic obstructive pulmonary disease) Status: Chronic Assessment and plan: clincially doing better. Now has humidified oxygen. Does have what may just be a cold sore on his perioral area. No other acute pulmonary issues Current Visit: No Qualifiers: COPD type: COPD with acute exacerbation Qualified Code(s): J44.1 - Chronic obstructive pulmonary disease with (acute) exacerbation Specialty Discharge - Follow Up or Referrals
--- NOTE | 2017-04-07 11:54 | Hospitalist Progress Note ---
Assessment and Plan (1) COPD (chronic obstructive pulmonary disease) Status: Chronic Assessment and plan: This is slowly improving.Continue bronchodilators, steroids and antibiotics.Sputum grew E.Coli MRSA, a repeat SC grew gram positive cocci Follow Dr Hankins's recommendations Current Visit: No Qualifiers: COPD type: COPD with acute exacerbation Qualified Code(s): J44.1 - Chronic obstructive pulmonary disease with (acute) exacerbation (2) Pneumonia Status: Acute Assessment and plan: Improving. Pulm is following. Plan Continue with antibiotics and current management. 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 Patient has severe dysmotility of the primary peristaltic wave. Stasis of material documented within esophagus. Multiple tertiary contractions consistent with esophageal spasm. No stricture or mass identified. No aspiration changes noted. 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 He underwent dilatation. GI's recommendations-. Can repeat dilatation as needed. Other option would be to consider PEG tube in the event aspiration is suspected to be complicating his pulmonary toilet. Gastroesophageal reflux disease continue current treatment. Current Visit: No (4) Anemia Status: Acute Assessment and plan: due to chronic illness. H/H is stable. Current Visit: Yes (5) MRSA nasal colonization Status: Acute Assessment and plan: Completed Bactroban therapy Current Visit: Yes (6) History of atrial fibrillation Status: Chronic Assessment and plan: rate is controlled Current Visit: No Hospitalist: Subjective Interval history: Patient was sitting up at the edge of the bed.He states he has a little bit of wheezing and also requests for a walker upon discharge Exam - Constitutional Vitals: Period Temp Pulse Resp BP Sys/Briceno Pulse Ox Last 24 Hr 96.8 F-98.9 F 61-84 18-20 110-146/65-81 93-99 General appearance: no acute distress - Head Head exam: Present: normal inspection - Respiratory Respiratory exam: Present: wheezes - Cardiovascular Cardiovascular exam: Present: regular rate and rhythm - GI/Abdominal GI/Abdominal exam: Present: normal bowel sounds - Extremities Exam Extremities exam: Present: normal inspection - Neurological Exam Neurological exam: Present: alert, oriented X3 Results - Labs CBC & BMP: 04/04/17 06:32 08/20/17 05:56 Lab Results: I have reviewed the past 24 hour labs Specialty Discharge - Follow Up or Referrals
[2017-04-07] MEDS ORDERED: ENOXAPARIN 30 MG/0.3 ML SYRINGE ONE (12:09)
[2017-04-07] MEDS ORDERED: ENOXAPARIN 40 MG/0.4 ML SYRINGE SUBCUT SCH (12:30)
[2017-04-07] MEDS: MONTELUKAST 10 MG TABLET PO SCH (21:01)
[2017-04-07] MEDS: HydrOXYzine PAMOATE 25 MG CAPSULE PO SCH (21:01)
[2017-04-07] MEDS: SIMVASTATIN 10 MG TABLET PO SCH (21:01)
[2017-04-08] MEDS: ALBUTEROL/IPRATROPIUM 3 ML NEB RESP TX SCH ×4 (00:16→19:29)
[2017-04-08] MEDS: cephALEXin 500 MG CAPSULE PO SCH ×3 (05:47→22:57)
[2017-04-08] MEDS: CALCIUM CARBONATE CHEW 500 MG TABLET PO SCH ×3 (05:47→22:57)
[2017-04-08] MEDS: DORNASE ALFA 2.5 MG/2.5 ML VIAL RESP TX SCH ×2 (07:37→19:29)
[2017-04-08] MEDS: GABAPENTIN 100 MG CAPSULE PO SCH ×3 (09:32→22:58)
[2017-04-08] MEDS: oxyCODONE/ACETAMINOPHEN 5-325 MG TABLET PO PRN (09:33)
[2017-04-08] MEDS: DOCUSATE SODIUM 100 MG CAPSULE PO SCH ×2 (09:34→22:57)
[2017-04-08] MEDS: MECLIZINE 25 MG TABLET PO SCH ×3 (09:34→22:57)
[2017-04-08] MEDS: predniSONE 20 MG TABLET PO SCH (09:34)
[2017-04-08] MEDS: METOPROLOL TARTRATE 25 MG TABLET PO SCH ×2 (09:34→22:58)
[2017-04-08] MEDS: PANTOPRAZOLE 40 MG TABLET PO SCH (09:34)
[2017-04-08] MEDS: amLODIPine 5 MG TABLET PO SCH ×2 (09:35→22:59)
[2017-04-08] MEDS: TAMSULOSIN 0.4 MG CAPSULE PO SCH (09:35)
[2017-04-08] MEDS: LINEZOLID 600 MG TABLET PO SCH ×2 (09:36→22:59)
[2017-04-08] MEDS: FLUTICASONE/SALMETEROL 100-50 DISKUS 14 DOSE INH SCH ×2 (09:36→22:59)
[2017-04-08] MEDS: CLOTRIMAZOLE/BETAMETHASONE CREAM 15 GM TUBE TOP SCH ×3 (09:37→23:01)
[2017-04-08] MEDS: MAGNESIUM OXIDE 400 MG TABLET PO SCH ×2 (10:06→22:58)
--- NOTE | 2017-04-08 11:58 | Pulmonology Progress Note ---
Pulmonary - PN: Subj Interval history: Jayjay Milan, [facility]-, acting as scribe for Dr. Santos Schaefer This 86-year-old white male [facility] patient who is well known to us. He has been a care home patient of Dr. Schaefer. He was admitted with acute left lower lung pneumonia. He also may have had a small element of congestive heart failure. We saw this patient in pulmonary consultation on 04/01/2017. At that time, our impressions were: 1. Acute left lower lung pneumonia. Probably bacterial. Note high white blood cell count. In the past, aspiration pneumonia has been a problem. 2. Obstructive lung disease with bronchospastic disease. Often steroid dependent. 3. 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 4. Gastroesophageal reflux disease with recurrent history of nocturnal aspiration of gastric contents 5. Past history of atrial fib. Now in regular sinus rhythm. 6. Osteoporosis with multiple compression fracture that have required, 7. Hyperlipidemia 8. See past history 04/02/2017. Patient's chest x-ray shows good improvement. Left lower lung infiltrate is nearly resolved. Patient still mobilizing sputum. He has MRSA from his nares. He is being started on Bactroban ointment. There are no other positive cultures. ABGs on FiO2 28% show a pH of 7.456, PCO2 38.7, PO2 of 71.2 and a bicarb of 27.2. Creatinine is 0.9 with a BUN of 23 and normal electrolytes. White count is dropped to 13,400 with 91 segs. H&H is 10.4/32.1 with decreased red blood cell indices. On 04/01/2017 BNP was mildly elevated 232. This will be repeated. This patient is making good progress from my standpoint and hopefully he can be moved from intensive care to pulmonary floor such as [facility]. 04/03/2017. The patient was seen today along with Bhavin Ratliff RN. He is now been moved to the medical floor from intensive care. This morning he complains of dizziness. He is lying flat in bed and breathing comfortably. He does, however, complained of tongue and throat pain. This will be treated with Diflucan and nystatin swish and swallow. He complains of dysphasia. As noted above, he has a history of disordered swallowing with a history of esophageal stricture and esophageal motility dysfunction. This is been followed on a long- term basis by Dr. Perez. Barium swallow obtained yesterday as ordered by Dr. Fernandes showed severe presbyesophagus with severe dysmotility of the primary peristaltic wave. Stasis of material in the esophagus was seen. There were multiple tertiary contractions consistent with esophageal spasm. There is no stricture or mass identified and no aspiration. Because of his complaints, we will consult Dr. Perez for evaluation and possible treatment as he deems necessary. Mr. Duckworth reports that he coughed up a scant amount of bright red sputum again this morning. His most likely related to his recent pneumonia, but we will obtain sputum for cytology daily 3. His chest x-ray today shows his previously noted left lower longer lingular pneumonia has resolved. Medications have been reviewed. We started Diflucan for 7 days and nystatin swish and swallow for 5 days. Labs been reviewed. White count is 13,000 with 92.6% segs; H&H 10.4/32.3; platelet count 187,000; creatinine 0.80, BUN 18, electrolytes are normal Sputum Gram stain showed few gram-positive cocci in pairs, rare gram-positive rods, rare gram-negative rods, rare fungal elements; sputum culture is pending. ABGs this morning on FiO2 of 28% showed a pH of 7.46, PCO2 42.3, PO2 95.5, bicarb 27.2, and oxygen saturation 97.7%. 04/04/2017. Patient's 4E scope later today. His chest is clear and he is moving air well. He is able to lie flat in bed and breathing comfortably. His sputum is growing a gram-negative norman. This is not been identified. There are no sensitivities. White count is 10,000 with 86 segs. H&H is 11.9/37.5 with platelets of 240,000. Electrolytes are normal. Creatinine is 0.9 with a BUN of 20. Patient seems to have improved significantly. 04/05/2017. The patient was seen today along with Michelle Jeffers RN. Patient underwent EGD yesterday by Dr. Perez. This showed a distal esophageal stricture which was dilated. The patient also has an esophageal motility disorder. Dr. Perez noted that the patient can have repeat dilatation as needed. Another option to consider would be a PEG tube. Mr. Duckworth noted that he continues to have some mild difficulty with swallowing, but states "I have no trouble with chocolate ice cream". On chest exam, he is doing remarkably well from a pulmonary standpoint. He has no wheeze. He is hyperinflated with prolonged expiration, but this is his baseline. Sputum culture is growing an unidentified gram-positive cocci and E. coli. He is presently on Fortaz and Levaquin. These can be adjusted once the final IDs have been reported if need be. Labs been reviewed. Creatinine 0.70, BUN 22, sodium 135, potassium 4.3, magnesium 2.6 04/08/17. The patient was seen today along with Marcie Morris RN. The patient complains of upper gum pain this morning. He has no upper teeth and his lower teeth are rubbing this area. He is also upset about the ordered Lovenox. In the past he has had extensive bruising related to Lovenox use and would like this discontinued. We have stopped it per his wishes. His sputum has grown E. coli and MRSA. He is on appropriate antibiotics. A more recent sputum is again growing a gram positive cocci. Final ID is pending. Medications have been reviewed. Labs have been reviewed. Exam (Progress Note) - Constitutional Vitals: Period Temp Pulse Resp BP Sys/Briceno Pulse Ox Last 24 Hr 97.4 F-98.3 F 61-95 16-20 120-150/60-70 92-99 Exam: Chest is symmetrical and kyphotic with prolonged and slightly incomplete expiration; wheeze free Heart no gallop Abdomen is obese but nontender and nondistended; bowel sounds are positive 4 Lower extremities with nothing to suggest acute deep venous thrombophlebitis Psychiatric presently oriented 3 Neurologic long-term motor function is intact Plan: Follow-up final sputum culture when available. Continue present treatment. Stop Lovenox. See orders. Results - Labs CBC & BMP: 04/04/17 06:32 04/07/17 05:56 Specialty Discharge - Follow Up or Referrals
--- NOTE | 2017-04-08 12:26 | Hospitalist Progress Note ---
Assessment and Plan (1) COPD (chronic obstructive pulmonary disease) Status: Chronic Assessment and plan: This is slowly improving.Continue bronchodilators, steroids and antibiotics.Sputum grew E.Coli MRSA, a repeat SC grew gram positive cocci -add Zyvox to his Keflex Follow Dr Hankins's recommendations Current Visit: No Qualifiers: COPD type: COPD with acute exacerbation Qualified Code(s): J44.1 - Chronic obstructive pulmonary disease with (acute) exacerbation (2) Pneumonia Status: Acute Assessment and plan: Improving. Pulm is following. Plan Continue with antibiotics and current management. 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 Patient has severe dysmotility of the primary peristaltic wave. Stasis of material documented within esophagus. Multiple tertiary contractions consistent with esophageal spasm. No stricture or mass identified. No aspiration changes noted. Plan EGD showed combination of esophageal stricture and esophageal motility disorder. He underwent dilatation. GI's recommendations-. Can repeat dilatation as needed. Other option would be to consider PEG tube in the event aspiration is suspected to be complicating his pulmonary toilet. Gastroesophageal reflux disease continue current treatment. Current Visit: No (4) Anemia Status: Acute Assessment and plan: due to chronic illness. H/H is stable. Current Visit: Yes (5) MRSA nasal colonization Status: Acute Assessment and plan: Completed Bactroban therapy, patient has been started on Zyvox for MRSA sputum Current Visit: Yes (6) History of atrial fibrillation Status: Chronic Assessment and plan: rate is controlled Current Visit: No Hospitalist: Subjective Interval history: patient was sitting up in bed, still wheezing a little bit. Perioral sores were noted. Sputum grew E.Coli and MRSA. Exam - Constitutional Vitals: Period Temp Pulse Resp BP Sys/Briceno Pulse Ox Last 24 Hr 97.4 F-98.3 F 61-95 16-20 120-150/60-70 92-99 General appearance: no acute distress - Head Head exam: Present: normal inspection - Respiratory Respiratory exam: Present: decreased breath sounds, wheezes - Cardiovascular Cardiovascular exam: Present: other (s1 and s2) - GI/Abdominal GI/Abdominal exam: Present: normal bowel sounds - Extremities Exam Extremities exam: Present: normal inspection - Neurological Exam Neurological exam: Present: alert, oriented X3 Results - Labs CBC & BMP: 04/04/17 06:32 04/07/17 05:56 Lab Results: I have reviewed the past 24 hour labs Specialty Discharge - Follow Up or Referrals
[2017-04-08] MEDS: ACYCLOVIR 5% OINT 5 GM TUBE TOP SCH ×2 (14:55→22:59)
[2017-04-08] MEDS: MONTELUKAST 10 MG TABLET PO SCH (22:57)
[2017-04-08] MEDS: HydrOXYzine PAMOATE 25 MG CAPSULE PO SCH (22:57)
[2017-04-08] MEDS: SIMVASTATIN 10 MG TABLET PO SCH (22:58)
[2017-04-09] MEDS: ALBUTEROL/IPRATROPIUM 3 ML NEB RESP TX SCH ×4 (00:30→19:55)
[2017-04-09] MEDS: CALCIUM CARBONATE CHEW 500 MG TABLET PO SCH ×3 (06:22→22:03)
[2017-04-09] MEDS: cephALEXin 500 MG CAPSULE PO SCH ×3 (06:22→21:04)
[2017-04-09] MEDS: DORNASE ALFA 2.5 MG/2.5 ML VIAL RESP TX SCH ×2 (07:18→19:55)
[2017-04-09] MEDS: ACYCLOVIR 5% OINT 5 GM TUBE TOP SCH ×3 (09:29→23:08)
[2017-04-09] MEDS: MECLIZINE 25 MG TABLET PO SCH ×3 (09:29→23:06)
[2017-04-09] MEDS: MAGNESIUM OXIDE 400 MG TABLET PO SCH ×2 (09:29→23:05)
[2017-04-09] MEDS: FLUTICASONE/SALMETEROL 100-50 DISKUS 14 DOSE INH SCH ×2 (09:30→23:07)
[2017-04-09] MEDS: PANTOPRAZOLE 40 MG TABLET PO SCH (09:30)
[2017-04-09] MEDS: amLODIPine 5 MG TABLET PO SCH ×2 (09:30→23:06)
[2017-04-09] MEDS: TAMSULOSIN 0.4 MG CAPSULE PO SCH (09:30)
[2017-04-09] MEDS: LINEZOLID 600 MG TABLET PO SCH ×2 (09:30→23:04)
[2017-04-09] MEDS: DOCUSATE SODIUM 100 MG CAPSULE PO SCH ×2 (09:30→23:05)
[2017-04-09] MEDS: METOPROLOL TARTRATE 25 MG TABLET PO SCH ×2 (09:30→23:06)
[2017-04-09] MEDS: GABAPENTIN 100 MG CAPSULE PO SCH ×3 (09:30→23:05)
[2017-04-09] MEDS: CLOTRIMAZOLE/BETAMETHASONE CREAM 15 GM TUBE TOP SCH ×3 (09:31→23:09)
--- NOTE | 2017-04-09 11:49 | Pulmonology Progress Note ---
Pulmonary - PN: Subj Interval history: Jayjay Milan, [facility]-, acting as scribe for Dr. Santos Schaefer This 86-year-old white male detention patient who is well known to us. He has been a [place] [facility] patient of Dr. Schaefer. He was admitted with acute left lower lung pneumonia. He also may have had a small element of congestive heart failure. We saw this patient in pulmonary consultation on 04/01/2017. At that time, our impressions were: 1. Acute left lower lung pneumonia. Probably bacterial. Note high white blood cell count. In the past, aspiration pneumonia has been a problem. 2. Obstructive lung disease with bronchospastic disease. Often steroid dependent. 3. 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 4. Gastroesophageal reflux disease with recurrent history of nocturnal aspiration of gastric contents 5. Past history of atrial fib. Now in regular sinus rhythm. 6. Osteoporosis with multiple compression fracture that have required, 7. Hyperlipidemia 8. See past history 04/02/2017. Patient's chest x-ray shows good improvement. Left lower lung infiltrate is nearly resolved. Patient still mobilizing sputum. He has MRSA from his nares. He is being started on Bactroban ointment. There are no other positive cultures. ABGs on FiO2 28% show a pH of 7.456, PCO2 38.7, PO2 of 71.2 and a bicarb of 27.2. Creatinine is 0.9 with a BUN of 23 and normal electrolytes. White count is dropped to 13,400 with 91 segs. H&H is 10.4/32.1 with decreased red blood cell indices. On 04/01/2017 BNP was mildly elevated 232. This will be repeated. This patient is making good progress from my standpoint and hopefully he can be moved from intensive care to pulmonary floor such as [facility]. 04/03/2017. The patient was seen today along with Bhavin Ratliff RN. He is now been moved to the medical floor from intensive care. This morning he complains of dizziness. He is lying flat in bed and breathing comfortably. He does, however, complained of tongue and throat pain. This will be treated with Diflucan and nystatin swish and swallow. He complains of dysphasia. As noted above, he has a history of disordered swallowing with a history of esophageal stricture and esophageal motility dysfunction. This is been followed on a long- term basis by Dr. Perez. Barium swallow obtained yesterday as ordered by Dr. Fernandes showed severe presbyesophagus with severe dysmotility of the primary peristaltic wave. Stasis of material in the esophagus was seen. There were multiple tertiary contractions consistent with esophageal spasm. There is no stricture or mass identified and no aspiration. Because of his complaints, we will consult Dr. Perez for evaluation and possible treatment as he deems necessary. Mr. Duckworth reports that he coughed up a scant amount of bright red sputum again this morning. His most likely related to his recent pneumonia, but we will obtain sputum for cytology daily 3. His chest x-ray today shows his previously noted left lower longer lingular pneumonia has resolved. Medications have been reviewed. We started Diflucan for 7 days and nystatin swish and swallow for 5 days. Labs been reviewed. White count is 13,000 with 92.6% segs; H&H 10.4/32.3; platelet count 187,000; creatinine 0.80, BUN 18, electrolytes are normal Sputum Gram stain showed few gram-positive cocci in pairs, rare gram-positive rods, rare gram-negative rods, rare fungal elements; sputum culture is pending. ABGs this morning on FiO2 of 28% showed a pH of 7.46, PCO2 42.3, PO2 95.5, bicarb 27.2, and oxygen saturation 97.7%. 04/04/2017. Patient's 4E scope later today. His chest is clear and he is moving air well. He is able to lie flat in bed and breathing comfortably. His sputum is growing a gram-negative norman. This is not been identified. There are no sensitivities. White count is 10,000 with 86 segs. H&H is 11.9/37.5 with platelets of 240,000. Electrolytes are normal. Creatinine is 0.9 with a BUN of 20. Patient seems to have improved significantly. 04/05/2017. The patient was seen today along with Michelle Jeffers RN. Patient underwent EGD yesterday by Dr. Perez. This showed a distal esophageal stricture which was dilated. The patient also has an esophageal motility disorder. Dr. Perez noted that the patient can have repeat dilatation as needed. Another option to consider would be a PEG tube. Mr. Duckworth noted that he continues to have some mild difficulty with swallowing, but states "I have no trouble with chocolate ice cream". On chest exam, he is doing remarkably well from a pulmonary standpoint. He has no wheeze. He is hyperinflated with prolonged expiration, but this is his baseline. Sputum culture is growing an unidentified gram-positive cocci and E. coli. He is presently on Fortaz and Levaquin. These can be adjusted once the final IDs have been reported if need be. Labs been reviewed. Creatinine 0.70, BUN 22, sodium 135, potassium 4.3, magnesium 2.6 04/08/17. The patient was seen today along with Marcie Morris RN. The patient complains of upper gum pain this morning. He has no upper teeth and his lower teeth are rubbing this area. He is also upset about the ordered Lovenox. In the past he has had extensive bruising related to Lovenox use and would like this discontinued. We have stopped it per his wishes. His sputum has grown E. coli and MRSA. He is on appropriate antibiotics. A more recent sputum is again growing a gram positive cocci. Final ID is pending. Medications have been reviewed. Labs have been reviewed. 04/09/2017. The patient was seen today along with his patient day care center directorMelvin. Patient is doing reasonably well today. He states that his swallowing is improving daily. 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 E. coli did not grow on the most recent sputum culture. A repeat sputum culture has already been ordered on by Dr. West. Today we have discussed the case with Dr. West and have coordinated our care. Mr. Duckworth is on Keflex and Zosyn. The patient previously had an IV, but lost access and refused to have it be restarted. Medications have been reviewed. We made no changes today. Labs have been reviewed. No new labs were drawn today. Exam (Progress Note) - Constitutional Vitals: Period Temp Pulse Resp BP Sys/Briceno Pulse Ox Last 24 Hr 96.9 F-97.9 F 60-81 16-20 121-152/53-75 94-99 Exam: Chest is symmetrical and kyphotic with prolonged and slightly incomplete expiration; wheeze free Heart no gallop Abdomen is obese but nontender and nondistended; bowel sounds are positive 4 Lower extremities with nothing to suggest acute deep venous thrombophlebitis; absolutely no edema Psychiatric oriented 3 Neurologic long-term motor function is intact Plan: Plans for repeat sputum on are noted. Continue present treatment. See orders. Results - Labs CBC & BMP: 04/04/17 06:32 04/07/17 05:56 Specialty Discharge - Follow Up or Referrals
--- NOTE | 2017-04-09 13:26 | Hospitalist Progress Note ---
Assessment and Plan (1) COPD (chronic obstructive pulmonary disease) Status: Chronic Assessment and plan: This is improving.Continue bronchodilators, steroids and antibiotics.Sputum grew E.Coli MRSA, a repeat SC grew gram positive cocci -continue Zyvox to his Keflex Repeat sputum cultures on , hopefully will dc latest Saturday Follow Dr Hankins's recommendations Current Visit: No Qualifiers: COPD type: COPD with acute exacerbation Qualified Code(s): J44.1 - Chronic obstructive pulmonary disease with (acute) exacerbation (2) Pneumonia Status: Acute Assessment and plan: Improving. Pulm is following. Plan Continue with antibiotics and current management. 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 Patient has severe dysmotility of the primary peristaltic wave. Stasis of material documented within esophagus. Multiple tertiary contractions consistent with esophageal spasm. No stricture or mass identified. No aspiration changes noted. Plan EGD showed combination of esophageal stricture and esophageal motility disorder. He underwent dilatation. GI's recommendations-. Can repeat dilatation as needed. Other option would be to consider PEG tube in the event aspiration is suspected to be complicating his pulmonary toilet. Gastroesophageal reflux disease continue current treatment. Current Visit: No (4) Anemia Status: Acute Assessment and plan: due to chronic illness. H/H is stable. Current Visit: Yes (5) MRSA nasal colonization Status: Acute Assessment and plan: Completed Bactroban therapy, patient has been started on Zyvox for MRSA sputum Current Visit: Yes (6) History of atrial fibrillation Status: Chronic Assessment and plan: rate is controlled Current Visit: No Hospitalist: Subjective Interval history: Patient seen this am,he states he feels pretty good. He gets SOB every now and then, he had a PT session this am. We will repeat sputum on so patient can hopefully return to the [place] latest Saturday so he can still keep his bed. Exam - Constitutional Vitals: Period Temp Pulse Resp BP Sys/Briceno Pulse Ox Last 24 Hr 96.9 F-97.9 F 60-81 16-20 121-152/53-72 94-99 General appearance: no acute distress - Head Head exam: Present: normal inspection - Respiratory Respiratory exam: Present: decreased breath sounds - Cardiovascular Cardiovascular exam: Present: regular rate and rhythm - GI/Abdominal GI/Abdominal exam: Present: normal bowel sounds - Extremities Exam Extremities exam: Present: normal inspection - Neurological Exam Neurological exam: Present: alert, oriented X3 Results - Labs CBC & BMP: 04/04/17 06:32 04/07/17 05:56 Lab Results: I have reviewed the past 24 hour labs Specialty Discharge - Follow Up or Referrals
[2017-04-09] MEDS: predniSONE 20 MG TABLET PO SCH (16:03)
[2017-04-09] MEDS: oxyCODONE/ACETAMINOPHEN 5-325 MG TABLET PO PRN ×2 (17:27→23:05)
[2017-04-09] MEDS: HydrOXYzine PAMOATE 25 MG CAPSULE PO SCH (23:05)
[2017-04-09] MEDS: hydrOXYzine HCL 25 MG TABLET PO PRN (23:06)
[2017-04-09] MEDS: MONTELUKAST 10 MG TABLET PO SCH (23:06)
[2017-04-09] MEDS: SIMVASTATIN 10 MG TABLET PO SCH (23:06)
[2017-04-10] MEDS: ALBUTEROL/IPRATROPIUM 3 ML NEB RESP TX SCH ×4 (01:35→19:51)
[2017-04-10] MEDS: CALCIUM CARBONATE CHEW 500 MG TABLET PO SCH ×3 (06:52→21:41)
[2017-04-10] MEDS: cephALEXin 500 MG CAPSULE PO SCH (06:52)
[2017-04-10] MEDS: DORNASE ALFA 2.5 MG/2.5 ML VIAL RESP TX SCH ×2 (07:59→19:59)
[2017-04-10] MEDS: TAMSULOSIN 0.4 MG CAPSULE PO SCH (09:11)
[2017-04-10] MEDS: predniSONE 20 MG TABLET PO SCH (09:12)
[2017-04-10] MEDS: PANTOPRAZOLE 40 MG TABLET PO SCH (09:12)
[2017-04-10] MEDS: METOPROLOL TARTRATE 25 MG TABLET PO SCH ×2 (09:13→20:36)
[2017-04-10] MEDS: amLODIPine 5 MG TABLET PO SCH ×2 (09:13→20:35)
[2017-04-10] MEDS: oxyCODONE/ACETAMINOPHEN 5-325 MG TABLET PO PRN ×2 (09:13→20:37)
[2017-04-10] MEDS: MECLIZINE 25 MG TABLET PO SCH ×3 (09:13→20:35)
[2017-04-10] MEDS: LINEZOLID 600 MG TABLET PO SCH ×2 (09:13→20:35)
[2017-04-10] MEDS: GABAPENTIN 100 MG CAPSULE PO SCH ×3 (09:13→20:35)
[2017-04-10] MEDS: DOCUSATE SODIUM 100 MG CAPSULE PO SCH ×2 (09:14→20:35)
[2017-04-10] MEDS: hydrOXYzine HCL 25 MG TABLET PO PRN (09:14)
[2017-04-10] MEDS: FLUTICASONE/SALMETEROL 100-50 DISKUS 14 DOSE INH SCH ×2 (09:14→20:36)
[2017-04-10] MEDS: CLOTRIMAZOLE/BETAMETHASONE CREAM 15 GM TUBE TOP SCH ×3 (09:15→20:43)
[2017-04-10] MEDS: ACYCLOVIR 5% OINT 5 GM TUBE TOP SCH ×3 (09:15→20:43)
[2017-04-10] MEDS: MAGNESIUM OXIDE 400 MG TABLET PO SCH ×2 (09:16→20:35)
--- NOTE | 2017-04-10 12:06 | Pulmonology Progress Note ---
Pulmonary - PN: Subj Interval history: Jayjay Milan, [facility]-, acting as scribe for Dr. Santos Schaefer This 86-year-old white male shelter patient who is well known to us. He has been a longterm patient of Dr. Schaefer. He was admitted with acute left lower lung pneumonia. He also may have had a small element of congestive heart failure. We saw this patient in pulmonary consultation on 04/01/2017. At that time, our impressions were: 1. Acute left lower lung pneumonia. Probably bacterial. Note high white blood cell count. In the past, aspiration pneumonia has been a problem. 2. Obstructive lung disease with bronchospastic disease. Often steroid dependent. 3. 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 4. Gastroesophageal reflux disease with recurrent history of nocturnal aspiration of gastric contents 5. Past history of atrial fib. Now in regular sinus rhythm. 6. Osteoporosis with multiple compression fracture that have required, 7. Hyperlipidemia 8. See past history 04/02/2017. Patient's chest x-ray shows good improvement. Left lower lung infiltrate is nearly resolved. Patient still mobilizing sputum. He has MRSA from his nares. He is being started on Bactroban ointment. There are no other positive cultures. ABGs on FiO2 28% show a pH of 7.456, PCO2 38.7, PO2 of 71.2 and a bicarb of 27.2. Creatinine is 0.9 with a BUN of 23 and normal electrolytes. White count is dropped to 13,400 with 91 segs. H&H is 10.4/32.1 with decreased red blood cell indices. On 04/01/2017 BNP was mildly elevated 232. This will be repeated. This patient is making good progress from my standpoint and hopefully he can be moved from intensive care to pulmonary floor such as [facility]. 04/03/2017. The patient was seen today along with Bhavin Ratliff RN. He is now been moved to the medical floor from intensive care. This morning he complains of dizziness. He is lying flat in bed and breathing comfortably. He does, however, complained of tongue and throat pain. This will be treated with Diflucan and nystatin swish and swallow. He complains of dysphasia. As noted above, he has a history of disordered swallowing with a history of esophageal stricture and esophageal motility dysfunction. This is been followed on a long- term basis by Dr. Perez. Barium swallow obtained yesterday as ordered by Dr. Fernandes showed severe presbyesophagus with severe dysmotility of the primary peristaltic wave. Stasis of material in the esophagus was seen. There were multiple tertiary contractions consistent with esophageal spasm. There is no stricture or mass identified and no aspiration. Because of his complaints, we will consult Dr. Perez for evaluation and possible treatment as he deems necessary. Mr. Duckworth reports that he coughed up a scant amount of bright red sputum again this morning. His most likely related to his recent pneumonia, but we will obtain sputum for cytology daily 3. His chest x-ray today shows his previously noted left lower longer lingular pneumonia has resolved. Medications have been reviewed. We started Diflucan for 7 days and nystatin swish and swallow for 5 days. Labs been reviewed. White count is 13,000 with 92.6% segs; H&H 10.4/32.3; platelet count 187,000; creatinine 0.80, BUN 18, electrolytes are normal Sputum Gram stain showed few gram-positive cocci in pairs, rare gram-positive rods, rare gram-negative rods, rare fungal elements; sputum culture is pending. ABGs this morning on FiO2 of 28% showed a pH of 7.46, PCO2 42.3, PO2 95.5, bicarb 27.2, and oxygen saturation 97.7%. 04/04/2017. Patient's 4E scope later today. His chest is clear and he is moving air well. He is able to lie flat in bed and breathing comfortably. His sputum is growing a gram-negative norman. This is not been identified. There are no sensitivities. White count is 10,000 with 86 segs. H&H is 11.9/37.5 with platelets of 240,000. Electrolytes are normal. Creatinine is 0.9 with a BUN of 20. Patient seems to have improved significantly. 04/05/2017. The patient was seen today along with Michelle Jeffers RN. Patient underwent EGD yesterday by Dr. Perez. This showed a distal esophageal stricture which was dilated. The patient also has an esophageal motility disorder. Dr. Perez noted that the patient can have repeat dilatation as needed. Another option to consider would be a PEG tube. Mr. Duckworth noted that he continues to have some mild difficulty with swallowing, but states "I have no trouble with chocolate ice cream". On chest exam, he is doing remarkably well from a pulmonary standpoint. He has no wheeze. He is hyperinflated with prolonged expiration, but this is his baseline. Sputum culture is growing an unidentified gram-positive cocci and E. coli. He is presently on Fortaz and Levaquin. These can be adjusted once the final IDs have been reported if need be. Labs been reviewed. Creatinine 0.70, BUN 22, sodium 135, potassium 4.3, magnesium 2.6 04/08/17. The patient was seen today along with Marcie Morris RN. The patient complains of upper gum pain this morning. He has no upper teeth and his lower teeth are rubbing this area. He is also upset about the ordered Lovenox. In the past he has had extensive bruising related to Lovenox use and would like this discontinued. We have stopped it per his wishes. His sputum has grown E. coli and MRSA. He is on appropriate antibiotics. A more recent sputum is again growing a gram positive cocci. Final ID is pending. Medications have been reviewed. Labs have been reviewed. 04/09/2017. The patient was seen today along with his patient daycare managerMelvin. Patient is doing reasonably well today. He states that his swallowing is improving daily. 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 E. coli did not grow on the most recent sputum culture. A repeat sputum culture has already been ordered on by Dr. West. Today we have discussed the case with Dr. West and have coordinated our care. Mr. Duckworth is on Keflex and Zosyn. The patient previously had an IV, but lost access and refused to have it be restarted. Medications have been reviewed. We made no changes today. Labs have been reviewed. No new labs were drawn today. 04/10/2017. The case was discussed with Dr. West today and we have coordinated our care. Mr. Duckworth continues to do well. Repeat sputum culture has been ordered for tomorrow. On review of his most recent sensitivity for MRSA in the sputum, we see no reason to continue the Keflex. We will discontinue this. Once a negative culture has been obtained, we would recommend sending him back to the shelter on doxycycline 100 mg twice daily for another 2 weeks despite a negative culture. Tetracycline has an BAILEY of less than 4. Patient continues to swallow well post EGD with dilatation. He has no concerns or complaints today. Medications have been reviewed. We made no changes today other than discontinuation of his Keflex. Labs have been reviewed. No new labs were drawn today. Exam (Progress Note) - Constitutional Vitals: Period Temp Pulse Resp BP Sys/Briceno Pulse Ox Last 24 Hr 97.0 F-98.5 F 56-87 16-20 115-143/63-74 90-99 Exam: Chest is symmetrical and kyphotic with prolonged and slightly incomplete expiration; wheeze free Heart no gallop Abdomen is obese but nontender and nondistended; bowel sounds are positive 4 Lower extremities with nothing to suggest acute deep venous thrombophlebitis; absolutely no edema Psychiatric oriented 3 Neurologic long-term motor function is intact Plan: Plans for repeat sputum tomorrow are noted. Continue present treatment. We will recommend discharge back to the shelter on doxycycline 100 mg twice daily for 2 weeks when medically stable. See orders. Results - Labs CBC & BMP: 04/04/17 06:32 04/07/17 05:56 Specialty Discharge - Follow Up or Referrals
--- NOTE | 2017-04-10 13:44 | Hospitalist Progress Note ---
Assessment and Plan (1) COPD (chronic obstructive pulmonary disease) Status: Chronic Assessment and plan: This is improving.Continue bronchodilators, steroids and antibiotics.Sputum grew E.Coli MRSA, a repeat SC grew gram positive cocci -continue Zyvox and dc keflex Repeat sputum cultures in am, hopefully will dc latest Saturday Follow Dr Hankins's recommendations Current Visit: No Qualifiers: COPD type: COPD with acute exacerbation Qualified Code(s): J44.1 - Chronic obstructive pulmonary disease with (acute) exacerbation (2) Pneumonia Status: Acute Assessment and plan: Improving. Pulm is following. Plan Continue with antibiotics and current management. Current Visit: No (3) Dysphagia Status: Chronic Assessment and plan: severe presbyesophagus reported on barium swallow. S/p EGD Plan EGD showed combination of esophageal stricture and esophageal motility disorder. He underwent dilatation. GI's recommendations-. Can repeat dilatation as needed. Other option would be to consider PEG tube in the event aspiration is suspected to be complicating his pulmonary toilet. Gastroesophageal reflux disease continue current treatment. He is doing well post dilatation. Current Visit: No (4) Anemia Status: Acute Assessment and plan: due to chronic illness. H/H is stable. Current Visit: Yes (5) MRSA nasal colonization Status: Acute Assessment and plan: Completed Bactroban therapy, patient has been started on Zyvox for MRSA sputum Current Visit: Yes (6) History of atrial fibrillation Status: Chronic Assessment and plan: rate is controlled Current Visit: No (7) HTN (hypertension) Status: Acute Assessment and plan: stable Current Visit: Yes Hospitalist: Subjective Interval history: Patient seen this am. He was sitting up at the edge of the bed.Chronically mildly wheezing but not in any major acute resp distress.We will repeat sputum cultures in am. Exam - Constitutional Vitals: Period Temp Pulse Resp BP Sys/Briceno Pulse Ox Last 24 Hr 97.0 F-98.5 F 56-87 16-20 115-143/63-74 90-99 General appearance: no acute distress - Respiratory Respiratory exam: Present: wheezes - Cardiovascular Cardiovascular exam: Present: regular rate and rhythm - GI/Abdominal GI/Abdominal exam: Present: normal bowel sounds - Extremities Exam Extremities exam: Present: normal inspection - Neurological Exam Neurological exam: Present: alert, oriented X3 Results - Labs CBC & BMP: 04/04/17 06:32 04/07/17 05:56 Lab Results: I have reviewed the past 24 hour labs Specialty Discharge - Follow Up or Referrals
[2017-04-10] MEDS: ENOXAPARIN 40 MG/0.4 ML SYRINGE SUBCUT SCH (16:12)
[2017-04-10] MEDS: MONTELUKAST 10 MG TABLET PO SCH (20:35)
[2017-04-10] MEDS: SIMVASTATIN 10 MG TABLET PO SCH (20:36)
[2017-04-10] MEDS: HydrOXYzine PAMOATE 25 MG CAPSULE PO SCH (20:41)
[2017-04-11] MEDS: ALBUTEROL/IPRATROPIUM 3 ML NEB RESP TX SCH ×4 (01:15→20:06)
[2017-04-11] MEDS: CALCIUM CARBONATE CHEW 500 MG TABLET PO SCH ×3 (05:29→21:01)
[2017-04-11] MEDS: DORNASE ALFA 2.5 MG/2.5 ML VIAL RESP TX SCH ×2 (07:27→20:16)
[2017-04-11] MEDS: MAGNESIUM OXIDE 400 MG TABLET PO SCH ×2 (09:41→20:55)
[2017-04-11] MEDS: MECLIZINE 25 MG TABLET PO SCH ×3 (09:41→20:56)
[2017-04-11] MEDS: METOPROLOL TARTRATE 25 MG TABLET PO SCH ×2 (09:42→20:55)
[2017-04-11] MEDS: TAMSULOSIN 0.4 MG CAPSULE PO SCH (09:42)
[2017-04-11] MEDS: amLODIPine 5 MG TABLET PO SCH ×2 (09:42→20:55)
[2017-04-11] MEDS: PANTOPRAZOLE 40 MG TABLET PO SCH (09:42)
[2017-04-11] MEDS: LINEZOLID 600 MG TABLET PO SCH ×2 (09:42→20:54)
[2017-04-11] MEDS: GABAPENTIN 100 MG CAPSULE PO SCH ×3 (09:42→20:54)
[2017-04-11] MEDS: oxyCODONE/ACETAMINOPHEN 5-325 MG TABLET PO PRN ×2 (09:42→21:00)
[2017-04-11] MEDS: predniSONE 20 MG TABLET PO SCH (09:43)
[2017-04-11] MEDS: FLUTICASONE/SALMETEROL 100-50 DISKUS 14 DOSE INH SCH ×2 (09:43→20:56)
[2017-04-11] MEDS: CLOTRIMAZOLE/BETAMETHASONE CREAM 15 GM TUBE TOP SCH ×3 (09:44→20:58)
[2017-04-11] MEDS: DOCUSATE SODIUM 100 MG CAPSULE PO SCH ×2 (09:44→20:54)
[2017-04-11] MEDS: ACYCLOVIR 5% OINT 5 GM TUBE TOP SCH ×3 (09:44→20:58)
--- NOTE | 2017-04-11 12:06 | Pulmonology Progress Note ---
Pulmonary - PN: Subj Interval history: Jayjay Milan, [facility]-, acting as scribe for Dr. Santos Schaefer This 86-year-old white male [facility] patient who is well known to us. He has been a snf patient of Dr. Schaefer. He was admitted with acute left lower lung pneumonia. He also may have had a small element of congestive heart failure. We saw this patient in pulmonary consultation on 04/01/2017. At that time, our impressions were: 1. Acute left lower lung pneumonia. Probably bacterial. Note high white blood cell count. In the past, aspiration pneumonia has been a problem. 2. Obstructive lung disease with bronchospastic disease. Often steroid dependent. 3. 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 4. Gastroesophageal reflux disease with recurrent history of nocturnal aspiration of gastric contents 5. Past history of atrial fib. Now in regular sinus rhythm. 6. Osteoporosis with multiple compression fracture that have required, 7. Hyperlipidemia 8. See past history 04/02/2017. Patient's chest x-ray shows good improvement. Left lower lung infiltrate is nearly resolved. Patient still mobilizing sputum. He has MRSA from his nares. He is being started on Bactroban ointment. There are no other positive cultures. ABGs on FiO2 28% show a pH of 7.456, PCO2 38.7, PO2 of 71.2 and a bicarb of 27.2. Creatinine is 0.9 with a BUN of 23 and normal electrolytes. White count is dropped to 13,400 with 91 segs. H&H is 10.4/32.1 with decreased red blood cell indices. On 04/01/2017 BNP was mildly elevated 232. This will be repeated. This patient is making good progress from my standpoint and hopefully he can be moved from intensive care to pulmonary floor such as [facility]. 04/03/2017. The patient was seen today along with Bhavin Ratliff RN. He is now been moved to the medical floor from intensive care. This morning he complains of dizziness. He is lying flat in bed and breathing comfortably. He does, however, complained of tongue and throat pain. This will be treated with Diflucan and nystatin swish and swallow. He complains of dysphasia. As noted above, he has a history of disordered swallowing with a history of esophageal stricture and esophageal motility dysfunction. This is been followed on a long- term basis by Dr. Perez. Barium swallow obtained yesterday as ordered by Dr. Fernandes showed severe presbyesophagus with severe dysmotility of the primary peristaltic wave. Stasis of material in the esophagus was seen. There were multiple tertiary contractions consistent with esophageal spasm. There is no stricture or mass identified and no aspiration. Because of his complaints, we will consult Dr. Perez for evaluation and possible treatment as he deems necessary. Mr. Duckworth reports that he coughed up a scant amount of bright red sputum again this morning. His most likely related to his recent pneumonia, but we will obtain sputum for cytology daily 3. His chest x-ray today shows his previously noted left lower longer lingular pneumonia has resolved. Medications have been reviewed. We started Diflucan for 7 days and nystatin swish and swallow for 5 days. Labs been reviewed. White count is 13,000 with 92.6% segs; H&H 10.4/32.3; platelet count 187,000; creatinine 0.80, BUN 18, electrolytes are normal Sputum Gram stain showed few gram-positive cocci in pairs, rare gram-positive rods, rare gram-negative rods, rare fungal elements; sputum culture is pending. ABGs this morning on FiO2 of 28% showed a pH of 7.46, PCO2 42.3, PO2 95.5, bicarb 27.2, and oxygen saturation 97.7%. 04/04/2017. Patient's 4E scope later today. His chest is clear and he is moving air well. He is able to lie flat in bed and breathing comfortably. His sputum is growing a gram-negative norman. This is not been identified. There are no sensitivities. White count is 10,000 with 86 segs. H&H is 11.9/37.5 with platelets of 240,000. Electrolytes are normal. Creatinine is 0.9 with a BUN of 20. Patient seems to have improved significantly. 04/05/2017. The patient was seen today along with Michelle Jeffers RN. Patient underwent EGD yesterday by Dr. Perez. This showed a distal esophageal stricture which was dilated. The patient also has an esophageal motility disorder. Dr. Perez noted that the patient can have repeat dilatation as needed. Another option to consider would be a PEG tube. Mr. Duckworth noted that he continues to have some mild difficulty with swallowing, but states "I have no trouble with chocolate ice cream". On chest exam, he is doing remarkably well from a pulmonary standpoint. He has no wheeze. He is hyperinflated with prolonged expiration, but this is his baseline. Sputum culture is growing an unidentified gram-positive cocci and E. coli. He is presently on Fortaz and Levaquin. These can be adjusted once the final IDs have been reported if need be. Labs been reviewed. Creatinine 0.70, BUN 22, sodium 135, potassium 4.3, magnesium 2.6 04/08/17. The patient was seen today along with Marcie Morris RN. The patient complains of upper gum pain this morning. He has no upper teeth and his lower teeth are rubbing this area. He is also upset about the ordered Lovenox. In the past he has had extensive bruising related to Lovenox use and would like this discontinued. We have stopped it per his wishes. His sputum has grown E. coli and MRSA. He is on appropriate antibiotics. A more recent sputum is again growing a gram positive cocci. Final ID is pending. Medications have been reviewed. Labs have been reviewed. 04/09/2017. The patient was seen today along with his patient director careerMelvin. Patient is doing reasonably well today. He states that his swallowing is improving daily. 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 E. coli did not grow on the most recent sputum culture. A repeat sputum culture has already been ordered on by Dr. West. Today we have discussed the case with Dr. West and have coordinated our care. Mr. Duckworth is on Keflex and Zosyn. The patient previously had an IV, but lost access and refused to have it be restarted. Medications have been reviewed. We made no changes today. Labs have been reviewed. No new labs were drawn today. 04/10/2017. The case was discussed with Dr. West today and we have coordinated our care. Mr. Duckworth continues to do well. Repeat sputum culture has been ordered for tomorrow. On review of his most recent sensitivity for MRSA in the sputum, we see no reason to continue the Keflex. We will discontinue this. Once a negative culture has been obtained, we would recommend sending him back to the [facility] on doxycycline 100 mg twice daily for another 2 weeks despite a negative culture. Tetracycline has an BAILEY of less than 4. Patient continues to swallow well post EGD with dilatation. He has no concerns or complaints today. Medications have been reviewed. We made no changes today other than discontinuation of his Keflex. Labs have been reviewed. No new labs were drawn today. 04/11/17. The patient was seen today along with Edie Yang RN. He states he is breathing well today. His most recent sputum cultures are growing two types of gram negative rods. We will repeat a CXR tomorrow. Medications have been reviewed. We made no changes today. Labs have been reviewed. Exam (Progress Note) - Constitutional Vitals: Period Temp Pulse Resp BP Sys/Briceno Pulse Ox Last 24 Hr 96.6 F-97.6 F 50-79 18-24 105-149/48-85 93-99 Exam: Chest is symmetrical and kyphotic with prolonged and slightly incomplete expiration; wheeze free Heart no gallop Abdomen is obese but nontender and nondistended; bowel sounds are positive 4 Lower extremities with nothing to suggest acute deep venous thrombophlebitis; absolutely no edema Psychiatric oriented 3 Neurologic long-term motor function is intact Plan: Follow-up culture results when available. Continue present treatment. We will recommend discharge back to the [facility] on doxycycline 100 mg twice daily for 2 weeks when medically stable unless new culture results dictate a change. See orders. Results - Labs CBC & BMP: 04/04/17 06:32 04/07/17 05:56 Specialty Discharge - Follow Up or Referrals
[2017-04-11] MEDS: LEVOFLOXACIN 500 MG TABLET PO SCH (12:14)
--- NOTE | 2017-04-11 12:57 | Hospitalist Progress Note ---
Assessment and Plan (1) COPD (chronic obstructive pulmonary disease) Status: Chronic Assessment and plan: This is improving.Continue bronchodilators, steroids and antibiotics.Initial Sputum grew E.Coli MRSA, a repeat SC grew gram negative rods. Plan add levaquin, follow sensitivity.Hopefully will dc latest Saturday Follow Dr Hankins's recommendations Current Visit: No Qualifiers: COPD type: COPD with acute exacerbation Qualified Code(s): J44.1 - Chronic obstructive pulmonary disease with (acute) exacerbation (2) Pneumonia Status: Acute Assessment and plan: Improving. Pulm is following. Plan Continue with antibiotics and current management. Current Visit: No (3) Dysphagia Status: Chronic Assessment and plan: severe presbyesophagus reported on barium swallow. S/p EGD Plan EGD showed combination of esophageal stricture and esophageal motility disorder. He underwent dilatation. GI's recommendations-. Can repeat dilatation as needed. Other option would be to consider PEG tube in the event aspiration is suspected to be complicating his pulmonary toilet. Gastroesophageal reflux disease continue current treatment. He is doing well post dilatation. Current Visit: No (4) Anemia Status: Acute Assessment and plan: due to chronic illness. H/H is stable. Current Visit: Yes (5) MRSA nasal colonization Status: Acute Assessment and plan: Completed Bactroban therapy. Current Visit: Yes (6) History of atrial fibrillation Status: Chronic Assessment and plan: rate is controlled Current Visit: No (7) HTN (hypertension) Status: Acute Assessment and plan: stable Current Visit: Yes Hospitalist: Subjective Interval history: Patient seen.His repeat sputum cultures grew gram negative rods.He was sitting up on his chair and has no new complaints. Exam - Constitutional Vitals: Period Temp Pulse Resp BP Sys/Briceno Pulse Ox Last 24 Hr 96.6 F-97.6 F 50-79 18-24 105-149/48-85 93-99 General appearance: no acute distress - Respiratory Respiratory exam: Present: rales - Cardiovascular Cardiovascular exam: Present: regular rate and rhythm - GI/Abdominal GI/Abdominal exam: Present: normal bowel sounds - Neurological Exam Neurological exam: Present: alert, oriented X3 Results - Labs CBC & BMP: 04/04/17 06:32 04/07/17 05:56 Lab Results: I have reviewed the past 24 hour labs Specialty Discharge - Follow Up or Referrals
[2017-04-11] MEDS: ENOXAPARIN 40 MG/0.4 ML SYRINGE SUBCUT SCH (15:21)
[2017-04-11] MEDS: MONTELUKAST 10 MG TABLET PO SCH (20:54)
[2017-04-11] MEDS: HydrOXYzine PAMOATE 25 MG CAPSULE PO SCH (20:54)
[2017-04-11] MEDS: SIMVASTATIN 10 MG TABLET PO SCH (20:55)
[2017-04-12] MEDS: ALBUTEROL/IPRATROPIUM 3 ML NEB RESP TX SCH ×2 (01:43→07:18)
[2017-04-12] MEDS: CALCIUM CARBONATE CHEW 500 MG TABLET PO SCH (06:42)
[2017-04-12] MEDS: DORNASE ALFA 2.5 MG/2.5 ML VIAL RESP TX SCH (07:18)
--- NOTE | 2017-04-12 07:47 | XRay Report ---
History is COPD Comparison 04/05/2017 Chest, 2 views Cardiac silhouette is moderately enlarged. There is a diffuse prominence the thoracic aorta again demonstrated The lungs are chronically hyperexpanded without acute infiltrates seen Numerous thoracic vertebroplasty is again seen. A calcified granulomas present Impression: 1. Cardiomegaly 2. Chronic pulmonary hyperexpansion 3. Suspected thoracic aortic aneurysm measuring as seen on prior studies PROCEDURE INTERPRETED AT [facility] DEPARTMENT OF RADIOLOGY Final Report Signed by: Dr. Anna Morrison
[2017-04-12 07:50] LABS: Basophils % 0.1 % (0.0-0.8); Eosinophils % 0.4 % (0.00-10.9); Hemoglobin 11.2 GM/DL (14.0-18.0); Immature Granulocytes % 0.9 %; Immature Granulocytes Absolute 0.09 #; Lymphocytes # 2.8 10*3/uL (1.4-4.0); Lymphocytes % 28.4 % (21.2-54.2); Mean Corpuscular Hemoglobin 25 PG (27-34); Mean Corpuscular Volume 77.8 FL (87-102); Mean Platelet Volume 8.7 FL (9.6-12.0); Monocytes # 0.6 10*3/uL (0.11-0.8); Monocytes % 6.1 % (1.7-12.7); Neutrophils # 6.4 10*3/uL (1.4-7.4); Neutrophils % 64.1 % (38.7-73.9); Platelet Count 205 T/CUMM (130-400); Red Cell Distribution Width 14.6 % (9.3-17.3); White Blood Count 9.9 T/CUMM (4-12)
[2017-04-12 08:07] LABS: Calcium 8.7 MG/DL (8.5-10.1); Osmolality,Calculated 269.1 MOS/KG (273-304); Potassium 4.3 MMOL/L (3.5-5.1)
[2017-04-12] MEDS: FLUTICASONE/SALMETEROL 100-50 DISKUS 14 DOSE INH SCH (08:36)
[2017-04-12] MEDS: predniSONE 20 MG TABLET PO SCH (08:36)
[2017-04-12] MEDS: DOCUSATE SODIUM 100 MG CAPSULE PO SCH (08:36)
[2017-04-12] MEDS: TAMSULOSIN 0.4 MG CAPSULE PO SCH (08:37)
[2017-04-12] MEDS: GABAPENTIN 100 MG CAPSULE PO SCH (08:37)
[2017-04-12] MEDS: PANTOPRAZOLE 40 MG TABLET PO SCH (08:37)
[2017-04-12] MEDS: MECLIZINE 25 MG TABLET PO SCH (08:37)
[2017-04-12] MEDS: amLODIPine 5 MG TABLET PO SCH (08:37)
[2017-04-12] MEDS: LINEZOLID 600 MG TABLET PO SCH (08:38)
[2017-04-12] MEDS: METOPROLOL TARTRATE 25 MG TABLET PO SCH (08:38)
[2017-04-12] MEDS: ACYCLOVIR 5% OINT 5 GM TUBE TOP SCH ×2 (08:38→11:50)
[2017-04-12] MEDS: CLOTRIMAZOLE/BETAMETHASONE CREAM 15 GM TUBE TOP SCH (08:44)
[2017-04-12] MEDS: MAGNESIUM OXIDE 400 MG TABLET PO SCH (08:48)
[2017-04-12] MEDS: oxyCODONE/ACETAMINOPHEN 5-325 MG TABLET PO PRN (09:10)
--- NOTE | 2017-04-12 09:38 | Discharge Summary ---
<Reed Serrano - Last Filed: 04/12/17 09:21> Hospital Course - Hospital Course Hospital Course: Mr. Duckworth is a 86-year-old white male patient with a history of COPD, GERD, disordered swallowing with espoghael stricture, hypertension, CAD, A. fib, dyslipidemia, and rheumatoid arthritis presented to the ED on 03/31 as a transfer from the detention for further evaluation of shortness of breath. At the time patient reported that he admits short of breath for several days. Patient also reported a productive cough and records revealed low O2 sats. Chest x-ray in ED revealed left lower lobe pneumonia. Patient was admitted to the hospitalist service for further evaluation and treatment. Pt. was placed in ICU for closer monitoring. During patient's stay pulmonology and gastroenterology services were consulted to evaluate the patient. Patient received scheduled and as needed breathing treatments in addition to IV Levaquin , IV steroids, and supplemental O2 for treatment. Pt. was placed on contact precautions for MRSA in nares. Pt's condition improved and he was able to be transferred to a medical floor on 04/02. Pt. did complain of tongue and throat pain. Pt. was initially treated with Diflucan and nystatin swish and swallow. Pt. began to complain of dysphagia. GI performed a EGD and dilation on 04/03. Pt. tolerated well. Recommendations were to repeat dilation as needed, continue plan of care for GERD. Pt. reported improvement in swallowing. Sputum cultures obtained did reveal 2 types of gram negative rods. Adjustment was made to antibiotics as a result. Pt's condition is stable today. Vital signs and labs are unremarkable. He is ready to be discharged back to detention. Pt. will be on Doxycycline 100 mg BID for 2 weeks. Further discharge instructions are to be provided per Dr. Bailon. Specialty Discharge - Follow Up or Referrals Discharge Plan - Discharge Data Disposition: Disch/Xfer to Snf - Discharge Medications New RX: Acyclovir 5% Oint [Zovirax 5% Cream] 1 applic TOP TID applic Ciprofloxacin Tab [Cipro Tab] 500 mg PO BID #20 tablet RX: Doxycycline Hyclate Cap [Vibramycin Cap] 50 mg PO BID #20 capsule RX: Pramoxine 1% Rectal Foam [Proctofoam 1% Foam] 1 applic TOP Q8HR PRN applic PRN Reason: Hemorrhoids RX: predniSONE TAB [PredniSONE] 40 mg PO DAILY tablet RX: Clotrimazole/Betameth Cream [Lotrisone Cream] 1 applic TOP TID applic Continue RX: Cyanocobalamin (Vitamin B-12) [Cyanocobalamin Injection] 1,000 mcg IM Q30D RX: Docusate Sodium Cap [Colace Cap] 100 mg PO BID RX: Calcium Carbonate Chew [Tums] 1 tablet PO Q8H RX: Simvastatin 5 mg PO BEDTIME RX: Montelukast Tab [Singulair Tab] 10 mg PO BEDTIME RX: Meclizine [Antivert] 25 mg PO TID RX: Magnesium Oxide 400 mg PO BID RX: Metoprolol Tartrate 25 mg PO BID RX: Dexlansoprazole [Dexilant] 60 mg PO DAILY RX: Tamsulosin [Flomax] 0.4 mg PO DAILY RX: Acetaminophen Tab [Tylenol Tab] 650 mg PO Q6H PRN PRN Reason: Pain RX: Polyethylene Glycol Powder [Miralax] 17 gm PO DAILY PRN PRN Reason: Constipation RX: Pramoxine 1% Rectal Foam [Proctofoam 1% Foam] 1 applic TOP Q8HR PRN PRN Reason: Hemorrhoids RX: HydrOXYzine PAMOATE CAP [Vistaril Cap] 25 mg PO DAILY RX: Phenyleph/Mineral Oil/Petrolat [Preparation H Ointment] 1 applic TOP Q4HR PRN PRN Reason: Hemorrhoids RX: hydrOXYzine HCl [Hydroxyzine HCl] 25 mg PO Q6H PRN PRN Reason: Anxiety RX: Oxycodone HCl/Acetaminophen [Oxycodon-Acetaminophen 7.5-325] 1 each PO Q8H PRN #3 PRN Reason: Pain RX: Albuterol/Ipratropium Neb [Duoneb] 3 ml RESP TX RT Q4H RX: Polyvinyl Alcohol 1.4% Oph Marylou [Artificial Tears Oph Soln] 1 drop BOTH EYES QID PRN PRN Reason: Dry Eyes RX: amLODIPine [Norvasc] 5 mg PO BID RX: Gabapentin Cap/Tab [Neurontin Cap/Tab] 100 mg PO TID RX: Dornase Teodoro [Pulmozyme] 2.5 mg RESP TX RT Q12H vial RX: guaiFENesin ER TAB [Mucinex] 600 mg PO BID tablet RX: Fluticasone/Salmeterol 100-50 [Advair 100-50] 1 puff INH BID - Follow Up or Referral - Forms/Instructions Instructions: Viral Pneumonia (GEN), COPD Exacerbation, Senior Interactive Producer (GEN) Exam - Constitutional Vitals: Period Temp Pulse Resp BP Sys/Briceno Pulse Ox Last 24 Hr 96.3 F-97.8 F 58-96 18-25 122-144/62-73 94-99 Discharge Results Labs on day of discharge: Labs from last 24 hours 04/12/17 04/12/17 07:42 07:42 WBC 9.9 RBC 4.50 Hgb 11.2 L Hct 35.0 L MCV 77.8 L MCH 25 L MCHC 32.0 RDW 14.6 Plt Count 205 MPV 8.7 L Neut % (Auto) 64.1 Lymph % (Auto) 28.4 Rolette % (Auto) 6.1 Eos % (Auto) 0.4 Baso % (Auto) 0.1 Neut # (Auto) 6.4 Lymph # (Auto) 2.8 Rolette # (Auto) 0.6 Eos # (Auto) 0.0 Baso # (Auto) 0.0 Immature Gran % 0.9 Nucleated RBC % 0.0 Immature Gran # 0.09 Nucleated RBCs # 0.00 Immature Plt Fraction 0.0 Sodium 135 L Potassium 4.3 Chloride 98 Carbon Dioxide 32 Anion Gap 9.3 BUN 15 Creatinine 0.70 GFR Calculation 93 BUN/Creatinine Ratio 21.00 H Glucose 84 Calculated Osmolality 269.1 L Calcium 8.7 DS: Provider Date of admission: 03/31/17 21:50 Primary care physician: Jayy Wiley MD Attending physician on admission: Taye Mayberry MD Consults: 03/31/17 21:50 Consult to Pulmonary Rehabilitation [CONS] Routine Reason for Pulmonary Rehabilitation: COPD 03/31/17 23:21 Consult to Dietitian [CONS] Routine Reason for Dietitian: Dietary Consult 03/31/17 23:23 Consult to Pastoral Services [CONS] Routine Comment: Pastoral Screen: Request Management Manager Visit Pastoral Screen Source of Request: Patient 04/01/17 07:02 Consult to Physician [CONS] Routine Comment: Consulting Provider: Santos Schaefer Consult to Specialist Group: Pulmonology When should Consulting Provider be notified: Now Consult Notification Comment: Dr Schaefer is following 04/02/17 15:52 Consult to Physical Therapy [CONS] Routine Reason for Physical Therapy: Gait Training Other Start Therapy: Tomorrow Consult Comment: Assess gait instability, would like walker for room 04/03/17 09:24 Consult to Physician [CONS] Routine Comment: known to you; dysphagia; abn barium swallow Consulting Provider: Oscar Perez Person Notified: Diane Yin Date Notified: 04/03/17 Time Notified: 10:11 Discharging clinician: Reed Serrano NP <Lamonte Bailon Jr. - Last Filed: 04/12/17 11:24> Diagnosis - Discharge Diagnosis (1) COPD (chronic obstructive pulmonary disease) Status: Chronic (2) Pneumonia Status: Acute (3) Atrial fibrillation Status: Chronic (4) HTN (hypertension) Status: Chronic Discharge Plan - Discharge Data Condition at Discharge: Stable Discharge Diet: advance to your usual diet Activity: resume usual activities as tolerated Hygiene: no restrictions Exam - Constitutional General appearance: normal weight - Head Head exam: Present: normal inspection - ENT ENT exam: Present: normal exam - Respiratory Respiratory exam: Present: clear to auscultation bilaterally - Cardiovascular Cardiovascular exam: Present: regular rate and rhythm - GI/Abdominal GI/Abdominal exam: Present: normal bowel sounds - Extremities Exam Extremities exam: Present: full ROM - Back Exam Back exam: Present: normal inspection - Neurological Exam Neurological exam: Present: alert, oriented X3 - Psychiatric Psychiatric exam: Present: normal affect - Skin Skin exam: Present: normal color
--- NOTE | 2017-04-12 11:17 | Pulmonology Progress Note ---
Pulmonary - PN: Subj Interval history: Jayjay Milan, [facility]-, acting as scribe for Dr. Santos Schaefer This 86-year-old white male group home patient who is well known to us. He has been a [facility] patient of Dr. Schaefer. He was admitted with acute left lower lung pneumonia. He also may have had a small element of congestive heart failure. We saw this patient in pulmonary consultation on 04/01/2017. At that time, our impressions were: 1. Acute left lower lung pneumonia. Probably bacterial. Note high white blood cell count. In the past, aspiration pneumonia has been a problem. 2. Obstructive lung disease with bronchospastic disease. Often steroid dependent. 3. 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 4. Gastroesophageal reflux disease with recurrent history of nocturnal aspiration of gastric contents 5. Past history of atrial fib. Now in regular sinus rhythm. 6. Osteoporosis with multiple compression fracture that have required, 7. Hyperlipidemia 8. See past history 04/02/2017. Patient's chest x-ray shows good improvement. Left lower lung infiltrate is nearly resolved. Patient still mobilizing sputum. He has MRSA from his nares. He is being started on Bactroban ointment. There are no other positive cultures. ABGs on FiO2 28% show a pH of 7.456, PCO2 38.7, PO2 of 71.2 and a bicarb of 27.2. Creatinine is 0.9 with a BUN of 23 and normal electrolytes. White count is dropped to 13,400 with 91 segs. H&H is 10.4/32.1 with decreased red blood cell indices. On 04/01/2017 BNP was mildly elevated 232. This will be repeated. This patient is making good progress from my standpoint and hopefully he can be moved from intensive care to pulmonary floor such as [facility]. 04/03/2017. The patient was seen today along with Bhavin Ratliff RN. He is now been moved to the medical floor from intensive care. This morning he complains of dizziness. He is lying flat in bed and breathing comfortably. He does, however, complained of tongue and throat pain. This will be treated with Diflucan and nystatin swish and swallow. He complains of dysphasia. As noted above, he has a history of disordered swallowing with a history of esophageal stricture and esophageal motility dysfunction. This is been followed on a long- term basis by Dr. Perez. Barium swallow obtained yesterday as ordered by Dr. Fernandes showed severe presbyesophagus with severe dysmotility of the primary peristaltic wave. Stasis of material in the esophagus was seen. There were multiple tertiary contractions consistent with esophageal spasm. There is no stricture or mass identified and no aspiration. Because of his complaints, we will consult Dr. Perez for evaluation and possible treatment as he deems necessary. Mr. Duckworth reports that he coughed up a scant amount of bright red sputum again this morning. His most likely related to his recent pneumonia, but we will obtain sputum for cytology daily 3. His chest x-ray today shows his previously noted left lower longer lingular pneumonia has resolved. Medications have been reviewed. We started Diflucan for 7 days and nystatin swish and swallow for 5 days. Labs been reviewed. White count is 13,000 with 92.6% segs; H&H 10.4/32.3; platelet count 187,000; creatinine 0.80, BUN 18, electrolytes are normal Sputum Gram stain showed few gram-positive cocci in pairs, rare gram-positive rods, rare gram-negative rods, rare fungal elements; sputum culture is pending. ABGs this morning on FiO2 of 28% showed a pH of 7.46, PCO2 42.3, PO2 95.5, bicarb 27.2, and oxygen saturation 97.7%. 04/04/2017. Patient's 4E scope later today. His chest is clear and he is moving air well. He is able to lie flat in bed and breathing comfortably. His sputum is growing a gram-negative norman. This is not been identified. There are no sensitivities. White count is 10,000 with 86 segs. H&H is 11.9/37.5 with platelets of 240,000. Electrolytes are normal. Creatinine is 0.9 with a BUN of 20. Patient seems to have improved significantly. 04/05/2017. The patient was seen today along with Michelle Jeffers RN. Patient underwent EGD yesterday by Dr. Perez. This showed a distal esophageal stricture which was dilated. The patient also has an esophageal motility disorder. Dr. Perez noted that the patient can have repeat dilatation as needed. Another option to consider would be a PEG tube. Mr. Duckworth noted that he continues to have some mild difficulty with swallowing, but states "I have no trouble with chocolate ice cream". On chest exam, he is doing remarkably well from a pulmonary standpoint. He has no wheeze. He is hyperinflated with prolonged expiration, but this is his baseline. Sputum culture is growing an unidentified gram-positive cocci and E. coli. He is presently on Fortaz and Levaquin. These can be adjusted once the final IDs have been reported if need be. Labs been reviewed. Creatinine 0.70, BUN 22, sodium 135, potassium 4.3, magnesium 2.6 04/08/17. The patient was seen today along with Marcie Morris RN. The patient complains of upper gum pain this morning. He has no upper teeth and his lower teeth are rubbing this area. He is also upset about the ordered Lovenox. In the past he has had extensive bruising related to Lovenox use and would like this discontinued. We have stopped it per his wishes. His sputum has grown E. coli and MRSA. He is on appropriate antibiotics. A more recent sputum is again growing a gram positive cocci. Final ID is pending. Medications have been reviewed. Labs have been reviewed. 04/09/2017. The patient was seen today along with his patient career advisorMelvin. Patient is doing reasonably well today. He states that his swallowing is improving daily. 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 E. coli did not grow on the most recent sputum culture. A repeat sputum culture has already been ordered on by Dr. West. Today we have discussed the case with Dr. West and have coordinated our care. Mr. Duckworth is on Keflex and Zosyn. The patient previously had an IV, but lost access and refused to have it be restarted. Medications have been reviewed. We made no changes today. Labs have been reviewed. No new labs were drawn today. 04/10/2017. The case was discussed with Dr. West today and we have coordinated our care. Mr. Duckworth continues to do well. Repeat sputum culture has been ordered for tomorrow. On review of his most recent sensitivity for MRSA in the sputum, we see no reason to continue the Keflex. We will discontinue this. Once a negative culture has been obtained, we would recommend sending him back to the group home on doxycycline 100 mg twice daily for another 2 weeks despite a negative culture. Tetracycline has an BAILEY of less than 4. Patient continues to swallow well post EGD with dilatation. He has no concerns or complaints today. Medications have been reviewed. We made no changes today other than discontinuation of his Keflex. Labs have been reviewed. No new labs were drawn today. 04/11/17. The patient was seen today along with Edie Yang RN. He states he is breathing well today. His most recent sputum cultures are growing two types of gram negative rods. We will repeat a CXR tomorrow. Medications have been reviewed. We made no changes today. Labs have been reviewed. 04/12/2017. Patient was seen today along with Bhavin Ratliff RN. The patient's repeat sputum has grown Klebsiella pneumoniae and Enterobacter cloaca. Both of these organisms are exquisitely sensitive to Cipro with an BAILEY of less than 1. All things considered, we would suggest sending him back to the group home on a 10 day course of Cipro and doxycycline which will cover the Klebsiella, Enterobacter and MRSA. This was discussed with Dr. Bailon and we have coordinated our care. From a pulmonary standpoint Mr. Duckworth is doing well. He has no increased shortness of breath or dyspnea on exertion. His cough is not productive. There is been no fever or chills. There is been no hemoptysis. He is eating well since his EGD with dilatation. Medications have been reviewed. Recommendations as above. Labs been reviewed. White count is 9900 with a normal differential; H&H 11.2/ 35.0; platelet count 205,000; creatinine 0.70, BUN 15, sodium 135, potassium 4.3 Exam (Progress Note) - Constitutional Vitals: Period Temp Pulse Resp BP Sys/Briceno Pulse Ox Last 24 Hr 96.3 F-97.8 F 58-96 18-25 122-144/62-73 94-99 Exam: Chest is symmetrical and kyphotic with prolonged and slightly incomplete expiration; wheeze free Heart no gallop Abdomen is obese but nontender and nondistended; bowel sounds are positive 4 Lower extremities with nothing to suggest acute deep venous thrombophlebitis; absolutely no edema Psychiatric oriented 3 Neurologic long-term motor function is intact Plan: Would recommend 10 day course of doxycycline and Cipro as above. As discussed with Dr. Bailon, from our standpoint he was safe to discharge back to the group home. We will sign off. Please reconsult as needed. Results - Labs CBC & BMP: 04/12/17 07:42 04/12/17 07:42 Specialty Discharge - Follow Up or Referrals
[2017-04-12] MEDS: LEVOFLOXACIN 500 MG TABLET PO SCH (11:55)
[2017-04-12 12:09] VITALS: BP 132/82
== END 2017-04-12 12:30 | DRG 178 ==
LOC: EDBD → EDUNIT# → N.ED 19:22 → N.EDINP 21:50 → SUATTDRO 21:50 → N.2E 22:26 → N.ICU 22:51 → N.5E 04-02 22:19
PROVIDERS: ADMIT Internal Medicine; ATTEND Internal Medicine Nephrology

== ENCOUNTER 2017-06-18 15:26 | Inpatient (IN) ==
[2017-06-18] MEDS ORDERED: SODIUM CHLORIDE 0.9% 1,000 ML IV STA (16:28)
[2017-06-18] MEDS ORDERED: ALBUTEROL/IPRATROPIUM 3 ML NEB RESP TX STA (16:29)
[2017-06-18] MEDS ORDERED: ACETAMINOPHEN 500 MG TABLET PO STA (16:37)
[2017-06-18 16:51] LABS: Alanine Aminotransferase 41 U/L (16-61); Albumin 3.6 G/DL (3.4-5.0); Alkaline Phosphatase 70 U/L (45-117); Aspartate Amino Transferase 17 U/L (0-37); Blood Urea Nitrogen 10 MG/DL (7-18); Glucose 119 MG/DL (74-106); Osmolality,Calculated 261.7 MOS/KG (273-304); Potassium 4.4 MMOL/L (3.5-5.1); Sodium 131 MMOL/L (136-145); Total Protein 7.1 G/DL (6.4-8.3); Troponin I Only < 0.015 NG/ML (0.00-0.045)
[2017-06-18] MEDS ORDERED: ACETAMINOPHEN 500 MG TABLET ONE (16:55)
[2017-06-18 17:44] LABS: Basophils % 0.5 % (0.0-0.8); Eosinophils % 0.1 % (0.00-10.9); Hematocrit 40.3 VOL% (42.0-52.0); Hemoglobin 12.7 GM/DL (14.0-18.0); Immature Granulocytes % 0.5 %; Immature Granulocytes Absolute 0.04 #; Lymphocytes # 0.3 10*3/uL (1.4-4.0); Lymphocytes % 3.5 % (21.2-54.2); Mean Corpuscular HGB Conc 31.5 GM/DL (32-36); Mean Corpuscular Hemoglobin 24 PG (27-34); Monocytes # 0.6 10*3/uL (0.11-0.8); Monocytes % 6.6 % (1.7-12.7); Neutrophils # 7.4 10*3/uL (1.4-7.4); Neutrophils % 88.8 % (38.7-73.9); Platelet Count 230 T/CUMM (130-400); Red Cell Distribution Width 17.6 % (9.3-17.3); White Blood Count 8.4 T/CUMM (4-12)
[2017-06-18 17:52] LABS: Apearance,Urine CLEAR (Clear); Bacteria,Urine Occasional /HPF (Few); Bilirubin,Urine Negative (Negative); Blood, Urine Negative (Negative); Glucose,Urine (UA) Negative (Negative); Ketones,Urine 5 mg/dL (Negative); Mucus,Urine Occasional /LPF (Occasional); Nitrite,Urine Negative (Negative); Protein,Urine Negative; RBC,Urine 2 /HPF (0-4); Urine Color Yellow (Yellow); Urine Specific Gravity 1.009 (1.001-1.035); Urine Urobilinogen < 2.0 EU/DL (0.2-1.0); WBC,Urine 14 /HPF (0-6)
[2017-06-18] MEDS ORDERED: methylPREDNISolone SOD SUC 125 MG/2 ML VIAL IV STA (18:02)
[2017-06-18] MEDS ORDERED: LEVOFLOXACIN INJ 500 MG in PREMIX 1 EACH IV SCH (18:30)
[2017-06-18] MEDS ORDERED: POLYVINYL ALCOHOL 1.4% OPH SOLN 15 ML BOTTLE BOTH EYES PRN (18:39)
[2017-06-18] MEDS ORDERED: GLUCAGON 1 MG VIAL IM PRN (18:43)
[2017-06-18] MEDS ORDERED: DEXTROSE 50% 25 GM/50 ML VIAL IV PRN (18:43)
[2017-06-18] MEDS ORDERED: methylPREDNISolone SOD SUC 125 MG/2 ML VIAL ONE (18:44)
[2017-06-18] MEDS ORDERED: CYANOCOBALAMIN 1000 MCG/1 ML VIAL IM SCH (19:00)
[2017-06-18] MEDS: ALBUTEROL/IPRATROPIUM 3 ML NEB RESP TX SCH ×2 (19:58→23:34)
[2017-06-18] MEDS: DORNASE ALFA 2.5 MG/2.5 ML VIAL RESP TX SCH (20:04)
[2017-06-18] MEDS: INSULIN REGULAR 100 UNIT/ML SUBCUT SCH (20:18)
[2017-06-18] MEDS: SODIUM CHLORIDE 0.9% 1,000 ML IV SCH (21:38)
[2017-06-18] MEDS: methylPREDNISolone SOD SUC 40 MG/1 ML VIAL IV SCH (21:38)
[2017-06-18] MEDS: MONTELUKAST 10 MG TABLET PO SCH (21:46)
[2017-06-18] MEDS: DOCUSATE SODIUM 100 MG CAPSULE PO SCH (21:48)
[2017-06-18] MEDS: CALCIUM CARBONATE CHEW 500 MG TABLET PO SCH (21:48)
[2017-06-18] MEDS: MECLIZINE 25 MG TABLET PO SCH (21:48)
[2017-06-18] MEDS: SIMVASTATIN 10 MG TABLET PO SCH (21:48)
[2017-06-18] MEDS: GABAPENTIN 100 MG CAPSULE PO SCH (21:48)
[2017-06-18] MEDS: MAGNESIUM OXIDE 400 MG TABLET PO SCH (21:49)
[2017-06-18] MEDS: amLODIPine 5 MG TABLET PO SCH (21:49)
[2017-06-18] MEDS: METOPROLOL TARTRATE 25 MG TABLET PO SCH (21:49)
[2017-06-18] MEDS: FLUTICASONE/SALMETEROL 100-50 DISKUS 14 DOSE INH SCH (21:49)
[2017-06-19] MEDS: methylPREDNISolone SOD SUC 40 MG/1 ML VIAL IV SCH ×3 (02:59→15:04)
[2017-06-19] MEDS: ALBUTEROL/IPRATROPIUM 3 ML NEB RESP TX SCH ×5 (03:12→20:08)
[2017-06-19] MEDS: CALCIUM CARBONATE CHEW 500 MG TABLET PO SCH ×3 (06:10→21:50)
[2017-06-19 06:12] LABS: Basophils % 0.1 % (0.0-0.8); Hematocrit 33.8 VOL% (42.0-52.0); Hemoglobin 10.5 GM/DL (14.0-18.0); Immature Granulocytes % 0.7 %; Immature Granulocytes Absolute 0.07 #; Lymphocytes # 0.5 10*3/uL (1.4-4.0); Lymphocytes % 5.2 % (21.2-54.2); Mean Corpuscular HGB Conc 31.1 GM/DL (32-36); Mean Corpuscular Hemoglobin 24 PG (27-34); Mean Corpuscular Volume 76.6 FL (87-102); Mean Platelet Volume 9.4 FL (9.6-12.0); Monocytes # 0.4 10*3/uL (0.11-0.8); Monocytes % 4.2 % (1.7-12.7); Neutrophils # 8.9 10*3/uL (1.4-7.4); Neutrophils % 89.8 % (38.7-73.9); Platelet Count 238 T/CUMM (130-400); Red Blood Count 4.41 MC/CUMM (3.8-5.5); Red Cell Distribution Width 17.4 % (9.3-17.3); White Blood Count 9.9 T/CUMM (4-12)
[2017-06-19] MEDS: SODIUM CHLORIDE 0.9% 1,000 ML IV SCH ×2 (06:12→15:04)
[2017-06-19 06:35] LABS: Potassium 4.1 MMOL/L (3.5-5.1)
[2017-06-19 06:37] LABS: Calcium 8.5 MG/DL (8.5-10.1)
[2017-06-19 06:38] LABS: Osmolality,Calculated 277.7 MOS/KG (273-304)
[2017-06-19] MEDS: DORNASE ALFA 2.5 MG/2.5 ML VIAL RESP TX SCH ×2 (06:55→20:03)
[2017-06-19] MEDS: INSULIN REGULAR 100 UNIT/ML SUBCUT SCH ×4 (08:00→21:46)
[2017-06-19] MEDS: MAGNESIUM OXIDE 400 MG TABLET PO SCH ×2 (09:17→21:48)
[2017-06-19] MEDS: GABAPENTIN 100 MG CAPSULE PO SCH ×3 (09:17→21:49)
[2017-06-19] MEDS: TAMSULOSIN 0.4 MG CAPSULE PO SCH (09:17)
[2017-06-19] MEDS: MECLIZINE 25 MG TABLET PO SCH ×3 (09:17→21:48)
[2017-06-19] MEDS: amLODIPine 5 MG TABLET PO SCH ×2 (09:17→21:49)
[2017-06-19] MEDS: DOCUSATE SODIUM 100 MG CAPSULE PO SCH ×2 (09:17→21:48)
[2017-06-19] MEDS: HydrOXYzine PAMOATE 25 MG CAPSULE PO SCH (09:17)
[2017-06-19] MEDS: METOPROLOL TARTRATE 25 MG TABLET PO SCH ×2 (09:17→21:48)
[2017-06-19] MEDS: PANTOPRAZOLE 40 MG TABLET PO SCH (09:17)
[2017-06-19] MEDS: FLUTICASONE/SALMETEROL 100-50 DISKUS 14 DOSE INH SCH ×2 (09:17→21:47)
[2017-06-19] MEDS: oxyCODONE/ACETAMINOPHEN 5-325 MG TABLET PO PRN ×2 (09:26→22:02)
[2017-06-19] MEDS: DESITIN 4OZ/NYSTATIN 15 GRAM MIXTURE PASTE TOP SCH ×2 (21:47→21:49)
[2017-06-19] MEDS: SIMVASTATIN 10 MG TABLET PO SCH (21:48)
[2017-06-19] MEDS: MONTELUKAST 10 MG TABLET PO SCH (21:48)
[2017-06-20] MEDS: ALBUTEROL/IPRATROPIUM 3 ML NEB RESP TX SCH ×6 (00:04→20:36)
[2017-06-20] MEDS: CALCIUM CARBONATE CHEW 500 MG TABLET PO SCH ×4 (06:23→21:02)
[2017-06-20] MEDS: DORNASE ALFA 2.5 MG/2.5 ML VIAL RESP TX SCH ×2 (07:11→20:36)
[2017-06-20] MEDS: FLUTICASONE/SALMETEROL 100-50 DISKUS 14 DOSE INH SCH ×2 (09:57→20:52)
[2017-06-20] MEDS: INSULIN REGULAR 100 UNIT/ML SUBCUT SCH ×4 (09:57→21:01)
[2017-06-20] MEDS: LEVOFLOXACIN 500 MG TABLET PO SCH (09:58)
[2017-06-20] MEDS: HydrOXYzine PAMOATE 25 MG CAPSULE PO SCH (09:58)
[2017-06-20] MEDS: MECLIZINE 25 MG TABLET PO SCH ×3 (09:58→20:51)
[2017-06-20] MEDS: GABAPENTIN 100 MG CAPSULE PO SCH ×3 (09:58→20:51)
[2017-06-20] MEDS: DOCUSATE SODIUM 100 MG CAPSULE PO SCH ×2 (09:58→20:51)
[2017-06-20] MEDS: PANTOPRAZOLE 40 MG TABLET PO SCH (09:58)
[2017-06-20] MEDS: amLODIPine 5 MG TABLET PO SCH ×2 (09:58→20:52)
[2017-06-20] MEDS: predniSONE 20 MG TABLET PO SCH (09:59)
[2017-06-20] MEDS: TAMSULOSIN 0.4 MG CAPSULE PO SCH (09:59)
[2017-06-20] MEDS: MAGNESIUM OXIDE 400 MG TABLET PO SCH ×2 (09:59→20:51)
[2017-06-20] MEDS: METOPROLOL TARTRATE 25 MG TABLET PO SCH ×2 (09:59→20:52)
[2017-06-20] MEDS: DESITIN 4OZ/NYSTATIN 15 GRAM MIXTURE PASTE TOP SCH ×2 (10:00→20:53)
[2017-06-20] MEDS: oxyCODONE/ACETAMINOPHEN 5-325 MG TABLET PO PRN ×2 (10:07→20:58)
[2017-06-20] MEDS: SIMVASTATIN 10 MG TABLET PO SCH (20:51)
[2017-06-20] MEDS: MONTELUKAST 10 MG TABLET PO SCH (20:51)
[2017-06-21] MEDS: ALBUTEROL/IPRATROPIUM 3 ML NEB RESP TX SCH ×7 (03:35→23:32)
[2017-06-21] MEDS: CALCIUM CARBONATE CHEW 500 MG TABLET PO SCH ×3 (05:05→22:30)
[2017-06-21] MEDS: DORNASE ALFA 2.5 MG/2.5 ML VIAL RESP TX SCH ×2 (08:03→19:26)
[2017-06-21] MEDS: TAMSULOSIN 0.4 MG CAPSULE PO SCH (09:25)
[2017-06-21] MEDS: amLODIPine 5 MG TABLET PO SCH ×2 (09:25→21:03)
[2017-06-21] MEDS: predniSONE 20 MG TABLET PO SCH (09:25)
[2017-06-21] MEDS: MECLIZINE 25 MG TABLET PO SCH ×3 (09:26→21:03)
[2017-06-21] MEDS: PANTOPRAZOLE 40 MG TABLET PO SCH (09:26)
[2017-06-21] MEDS: FLUTICASONE/SALMETEROL 100-50 DISKUS 14 DOSE INH SCH ×2 (09:26→21:03)
[2017-06-21] MEDS: MAGNESIUM OXIDE 400 MG TABLET PO SCH ×2 (09:26→21:03)
[2017-06-21] MEDS: DOCUSATE SODIUM 100 MG CAPSULE PO SCH ×2 (09:26→21:04)
[2017-06-21] MEDS: HydrOXYzine PAMOATE 25 MG CAPSULE PO SCH (09:26)
[2017-06-21] MEDS: METOPROLOL TARTRATE 25 MG TABLET PO SCH ×2 (09:26→21:03)
[2017-06-21] MEDS: LEVOFLOXACIN 500 MG TABLET PO SCH (09:26)
[2017-06-21] MEDS: GABAPENTIN 100 MG CAPSULE PO SCH ×3 (09:26→21:03)
[2017-06-21] MEDS: INSULIN REGULAR 100 UNIT/ML SUBCUT SCH (10:49)
[2017-06-21] MEDS: DESITIN 4OZ/NYSTATIN 15 GRAM MIXTURE PASTE TOP SCH ×2 (10:49→21:04)
[2017-06-21] MEDS: oxyCODONE/ACETAMINOPHEN 5-325 MG TABLET PO PRN (11:59)
[2017-06-21] MEDS: ACETAMINOPHEN 325 MG TABLET PO PRN (18:11)
[2017-06-21] MEDS: MONTELUKAST 10 MG TABLET PO SCH (21:03)
[2017-06-21] MEDS: SIMVASTATIN 10 MG TABLET PO SCH (21:03)
[2017-06-22] MEDS: ALBUTEROL/IPRATROPIUM 3 ML NEB RESP TX SCH ×5 (02:45→19:04)
[2017-06-22] MEDS: CALCIUM CARBONATE CHEW 500 MG TABLET PO SCH ×3 (06:13→21:03)
[2017-06-22] MEDS: DORNASE ALFA 2.5 MG/2.5 ML VIAL RESP TX SCH ×2 (07:54→19:18)
[2017-06-22] MEDS: HydrOXYzine PAMOATE 25 MG CAPSULE PO SCH (09:16)
[2017-06-22] MEDS: LEVOFLOXACIN 500 MG TABLET PO SCH (09:18)
[2017-06-22] MEDS: GABAPENTIN 100 MG CAPSULE PO SCH ×3 (09:18→20:54)
[2017-06-22] MEDS: amLODIPine 5 MG TABLET PO SCH ×2 (09:18→21:01)
[2017-06-22] MEDS: DOCUSATE SODIUM 100 MG CAPSULE PO SCH ×2 (09:18→20:54)
[2017-06-22] MEDS: MECLIZINE 25 MG TABLET PO SCH ×3 (09:18→20:54)
[2017-06-22] MEDS: PANTOPRAZOLE 40 MG TABLET PO SCH (09:19)
[2017-06-22] MEDS: oxyCODONE/ACETAMINOPHEN 5-325 MG TABLET PO PRN ×2 (09:19→21:01)
[2017-06-22] MEDS: METOPROLOL TARTRATE 25 MG TABLET PO SCH ×2 (09:19→20:54)
[2017-06-22] MEDS: predniSONE 20 MG TABLET PO SCH (09:20)
[2017-06-22] MEDS: MAGNESIUM OXIDE 400 MG TABLET PO SCH ×2 (09:20→20:54)
[2017-06-22] MEDS: DESITIN 4OZ/NYSTATIN 15 GRAM MIXTURE PASTE TOP SCH ×2 (09:21→20:53)
[2017-06-22] MEDS: TAMSULOSIN 0.4 MG CAPSULE PO SCH (09:21)
[2017-06-22] MEDS: FLUTICASONE/SALMETEROL 100-50 DISKUS 14 DOSE INH SCH ×2 (09:21→21:01)
[2017-06-22] MEDS: SIMVASTATIN 10 MG TABLET PO SCH (20:54)
[2017-06-22] MEDS: MONTELUKAST 10 MG TABLET PO SCH (20:54)
[2017-06-23] MEDS: ALBUTEROL/IPRATROPIUM 3 ML NEB RESP TX SCH ×7 (00:03→23:54)
[2017-06-23] MEDS: CALCIUM CARBONATE CHEW 500 MG TABLET PO SCH ×3 (05:48→21:30)
[2017-06-23] MEDS: ACETAMINOPHEN 325 MG TABLET PO PRN (05:49)
[2017-06-23] MEDS: DORNASE ALFA 2.5 MG/2.5 ML VIAL RESP TX SCH ×2 (07:40→20:25)
[2017-06-23] MEDS: MAGNESIUM OXIDE 400 MG TABLET PO SCH ×2 (08:00→21:30)
[2017-06-23] MEDS: METOPROLOL TARTRATE 25 MG TABLET PO SCH ×2 (08:00→21:30)
[2017-06-23] MEDS: amLODIPine 5 MG TABLET PO SCH ×2 (08:00→21:30)
[2017-06-23] MEDS: PANTOPRAZOLE 40 MG TABLET PO SCH (08:00)
[2017-06-23] MEDS: MECLIZINE 25 MG TABLET PO SCH ×3 (08:00→21:30)
[2017-06-23] MEDS: HydrOXYzine PAMOATE 25 MG CAPSULE PO SCH (08:00)
[2017-06-23] MEDS: predniSONE 20 MG TABLET PO SCH (08:00)
[2017-06-23] MEDS: DOCUSATE SODIUM 100 MG CAPSULE PO SCH ×2 (08:00→21:30)
[2017-06-23] MEDS: oxyCODONE/ACETAMINOPHEN 5-325 MG TABLET PO PRN ×2 (08:00→21:30)
[2017-06-23] MEDS: TAMSULOSIN 0.4 MG CAPSULE PO SCH (08:00)
[2017-06-23] MEDS: LEVOFLOXACIN 500 MG TABLET PO SCH (08:00)
[2017-06-23] MEDS: GABAPENTIN 100 MG CAPSULE PO SCH ×3 (08:00→21:30)
[2017-06-23] MEDS: FLUTICASONE/SALMETEROL 100-50 DISKUS 14 DOSE INH SCH ×2 (09:51→21:31)
[2017-06-23] MEDS: DESITIN 4OZ/NYSTATIN 15 GRAM MIXTURE PASTE TOP SCH ×2 (09:52→21:31)
[2017-06-23] MEDS: MONTELUKAST 10 MG TABLET PO SCH (21:30)
[2017-06-23] MEDS: SIMVASTATIN 10 MG TABLET PO SCH (21:30)
[2017-06-24] MEDS: ALBUTEROL/IPRATROPIUM 3 ML NEB RESP TX SCH ×3 (04:23→11:42)
[2017-06-24] MEDS: DORNASE ALFA 2.5 MG/2.5 ML VIAL RESP TX SCH (07:33)
[2017-06-24] MEDS: HydrOXYzine PAMOATE 25 MG CAPSULE PO SCH (09:07)
[2017-06-24] MEDS: METOPROLOL TARTRATE 25 MG TABLET PO SCH (09:07)
[2017-06-24] MEDS: GABAPENTIN 100 MG CAPSULE PO SCH ×2 (09:08→14:27)
[2017-06-24] MEDS: PANTOPRAZOLE 40 MG TABLET PO SCH (09:08)
[2017-06-24] MEDS: LEVOFLOXACIN 500 MG TABLET PO SCH (09:08)
[2017-06-24] MEDS: predniSONE 20 MG TABLET PO SCH (09:08)
[2017-06-24] MEDS: amLODIPine 5 MG TABLET PO SCH (09:08)
[2017-06-24] MEDS: TAMSULOSIN 0.4 MG CAPSULE PO SCH (09:08)
[2017-06-24] MEDS: MAGNESIUM OXIDE 400 MG TABLET PO SCH (09:08)
[2017-06-24] MEDS: oxyCODONE/ACETAMINOPHEN 5-325 MG TABLET PO PRN (09:09)
[2017-06-24] MEDS: FLUTICASONE/SALMETEROL 100-50 DISKUS 14 DOSE INH SCH (09:09)
[2017-06-24] MEDS: DOCUSATE SODIUM 100 MG CAPSULE PO SCH (09:09)
[2017-06-24] MEDS: MECLIZINE 25 MG TABLET PO SCH ×2 (09:09→14:27)
[2017-06-24] MEDS: DESITIN 4OZ/NYSTATIN 15 GRAM MIXTURE PASTE TOP SCH (09:48)
[2017-06-24] MEDS: CALCIUM CARBONATE CHEW 500 MG TABLET PO SCH ×2 (09:48→14:27)
[2017-06-24 13:07] VITALS: BP 138/73
== END 2017-06-24 15:01 | DRG 872 ==
LOC: EDUNIT# → EDBD → N.ED 15:26 → N.EDINP 18:10 → N.5E 19:05
PROVIDERS: ADMIT Hospitalist; ATTEND Hospitalist

== ENCOUNTER 2017-08-06 08:15 | Inpatient (IN) ==
[2017-08-06] MEDS ORDERED: ALBUTEROL/IPRATROPIUM 3 ML NEB RESP TX STA (08:48)
[2017-08-06] MEDS ORDERED: methylPREDNISolone SOD SUC 125 MG/2 ML VIAL IV STA (08:48)
[2017-08-06 09:24] LABS: Basophils # 0.1 10*3/uL (0.0-0.2); Basophils % 0.3 % (0.0-0.8); Eosinophils % 0.1 % (0.00-10.9); Hematocrit 39.4 VOL% (42.0-52.0); Hemoglobin 12.3 GM/DL (14.0-18.0); Immature Granulocytes % 0.8 %; Immature Granulocytes Absolute 0.13 #; Lymphocytes # 1.1 10*3/uL (1.4-4.0); Lymphocytes % 6.8 % (21.2-54.2); Mean Corpuscular HGB Conc 31.2 GM/DL (32-36); Mean Corpuscular Hemoglobin 24 PG (27-34); Mean Corpuscular Volume 78.2 FL (87-102); Mean Platelet Volume 8.7 FL (9.6-12.0); Monocytes # 0.7 10*3/uL (0.11-0.8); Monocytes % 4.4 % (1.7-12.7); Neutrophils # 14.5 10*3/uL (1.4-7.4); Neutrophils % 87.6 % (38.7-73.9); Platelet Count 261 T/CUMM (130-400); Red Blood Count 5.04 MC/CUMM (3.8-5.5); Red Cell Distribution Width 19.2 % (9.3-17.3); White Blood Count 16.5 T/CUMM (4-12)
[2017-08-06] MEDS ORDERED: methylPREDNISolone SOD SUC 125 MG/2 ML VIAL ONE (09:28)
[2017-08-06] MEDS ORDERED: LEVOFLOXACIN INJ 750 MG in PREMIX 1 EACH IV STA (09:44)
[2017-08-06 09:52] LABS: Albumin 2.9 G/DL (3.4-5.0); Bilirubin,Total 0.7 MG/DL (0.2-1.0); Calcium 8.8 MG/DL (8.5-10.1); Osmolality,Calculated 276.5 MOS/KG (273-304); Potassium 3.9 MMOL/L (3.5-5.1); Total Protein 5.9 G/DL (6.4-8.3)
[2017-08-06] MEDS ORDERED: ALBUTEROL 2.5 MG/3 ML NEB RESP TX STA (10:12)
[2017-08-06] MEDS ORDERED: ALBUTEROL 2.5 MG/3 ML NEB RESP TX ONE (10:24)
[2017-08-06] MEDS ORDERED: LEVOFLOXACIN INJ 150 ML IV ONE (10:54)
[2017-08-06] MEDS ORDERED: ALBUTEROL 2.5 MG/3 ML NEB RESP TX PRN (11:45)
[2017-08-06] MEDS ORDERED: ONDANSETRON 4 MG/2 ML VIAL IV PRN (11:46)
[2017-08-06] MEDS ORDERED: PRAMOXINE 1% RECTAL FOAM 15 GM CAN TOP PRN (11:50)
[2017-08-06] MEDS ORDERED: PHENYLEPH/MINERAL OIL/PETROLAT 57 GM TUBE TOP PRN (11:50)
[2017-08-06] MEDS ORDERED: hydrOXYzine HCL 25 MG TABLET PO PRN (11:50)
[2017-08-06] MEDS ORDERED: POLYETHYLENE GLYCOL POWDER 17 GM PACK PO PRN (11:50)
[2017-08-06] MEDS ORDERED: POLYVINYL ALCOHOL 1.4% OPH SOLN 15 ML BOTTLE BOTH EYES PRN (11:50)
[2017-08-06] MEDS: ALBUTEROL/IPRATROPIUM 3 ML NEB RESP TX SCH ×3 (13:24→19:00)
[2017-08-06] MEDS: CALCIUM CARBONATE CHEW 500 MG TABLET PO SCH (17:51)
[2017-08-06] MEDS: GABAPENTIN 100 MG CAPSULE PO SCH ×2 (17:52→21:14)
[2017-08-06] MEDS: oxyCODONE/ACETAMINOPHEN 5-325 MG TABLET PO PRN (17:52)
[2017-08-06] MEDS: MECLIZINE 25 MG TABLET PO SCH ×2 (17:52→21:14)
[2017-08-06] MEDS: DORNASE ALFA 2.5 MG/2.5 ML VIAL RESP TX SCH (19:00)
[2017-08-06] MEDS: FLUTICASONE/SALMETEROL 100-50 DISKUS 14 DOSE INH SCH (21:13)
[2017-08-06] MEDS: DOCUSATE SODIUM 100 MG CAPSULE PO SCH (21:13)
[2017-08-06] MEDS: MAGNESIUM OXIDE 400 MG TABLET PO SCH (21:14)
[2017-08-06] MEDS: METOPROLOL TARTRATE 25 MG TABLET PO SCH (21:14)
[2017-08-06] MEDS: MONTELUKAST 10 MG TABLET PO SCH (21:14)
[2017-08-06] MEDS: amLODIPine 5 MG TABLET PO SCH (21:14)
[2017-08-06] MEDS: SIMVASTATIN 10 MG TABLET PO SCH (21:14)
[2017-08-07] MEDS: ALBUTEROL/IPRATROPIUM 3 ML NEB RESP TX SCH ×4 (00:20→20:20)
[2017-08-07] MEDS: oxyCODONE/ACETAMINOPHEN 5-325 MG TABLET PO PRN ×2 (02:50→15:42)
[2017-08-07 06:30] LABS: Basophils % 0.2 % (0.0-0.8); Hematocrit 36.5 VOL% (42.0-52.0); Immature Granulocytes % 1.1 %; Immature Granulocytes Absolute 0.12 #; Lymphocytes # 0.8 10*3/uL (1.4-4.0); Lymphocytes % 7.5 % (21.2-54.2); Mean Corpuscular HGB Conc 30.1 GM/DL (32-36); Mean Corpuscular Hemoglobin 24 PG (27-34); Mean Corpuscular Volume 80.2 FL (87-102); Mean Platelet Volume 9.1 FL (9.6-12.0); Monocytes # 0.5 10*3/uL (0.11-0.8); Monocytes % 4.4 % (1.7-12.7); Neutrophils # 9.5 10*3/uL (1.4-7.4); Neutrophils % 86.8 % (38.7-73.9); Platelet Count 238 T/CUMM (130-400); Red Blood Count 4.55 MC/CUMM (3.8-5.5); Red Cell Distribution Width 18.8 % (9.3-17.3)
[2017-08-07 06:52] LABS: Calcium 8.9 MG/DL (8.5-10.1); Osmolality,Calculated 278.5 MOS/KG (273-304); Potassium 4.2 MMOL/L (3.5-5.1)
[2017-08-07] MEDS: DORNASE ALFA 2.5 MG/2.5 ML VIAL RESP TX SCH ×2 (07:30→20:20)
[2017-08-07] MEDS: CALCIUM CARBONATE CHEW 500 MG TABLET PO SCH ×3 (07:45→17:37)
[2017-08-07] MEDS ORDERED: MORPHINE 2 MG/1 ML SYRINGE IV ONE (09:00)
[2017-08-07] MEDS ORDERED: LEVOFLOXACIN INJ 750 MG in PREMIX 1 EACH IV SCH (09:00)
[2017-08-07] MEDS: METOPROLOL TARTRATE 25 MG TABLET PO SCH ×2 (10:30→21:17)
[2017-08-07] MEDS: MECLIZINE 25 MG TABLET PO SCH ×3 (10:30→21:18)
[2017-08-07] MEDS: predniSONE 20 MG TABLET PO SCH (10:30)
[2017-08-07] MEDS: PANTOPRAZOLE 40 MG TABLET PO SCH (10:30)
[2017-08-07] MEDS: DOCUSATE SODIUM 100 MG CAPSULE PO SCH ×2 (10:31→21:17)
[2017-08-07] MEDS: amLODIPine 5 MG TABLET PO SCH ×2 (10:31→21:17)
[2017-08-07] MEDS: HydrOXYzine PAMOATE 25 MG CAPSULE PO SCH (10:32)
[2017-08-07] MEDS: TAMSULOSIN 0.4 MG CAPSULE PO SCH (10:32)
[2017-08-07] MEDS: MAGNESIUM OXIDE 400 MG TABLET PO SCH ×2 (10:32→21:17)
[2017-08-07] MEDS: GABAPENTIN 100 MG CAPSULE PO SCH ×3 (10:32→21:21)
[2017-08-07] MEDS: FLUTICASONE/SALMETEROL 100-50 DISKUS 14 DOSE INH SCH ×2 (10:36→21:18)
[2017-08-07] MEDS ORDERED: TAZOBACTAM IV ONE (12:00)
[2017-08-07] MEDS ORDERED: PIPERACILLIN IV ONE (12:00)
[2017-08-07] MEDS: PIPERACILLIN/TAZOBACTAM 3,375 MG in SODIUM CHLORIDE 0.9% 100 ML IV SCH ×2 (13:20→20:55)
[2017-08-07] MEDS: cefTRIAXone 1,000 MG in SYRINGE 1 EACH IV SCH (17:34)
[2017-08-07] MEDS: AZITHROMYCIN INJ 500 MG in SODIUM CHLORIDE 0.9% 250 ML IV SCH (18:42)
[2017-08-07] MEDS: SIMVASTATIN 10 MG TABLET PO SCH (21:18)
[2017-08-07] MEDS: MONTELUKAST 10 MG TABLET PO SCH (21:18)
[2017-08-08] MEDS: oxyCODONE/ACETAMINOPHEN 5-325 MG TABLET PO PRN ×3 (00:06→23:01)
[2017-08-08] MEDS: ALBUTEROL/IPRATROPIUM 3 ML NEB RESP TX SCH ×4 (02:12→21:18)
[2017-08-08] MEDS: PIPERACILLIN/TAZOBACTAM 3,375 MG in SODIUM CHLORIDE 0.9% 100 ML IV SCH ×3 (04:52→21:55)
[2017-08-08 05:49] LABS: Basophils % 0.3 % (0.0-0.8); Eosinophils % 0.1 % (0.00-10.9); Hematocrit 35.3 VOL% (42.0-52.0); Immature Granulocytes % 1.3 %; Lymphocytes # 0.6 10*3/uL (1.4-4.0); Lymphocytes % 8.2 % (21.2-54.2); Mean Corpuscular HGB Conc 31.2 GM/DL (32-36); Mean Corpuscular Hemoglobin 24 PG (27-34); Mean Corpuscular Volume 78.3 FL (87-102); Mean Platelet Volume 9.1 FL (9.6-12.0); Monocytes # 0.5 10*3/uL (0.11-0.8); Monocytes % 6.4 % (1.7-12.7); Neutrophils # 6.5 10*3/uL (1.4-7.4); Neutrophils % 83.7 % (38.7-73.9); Platelet Count 213 T/CUMM (130-400); Red Blood Count 4.51 MC/CUMM (3.8-5.5); Red Cell Distribution Width 18.6 % (9.3-17.3); White Blood Count 7.8 T/CUMM (4-12)
[2017-08-08 06:24] LABS: Calcium 8.3 MG/DL (8.5-10.1); Magnesium 2.2 MG/DL (1.8-2.4); Osmolality,Calculated 274.7 MOS/KG (273-304); Potassium 4.2 MMOL/L (3.5-5.1)
[2017-08-08] MEDS: DORNASE ALFA 2.5 MG/2.5 ML VIAL RESP TX SCH ×2 (08:05→21:18)
[2017-08-08] MEDS: CALCIUM CARBONATE CHEW 500 MG TABLET PO SCH ×3 (08:52→16:15)
[2017-08-08] MEDS ORDERED: LEVOFLOXACIN INJ 500 MG in PREMIX 1 EACH IV SCH (09:00)
[2017-08-08] MEDS: cefTRIAXone 1,000 MG in SYRINGE 1 EACH IV SCH (09:25)
[2017-08-08] MEDS: TAMSULOSIN 0.4 MG CAPSULE PO SCH (09:34)
[2017-08-08] MEDS: METOPROLOL TARTRATE 25 MG TABLET PO SCH ×2 (09:34→23:06)
[2017-08-08] MEDS: HydrOXYzine PAMOATE 25 MG CAPSULE PO SCH (09:34)
[2017-08-08] MEDS: predniSONE 20 MG TABLET PO SCH (09:34)
[2017-08-08] MEDS: amLODIPine 5 MG TABLET PO SCH ×2 (09:34→23:07)
[2017-08-08] MEDS: MAGNESIUM OXIDE 400 MG TABLET PO SCH ×2 (09:34→23:07)
[2017-08-08] MEDS: DOCUSATE SODIUM 100 MG CAPSULE PO SCH ×2 (09:34→23:08)
[2017-08-08] MEDS: MECLIZINE 25 MG TABLET PO SCH ×3 (09:34→23:06)
[2017-08-08] MEDS: PANTOPRAZOLE 40 MG TABLET PO SCH (09:34)
[2017-08-08] MEDS: GABAPENTIN 100 MG CAPSULE PO SCH ×3 (09:34→23:07)
[2017-08-08] MEDS: AZITHROMYCIN INJ 500 MG in SODIUM CHLORIDE 0.9% 250 ML IV SCH (09:35)
[2017-08-08] MEDS: FLUTICASONE/SALMETEROL 100-50 DISKUS 14 DOSE INH SCH ×2 (12:15→23:21)
[2017-08-08] MEDS: SIMVASTATIN 10 MG TABLET PO SCH (23:07)
[2017-08-08] MEDS: MONTELUKAST 10 MG TABLET PO SCH (23:07)
[2017-08-09] MEDS: ALBUTEROL/IPRATROPIUM 3 ML NEB RESP TX SCH ×4 (02:04→20:38)
[2017-08-09 03:38] LABS: Basophils % 0.3 % (0.0-0.8); Eosinophils % 0.1 % (0.00-10.9); Hematocrit 35.3 VOL% (42.0-52.0); Hemoglobin 10.9 GM/DL (14.0-18.0); Immature Granulocytes % 1.9 %; Immature Granulocytes Absolute 0.14 #; Lymphocytes # 0.9 10*3/uL (1.4-4.0); Lymphocytes % 12.8 % (21.2-54.2); Mean Corpuscular HGB Conc 30.9 GM/DL (32-36); Mean Corpuscular Hemoglobin 24 PG (27-34); Mean Corpuscular Volume 78.6 FL (87-102); Mean Platelet Volume 8.8 FL (9.6-12.0); Monocytes # 0.6 10*3/uL (0.11-0.8); Monocytes % 8.8 % (1.7-12.7); Neutrophils # 5.5 10*3/uL (1.4-7.4); Neutrophils % 76.1 % (38.7-73.9); Platelet Count 207 T/CUMM (130-400); Red Blood Count 4.49 MC/CUMM (3.8-5.5); Red Cell Distribution Width 18.7 % (9.3-17.3); White Blood Count 7.3 T/CUMM (4-12)
[2017-08-09 04:13] LABS: Calcium 8.1 MG/DL (8.5-10.1); Magnesium 2.4 MG/DL (1.8-2.4); Osmolality,Calculated 273.7 MOS/KG (273-304); Potassium 4.4 MMOL/L (3.5-5.1)
[2017-08-09 04:46] LABS: Giant Platelets Few; Hypochromasia 1+; Lymphocytes 9 % (20-55); Ovalocytes Slight; Platelet Estimate Adequate; Segmented Neutrophils 80 % (50-85); Total Cells Counted 100
[2017-08-09] MEDS: PIPERACILLIN/TAZOBACTAM 3,375 MG in SODIUM CHLORIDE 0.9% 100 ML IV SCH ×3 (05:50→21:11)
[2017-08-09] MEDS: DORNASE ALFA 2.5 MG/2.5 ML VIAL RESP TX SCH ×2 (07:19→20:38)
[2017-08-09] MEDS: oxyCODONE/ACETAMINOPHEN 5-325 MG TABLET PO PRN ×2 (09:53→19:30)
[2017-08-09] MEDS: FLUTICASONE/SALMETEROL 100-50 DISKUS 14 DOSE INH SCH ×2 (09:54→21:18)
[2017-08-09] MEDS: CALCIUM CARBONATE CHEW 500 MG TABLET PO SCH ×3 (09:54→17:22)
[2017-08-09] MEDS: PANTOPRAZOLE 40 MG TABLET PO SCH (09:54)
[2017-08-09] MEDS: GABAPENTIN 100 MG CAPSULE PO SCH ×3 (09:54→21:11)
[2017-08-09] MEDS: HydrOXYzine PAMOATE 25 MG CAPSULE PO SCH (09:55)
[2017-08-09] MEDS: MAGNESIUM OXIDE 400 MG TABLET PO SCH ×2 (09:55→21:13)
[2017-08-09] MEDS: cefTRIAXone 1,000 MG in SYRINGE 1 EACH IV SCH (09:55)
[2017-08-09] MEDS: predniSONE 20 MG TABLET PO SCH (09:55)
[2017-08-09] MEDS: METOPROLOL TARTRATE 25 MG TABLET PO SCH ×2 (09:55→21:12)
[2017-08-09] MEDS: DOCUSATE SODIUM 100 MG CAPSULE PO SCH ×2 (09:55→21:12)
[2017-08-09] MEDS: amLODIPine 5 MG TABLET PO SCH ×2 (09:55→21:13)
[2017-08-09] MEDS: MECLIZINE 25 MG TABLET PO SCH ×3 (09:55→21:11)
[2017-08-09] MEDS: TAMSULOSIN 0.4 MG CAPSULE PO SCH (09:55)
[2017-08-09] MEDS: AZITHROMYCIN INJ 500 MG in SODIUM CHLORIDE 0.9% 250 ML IV SCH (10:50)
[2017-08-09] MEDS: ACETAMINOPHEN 325 MG TABLET PO PRN (15:56)
[2017-08-09] MEDS: SIMVASTATIN 10 MG TABLET PO SCH (21:11)
[2017-08-09] MEDS: MONTELUKAST 10 MG TABLET PO SCH (21:12)
[2017-08-10] MEDS: ALBUTEROL/IPRATROPIUM 3 ML NEB RESP TX SCH ×4 (02:40→19:57)
[2017-08-10 03:03] LABS: Basophils % 0.2 % (0.0-0.8); Eosinophils % 0.3 % (0.00-10.9); Hematocrit 35.9 VOL% (42.0-52.0); Hemoglobin 10.9 GM/DL (14.0-18.0); Immature Granulocytes % 0.9 %; Immature Granulocytes Absolute 0.11 #; Lymphocytes # 1.3 10*3/uL (1.4-4.0); Lymphocytes % 10.5 % (21.2-54.2); Mean Corpuscular HGB Conc 30.4 GM/DL (32-36); Mean Corpuscular Hemoglobin 24 PG (27-34); Mean Corpuscular Volume 79.2 FL (87-102); Mean Platelet Volume 9.1 FL (9.6-12.0); Monocytes # 0.9 10*3/uL (0.11-0.8); Monocytes % 7.2 % (1.7-12.7); Neutrophils # 10.1 10*3/uL (1.4-7.4); Neutrophils % 80.9 % (38.7-73.9); Platelet Count 220 T/CUMM (130-400); Red Blood Count 4.53 MC/CUMM (3.8-5.5); Red Cell Distribution Width 18.3 % (9.3-17.3); White Blood Count 12.4 T/CUMM (4-12)
[2017-08-10 03:17] LABS: Calcium 8.6 MG/DL (8.5-10.1); Magnesium 2.1 MG/DL (1.8-2.4); Potassium 4.4 MMOL/L (3.5-5.1)
[2017-08-10 04:10] LABS: Band Neutrophils 10 % (0-10); Lymphocytes 8 % (20-55); Myelocytes 1 %; Segmented Neutrophils 79 % (50-85); Total Cells Counted 100
[2017-08-10 04:11] LABS: Anisocytosis 1+; Hypochromasia 1+; Ovalocytes 1+; Platelet Estimate Normal
[2017-08-10] MEDS: oxyCODONE/ACETAMINOPHEN 5-325 MG TABLET PO PRN ×2 (04:24→12:32)
[2017-08-10] MEDS: PIPERACILLIN/TAZOBACTAM 3,375 MG in SODIUM CHLORIDE 0.9% 100 ML IV SCH ×3 (04:25→21:19)
[2017-08-10] MEDS: DORNASE ALFA 2.5 MG/2.5 ML VIAL RESP TX SCH ×2 (07:22→19:57)
[2017-08-10] MEDS: cefTRIAXone 1,000 MG in SYRINGE 1 EACH IV SCH (09:11)
[2017-08-10] MEDS: PANTOPRAZOLE 40 MG TABLET PO SCH (09:12)
[2017-08-10] MEDS: HydrOXYzine PAMOATE 25 MG CAPSULE PO SCH (09:12)
[2017-08-10] MEDS: CALCIUM CARBONATE CHEW 500 MG TABLET PO SCH ×3 (09:12→17:11)
[2017-08-10] MEDS: TAMSULOSIN 0.4 MG CAPSULE PO SCH (09:12)
[2017-08-10] MEDS: FLUTICASONE/SALMETEROL 100-50 DISKUS 14 DOSE INH SCH ×2 (09:12→21:18)
[2017-08-10] MEDS: GABAPENTIN 100 MG CAPSULE PO SCH ×3 (09:12→21:19)
[2017-08-10] MEDS: MAGNESIUM OXIDE 400 MG TABLET PO SCH ×2 (09:12→21:19)
[2017-08-10] MEDS: MECLIZINE 25 MG TABLET PO SCH ×3 (09:12→21:19)
[2017-08-10] MEDS: DOCUSATE SODIUM 100 MG CAPSULE PO SCH ×2 (09:12→21:19)
[2017-08-10] MEDS: predniSONE 20 MG TABLET PO SCH (09:12)
[2017-08-10] MEDS: METOPROLOL TARTRATE 25 MG TABLET PO SCH ×2 (09:12→21:19)
[2017-08-10] MEDS: amLODIPine 5 MG TABLET PO SCH ×2 (09:12→21:19)
[2017-08-10] MEDS: AZITHROMYCIN INJ 500 MG in SODIUM CHLORIDE 0.9% 250 ML IV SCH (10:39)
[2017-08-10 15:37] LABS: Apearance,Urine CLEAR (Clear); Bilirubin,Urine Negative (Negative); Blood, Urine Negative (Negative); Glucose,Urine (UA) Negative (Negative); Ketones,Urine Negative (Negative); Mucus,Urine Occasional /LPF (Occasional); Nitrite,Urine Negative (Negative); Protein,Urine Negative; RBC,Urine <1 /HPF (0-4); Squamous Epithelial Cell,Urine Occasional /HPF (0-10); Urine Color Straw (Yellow); Urine Specific Gravity 1.006 (1.001-1.035); Urine Urobilinogen < 2.0 EU/DL (0.2-1.0); WBC,Urine <1 /HPF (0-6)
[2017-08-10] MEDS: VANCOMYCIN INJ 1,250 MG in SODIUM CHLORIDE 0.45% 250 ML IV SCH (17:11)
[2017-08-10] MEDS: MONTELUKAST 10 MG TABLET PO SCH (21:19)
[2017-08-10] MEDS: SIMVASTATIN 10 MG TABLET PO SCH (21:19)
[2017-08-11] MEDS: ALBUTEROL/IPRATROPIUM 3 ML NEB RESP TX SCH ×4 (00:12→19:00)
[2017-08-11] MEDS: VANCOMYCIN INJ 1,250 MG in SODIUM CHLORIDE 0.45% 250 ML IV SCH ×2 (01:55→13:00)
[2017-08-11 04:17] LABS: Basophils % 0.2 % (0.0-0.8); Eosinophils % 0.2 % (0.00-10.9); Hematocrit 36.4 VOL% (42.0-52.0); Immature Granulocytes % 0.8 %; Lymphocytes # 1.3 10*3/uL (1.4-4.0); Lymphocytes % 9.9 % (21.2-54.2); Mean Corpuscular HGB Conc 30.2 GM/DL (32-36); Mean Corpuscular Hemoglobin 24 PG (27-34); Mean Corpuscular Volume 79.6 FL (87-102); Monocytes # 0.9 10*3/uL (0.11-0.8); Monocytes % 6.8 % (1.7-12.7); Neutrophils # 10.9 10*3/uL (1.4-7.4); Neutrophils % 82.1 % (38.7-73.9); Platelet Count 200 T/CUMM (130-400); Red Blood Count 4.57 MC/CUMM (3.8-5.5); Red Cell Distribution Width 18.3 % (9.3-17.3); White Blood Count 13.3 T/CUMM (4-12)
[2017-08-11 04:54] LABS: Alanine Aminotransferase 39 U/L (16-61); Albumin 2.4 G/DL (3.4-5.0); Alkaline Phosphatase 68 U/L (45-117); Aspartate Amino Transferase 18 U/L (0-37); Bilirubin,Total < 0.39 MG/DL (0.2-1.0); Blood Urea Nitrogen 14 MG/DL (7-18); Calcium 8.5 MG/DL (8.5-10.1); Glucose 117 MG/DL (74-106); Magnesium 2.2 MG/DL (1.8-2.4); Potassium 4.3 MMOL/L (3.5-5.1); Sodium 136 MMOL/L (136-145); Total Protein 5.7 G/DL (6.4-8.3)
[2017-08-11] MEDS: PIPERACILLIN/TAZOBACTAM 3,375 MG in SODIUM CHLORIDE 0.9% 100 ML IV SCH ×3 (06:02→21:15)
[2017-08-11] MEDS: oxyCODONE/ACETAMINOPHEN 5-325 MG TABLET PO PRN ×2 (06:04→16:35)
[2017-08-11] MEDS: DORNASE ALFA 2.5 MG/2.5 ML VIAL RESP TX SCH ×2 (07:58→19:05)
[2017-08-11] MEDS: TAMSULOSIN 0.4 MG CAPSULE PO SCH (08:28)
[2017-08-11] MEDS: HydrOXYzine PAMOATE 25 MG CAPSULE PO SCH (08:28)
[2017-08-11] MEDS: DOCUSATE SODIUM 100 MG CAPSULE PO SCH ×2 (08:28→21:16)
[2017-08-11] MEDS: amLODIPine 5 MG TABLET PO SCH ×2 (08:28→21:15)
[2017-08-11] MEDS: MAGNESIUM OXIDE 400 MG TABLET PO SCH ×2 (08:28→21:15)
[2017-08-11] MEDS: MECLIZINE 25 MG TABLET PO SCH ×3 (08:28→21:15)
[2017-08-11] MEDS: METOPROLOL TARTRATE 25 MG TABLET PO SCH ×2 (08:28→21:15)
[2017-08-11] MEDS: CALCIUM CARBONATE CHEW 500 MG TABLET PO SCH ×3 (08:28→16:34)
[2017-08-11] MEDS: predniSONE 20 MG TABLET PO SCH (08:28)
[2017-08-11] MEDS: GABAPENTIN 100 MG CAPSULE PO SCH ×3 (08:29→21:15)
[2017-08-11] MEDS: PANTOPRAZOLE 40 MG TABLET PO SCH (08:29)
[2017-08-11] MEDS: FLUTICASONE/SALMETEROL 100-50 DISKUS 14 DOSE INH SCH ×2 (08:29→21:18)
[2017-08-11] MEDS: MONTELUKAST 10 MG TABLET PO SCH (21:15)
[2017-08-11] MEDS: SIMVASTATIN 10 MG TABLET PO SCH (21:16)
[2017-08-11] MEDS: ACETAMINOPHEN 325 MG TABLET PO PRN (21:39)
[2017-08-12] MEDS: ALBUTEROL/IPRATROPIUM 3 ML NEB RESP TX SCH ×4 (00:06→20:40)
[2017-08-12] MEDS: VANCOMYCIN INJ 1,250 MG in SODIUM CHLORIDE 0.45% 250 ML IV SCH ×2 (01:30→12:37)
[2017-08-12] MEDS: PIPERACILLIN/TAZOBACTAM 3,375 MG in SODIUM CHLORIDE 0.9% 100 ML IV SCH ×2 (05:20→17:01)
[2017-08-12 05:24] LABS: Basophils % 0.3 % (0.0-0.8); Eosinophils # 0.1 10*3/uL (0.0-0.87); Eosinophils % 0.5 % (0.00-10.9); Hematocrit 35.8 VOL% (42.0-52.0); Immature Granulocytes % 1.3 %; Immature Granulocytes Absolute 0.12 #; Lymphocytes # 1.7 10*3/uL (1.4-4.0); Lymphocytes % 19.1 % (21.2-54.2); Mean Corpuscular HGB Conc 30.7 GM/DL (32-36); Mean Corpuscular Hemoglobin 24 PG (27-34); Mean Corpuscular Volume 79.4 FL (87-102); Mean Platelet Volume 9.3 FL (9.6-12.0); Monocytes # 0.4 10*3/uL (0.11-0.8); Monocytes % 4.8 % (1.7-12.7); Neutrophils # 6.8 10*3/uL (1.4-7.4); Platelet Count 198 T/CUMM (130-400); Red Blood Count 4.51 MC/CUMM (3.8-5.5); Red Cell Distribution Width 18.6 % (9.3-17.3); White Blood Count 9.1 T/CUMM (4-12)
[2017-08-12 05:52] LABS: Calcium 8.9 MG/DL (8.5-10.1); Magnesium 2.2 MG/DL (1.8-2.4); Osmolality,Calculated 275.8 MOS/KG (273-304); Potassium 4.2 MMOL/L (3.5-5.1)
[2017-08-12 06:04] LABS: Calcium 8.7 MG/DL (8.5-10.1); Potassium 4.1 MMOL/L (3.5-5.1)
[2017-08-12 07:37] LABS: Band Neutrophils 3 % (0-10); Lymphocytes 20 % (20-55); Segmented Neutrophils 73 % (50-85); Total Cells Counted 100
[2017-08-12 07:38] LABS: Microcytosis 1+; Platelet Estimate Normal
[2017-08-12] MEDS: DORNASE ALFA 2.5 MG/2.5 ML VIAL RESP TX SCH ×2 (07:44→20:40)
[2017-08-12] MEDS: FLUTICASONE/SALMETEROL 100-50 DISKUS 14 DOSE INH SCH ×2 (10:34→21:30)
[2017-08-12] MEDS: amLODIPine 5 MG TABLET PO SCH ×2 (10:34→21:33)
[2017-08-12] MEDS: MECLIZINE 25 MG TABLET PO SCH ×3 (10:34→21:31)
[2017-08-12] MEDS: predniSONE 20 MG TABLET PO SCH (10:35)
[2017-08-12] MEDS: MAGNESIUM OXIDE 400 MG TABLET PO SCH ×2 (10:35→21:33)
[2017-08-12] MEDS: GABAPENTIN 100 MG CAPSULE PO SCH ×3 (10:35→21:32)
[2017-08-12] MEDS: HydrOXYzine PAMOATE 25 MG CAPSULE PO SCH (10:35)
[2017-08-12] MEDS: PANTOPRAZOLE 40 MG TABLET PO SCH (10:35)
[2017-08-12] MEDS: DOCUSATE SODIUM 100 MG CAPSULE PO SCH ×2 (10:35→21:32)
[2017-08-12] MEDS: METOPROLOL TARTRATE 25 MG TABLET PO SCH ×2 (10:35→21:32)
[2017-08-12] MEDS: CALCIUM CARBONATE CHEW 500 MG TABLET PO SCH ×3 (10:35→17:01)
[2017-08-12] MEDS: TAMSULOSIN 0.4 MG CAPSULE PO SCH (10:35)
[2017-08-12] MEDS: oxyCODONE/ACETAMINOPHEN 5-325 MG TABLET PO PRN ×2 (10:36→23:44)
[2017-08-12] MEDS: SIMVASTATIN 10 MG TABLET PO SCH (21:31)
[2017-08-12] MEDS: MONTELUKAST 10 MG TABLET PO SCH (21:31)
[2017-08-13] MEDS: VANCOMYCIN INJ 1,250 MG in SODIUM CHLORIDE 0.45% 250 ML IV SCH ×2 (00:10→13:32)
[2017-08-13] MEDS: ALBUTEROL/IPRATROPIUM 3 ML NEB RESP TX SCH ×4 (02:32→19:35)
[2017-08-13 07:06] LABS: Basophils % 0.4 % (0.0-0.8); Eosinophils # 0.1 10*3/uL (0.0-0.87); Eosinophils % 0.6 % (0.00-10.9); Hematocrit 38.8 VOL% (42.0-52.0); Hemoglobin 11.6 GM/DL (14.0-18.0); Immature Granulocytes % 1.6 %; Immature Granulocytes Absolute 0.17 #; Lymphocytes % 18.8 % (21.2-54.2); Mean Corpuscular HGB Conc 29.9 GM/DL (32-36); Mean Corpuscular Hemoglobin 24 PG (27-34); Mean Corpuscular Volume 79.8 FL (87-102); Mean Platelet Volume 9.4 FL (9.6-12.0); Monocytes # 0.6 10*3/uL (0.11-0.8); Monocytes % 5.8 % (1.7-12.7); Neutrophils # 7.8 10*3/uL (1.4-7.4); Neutrophils % 72.8 % (38.7-73.9); Platelet Count 197 T/CUMM (130-400); Red Blood Count 4.86 MC/CUMM (3.8-5.5); Red Cell Distribution Width 18.4 % (9.3-17.3); White Blood Count 10.8 T/CUMM (4-12)
[2017-08-13 07:32] LABS: Hypochromasia 1+
[2017-08-13 07:33] LABS: Microcytosis 1+; Ovalocytes Slight; Platelet Estimate Adequate
[2017-08-13] MEDS: DORNASE ALFA 2.5 MG/2.5 ML VIAL RESP TX SCH ×2 (07:36→19:40)
[2017-08-13 07:39] LABS: Osmolality,Calculated 274.7 MOS/KG (273-304); Potassium 4.3 MMOL/L (3.5-5.1)
[2017-08-13] MEDS: PIPERACILLIN/TAZOBACTAM 3,375 MG in SODIUM CHLORIDE 0.9% 100 ML IV SCH ×3 (08:28→20:43)
[2017-08-13] MEDS: METOPROLOL TARTRATE 25 MG TABLET PO SCH ×2 (08:32→21:34)
[2017-08-13] MEDS: MECLIZINE 25 MG TABLET PO SCH ×3 (08:32→21:34)
[2017-08-13] MEDS: GABAPENTIN 100 MG CAPSULE PO SCH ×3 (08:32→21:34)
[2017-08-13] MEDS: TAMSULOSIN 0.4 MG CAPSULE PO SCH (08:32)
[2017-08-13] MEDS: PANTOPRAZOLE 40 MG TABLET PO SCH (08:33)
[2017-08-13] MEDS: FLUTICASONE/SALMETEROL 100-50 DISKUS 14 DOSE INH SCH ×2 (08:33→21:35)
[2017-08-13] MEDS: CALCIUM CARBONATE CHEW 500 MG TABLET PO SCH ×3 (08:33→16:42)
[2017-08-13] MEDS: predniSONE 20 MG TABLET PO SCH (08:33)
[2017-08-13] MEDS: MAGNESIUM OXIDE 400 MG TABLET PO SCH ×2 (08:33→21:34)
[2017-08-13] MEDS: HydrOXYzine PAMOATE 25 MG CAPSULE PO SCH (08:33)
[2017-08-13] MEDS: DOCUSATE SODIUM 100 MG CAPSULE PO SCH ×2 (08:33→21:35)
[2017-08-13] MEDS: oxyCODONE/ACETAMINOPHEN 5-325 MG TABLET PO PRN ×2 (08:50→21:32)
[2017-08-13] MEDS: amLODIPine 5 MG TABLET PO SCH ×2 (10:56→21:34)
[2017-08-13] MEDS: NYSTATIN 500,000 UNIT/5 ML UDCUP SWISH/SWAL SCH ×3 (12:28→21:34)
[2017-08-13] MEDS: MONTELUKAST 10 MG TABLET PO SCH (21:34)
[2017-08-14] MEDS: ALBUTEROL/IPRATROPIUM 3 ML NEB RESP TX SCH ×4 (01:10→19:46)
[2017-08-14] MEDS: PIPERACILLIN/TAZOBACTAM 3,375 MG in SODIUM CHLORIDE 0.9% 100 ML IV SCH ×3 (04:58→22:28)
[2017-08-14 05:10] LABS: Basophils % 0.3 % (0.0-0.8); Eosinophils % 0.2 % (0.00-10.9); Hematocrit 38.3 VOL% (42.0-52.0); Hemoglobin 11.8 GM/DL (14.0-18.0); Immature Granulocytes % 1.3 %; Immature Granulocytes Absolute 0.14 #; Lymphocytes # 1.6 10*3/uL (1.4-4.0); Lymphocytes % 15.4 % (21.2-54.2); Mean Corpuscular HGB Conc 30.8 GM/DL (32-36); Mean Corpuscular Hemoglobin 24 PG (27-34); Mean Corpuscular Volume 78.6 FL (87-102); Mean Platelet Volume 9.2 FL (9.6-12.0); Monocytes # 0.5 10*3/uL (0.11-0.8); Monocytes % 4.8 % (1.7-12.7); Neutrophils # 8.3 10*3/uL (1.4-7.4); Platelet Count 231 T/CUMM (130-400); Red Blood Count 4.87 MC/CUMM (3.8-5.5); Red Cell Distribution Width 18.6 % (9.3-17.3); White Blood Count 10.7 T/CUMM (4-12)
[2017-08-14 05:46] LABS: Osmolality,Calculated 282.3 MOS/KG (273-304); Potassium 4.2 MMOL/L (3.5-5.1)
[2017-08-14] MEDS: DORNASE ALFA 2.5 MG/2.5 ML VIAL RESP TX SCH ×2 (07:05→19:46)
[2017-08-14] MEDS ORDERED: LIDOCAINE 2% 5 ML VIAL ONE (10:56)
[2017-08-14] MEDS ORDERED: PROPOFOL 200 MG/20 ML VIAL IV ONE (10:56)
[2017-08-14] MEDS: NYSTATIN 500,000 UNIT/5 ML UDCUP SWISH/SWAL SCH ×4 (11:27→22:30)
[2017-08-14] MEDS: MECLIZINE 25 MG TABLET PO SCH ×3 (11:28→22:27)
[2017-08-14] MEDS: ACETAMINOPHEN 325 MG TABLET PO PRN (11:29)
[2017-08-14] MEDS: MAGNESIUM OXIDE 400 MG TABLET PO SCH ×2 (11:29→22:27)
[2017-08-14] MEDS: TAMSULOSIN 0.4 MG CAPSULE PO SCH (11:29)
[2017-08-14] MEDS: FLUCONAZOLE 200 MG TABLET PO SCH (11:30)
[2017-08-14] MEDS: CALCIUM CARBONATE CHEW 500 MG TABLET PO SCH ×3 (11:30→17:02)
[2017-08-14] MEDS: predniSONE 20 MG TABLET PO SCH (11:30)
[2017-08-14] MEDS: METOPROLOL TARTRATE 25 MG TABLET PO SCH ×2 (11:31→22:27)
[2017-08-14] MEDS: PANTOPRAZOLE 40 MG TABLET PO SCH (11:31)
[2017-08-14] MEDS: HydrOXYzine PAMOATE 25 MG CAPSULE PO SCH (11:31)
[2017-08-14] MEDS: GABAPENTIN 100 MG CAPSULE PO SCH ×3 (11:31→22:28)
[2017-08-14] MEDS: DOCUSATE SODIUM 100 MG CAPSULE PO SCH ×2 (11:31→22:28)
[2017-08-14] MEDS: amLODIPine 5 MG TABLET PO SCH ×2 (11:32→22:28)
[2017-08-14] MEDS: FLUTICASONE/SALMETEROL 100-50 DISKUS 14 DOSE INH SCH ×2 (11:32→22:27)
[2017-08-14] MEDS: oxyCODONE/ACETAMINOPHEN 5-325 MG TABLET PO PRN ×2 (13:52→22:48)
[2017-08-14] MEDS: SIMVASTATIN 10 MG TABLET PO SCH ×2 (20:06→22:30)
[2017-08-14] MEDS: MONTELUKAST 10 MG TABLET PO SCH (22:27)
[2017-08-15] MEDS: ALBUTEROL/IPRATROPIUM 3 ML NEB RESP TX SCH ×4 (00:21→19:28)
[2017-08-15 05:25] LABS: Basophils % 0.3 % (0.0-0.8); Eosinophils % 0.2 % (0.00-10.9); Hematocrit 39.4 VOL% (42.0-52.0); Hemoglobin 11.9 GM/DL (14.0-18.0); Immature Granulocytes % 1.5 %; Immature Granulocytes Absolute 0.14 #; Lymphocytes # 1.5 10*3/uL (1.4-4.0); Lymphocytes % 16.5 % (21.2-54.2); Mean Corpuscular HGB Conc 30.2 GM/DL (32-36); Mean Corpuscular Hemoglobin 24 PG (27-34); Mean Corpuscular Volume 78.8 FL (87-102); Mean Platelet Volume 9.3 FL (9.6-12.0); Monocytes # 0.5 10*3/uL (0.11-0.8); Neutrophils # 7.1 10*3/uL (1.4-7.4); Neutrophils % 76.5 % (38.7-73.9); Platelet Count 225 T/CUMM (130-400); Red Cell Distribution Width 18.6 % (9.3-17.3); White Blood Count 9.3 T/CUMM (4-12)
[2017-08-15] MEDS: PIPERACILLIN/TAZOBACTAM 3,375 MG in SODIUM CHLORIDE 0.9% 100 ML IV SCH ×3 (05:36→23:05)
[2017-08-15 05:52] LABS: Osmolality,Calculated 280.4 MOS/KG (273-304); Potassium 5.1 MMOL/L (3.5-5.1)
[2017-08-15] MEDS: DORNASE ALFA 2.5 MG/2.5 ML VIAL RESP TX SCH ×2 (08:06→19:33)
[2017-08-15] MEDS: MAGNESIUM OXIDE 400 MG TABLET PO SCH ×2 (09:20→22:48)
[2017-08-15] MEDS: predniSONE 20 MG TABLET PO SCH (09:20)
[2017-08-15] MEDS: PANTOPRAZOLE 40 MG TABLET PO SCH (09:20)
[2017-08-15] MEDS: GABAPENTIN 100 MG CAPSULE PO SCH ×3 (09:21→22:48)
[2017-08-15] MEDS: amLODIPine 5 MG TABLET PO SCH ×2 (09:21→22:48)
[2017-08-15] MEDS: HydrOXYzine PAMOATE 25 MG CAPSULE PO SCH (09:21)
[2017-08-15] MEDS: FLUCONAZOLE 200 MG TABLET PO SCH (09:21)
[2017-08-15] MEDS: MECLIZINE 25 MG TABLET PO SCH ×3 (09:21→22:48)
[2017-08-15] MEDS: METOPROLOL TARTRATE 25 MG TABLET PO SCH ×2 (09:21→22:48)
[2017-08-15] MEDS: TAMSULOSIN 0.4 MG CAPSULE PO SCH (09:26)
[2017-08-15] MEDS: NYSTATIN 500,000 UNIT/5 ML UDCUP SWISH/SWAL SCH ×4 (09:26→22:47)
[2017-08-15] MEDS: CALCIUM CARBONATE CHEW 500 MG TABLET PO SCH ×3 (09:26→17:08)
[2017-08-15] MEDS: DOCUSATE SODIUM 100 MG CAPSULE PO SCH ×2 (09:26→22:48)
[2017-08-15] MEDS: FLUTICASONE/SALMETEROL 100-50 DISKUS 14 DOSE INH SCH ×2 (09:26→23:04)
[2017-08-15] MEDS ORDERED: DEXAMETHASONE 4 MG/1 ML VIAL ONE (14:45)
[2017-08-15] MEDS ORDERED: TISSUE ADHESIVE 1 EACH APPLICATOR TOP ONE (15:49)
[2017-08-15] MEDS: SIMVASTATIN 10 MG TABLET PO SCH (22:47)
[2017-08-15] MEDS: MONTELUKAST 10 MG TABLET PO SCH (22:48)
[2017-08-16] MEDS: DOCUSATE SODIUM 100 MG CAPSULE PO SCH ×3 (02:16→20:47)
[2017-08-16] MEDS: PIPERACILLIN/TAZOBACTAM 3,375 MG in SODIUM CHLORIDE 0.9% 100 ML IV SCH ×2 (05:40→12:49)
[2017-08-16] MEDS: DORNASE ALFA 2.5 MG/2.5 ML VIAL RESP TX SCH ×2 (07:28→19:34)
[2017-08-16] MEDS: ALBUTEROL/IPRATROPIUM 3 ML NEB RESP TX SCH ×4 (07:28→19:26)
[2017-08-16] MEDS: NYSTATIN 500,000 UNIT/5 ML UDCUP SWISH/SWAL SCH ×4 (09:26→21:00)
[2017-08-16] MEDS: amLODIPine 5 MG TABLET PO SCH ×2 (09:26→20:51)
[2017-08-16] MEDS: GABAPENTIN 100 MG CAPSULE PO SCH ×3 (09:27→21:00)
[2017-08-16] MEDS: FLUCONAZOLE 200 MG TABLET PO SCH (09:27)
[2017-08-16] MEDS: HydrOXYzine PAMOATE 25 MG CAPSULE PO SCH (09:27)
[2017-08-16] MEDS: METOPROLOL TARTRATE 25 MG TABLET PO SCH ×2 (09:27→20:48)
[2017-08-16] MEDS: MAGNESIUM OXIDE 400 MG TABLET PO SCH ×2 (09:27→21:00)
[2017-08-16] MEDS: MECLIZINE 25 MG TABLET PO SCH ×3 (09:27→20:48)
[2017-08-16] MEDS: TAMSULOSIN 0.4 MG CAPSULE PO SCH (09:27)
[2017-08-16] MEDS: predniSONE 20 MG TABLET PO SCH (09:27)
[2017-08-16] MEDS: CALCIUM CARBONATE CHEW 500 MG TABLET PO SCH ×3 (09:27→17:15)
[2017-08-16] MEDS: PANTOPRAZOLE 40 MG TABLET PO SCH (09:28)
[2017-08-16] MEDS: FLUTICASONE/SALMETEROL 100-50 DISKUS 14 DOSE INH SCH ×2 (09:28→21:00)
[2017-08-16] MEDS: oxyCODONE/ACETAMINOPHEN 5-325 MG TABLET PO PRN ×2 (14:38→20:51)
[2017-08-16] MEDS: SIMVASTATIN 10 MG TABLET PO SCH (20:48)
[2017-08-16] MEDS: MONTELUKAST 10 MG TABLET PO SCH (21:00)
[2017-08-17] MEDS: ALBUTEROL/IPRATROPIUM 3 ML NEB RESP TX SCH ×4 (01:38→19:16)
[2017-08-17] MEDS: oxyCODONE/ACETAMINOPHEN 5-325 MG TABLET PO PRN ×3 (02:14→20:23)
[2017-08-17 06:15] LABS: Calcium 8.9 MG/DL (8.5-10.1)
[2017-08-17 06:16] LABS: Osmolality,Calculated 274.2 MOS/KG (273-304); Potassium 4.7 MMOL/L (3.5-5.1)
[2017-08-17 06:31] LABS: Basophils % 0.3 % (0.0-0.8); Eosinophils # 0.1 10*3/uL (0.0-0.87); Eosinophils % 0.5 % (0.00-10.9); Hemoglobin 12.1 GM/DL (14.0-18.0); Immature Granulocytes % 1.9 %; Immature Granulocytes Absolute 0.21 #; Lymphocytes # 1.3 10*3/uL (1.4-4.0); Lymphocytes % 12.1 % (21.2-54.2); Mean Corpuscular Hemoglobin 25 PG (27-34); Mean Corpuscular Volume 79.3 FL (87-102); Mean Platelet Volume 10.8 FL (9.6-12.0); Monocytes # 0.7 10*3/uL (0.11-0.8); Monocytes % 6.3 % (1.7-12.7); Neutrophils # 8.6 10*3/uL (1.4-7.4); Neutrophils % 78.9 % (38.7-73.9); Platelet Count 147 T/CUMM (130-400); Red Blood Count 4.92 MC/CUMM (3.8-5.5); Red Cell Distribution Width 18.1 % (9.3-17.3); White Blood Count 10.9 T/CUMM (4-12)
[2017-08-17] MEDS: DORNASE ALFA 2.5 MG/2.5 ML VIAL RESP TX SCH ×2 (07:10→19:16)
[2017-08-17] MEDS ORDERED: predniSONE 20 MG TABLET PO SCH (09:00)
[2017-08-17] MEDS: MAGNESIUM OXIDE 400 MG TABLET PO SCH ×2 (09:37→20:25)
[2017-08-17] MEDS: FLUCONAZOLE 200 MG TABLET PO SCH (09:38)
[2017-08-17] MEDS: MECLIZINE 25 MG TABLET PO SCH ×3 (09:38→20:25)
[2017-08-17] MEDS: FLUTICASONE/SALMETEROL 100-50 DISKUS 14 DOSE INH SCH ×2 (09:38→20:22)
[2017-08-17] MEDS: NYSTATIN 500,000 UNIT/5 ML UDCUP SWISH/SWAL SCH ×4 (09:38→20:22)
[2017-08-17] MEDS: HydrOXYzine PAMOATE 25 MG CAPSULE PO SCH (09:38)
[2017-08-17] MEDS: METOPROLOL TARTRATE 25 MG TABLET PO SCH ×2 (09:38→20:26)
[2017-08-17] MEDS: amLODIPine 5 MG TABLET PO SCH ×2 (09:38→20:26)
[2017-08-17] MEDS: PANTOPRAZOLE 40 MG TABLET PO SCH (09:38)
[2017-08-17] MEDS: CALCIUM CARBONATE CHEW 500 MG TABLET PO SCH ×3 (09:38→16:02)
[2017-08-17] MEDS: DOCUSATE SODIUM 100 MG CAPSULE PO SCH ×2 (09:38→20:27)
[2017-08-17] MEDS: TAMSULOSIN 0.4 MG CAPSULE PO SCH (09:38)
[2017-08-17] MEDS: GABAPENTIN 100 MG CAPSULE PO SCH ×3 (11:04→20:27)
[2017-08-17] MEDS: methylPREDNISolone SOD SUC 40 MG/1 ML VIAL IV SCH (14:30)
[2017-08-17] MEDS: MONTELUKAST 10 MG TABLET PO SCH (20:25)
[2017-08-17] MEDS: SIMVASTATIN 10 MG TABLET PO SCH (20:26)
[2017-08-18] MEDS: methylPREDNISolone SOD SUC 40 MG/1 ML VIAL IV SCH ×2 (00:13→12:54)
[2017-08-18] MEDS: ALBUTEROL/IPRATROPIUM 3 ML NEB RESP TX SCH ×4 (00:17→19:28)
[2017-08-18] MEDS: oxyCODONE/ACETAMINOPHEN 5-325 MG TABLET PO PRN ×4 (01:02→21:17)
[2017-08-18 05:46] LABS: Basophils % 0.1 % (0.0-0.8); Hematocrit 39.8 VOL% (42.0-52.0); Hemoglobin 12.3 GM/DL (14.0-18.0); Immature Granulocytes % 1.2 %; Lymphocytes # 0.7 10*3/uL (1.4-4.0); Lymphocytes % 4.4 % (21.2-54.2); Mean Corpuscular HGB Conc 30.9 GM/DL (32-36); Mean Corpuscular Hemoglobin 24 PG (27-34); Mean Corpuscular Volume 77.7 FL (87-102); Mean Platelet Volume 8.9 FL (9.6-12.0); Monocytes # 0.3 10*3/uL (0.11-0.8); Monocytes % 1.9 % (1.7-12.7); Neutrophils # 14.9 10*3/uL (1.4-7.4); Neutrophils % 92.4 % (38.7-73.9); Platelet Count 217 T/CUMM (130-400); Red Blood Count 5.12 MC/CUMM (3.8-5.5); Red Cell Distribution Width 17.5 % (9.3-17.3); White Blood Count 16.1 T/CUMM (4-12)
[2017-08-18 06:23] LABS: Osmolality,Calculated 271.2 MOS/KG (273-304); Potassium 4.5 MMOL/L (3.5-5.1)
[2017-08-18 06:27] LABS: Band Neutrophils 9 % (0-10); Lymphocytes 6 % (20-55); Segmented Neutrophils 84 % (50-85); Total Cells Counted 100
[2017-08-18 06:28] LABS: Anisocytosis 1+; Poikilocytosis 1+
[2017-08-18] MEDS: DORNASE ALFA 2.5 MG/2.5 ML VIAL RESP TX SCH ×2 (07:12→19:28)
[2017-08-18] MEDS: amLODIPine 5 MG TABLET PO SCH ×2 (09:09→21:17)
[2017-08-18] MEDS: DOCUSATE SODIUM 100 MG CAPSULE PO SCH ×2 (09:09→21:16)
[2017-08-18] MEDS: FLUTICASONE/SALMETEROL 100-50 DISKUS 14 DOSE INH SCH ×2 (09:09→21:16)
[2017-08-18] MEDS: MAGNESIUM OXIDE 400 MG TABLET PO SCH ×2 (09:09→21:16)
[2017-08-18] MEDS: HydrOXYzine PAMOATE 25 MG CAPSULE PO SCH (09:09)
[2017-08-18] MEDS: MECLIZINE 25 MG TABLET PO SCH ×3 (09:09→21:16)
[2017-08-18] MEDS: PANTOPRAZOLE 40 MG TABLET PO SCH (09:09)
[2017-08-18] MEDS: GABAPENTIN 100 MG CAPSULE PO SCH ×3 (09:09→21:16)
[2017-08-18] MEDS: TAMSULOSIN 0.4 MG CAPSULE PO SCH (09:09)
[2017-08-18] MEDS: METOPROLOL TARTRATE 25 MG TABLET PO SCH ×2 (09:09→21:18)
[2017-08-18] MEDS: NYSTATIN 500,000 UNIT/5 ML UDCUP SWISH/SWAL SCH ×4 (09:09→21:16)
[2017-08-18] MEDS: FLUCONAZOLE 200 MG TABLET PO SCH (09:09)
[2017-08-18] MEDS: CALCIUM CARBONATE CHEW 500 MG TABLET PO SCH ×3 (09:09→16:52)
[2017-08-18] MEDS: SIMVASTATIN 10 MG TABLET PO SCH (21:17)
[2017-08-18] MEDS: MONTELUKAST 10 MG TABLET PO SCH (21:25)
[2017-08-19] MEDS: ALBUTEROL/IPRATROPIUM 3 ML NEB RESP TX SCH ×4 (01:30→20:26)
[2017-08-19] MEDS: oxyCODONE/ACETAMINOPHEN 5-325 MG TABLET PO PRN ×4 (01:50→23:43)
[2017-08-19] MEDS: methylPREDNISolone SOD SUC 40 MG/1 ML VIAL IV SCH ×2 (01:58→12:17)
[2017-08-19] MEDS: DORNASE ALFA 2.5 MG/2.5 ML VIAL RESP TX SCH ×2 (07:20→20:26)
[2017-08-19] MEDS: NYSTATIN 500,000 UNIT/5 ML UDCUP SWISH/SWAL SCH ×4 (08:54→21:19)
[2017-08-19] MEDS: FLUTICASONE/SALMETEROL 100-50 DISKUS 14 DOSE INH SCH ×2 (08:54→21:32)
[2017-08-19] MEDS: CALCIUM CARBONATE CHEW 500 MG TABLET PO SCH ×3 (09:18→18:21)
[2017-08-19] MEDS: MECLIZINE 25 MG TABLET PO SCH ×3 (09:18→21:18)
[2017-08-19] MEDS: FLUCONAZOLE 200 MG TABLET PO SCH (09:19)
[2017-08-19] MEDS: MAGNESIUM OXIDE 400 MG TABLET PO SCH ×2 (09:19→21:19)
[2017-08-19] MEDS: PANTOPRAZOLE 40 MG TABLET PO SCH (09:19)
[2017-08-19] MEDS: GABAPENTIN 100 MG CAPSULE PO SCH ×3 (09:19→21:18)
[2017-08-19] MEDS: TAMSULOSIN 0.4 MG CAPSULE PO SCH (09:19)
[2017-08-19] MEDS: DOCUSATE SODIUM 100 MG CAPSULE PO SCH ×2 (09:19→21:18)
[2017-08-19] MEDS: METOPROLOL TARTRATE 25 MG TABLET PO SCH ×2 (09:19→21:18)
[2017-08-19] MEDS: HydrOXYzine PAMOATE 25 MG CAPSULE PO SCH (09:19)
[2017-08-19] MEDS: amLODIPine 5 MG TABLET PO SCH ×2 (09:20→21:18)
[2017-08-19] MEDS: MONTELUKAST 10 MG TABLET PO SCH (21:18)
[2017-08-19] MEDS: SIMVASTATIN 10 MG TABLET PO SCH (21:19)
[2017-08-19] MEDS: LINEZOLID INJ 300 MG in PREMIX 1 EACH IV SCH (21:32)
[2017-08-20] MEDS: ALBUTEROL/IPRATROPIUM 3 ML NEB RESP TX SCH ×3 (02:10→12:46)
[2017-08-20] MEDS: methylPREDNISolone SOD SUC 40 MG/1 ML VIAL IV SCH (02:53)
[2017-08-20 05:37] LABS: Basophils % 0.1 % (0.0-0.8); Hematocrit 38.8 VOL% (42.0-52.0); Immature Granulocytes % 0.8 %; Immature Granulocytes Absolute 0.11 #; Lymphocytes # 0.4 10*3/uL (1.4-4.0); Lymphocytes % 2.7 % (21.2-54.2); Mean Corpuscular HGB Conc 30.9 GM/DL (32-36); Mean Corpuscular Hemoglobin 24 PG (27-34); Mean Corpuscular Volume 78.4 FL (87-102); Mean Platelet Volume 8.9 FL (9.6-12.0); Monocytes # 0.6 10*3/uL (0.11-0.8); Monocytes % 4.1 % (1.7-12.7); Neutrophils # 13.2 10*3/uL (1.4-7.4); Neutrophils % 92.3 % (38.7-73.9); Platelet Count 228 T/CUMM (130-400); Red Blood Count 4.95 MC/CUMM (3.8-5.5); Red Cell Distribution Width 18.1 % (9.3-17.3); White Blood Count 14.3 T/CUMM (4-12)
[2017-08-20 06:01] LABS: Band Neutrophils 3 % (0-10); Lymphocytes 4 % (20-55); Platelet Estimate Adequate; Segmented Neutrophils 89 % (50-85); Total Cells Counted 100
[2017-08-20 06:02] LABS: Giant Platelets Few; Hypochromasia 1+; Ovalocytes Slight
[2017-08-20 06:14] LABS: Albumin 2.8 G/DL (3.4-5.0); Bilirubin,Total 0.7 MG/DL (0.2-1.0); Calcium 8.8 MG/DL (8.5-10.1); Magnesium 2.4 MG/DL (1.8-2.4); Potassium 4.5 MMOL/L (3.5-5.1); Total Protein 6.8 G/DL (6.4-8.3)
[2017-08-20] MEDS: LINEZOLID INJ 300 MG in PREMIX 1 EACH IV SCH (06:28)
[2017-08-20] MEDS: DORNASE ALFA 2.5 MG/2.5 ML VIAL RESP TX SCH (08:02)
[2017-08-20] MEDS: FLUCONAZOLE 200 MG TABLET PO SCH (09:31)
[2017-08-20] MEDS: amLODIPine 5 MG TABLET PO SCH (09:31)
[2017-08-20] MEDS: MECLIZINE 25 MG TABLET PO SCH ×2 (09:31→14:38)
[2017-08-20] MEDS: TAMSULOSIN 0.4 MG CAPSULE PO SCH (09:32)
[2017-08-20] MEDS: PANTOPRAZOLE 40 MG TABLET PO SCH (09:32)
[2017-08-20] MEDS: MAGNESIUM OXIDE 400 MG TABLET PO SCH (09:32)
[2017-08-20] MEDS: NYSTATIN 500,000 UNIT/5 ML UDCUP SWISH/SWAL SCH ×2 (09:32→14:38)
[2017-08-20] MEDS: METOPROLOL TARTRATE 25 MG TABLET PO SCH (09:32)
[2017-08-20] MEDS: CALCIUM CARBONATE CHEW 500 MG TABLET PO SCH ×2 (09:32→14:37)
[2017-08-20] MEDS: FLUTICASONE/SALMETEROL 100-50 DISKUS 14 DOSE INH SCH (09:33)
[2017-08-20] MEDS: GABAPENTIN 100 MG CAPSULE PO SCH (09:33)
[2017-08-20] MEDS: DOCUSATE SODIUM 100 MG CAPSULE PO SCH (09:33)
[2017-08-20] MEDS: HydrOXYzine PAMOATE 25 MG CAPSULE PO SCH (09:33)
[2017-08-20] MEDS: oxyCODONE/ACETAMINOPHEN 5-325 MG TABLET PO PRN ×2 (09:42→14:37)
[2017-08-20 11:42] VITALS: BP 119/72
[2017-08-20] MEDS ORDERED: AMINOPHYLLINE 250 MG in SODIUM CHLORIDE 0.9% 100 ML IV ONE (14:30)
[2017-08-20] MEDS ORDERED: ALBUTEROL 2 MG TABLET PO SCH (15:00)
[2017-08-20] MEDS ORDERED: THEOPHYLLINE ER 100 MG TABLET PO SCH (17:00)
== END 2017-08-20 14:45 | DRG 515 ==
LOC: N.ED 08:15 → N.EDINP 10:44 → SUATTDRO 10:44 → N.2E 14:10
PROVIDERS: ADMIT Internal Medicine; ATTEND Internal Medicine Nephrology

== ENCOUNTER 2017-10-05 09:54 | Inpatient (IN) ==
[2017-10-05] MEDS ORDERED: methylPREDNISolone SOD SUC 125 MG/2 ML VIAL IV STA (10:29)
[2017-10-05] MEDS ORDERED: FUROSEMIDE 100 MG/10 ML VIAL IV STA (10:29)
[2017-10-05] MEDS ORDERED: ALBUTEROL NEB SOLN 5 MG/ML 20 ML/BOTTLE RESP TX SCH (10:30)
[2017-10-05] MEDS ORDERED: LEVOFLOXACIN INJ 750 MG in PREMIX 1 EACH IV STA (11:12)
[2017-10-05] MEDS ORDERED: FUROSEMIDE 40 MG/4 ML VIAL ONE (11:20)
[2017-10-05] MEDS ORDERED: methylPREDNISolone SOD SUC 125 MG/2 ML VIAL ONE (11:20)
[2017-10-05 11:47] LABS: Basophils % 0.2 % (0.0-0.8); Eosinophils % 0.5 % (0.00-10.9); Hematocrit 37.1 VOL% (42.0-52.0); Hemoglobin 11.2 GM/DL (14.0-18.0); Immature Granulocytes % 0.7 %; Immature Granulocytes Absolute 0.06 #; Lymphocytes # 0.6 10*3/uL (1.4-4.0); Mean Corpuscular HGB Conc 30.2 GM/DL (32-36); Mean Corpuscular Hemoglobin 25 PG (27-34); Mean Platelet Volume 9.1 FL (9.6-12.0); Monocytes # 0.3 10*3/uL (0.11-0.8); Monocytes % 3.1 % (1.7-12.7); Neutrophils # 7.3 10*3/uL (1.4-7.4); Neutrophils % 88.5 % (38.7-73.9); Platelet Count 173 T/CUMM (130-400); Red Blood Count 4.58 MC/CUMM (3.8-5.5); Red Cell Distribution Width 18.5 % (9.3-17.3); White Blood Count 8.3 T/CUMM (4-12)
[2017-10-05] MEDS ORDERED: LEVOFLOXACIN INJ 150 ML IV ONE (11:47)
[2017-10-05 12:06] LABS: INR 0.9; Partial Thromboplastin Time 26.8 SECS (0-40)
[2017-10-05 12:10] LABS: Albumin 2.7 G/DL (3.4-5.0); Bilirubin,Total 0.8 MG/DL (0.2-1.0); Osmolality,Calculated 278.5 MOS/KG (273-304); Potassium 4.2 MMOL/L (3.5-5.1); Total Protein 6.3 G/DL (6.4-8.3)
[2017-10-05 12:11] LABS: Troponin I Only 0.037 NG/ML (0.00-0.045)
[2017-10-05] MEDS ORDERED: ENOXAPARIN 80 MG/0.8 ML SYRINGE SUBCUT STA (13:11)
[2017-10-05 13:18] LABS: Apearance,Urine CLEAR (Clear); Bilirubin,Urine Negative (Negative); Blood, Urine Negative (Negative); Glucose,Urine (UA) Negative (Negative); Hyaline Casts,Urine 1 /LPF (0-3); Ketones,Urine Negative (Negative); Mucus,Urine Occasional /LPF (Occasional); Nitrite,Urine Negative (Negative); Protein,Urine Negative; RBC,Urine <1 /HPF (0-4); Urine Color Straw (Yellow); Urine Specific Gravity 1.008 (1.001-1.035); Urine Urobilinogen < 2.0 EU/DL (0.2-1.0); WBC,Urine 1 /HPF (0-6)
[2017-10-05] MEDS ORDERED: ENOXAPARIN 80 MG/0.8 ML SYRINGE SUBCUT ONE (13:31)
[2017-10-05] MEDS ORDERED: MORPHINE 2 MG/1 ML SYRINGE IV PRN (14:07)
[2017-10-05] MEDS ORDERED: ACETAMINOPHEN 325 MG TABLET PO PRN (14:07)
[2017-10-05] MEDS ORDERED: ONDANSETRON 4 MG/2 ML VIAL IV PRN (14:07)
[2017-10-05] MEDS ORDERED: POLYETHYLENE GLYCOL POWDER 17 GM PACK PO PRN (14:09)
[2017-10-05] MEDS ORDERED: POLYVINYL ALCOHOL 1.4% OPH SOLN 15 ML BOTTLE BOTH EYES PRN (14:09)
[2017-10-05] MEDS ORDERED: PRAMOXINE 1% RECTAL FOAM 15 GM CAN TOP PRN (14:09)
[2017-10-05] MEDS ORDERED: PHENYLEPH/MINERAL OIL/PETROLAT 57 GM TUBE TOP PRN (14:09)
[2017-10-05] MEDS ORDERED: CYANOCOBALAMIN 1000 MCG/1 ML VIAL IM SCH (14:30)
[2017-10-05] MEDS: CALCIUM CARBONATE CHEW 500 MG TABLET PO SCH ×2 (17:44→21:46)
[2017-10-05] MEDS: MECLIZINE 25 MG TABLET PO SCH ×2 (17:44→21:10)
[2017-10-05] MEDS: ALBUTEROL 2 MG TABLET PO SCH ×2 (17:45→21:12)
[2017-10-05] MEDS: oxyCODONE/ACETAMINOPHEN 5-325 MG TABLET PO SCH (17:45)
[2017-10-05] MEDS: GABAPENTIN 100 MG CAPSULE PO SCH ×2 (17:45→21:11)
[2017-10-05] MEDS: ALBUTEROL/IPRATROPIUM 3 ML NEB RESP TX SCH ×3 (18:15→23:16)
[2017-10-05] MEDS: DORNASE ALFA 2.5 MG/2.5 ML VIAL RESP TX SCH (19:22)
[2017-10-05] MEDS: DOCUSATE SODIUM 100 MG CAPSULE PO SCH (21:10)
[2017-10-05] MEDS: METOPROLOL TARTRATE 25 MG TABLET PO SCH (21:10)
[2017-10-05] MEDS: APIXABAN 2.5 MG TABLET PO SCH (21:10)
[2017-10-05] MEDS: MONTELUKAST 10 MG TABLET PO SCH (21:11)
[2017-10-05] MEDS: MAGNESIUM OXIDE 400 MG TABLET PO SCH (21:11)
[2017-10-05] MEDS: SIMVASTATIN 10 MG TABLET PO SCH (21:11)
[2017-10-05] MEDS: amLODIPine 5 MG TABLET PO SCH (21:11)
[2017-10-05] MEDS: HYDROCORTISONE 0.5% CREAM 28.35 GM TUBE TOP SCH (21:14)
[2017-10-05] MEDS: BLISTEX LIP BALM TOP SCH (21:15)
[2017-10-05] MEDS: methylPREDNISolone SOD SUC 40 MG/1 ML VIAL IV SCH (21:18)
[2017-10-05] MEDS: FLUTICASONE/SALMETEROL 100-50 DISKUS 14 DOSE INH SCH (21:46)
[2017-10-06] MEDS: oxyCODONE/ACETAMINOPHEN 5-325 MG TABLET PO SCH ×3 (01:36→17:39)
[2017-10-06] MEDS: ALBUTEROL/IPRATROPIUM 3 ML NEB RESP TX SCH ×6 (03:03→23:02)
[2017-10-06] MEDS: methylPREDNISolone SOD SUC 40 MG/1 ML VIAL IV SCH ×3 (03:22→20:35)
[2017-10-06] MEDS: CALCIUM CARBONATE CHEW 500 MG TABLET PO SCH ×3 (05:50→21:49)
[2017-10-06 06:05] LABS: Hematocrit 32.8 VOL% (42.0-52.0); Hemoglobin 10.5 GM/DL (14.0-18.0); Immature Granulocytes % 0.7 %; Immature Granulocytes Absolute 0.04 #; Lymphocytes # 0.5 10*3/uL (1.4-4.0); Lymphocytes % 8.4 % (21.2-54.2); Mean Corpuscular Hemoglobin 25 PG (27-34); Mean Corpuscular Volume 78.1 FL (87-102); Mean Platelet Volume 9.3 FL (9.6-12.0); Monocytes # 0.2 10*3/uL (0.11-0.8); Monocytes % 2.8 % (1.7-12.7); Neutrophils # 5.1 10*3/uL (1.4-7.4); Neutrophils % 88.1 % (38.7-73.9); Platelet Count 151 T/CUMM (130-400); Red Cell Distribution Width 18.1 % (9.3-17.3); White Blood Count 5.7 T/CUMM (4-12)
[2017-10-06 06:30] LABS: Calcium 8.5 MG/DL (8.5-10.1); Potassium 3.9 MMOL/L (3.5-5.1)
[2017-10-06 06:58] LABS: Band Neutrophils 13 % (0-10); Lymphocytes 7 % (20-55); Myelocytes 1 %; Segmented Neutrophils 76 % (50-85); Total Cells Counted 100
[2017-10-06 06:59] LABS: Hypochromasia 2+; Platelet Estimate Adequate
[2017-10-06] MEDS: DORNASE ALFA 2.5 MG/2.5 ML VIAL RESP TX SCH ×2 (07:01→19:06)
[2017-10-06] MEDS: ALBUTEROL 2 MG TABLET PO SCH ×3 (08:14→20:35)
[2017-10-06] MEDS: GABAPENTIN 100 MG CAPSULE PO SCH ×3 (08:15→20:34)
[2017-10-06] MEDS: METOPROLOL TARTRATE 25 MG TABLET PO SCH ×2 (08:16→20:34)
[2017-10-06] MEDS: THEOPHYLLINE ER (24 HR) 200 MG CAPSULE PO SCH (08:16)
[2017-10-06] MEDS: MAGNESIUM OXIDE 400 MG TABLET PO SCH ×2 (08:16→20:34)
[2017-10-06] MEDS: MECLIZINE 25 MG TABLET PO SCH ×3 (08:16→20:34)
[2017-10-06] MEDS: PANTOPRAZOLE 40 MG TABLET PO SCH (08:16)
[2017-10-06] MEDS: amLODIPine 5 MG TABLET PO SCH ×2 (08:17→20:35)
[2017-10-06] MEDS: DOCUSATE SODIUM 100 MG CAPSULE PO SCH ×2 (08:17→20:34)
[2017-10-06] MEDS: HydrOXYzine PAMOATE 25 MG CAPSULE PO SCH (08:17)
[2017-10-06] MEDS: TAMSULOSIN 0.4 MG CAPSULE PO SCH (08:17)
[2017-10-06] MEDS: APIXABAN 2.5 MG TABLET PO SCH ×2 (08:17→20:34)
[2017-10-06] MEDS: BLISTEX LIP BALM TOP SCH ×2 (08:24→20:45)
[2017-10-06] MEDS: FLUTICASONE/SALMETEROL 100-50 DISKUS 14 DOSE INH SCH ×2 (08:24→20:34)
[2017-10-06] MEDS: HYDROCORTISONE 0.5% CREAM 28.35 GM TUBE TOP SCH ×2 (08:25→20:45)
[2017-10-06 09:33] LABS: ABG Base Excess 7.6 MMOL/L (-2.5-2.5); ABG HCO3 31.3 MMOL/L (20-26); ABG Oxygen Saturation 94.2 % (95-100); ABG PCO2 38.7 MM HG (35-48); ABG PH 7.513 (7.35-7.45); ABG PO2 66.6 MM HG (80-95); ABG TCO2 27.9 MMOL/L (23-27)
[2017-10-06] MEDS: CLINDAMYCIN INJ 600 MG in PREMIX 1 EACH IV SCH ×2 (11:22→17:41)
[2017-10-06] MEDS: LEVOFLOXACIN INJ 500 MG in PREMIX 1 EACH IV SCH (12:15)
[2017-10-06] MEDS: SIMVASTATIN 10 MG TABLET PO SCH (20:35)
[2017-10-06] MEDS: MONTELUKAST 10 MG TABLET PO SCH (20:35)
[2017-10-07] MEDS: oxyCODONE/ACETAMINOPHEN 5-325 MG TABLET PO SCH ×3 (01:59→17:39)
[2017-10-07] MEDS: CLINDAMYCIN INJ 600 MG in PREMIX 1 EACH IV SCH ×2 (02:00→10:16)
[2017-10-07] MEDS: ALBUTEROL/IPRATROPIUM 3 ML NEB RESP TX SCH ×6 (03:10→22:50)
[2017-10-07] MEDS: methylPREDNISolone SOD SUC 40 MG/1 ML VIAL IV SCH ×3 (04:33→21:40)
[2017-10-07] MEDS: CALCIUM CARBONATE CHEW 500 MG TABLET PO SCH ×3 (05:49→21:42)
[2017-10-07] MEDS: DORNASE ALFA 2.5 MG/2.5 ML VIAL RESP TX SCH ×2 (07:21→19:14)
[2017-10-07] MEDS: BLISTEX LIP BALM TOP SCH ×2 (10:12→21:43)
[2017-10-07] MEDS: APIXABAN 2.5 MG TABLET PO SCH ×2 (10:12→21:42)
[2017-10-07] MEDS: THEOPHYLLINE ER (24 HR) 200 MG CAPSULE PO SCH (10:13)
[2017-10-07] MEDS: ALBUTEROL 2 MG TABLET PO SCH ×3 (10:13→21:41)
[2017-10-07] MEDS: METOPROLOL TARTRATE 25 MG TABLET PO SCH ×2 (10:13→21:42)
[2017-10-07] MEDS: HYDROCORTISONE 0.5% CREAM 28.35 GM TUBE TOP SCH (10:13)
[2017-10-07] MEDS: TAMSULOSIN 0.4 MG CAPSULE PO SCH (10:14)
[2017-10-07] MEDS: MAGNESIUM OXIDE 400 MG TABLET PO SCH ×2 (10:14→21:41)
[2017-10-07] MEDS: DOCUSATE SODIUM 100 MG CAPSULE PO SCH ×2 (10:14→21:42)
[2017-10-07] MEDS: amLODIPine 5 MG TABLET PO SCH ×2 (10:14→21:40)
[2017-10-07] MEDS: MECLIZINE 25 MG TABLET PO SCH ×3 (10:14→21:40)
[2017-10-07] MEDS: PANTOPRAZOLE 40 MG TABLET PO SCH (10:14)
[2017-10-07] MEDS: GABAPENTIN 100 MG CAPSULE PO SCH ×3 (10:14→21:41)
[2017-10-07] MEDS: HydrOXYzine PAMOATE 25 MG CAPSULE PO SCH (10:14)
[2017-10-07] MEDS: FLUTICASONE/SALMETEROL 100-50 DISKUS 14 DOSE INH SCH ×2 (10:15→21:43)
[2017-10-07] MEDS: CLINDAMYCIN INJ 300 MG in PREMIX 1 EACH IV SCH ×3 (11:17→18:40)
[2017-10-07] MEDS: LEVOFLOXACIN INJ 500 MG in PREMIX 1 EACH IV SCH (11:19)
[2017-10-07] MEDS: MONTELUKAST 10 MG TABLET PO SCH ×2 (11:19→21:41)
[2017-10-07] MEDS: SIMVASTATIN 10 MG TABLET PO SCH (21:42)
[2017-10-08] MEDS: HYDROCORTISONE 0.5% CREAM 28.35 GM TUBE TOP SCH ×3 (00:18→21:13)
[2017-10-08] MEDS: oxyCODONE/ACETAMINOPHEN 5-325 MG TABLET PO SCH ×3 (02:34→17:19)
[2017-10-08] MEDS: CLINDAMYCIN INJ 300 MG in PREMIX 1 EACH IV SCH ×2 (02:35→12:13)
[2017-10-08] MEDS: ALBUTEROL/IPRATROPIUM 3 ML NEB RESP TX SCH ×6 (02:47→23:54)
[2017-10-08] MEDS: methylPREDNISolone SOD SUC 40 MG/1 ML VIAL IV SCH ×3 (03:42→20:56)
[2017-10-08] MEDS: CALCIUM CARBONATE CHEW 500 MG TABLET PO SCH ×3 (06:49→23:43)
[2017-10-08] MEDS: DORNASE ALFA 2.5 MG/2.5 ML VIAL RESP TX SCH ×2 (07:30→19:53)
[2017-10-08] MEDS: BLISTEX LIP BALM TOP SCH ×2 (09:44→20:56)
[2017-10-08] MEDS: FLUTICASONE/SALMETEROL 100-50 DISKUS 14 DOSE INH SCH ×2 (09:45→20:56)
[2017-10-08] MEDS: THEOPHYLLINE ER (24 HR) 200 MG CAPSULE PO SCH (09:46)
[2017-10-08] MEDS: METOPROLOL TARTRATE 25 MG TABLET PO SCH ×2 (09:46→20:55)
[2017-10-08] MEDS: APIXABAN 2.5 MG TABLET PO SCH ×2 (09:46→20:56)
[2017-10-08] MEDS: MAGNESIUM OXIDE 400 MG TABLET PO SCH ×2 (09:46→20:55)
[2017-10-08] MEDS: DOCUSATE SODIUM 100 MG CAPSULE PO SCH ×2 (09:46→20:55)
[2017-10-08] MEDS: MONTELUKAST 10 MG TABLET PO SCH ×2 (09:46→20:55)
[2017-10-08] MEDS: ALBUTEROL 2 MG TABLET PO SCH ×3 (09:46→20:55)
[2017-10-08] MEDS: GABAPENTIN 100 MG CAPSULE PO SCH ×3 (09:47→20:55)
[2017-10-08] MEDS: MECLIZINE 25 MG TABLET PO SCH ×3 (09:47→20:54)
[2017-10-08] MEDS: HydrOXYzine PAMOATE 25 MG CAPSULE PO SCH (09:47)
[2017-10-08] MEDS: TAMSULOSIN 0.4 MG CAPSULE PO SCH (09:47)
[2017-10-08] MEDS: PANTOPRAZOLE 40 MG TABLET PO SCH (09:47)
[2017-10-08] MEDS: amLODIPine 5 MG TABLET PO SCH ×2 (09:47→20:54)
[2017-10-08] MEDS: COLLAGENASE OINT 30 GM TUBE TOP SCH (12:28)
[2017-10-08] MEDS: LEVOFLOXACIN INJ 500 MG in PREMIX 1 EACH IV SCH (12:29)
[2017-10-08 12:53] LABS: Calcium 8.8 MG/DL (8.5-10.1); Osmolality,Calculated 269.1 MOS/KG (273-304); Potassium 4.7 MMOL/L (3.5-5.1)
[2017-10-08] MEDS: VANCOMYCIN INJ 1,250 MG in SODIUM CHLORIDE 0.9% 250 ML IV SCH (15:42)
[2017-10-08] MEDS ORDERED: FUROSEMIDE 20 MG/2 ML VIAL IV ONE (18:56)
[2017-10-08 19:53] LABS: Troponin I Only 0.026 NG/ML (0.00-0.045)
[2017-10-08] MEDS: SIMVASTATIN 10 MG TABLET PO SCH (20:55)
[2017-10-09] MEDS: oxyCODONE/ACETAMINOPHEN 5-325 MG TABLET PO SCH ×4 (00:48→17:52)
[2017-10-09] MEDS: methylPREDNISolone SOD SUC 40 MG/1 ML VIAL IV SCH ×2 (03:20→15:33)
[2017-10-09] MEDS: ALBUTEROL/IPRATROPIUM 3 ML NEB RESP TX SCH ×6 (03:29→23:41)
[2017-10-09 06:39] LABS: Calcium 8.2 MG/DL (8.5-10.1); Potassium 3.9 MMOL/L (3.5-5.1)
[2017-10-09] MEDS: DORNASE ALFA 2.5 MG/2.5 ML VIAL RESP TX SCH ×2 (07:25→19:55)
[2017-10-09] MEDS: CALCIUM CARBONATE CHEW 500 MG TABLET PO SCH ×3 (07:47→22:34)
[2017-10-09] MEDS: ALBUTEROL 2 MG TABLET PO SCH ×3 (09:32→22:34)
[2017-10-09] MEDS: GABAPENTIN 100 MG CAPSULE PO SCH ×3 (09:32→22:34)
[2017-10-09] MEDS: MONTELUKAST 10 MG TABLET PO SCH ×2 (09:32→22:35)
[2017-10-09] MEDS: DOCUSATE SODIUM 100 MG CAPSULE PO SCH ×3 (09:33→22:35)
[2017-10-09] MEDS: METOPROLOL TARTRATE 25 MG TABLET PO SCH ×3 (09:33→22:35)
[2017-10-09] MEDS: TAMSULOSIN 0.4 MG CAPSULE PO SCH (09:33)
[2017-10-09] MEDS: APIXABAN 2.5 MG TABLET PO SCH ×2 (09:33→22:35)
[2017-10-09] MEDS: MAGNESIUM OXIDE 400 MG TABLET PO SCH ×2 (09:33→22:36)
[2017-10-09] MEDS: HydrOXYzine PAMOATE 25 MG CAPSULE PO SCH (09:33)
[2017-10-09] MEDS: MECLIZINE 25 MG TABLET PO SCH ×3 (09:33→22:35)
[2017-10-09] MEDS: THEOPHYLLINE ER (24 HR) 200 MG CAPSULE PO SCH (09:33)
[2017-10-09] MEDS: PANTOPRAZOLE 40 MG TABLET PO SCH ×2 (09:33→11:10)
[2017-10-09] MEDS: FLUTICASONE/SALMETEROL 100-50 DISKUS 14 DOSE INH SCH ×2 (09:34→23:03)
[2017-10-09] MEDS: VANCOMYCIN INJ 1,250 MG in SODIUM CHLORIDE 0.9% 250 ML IV SCH (09:34)
[2017-10-09] MEDS: BLISTEX LIP BALM TOP SCH ×2 (09:34→22:37)
[2017-10-09] MEDS: HYDROCORTISONE 0.5% CREAM 28.35 GM TUBE TOP SCH ×2 (09:34→22:37)
[2017-10-09] MEDS: amLODIPine 5 MG TABLET PO SCH ×2 (11:09→22:36)
[2017-10-09] MEDS ORDERED: LORazepam 2 MG/1 ML VIAL IV ONE (12:06)
[2017-10-09 12:34] LABS: ABG Base Excess 6.8 MMOL/L (-2.5-2.5); ABG HCO3 30.4 MMOL/L (20-26); ABG Oxygen Saturation 88.6 % (95-100); ABG PCO2 39.8 MM HG (35-48); ABG PH 7.494 (7.35-7.45); ABG PO2 53.9 MM HG (80-95); ABG TCO2 27.3 MMOL/L (23-27)
[2017-10-09 12:49] LABS: Troponin I Only 0.017 NG/ML (0.00-0.045)
[2017-10-09] MEDS ORDERED: FUROSEMIDE 40 MG/4 ML VIAL IV ONE (14:07)
[2017-10-09] MEDS ORDERED: FUROSEMIDE 40 MG/4 ML VIAL ONE (14:19)
[2017-10-09] MEDS: COLLAGENASE OINT 30 GM TUBE TOP SCH (15:10)
[2017-10-09 15:19] LABS: Apearance,Urine CLEAR (Clear); Bacteria,Urine Occasional /HPF (Few); Bilirubin,Urine Negative (Negative); Blood, Urine Negative (Negative); Glucose,Urine (UA) Negative (Negative); Ketones,Urine Negative (Negative); Nitrite,Urine Negative (Negative); Protein,Urine Negative; RBC,Urine 1 /HPF (0-4); Renal Epithelial Cells,Urine Occasional /HPF (<1); Squamous Epithelial Cell,Urine Occasional /HPF (0-10); Urine Color Straw (Yellow); Urine Specific Gravity 1.025 (1.001-1.035); Urine Urobilinogen < 2.0 EU/DL (0.2-1.0)
[2017-10-09] MEDS: LEVOFLOXACIN INJ 500 MG in PREMIX 1 EACH IV SCH (15:36)
[2017-10-09] MEDS: SIMVASTATIN 10 MG TABLET PO SCH (22:35)
[2017-10-10] MEDS: methylPREDNISolone SOD SUC 40 MG/1 ML VIAL IV SCH ×4 (00:52→20:55)
[2017-10-10] MEDS: oxyCODONE/ACETAMINOPHEN 5-325 MG TABLET PO SCH ×3 (03:05→18:00)
[2017-10-10] MEDS: VANCOMYCIN INJ 1,250 MG in SODIUM CHLORIDE 0.9% 250 ML IV SCH ×2 (03:05→20:22)
[2017-10-10] MEDS: ALBUTEROL/IPRATROPIUM 3 ML NEB RESP TX SCH ×5 (03:34→19:58)
[2017-10-10 05:47] LABS: Basophils % 0.3 % (0.0-0.8); Eosinophils % 0.2 % (0.00-10.9); Hematocrit 36.6 VOL% (42.0-52.0); Hemoglobin 11.2 GM/DL (14.0-18.0); Immature Granulocytes % 1.7 %; Immature Granulocytes Absolute 0.19 #; Lymphocytes # 1.2 10*3/uL (1.4-4.0); Lymphocytes % 10.1 % (21.2-54.2); Mean Corpuscular HGB Conc 30.6 GM/DL (32-36); Mean Corpuscular Hemoglobin 24 PG (27-34); Mean Platelet Volume 9.5 FL (9.6-12.0); Monocytes # 0.2 10*3/uL (0.11-0.8); Monocytes % 1.7 % (1.7-12.7); Neutrophils # 9.9 10*3/uL (1.4-7.4); Platelet Count 168 T/CUMM (130-400); Red Blood Count 4.63 MC/CUMM (3.8-5.5); Red Cell Distribution Width 17.9 % (9.3-17.3); White Blood Count 11.4 T/CUMM (4-12)
[2017-10-10 06:03] LABS: Calcium 8.3 MG/DL (8.5-10.1); Osmolality,Calculated 269.1 MOS/KG (273-304); Potassium 3.5 MMOL/L (3.5-5.1)
[2017-10-10 06:14] LABS: Band Neutrophils 9 % (0-10); Hypochromasia 1+; Lymphocytes 15 % (20-55); Microcytosis 1+; Segmented Neutrophils 73 % (50-85); Total Cells Counted 100
[2017-10-10 06:15] LABS: Ovalocytes Slight
[2017-10-10] MEDS: CALCIUM CARBONATE CHEW 500 MG TABLET PO SCH ×3 (06:55→23:27)
[2017-10-10] MEDS: DORNASE ALFA 2.5 MG/2.5 ML VIAL RESP TX SCH ×2 (07:15→20:06)
[2017-10-10] MEDS: METOPROLOL TARTRATE 25 MG TABLET PO SCH (09:01)
[2017-10-10] MEDS: MECLIZINE 25 MG TABLET PO SCH ×3 (09:01→20:21)
[2017-10-10] MEDS: MONTELUKAST 10 MG TABLET PO SCH ×2 (09:01→20:20)
[2017-10-10] MEDS: ALBUTEROL 2 MG TABLET PO SCH ×2 (09:02→15:29)
[2017-10-10] MEDS: amLODIPine 5 MG TABLET PO SCH (09:03)
[2017-10-10] MEDS: DOCUSATE SODIUM 100 MG CAPSULE PO SCH ×2 (09:03→20:21)
[2017-10-10] MEDS: MAGNESIUM OXIDE 400 MG TABLET PO SCH ×2 (09:03→20:20)
[2017-10-10] MEDS: TAMSULOSIN 0.4 MG CAPSULE PO SCH (09:03)
[2017-10-10] MEDS: THEOPHYLLINE ER (24 HR) 200 MG CAPSULE PO SCH (09:03)
[2017-10-10] MEDS: GABAPENTIN 100 MG CAPSULE PO SCH ×3 (09:03→20:21)
[2017-10-10] MEDS: HydrOXYzine PAMOATE 25 MG CAPSULE PO SCH (09:04)
[2017-10-10] MEDS: APIXABAN 2.5 MG TABLET PO SCH ×2 (09:04→20:21)
[2017-10-10] MEDS: PANTOPRAZOLE 40 MG TABLET PO SCH (09:04)
[2017-10-10] MEDS: HYDROCORTISONE 0.5% CREAM 28.35 GM TUBE TOP SCH ×2 (09:58→20:56)
[2017-10-10] MEDS: COLLAGENASE OINT 30 GM TUBE TOP SCH (09:58)
[2017-10-10] MEDS: BLISTEX LIP BALM TOP SCH ×2 (09:58→20:56)
[2017-10-10] MEDS: FLUTICASONE/SALMETEROL 100-50 DISKUS 14 DOSE INH SCH ×2 (09:58→20:23)
[2017-10-10] MEDS: LEVOFLOXACIN INJ 500 MG in PREMIX 1 EACH IV SCH (12:15)
[2017-10-10] MEDS: METOPROLOL TARTRATE 50 MG TABLET PO SCH ×2 (15:29→20:21)
[2017-10-10] MEDS: SIMVASTATIN 10 MG TABLET PO SCH (20:21)
[2017-10-10] MEDS: MUPIROCIN 2% OINT 22 GM TUBE TOP SCH (20:53)
[2017-10-11] MEDS: ALBUTEROL/IPRATROPIUM 3 ML NEB RESP TX SCH ×6 (00:27→20:22)
[2017-10-11] MEDS: oxyCODONE/ACETAMINOPHEN 5-325 MG TABLET PO SCH ×3 (02:07→18:21)
[2017-10-11] MEDS: methylPREDNISolone SOD SUC 40 MG/1 ML VIAL IV SCH ×3 (03:54→20:48)
[2017-10-11 05:13] LABS: Basophils % 0.2 % (0.0-0.8); Hematocrit 33.1 VOL% (42.0-52.0); Hemoglobin 10.1 GM/DL (14.0-18.0); Immature Granulocytes % 1.4 %; Immature Granulocytes Absolute 0.17 #; Lymphocytes # 0.5 10*3/uL (1.4-4.0); Lymphocytes % 4.2 % (21.2-54.2); Mean Corpuscular HGB Conc 30.5 GM/DL (32-36); Mean Corpuscular Hemoglobin 24 PG (27-34); Mean Corpuscular Volume 79.2 FL (87-102); Mean Platelet Volume 9.3 FL (9.6-12.0); Monocytes # 0.2 10*3/uL (0.11-0.8); Monocytes % 1.5 % (1.7-12.7); Neutrophils % 92.7 % (38.7-73.9); Platelet Count 176 T/CUMM (130-400); Red Blood Count 4.18 MC/CUMM (3.8-5.5); Red Cell Distribution Width 17.6 % (9.3-17.3); White Blood Count 11.9 T/CUMM (4-12)
[2017-10-11 05:52] LABS: Band Neutrophils 2 % (0-10); Hypochromasia 1+; Lymphocytes 3 % (20-55); Microcytosis 1+; Ovalocytes Slight; Platelet Estimate Adequate; Segmented Neutrophils 93 % (50-85); Total Cells Counted 100
[2017-10-11 05:54] LABS: Calcium 8.1 MG/DL (8.5-10.1); Osmolality,Calculated 272.2 MOS/KG (273-304); Potassium 4.1 MMOL/L (3.5-5.1)
[2017-10-11] MEDS: CALCIUM CARBONATE CHEW 500 MG TABLET PO SCH ×3 (06:20→22:42)
[2017-10-11] MEDS: ALBUTEROL 2 MG TABLET PO SCH ×4 (07:06→22:39)
[2017-10-11] MEDS: DORNASE ALFA 2.5 MG/2.5 ML VIAL RESP TX SCH ×2 (07:29→20:22)
[2017-10-11] MEDS: MONTELUKAST 10 MG TABLET PO SCH ×2 (08:29→20:58)
[2017-10-11] MEDS: METOPROLOL TARTRATE 50 MG TABLET PO SCH ×3 (08:29→21:12)
[2017-10-11] MEDS: DOCUSATE SODIUM 100 MG CAPSULE PO SCH ×2 (08:29→20:57)
[2017-10-11] MEDS: HydrOXYzine PAMOATE 25 MG CAPSULE PO SCH (08:29)
[2017-10-11] MEDS: TAMSULOSIN 0.4 MG CAPSULE PO SCH (08:29)
[2017-10-11] MEDS: MAGNESIUM OXIDE 400 MG TABLET PO SCH ×2 (08:29→20:57)
[2017-10-11] MEDS: MECLIZINE 25 MG TABLET PO SCH ×3 (08:29→20:58)
[2017-10-11] MEDS: THEOPHYLLINE ER (24 HR) 200 MG CAPSULE PO SCH (08:29)
[2017-10-11] MEDS: GABAPENTIN 100 MG CAPSULE PO SCH ×3 (08:30→20:57)
[2017-10-11] MEDS: PANTOPRAZOLE 40 MG TABLET PO SCH (08:30)
[2017-10-11] MEDS: HYDROCORTISONE 0.5% CREAM 28.35 GM TUBE TOP SCH ×2 (08:30→21:18)
[2017-10-11] MEDS: FLUTICASONE/SALMETEROL 100-50 DISKUS 14 DOSE INH SCH ×2 (08:30→21:14)
[2017-10-11] MEDS: MUPIROCIN 2% OINT 22 GM TUBE TOP SCH ×2 (08:30→21:14)
[2017-10-11] MEDS: COLLAGENASE OINT 30 GM TUBE TOP SCH (08:30)
[2017-10-11] MEDS: APIXABAN 2.5 MG TABLET PO SCH ×2 (08:30→20:57)
[2017-10-11] MEDS: BLISTEX LIP BALM TOP SCH ×2 (08:30→21:27)
[2017-10-11] MEDS: VANCOMYCIN INJ 1,250 MG in SODIUM CHLORIDE 0.9% 250 ML IV SCH ×2 (09:40→20:51)
[2017-10-11] MEDS: LEVOFLOXACIN INJ 500 MG in PREMIX 1 EACH IV SCH (11:24)
[2017-10-11] MEDS: SIMVASTATIN 10 MG TABLET PO SCH (20:57)
[2017-10-12] MEDS: ALBUTEROL/IPRATROPIUM 3 ML NEB RESP TX SCH ×7 (00:08→23:30)
[2017-10-12] MEDS: oxyCODONE/ACETAMINOPHEN 5-325 MG TABLET PO SCH ×3 (01:56→17:11)
[2017-10-12 05:41] LABS: Calcium 8.5 MG/DL (8.5-10.1); Osmolality,Calculated 272.2 MOS/KG (273-304); Potassium 4.2 MMOL/L (3.5-5.1)
[2017-10-12] MEDS: methylPREDNISolone SOD SUC 40 MG/1 ML VIAL IV SCH ×3 (06:16→20:43)
[2017-10-12] MEDS: DORNASE ALFA 2.5 MG/2.5 ML VIAL RESP TX SCH ×2 (07:06→18:40)
[2017-10-12] MEDS: CALCIUM CARBONATE CHEW 500 MG TABLET PO SCH ×3 (07:07→23:32)
[2017-10-12] MEDS: TAMSULOSIN 0.4 MG CAPSULE PO SCH (09:48)
[2017-10-12] MEDS: MECLIZINE 25 MG TABLET PO SCH ×3 (09:48→20:34)
[2017-10-12] MEDS: FLUTICASONE/SALMETEROL 100-50 DISKUS 14 DOSE INH SCH ×2 (09:48→20:43)
[2017-10-12] MEDS: HYDROCORTISONE 0.5% CREAM 28.35 GM TUBE TOP SCH ×2 (09:48→20:44)
[2017-10-12] MEDS: DOCUSATE SODIUM 100 MG CAPSULE PO SCH ×2 (09:48→20:36)
[2017-10-12] MEDS: BLISTEX LIP BALM TOP SCH ×2 (09:48→20:44)
[2017-10-12] MEDS: APIXABAN 2.5 MG TABLET PO SCH ×2 (09:48→20:35)
[2017-10-12] MEDS: MUPIROCIN 2% OINT 22 GM TUBE TOP SCH ×2 (09:48→20:44)
[2017-10-12] MEDS: COLLAGENASE OINT 30 GM TUBE TOP SCH (09:49)
[2017-10-12] MEDS: THEOPHYLLINE ER (24 HR) 200 MG CAPSULE PO SCH (09:49)
[2017-10-12] MEDS: PANTOPRAZOLE 40 MG TABLET PO SCH (09:49)
[2017-10-12] MEDS: METOPROLOL TARTRATE 50 MG TABLET PO SCH ×2 (09:49→20:34)
[2017-10-12] MEDS: MAGNESIUM OXIDE 400 MG TABLET PO SCH ×2 (09:49→20:35)
[2017-10-12] MEDS: ALBUTEROL 2 MG TABLET PO SCH ×3 (09:49→20:35)
[2017-10-12] MEDS: GABAPENTIN 100 MG CAPSULE PO SCH ×3 (09:49→20:35)
[2017-10-12] MEDS: MONTELUKAST 10 MG TABLET PO SCH ×2 (09:49→20:34)
[2017-10-12] MEDS: HydrOXYzine PAMOATE 25 MG CAPSULE PO SCH (09:50)
[2017-10-12] MEDS: VANCOMYCIN INJ 1,250 MG in SODIUM CHLORIDE 0.9% 250 ML IV SCH ×2 (09:50→20:44)
[2017-10-12] MEDS ORDERED: ALBUTEROL 2.5 MG/3 ML NEB RESP TX ONE (11:03)
[2017-10-12] MEDS: LEVOFLOXACIN INJ 500 MG in PREMIX 1 EACH IV SCH (13:35)
[2017-10-12] MEDS: SIMVASTATIN 10 MG TABLET PO SCH (20:36)
[2017-10-13] MEDS: oxyCODONE/ACETAMINOPHEN 5-325 MG TABLET PO SCH ×3 (01:14→21:05)
[2017-10-13] MEDS: ALBUTEROL/IPRATROPIUM 3 ML NEB RESP TX SCH ×6 (03:00→22:34)
[2017-10-13] MEDS: methylPREDNISolone SOD SUC 40 MG/1 ML VIAL IV SCH ×3 (04:45→21:04)
[2017-10-13] MEDS: CALCIUM CARBONATE CHEW 500 MG TABLET PO SCH ×3 (06:34→23:18)
[2017-10-13] MEDS: DORNASE ALFA 2.5 MG/2.5 ML VIAL RESP TX SCH ×2 (06:53→19:04)
[2017-10-13 07:11] LABS: Calcium 8.8 MG/DL (8.5-10.1); Potassium 4.3 MMOL/L (3.5-5.1)
[2017-10-13] MEDS: MONTELUKAST 10 MG TABLET PO SCH ×2 (09:23→21:06)
[2017-10-13] MEDS: DOCUSATE SODIUM 100 MG CAPSULE PO SCH ×2 (09:23→21:06)
[2017-10-13] MEDS: APIXABAN 2.5 MG TABLET PO SCH ×2 (09:23→21:08)
[2017-10-13] MEDS: THEOPHYLLINE ER (24 HR) 200 MG CAPSULE PO SCH (09:23)
[2017-10-13] MEDS: METOPROLOL TARTRATE 50 MG TABLET PO SCH ×2 (09:24→21:08)
[2017-10-13] MEDS: MAGNESIUM OXIDE 400 MG TABLET PO SCH ×2 (09:24→21:06)
[2017-10-13] MEDS: TAMSULOSIN 0.4 MG CAPSULE PO SCH (09:24)
[2017-10-13] MEDS: PANTOPRAZOLE 40 MG TABLET PO SCH (09:24)
[2017-10-13] MEDS: HYDROCORTISONE 0.5% CREAM 28.35 GM TUBE TOP SCH ×2 (09:24→21:09)
[2017-10-13] MEDS: GABAPENTIN 100 MG CAPSULE PO SCH ×3 (09:24→21:08)
[2017-10-13] MEDS: ALBUTEROL 2 MG TABLET PO SCH ×3 (09:24→21:06)
[2017-10-13] MEDS: COLLAGENASE OINT 30 GM TUBE TOP SCH (09:24)
[2017-10-13] MEDS: VANCOMYCIN INJ 1,250 MG in SODIUM CHLORIDE 0.9% 250 ML IV SCH ×2 (09:24→21:10)
[2017-10-13] MEDS: MECLIZINE 25 MG TABLET PO SCH ×3 (09:24→21:08)
[2017-10-13] MEDS: HydrOXYzine PAMOATE 25 MG CAPSULE PO SCH (09:24)
[2017-10-13] MEDS: MUPIROCIN 2% OINT 22 GM TUBE TOP SCH ×2 (09:25→21:10)
[2017-10-13] MEDS: BLISTEX LIP BALM TOP SCH ×2 (09:25→21:10)
[2017-10-13] MEDS: FLUTICASONE/SALMETEROL 100-50 DISKUS 14 DOSE INH SCH ×2 (09:25→21:04)
[2017-10-13] MEDS: LEVOFLOXACIN INJ 500 MG in PREMIX 1 EACH IV SCH (12:50)
[2017-10-13] MEDS: SIMVASTATIN 10 MG TABLET PO SCH (21:06)
[2017-10-14] MEDS: ALBUTEROL/IPRATROPIUM 3 ML NEB RESP TX SCH ×6 (02:33→23:10)
[2017-10-14] MEDS: hydrOXYzine HCL 25 MG TABLET PO PRN ×2 (02:41→21:42)
[2017-10-14] MEDS: methylPREDNISolone SOD SUC 40 MG/1 ML VIAL IV SCH ×3 (03:42→21:41)
[2017-10-14] MEDS: oxyCODONE/ACETAMINOPHEN 5-325 MG TABLET PO SCH ×3 (04:56→21:43)
[2017-10-14] MEDS: CALCIUM CARBONATE CHEW 500 MG TABLET PO SCH ×3 (06:24→21:42)
[2017-10-14 06:35] LABS: Calcium 8.2 MG/DL (8.5-10.1); Osmolality,Calculated 272.1 MOS/KG (273-304); Potassium 4.8 MMOL/L (3.5-5.1)
[2017-10-14] MEDS: DORNASE ALFA 2.5 MG/2.5 ML VIAL RESP TX SCH ×2 (07:00→19:10)
[2017-10-14] MEDS: MONTELUKAST 10 MG TABLET PO SCH ×2 (08:25→21:42)
[2017-10-14] MEDS: PANTOPRAZOLE 40 MG TABLET PO SCH (08:25)
[2017-10-14] MEDS: MECLIZINE 25 MG TABLET PO SCH ×3 (08:26→22:17)
[2017-10-14] MEDS: ALBUTEROL 2 MG TABLET PO SCH ×3 (08:26→21:44)
[2017-10-14] MEDS: APIXABAN 2.5 MG TABLET PO SCH ×2 (08:26→22:17)
[2017-10-14] MEDS: MAGNESIUM OXIDE 400 MG TABLET PO SCH ×2 (08:26→21:43)
[2017-10-14] MEDS: THEOPHYLLINE ER (24 HR) 200 MG CAPSULE PO SCH (08:26)
[2017-10-14] MEDS: TAMSULOSIN 0.4 MG CAPSULE PO SCH (08:27)
[2017-10-14] MEDS: METOPROLOL TARTRATE 50 MG TABLET PO SCH ×2 (08:27→21:44)
[2017-10-14] MEDS: GABAPENTIN 100 MG CAPSULE PO SCH ×3 (08:27→21:42)
[2017-10-14] MEDS: HydrOXYzine PAMOATE 25 MG CAPSULE PO SCH (08:27)
[2017-10-14] MEDS: COLLAGENASE OINT 30 GM TUBE TOP SCH (08:28)
[2017-10-14] MEDS: BLISTEX LIP BALM TOP SCH ×2 (08:28→22:17)
[2017-10-14] MEDS: VANCOMYCIN INJ 1,250 MG in SODIUM CHLORIDE 0.9% 250 ML IV SCH ×2 (08:28→22:17)
[2017-10-14] MEDS: MUPIROCIN 2% OINT 22 GM TUBE TOP SCH ×2 (08:28→22:17)
[2017-10-14] MEDS: FLUTICASONE/SALMETEROL 100-50 DISKUS 14 DOSE INH SCH ×2 (08:28→22:16)
[2017-10-14] MEDS: HYDROCORTISONE 0.5% CREAM 28.35 GM TUBE TOP SCH ×2 (08:28→22:17)
[2017-10-14] MEDS: DOCUSATE SODIUM 100 MG CAPSULE PO SCH ×2 (08:28→21:42)
[2017-10-14] MEDS: LEVOFLOXACIN INJ 500 MG in PREMIX 1 EACH IV SCH (11:16)
[2017-10-14] MEDS: SIMVASTATIN 10 MG TABLET PO SCH (21:41)
[2017-10-15] MEDS: ALBUTEROL/IPRATROPIUM 3 ML NEB RESP TX SCH ×6 (03:30→23:03)
[2017-10-15 05:46] LABS: Basophils % 0.2 % (0.0-0.8); Eosinophils % 0.3 % (0.00-10.9); Hematocrit 34.3 VOL% (42.0-52.0); Hemoglobin 10.5 GM/DL (14.0-18.0); Immature Granulocytes % 1.9 %; Immature Granulocytes Absolute 0.21 #; Lymphocytes # 1.3 10*3/uL (1.4-4.0); Lymphocytes % 11.2 % (21.2-54.2); Mean Corpuscular HGB Conc 30.6 GM/DL (32-36); Mean Corpuscular Hemoglobin 25 PG (27-34); Mean Corpuscular Volume 80.3 FL (87-102); Mean Platelet Volume 9.2 FL (9.6-12.0); Monocytes # 0.6 10*3/uL (0.11-0.8); Monocytes % 5.2 % (1.7-12.7); Neutrophils # 9.1 10*3/uL (1.4-7.4); Neutrophils % 81.2 % (38.7-73.9); Platelet Count 210 T/CUMM (130-400); Red Blood Count 4.27 MC/CUMM (3.8-5.5); Red Cell Distribution Width 17.4 % (9.3-17.3); White Blood Count 11.1 T/CUMM (4-12)
[2017-10-15 06:15] LABS: Calcium 8.6 MG/DL (8.5-10.1); Osmolality,Calculated 271.1 MOS/KG (273-304); Potassium 4.4 MMOL/L (3.5-5.1)
[2017-10-15] MEDS: methylPREDNISolone SOD SUC 40 MG/1 ML VIAL IV SCH ×3 (06:46→20:57)
[2017-10-15] MEDS: CALCIUM CARBONATE CHEW 500 MG TABLET PO SCH ×4 (06:46→23:27)
[2017-10-15] MEDS: oxyCODONE/ACETAMINOPHEN 5-325 MG TABLET PO SCH ×3 (06:46→21:00)
[2017-10-15] MEDS: DORNASE ALFA 2.5 MG/2.5 ML VIAL RESP TX SCH ×2 (07:15→19:26)
[2017-10-15] MEDS: VANCOMYCIN INJ 1,250 MG in SODIUM CHLORIDE 0.9% 250 ML IV SCH (09:48)
[2017-10-15] MEDS: MAGNESIUM OXIDE 400 MG TABLET PO SCH ×2 (09:49→21:00)
[2017-10-15] MEDS: MUPIROCIN 2% OINT 22 GM TUBE TOP SCH ×2 (09:49→21:01)
[2017-10-15] MEDS: METOPROLOL TARTRATE 50 MG TABLET PO SCH ×2 (09:49→20:59)
[2017-10-15] MEDS: DOCUSATE SODIUM 100 MG CAPSULE PO SCH ×2 (09:49→20:59)
[2017-10-15] MEDS: ALBUTEROL 2 MG TABLET PO SCH ×3 (09:49→21:23)
[2017-10-15] MEDS: PANTOPRAZOLE 40 MG TABLET PO SCH (09:50)
[2017-10-15] MEDS: TAMSULOSIN 0.4 MG CAPSULE PO SCH (09:50)
[2017-10-15] MEDS: THEOPHYLLINE ER (24 HR) 200 MG CAPSULE PO SCH (09:50)
[2017-10-15] MEDS: MONTELUKAST 10 MG TABLET PO SCH ×2 (09:50→20:59)
[2017-10-15] MEDS: MECLIZINE 25 MG TABLET PO SCH ×3 (09:50→21:00)
[2017-10-15] MEDS: HydrOXYzine PAMOATE 25 MG CAPSULE PO SCH (09:50)
[2017-10-15] MEDS: GABAPENTIN 100 MG CAPSULE PO SCH ×3 (09:50→20:59)
[2017-10-15] MEDS: APIXABAN 2.5 MG TABLET PO SCH ×2 (09:50→20:59)
[2017-10-15] MEDS: COLLAGENASE OINT 30 GM TUBE TOP SCH (09:51)
[2017-10-15] MEDS: HYDROCORTISONE 0.5% CREAM 28.35 GM TUBE TOP SCH ×2 (09:51→21:01)
[2017-10-15] MEDS: BLISTEX LIP BALM TOP SCH ×2 (11:03→21:23)
[2017-10-15] MEDS: FLUTICASONE/SALMETEROL 100-50 DISKUS 14 DOSE INH SCH ×2 (11:49→21:01)
[2017-10-15] MEDS: DUTASTERIDE 0.5 MG CAPSULE PO SCH (16:02)
[2017-10-15] MEDS: LEVOFLOXACIN INJ 500 MG in PREMIX 1 EACH IV SCH (16:03)
[2017-10-15] MEDS: NYSTATIN 500,000 UNIT/5 ML UDCUP SWISH/SWAL SCH ×2 (16:28→21:01)
[2017-10-15] MEDS: SIMVASTATIN 10 MG TABLET PO SCH (21:22)
[2017-10-16] MEDS: methylPREDNISolone SOD SUC 40 MG/1 ML VIAL IV SCH ×3 (04:02→23:06)
[2017-10-16] MEDS: ALBUTEROL/IPRATROPIUM 3 ML NEB RESP TX SCH ×6 (04:03→23:46)
[2017-10-16] MEDS: VANCOMYCIN INJ 1,250 MG in SODIUM CHLORIDE 0.9% 250 ML IV SCH ×2 (04:05→23:12)
[2017-10-16] MEDS: oxyCODONE/ACETAMINOPHEN 5-325 MG TABLET PO SCH ×3 (04:53→23:04)
[2017-10-16] MEDS: CALCIUM CARBONATE CHEW 500 MG TABLET PO SCH ×3 (06:04→23:11)
[2017-10-16] MEDS: DORNASE ALFA 2.5 MG/2.5 ML VIAL RESP TX SCH ×2 (07:06→19:54)
[2017-10-16 07:17] LABS: Calcium 8.1 MG/DL (8.5-10.1); Osmolality,Calculated 271.1 MOS/KG (273-304); Potassium 4.3 MMOL/L (3.5-5.1)
[2017-10-16] MEDS: ALBUTEROL 2 MG TABLET PO SCH ×3 (09:24→23:03)
[2017-10-16] MEDS: HydrOXYzine PAMOATE 25 MG CAPSULE PO SCH (09:24)
[2017-10-16] MEDS: PANTOPRAZOLE 40 MG TABLET PO SCH (09:24)
[2017-10-16] MEDS: METOPROLOL TARTRATE 50 MG TABLET PO SCH ×2 (09:24→23:05)
[2017-10-16] MEDS: MAGNESIUM OXIDE 400 MG TABLET PO SCH ×2 (09:24→23:03)
[2017-10-16] MEDS: MECLIZINE 25 MG TABLET PO SCH ×3 (09:24→23:03)
[2017-10-16] MEDS: GABAPENTIN 100 MG CAPSULE PO SCH ×3 (09:24→23:04)
[2017-10-16] MEDS: MONTELUKAST 10 MG TABLET PO SCH ×2 (09:24→23:03)
[2017-10-16] MEDS: NYSTATIN 500,000 UNIT/5 ML UDCUP SWISH/SWAL SCH ×4 (09:24→23:05)
[2017-10-16] MEDS: TAMSULOSIN 0.4 MG CAPSULE PO SCH (09:24)
[2017-10-16] MEDS: DOCUSATE SODIUM 100 MG CAPSULE PO SCH ×2 (09:24→23:05)
[2017-10-16] MEDS: DUTASTERIDE 0.5 MG CAPSULE PO SCH (09:24)
[2017-10-16] MEDS: MUPIROCIN 2% OINT 22 GM TUBE TOP SCH ×2 (09:25→23:03)
[2017-10-16] MEDS: THEOPHYLLINE ER (24 HR) 200 MG CAPSULE PO SCH (09:25)
[2017-10-16] MEDS: COLLAGENASE OINT 30 GM TUBE TOP SCH (09:25)
[2017-10-16] MEDS: FLUTICASONE/SALMETEROL 100-50 DISKUS 14 DOSE INH SCH ×2 (09:25→23:03)
[2017-10-16] MEDS: BLISTEX LIP BALM TOP SCH ×2 (09:25→22:47)
[2017-10-16] MEDS: APIXABAN 2.5 MG TABLET PO SCH (09:26)
[2017-10-16] MEDS: HYDROCORTISONE 0.5% CREAM 28.35 GM TUBE TOP SCH ×2 (09:26→23:02)
[2017-10-16] MEDS ORDERED: HEPARIN 5,000 UNIT/1 ML VIAL IV ONE (12:06)
[2017-10-16] MEDS: LEVOFLOXACIN INJ 500 MG in PREMIX 1 EACH IV SCH (12:30)
[2017-10-16] MEDS: HEPARIN DRIP 25,000 UNITS/500 ML PREMIX IV SCH (13:43)
[2017-10-16] MEDS: SIMVASTATIN 10 MG TABLET PO SCH (23:05)
[2017-10-17] MEDS: ALBUTEROL/IPRATROPIUM 3 ML NEB RESP TX SCH ×6 (03:25→23:56)
[2017-10-17] MEDS: methylPREDNISolone SOD SUC 40 MG/1 ML VIAL IV SCH ×3 (04:11→20:56)
[2017-10-17] MEDS: oxyCODONE/ACETAMINOPHEN 5-325 MG TABLET PO SCH ×3 (04:12→20:55)
[2017-10-17] MEDS: CALCIUM CARBONATE CHEW 500 MG TABLET PO SCH ×4 (06:00→22:59)
[2017-10-17 06:46] LABS: Basophils % 0.1 % (0.0-0.8); Hematocrit 32.6 VOL% (42.0-52.0); Hemoglobin 10.2 GM/DL (14.0-18.0); Immature Granulocytes % 4.8 %; Immature Granulocytes Absolute 0.47 #; Lymphocytes # 0.8 10*3/uL (1.4-4.0); Lymphocytes % 7.7 % (21.2-54.2); Mean Corpuscular HGB Conc 31.3 GM/DL (32-36); Mean Corpuscular Hemoglobin 25 PG (27-34); Mean Corpuscular Volume 78.6 FL (87-102); Mean Platelet Volume 9.5 FL (9.6-12.0); Monocytes # 0.3 10*3/uL (0.11-0.8); Monocytes % 3.3 % (1.7-12.7); Neutrophils # 8.3 10*3/uL (1.4-7.4); Neutrophils % 84.1 % (38.7-73.9); Platelet Count 223 T/CUMM (130-400); Red Blood Count 4.15 MC/CUMM (3.8-5.5); Red Cell Distribution Width 17.8 % (9.3-17.3); White Blood Count 9.9 T/CUMM (4-12)
[2017-10-17] MEDS: DORNASE ALFA 2.5 MG/2.5 ML VIAL RESP TX SCH ×2 (07:06→19:06)
[2017-10-17 07:25] LABS: Calcium 8.3 MG/DL (8.5-10.1); Osmolality,Calculated 273.1 MOS/KG (273-304); Potassium 4.5 MMOL/L (3.5-5.1)
[2017-10-17] MEDS: TAMSULOSIN 0.4 MG CAPSULE PO SCH (09:55)
[2017-10-17] MEDS: MONTELUKAST 10 MG TABLET PO SCH ×2 (09:55→20:54)
[2017-10-17] MEDS: MAGNESIUM OXIDE 400 MG TABLET PO SCH ×2 (09:55→20:54)
[2017-10-17] MEDS: ALBUTEROL 2 MG TABLET PO SCH ×3 (09:55→20:55)
[2017-10-17] MEDS: PANTOPRAZOLE 40 MG TABLET PO SCH (09:55)
[2017-10-17] MEDS: MECLIZINE 25 MG TABLET PO SCH ×3 (09:55→20:55)
[2017-10-17] MEDS: THEOPHYLLINE ER (24 HR) 200 MG CAPSULE PO SCH (09:55)
[2017-10-17] MEDS: GABAPENTIN 100 MG CAPSULE PO SCH ×3 (09:56→20:54)
[2017-10-17] MEDS: DUTASTERIDE 0.5 MG CAPSULE PO SCH (09:56)
[2017-10-17] MEDS: DOCUSATE SODIUM 100 MG CAPSULE PO SCH ×2 (09:56→20:56)
[2017-10-17] MEDS: MUPIROCIN 2% OINT 22 GM TUBE TOP SCH ×2 (09:56→20:56)
[2017-10-17] MEDS: HYDROCORTISONE 0.5% CREAM 28.35 GM TUBE TOP SCH ×2 (09:56→20:57)
[2017-10-17] MEDS: BLISTEX LIP BALM TOP SCH ×2 (09:56→20:56)
[2017-10-17] MEDS: NYSTATIN 500,000 UNIT/5 ML UDCUP SWISH/SWAL SCH ×4 (09:56→20:56)
[2017-10-17] MEDS: FLUTICASONE/SALMETEROL 100-50 DISKUS 14 DOSE INH SCH ×2 (09:56→20:56)
[2017-10-17] MEDS: HydrOXYzine PAMOATE 25 MG CAPSULE PO SCH (09:56)
[2017-10-17] MEDS: METOPROLOL TARTRATE 50 MG TABLET PO SCH ×2 (09:56→20:54)
[2017-10-17] MEDS: COLLAGENASE OINT 30 GM TUBE TOP SCH (09:57)
[2017-10-17] MEDS: LEVOFLOXACIN INJ 500 MG in PREMIX 1 EACH IV SCH (12:00)
[2017-10-17] MEDS: HEPARIN DRIP 25,000 UNITS/500 ML PREMIX IV SCH (12:03)
[2017-10-17] MEDS ORDERED: ZINC OXIDE PASTE 113 GM TUBE TOP PRN (15:36)
[2017-10-17] MEDS: VANCOMYCIN INJ 1,250 MG in SODIUM CHLORIDE 0.9% 250 ML IV SCH (17:07)
[2017-10-17] MEDS: traZODone 50 MG TABLET PO PRN (20:55)
[2017-10-17] MEDS: SIMVASTATIN 10 MG TABLET PO SCH (20:56)
[2017-10-18] MEDS: ALBUTEROL/IPRATROPIUM 3 ML NEB RESP TX SCH ×5 (03:39→20:11)
[2017-10-18] MEDS: methylPREDNISolone SOD SUC 40 MG/1 ML VIAL IV SCH ×3 (05:20→20:10)
[2017-10-18] MEDS: oxyCODONE/ACETAMINOPHEN 5-325 MG TABLET PO SCH ×3 (05:20→21:22)
[2017-10-18 05:49] LABS: Basophils % 0.1 % (0.0-0.8); Hematocrit 32.1 VOL% (42.0-52.0); Hemoglobin 10.1 GM/DL (14.0-18.0); Immature Granulocytes % 7.5 %; Immature Granulocytes Absolute 0.59 #; Lymphocytes # 0.8 10*3/uL (1.4-4.0); Lymphocytes % 10.5 % (21.2-54.2); Mean Corpuscular HGB Conc 31.5 GM/DL (32-36); Mean Corpuscular Hemoglobin 25 PG (27-34); Mean Corpuscular Volume 78.1 FL (87-102); Mean Platelet Volume 8.8 FL (9.6-12.0); Monocytes # 0.4 10*3/uL (0.11-0.8); Monocytes % 4.6 % (1.7-12.7); Neutrophils # 6.1 10*3/uL (1.4-7.4); Neutrophils % 77.3 % (38.7-73.9); Platelet Count 202 T/CUMM (130-400); Red Blood Count 4.11 MC/CUMM (3.8-5.5); Red Cell Distribution Width 17.9 % (9.3-17.3); White Blood Count 7.9 T/CUMM (4-12)
[2017-10-18 06:00] LABS: PT Patient Result 10.1 SECS
[2017-10-18 06:12] LABS: Band Neutrophils 4 % (0-10); Lymphocytes 19 % (20-55); Segmented Neutrophils 72 % (50-85); Total Cells Counted 100
[2017-10-18 06:13] LABS: Anisocytosis Slight; Microcytosis 1+; Platelet Estimate Normal
[2017-10-18 06:20] LABS: Calcium 8.6 MG/DL (8.5-10.1); Potassium 4.1 MMOL/L (3.5-5.1)
[2017-10-18] MEDS: CALCIUM CARBONATE CHEW 500 MG TABLET PO SCH ×4 (07:43→21:32)
[2017-10-18] MEDS ORDERED: LIDOCAINE 2% 5 ML VIAL ONE (11:04)
[2017-10-18] MEDS ORDERED: PROPOFOL 200 MG/20 ML VIAL IV ONE (11:04)
[2017-10-18] MEDS: BLISTEX LIP BALM TOP SCH ×2 (13:11→21:26)
[2017-10-18] MEDS: NYSTATIN 500,000 UNIT/5 ML UDCUP SWISH/SWAL SCH ×4 (13:12→21:20)
[2017-10-18] MEDS: PANTOPRAZOLE 40 MG TABLET PO SCH (13:14)
[2017-10-18] MEDS: THEOPHYLLINE ER (24 HR) 200 MG CAPSULE PO SCH (13:14)
[2017-10-18] MEDS: MONTELUKAST 10 MG TABLET PO SCH ×2 (13:14→21:21)
[2017-10-18] MEDS: GABAPENTIN 100 MG CAPSULE PO SCH ×3 (13:14→21:23)
[2017-10-18] MEDS: MAGNESIUM OXIDE 400 MG TABLET PO SCH ×2 (13:14→21:20)
[2017-10-18] MEDS: METOPROLOL TARTRATE 50 MG TABLET PO SCH ×2 (13:14→21:20)
[2017-10-18] MEDS: TAMSULOSIN 0.4 MG CAPSULE PO SCH (13:15)
[2017-10-18] MEDS: HydrOXYzine PAMOATE 25 MG CAPSULE PO SCH (13:15)
[2017-10-18] MEDS: DOCUSATE SODIUM 100 MG CAPSULE PO SCH ×2 (13:16→21:20)
[2017-10-18] MEDS: ALBUTEROL 2 MG TABLET PO SCH ×3 (13:16→21:20)
[2017-10-18] MEDS: DUTASTERIDE 0.5 MG CAPSULE PO SCH (13:16)
[2017-10-18] MEDS: MECLIZINE 25 MG TABLET PO SCH ×3 (13:16→21:20)
[2017-10-18] MEDS: COLLAGENASE OINT 30 GM TUBE TOP SCH (13:17)
[2017-10-18] MEDS: MUPIROCIN 2% OINT 22 GM TUBE TOP SCH ×2 (13:17→21:25)
[2017-10-18] MEDS: HYDROCORTISONE 0.5% CREAM 28.35 GM TUBE TOP SCH ×2 (13:17→21:26)
[2017-10-18] MEDS: FLUTICASONE/SALMETEROL 100-50 DISKUS 14 DOSE INH SCH ×2 (13:17→21:25)
[2017-10-18] MEDS: VANCOMYCIN INJ 1,250 MG in SODIUM CHLORIDE 0.9% 250 ML IV SCH (13:18)
[2017-10-18] MEDS: HEPARIN DRIP 25,000 UNITS/500 ML PREMIX IV SCH (16:25)
[2017-10-18] MEDS: LEVOFLOXACIN INJ 500 MG in PREMIX 1 EACH IV SCH (16:26)
[2017-10-18] MEDS: DORNASE ALFA 2.5 MG/2.5 ML VIAL RESP TX SCH (20:11)
[2017-10-18] MEDS: traZODone 50 MG TABLET PO PRN (21:19)
[2017-10-18] MEDS: SIMVASTATIN 10 MG TABLET PO SCH (21:21)
[2017-10-19] MEDS: ALBUTEROL/IPRATROPIUM 3 ML NEB RESP TX SCH ×7 (00:32→23:52)
[2017-10-19] MEDS: methylPREDNISolone SOD SUC 40 MG/1 ML VIAL IV SCH ×3 (04:57→20:28)
[2017-10-19] MEDS: oxyCODONE/ACETAMINOPHEN 5-325 MG TABLET PO SCH ×3 (04:57→20:33)
[2017-10-19] MEDS: VANCOMYCIN INJ 1,250 MG in SODIUM CHLORIDE 0.9% 250 ML IV SCH (05:53)
[2017-10-19] MEDS: CALCIUM CARBONATE CHEW 500 MG TABLET PO SCH ×3 (05:54→21:52)
[2017-10-19 07:12] LABS: Calcium 8.4 MG/DL (8.5-10.1); Osmolality,Calculated 276.8 MOS/KG (273-304); Potassium 4.4 MMOL/L (3.5-5.1)
[2017-10-19] MEDS: DORNASE ALFA 2.5 MG/2.5 ML VIAL RESP TX SCH ×3 (08:04→20:07)
[2017-10-19] MEDS: ALBUTEROL 2 MG TABLET PO SCH ×3 (09:26→20:30)
[2017-10-19] MEDS: MAGNESIUM OXIDE 400 MG TABLET PO SCH ×2 (09:26→20:29)
[2017-10-19] MEDS: TAMSULOSIN 0.4 MG CAPSULE PO SCH (09:26)
[2017-10-19] MEDS: GABAPENTIN 100 MG CAPSULE PO SCH ×3 (09:27→20:29)
[2017-10-19] MEDS: MECLIZINE 25 MG TABLET PO SCH ×3 (09:27→20:31)
[2017-10-19] MEDS: NYSTATIN 500,000 UNIT/5 ML UDCUP SWISH/SWAL SCH ×4 (09:27→20:29)
[2017-10-19] MEDS: MONTELUKAST 10 MG TABLET PO SCH ×2 (09:27→20:29)
[2017-10-19] MEDS: THEOPHYLLINE ER (24 HR) 200 MG CAPSULE PO SCH (09:27)
[2017-10-19] MEDS: DUTASTERIDE 0.5 MG CAPSULE PO SCH (09:27)
[2017-10-19] MEDS: HydrOXYzine PAMOATE 25 MG CAPSULE PO SCH (09:27)
[2017-10-19] MEDS: METOPROLOL TARTRATE 50 MG TABLET PO SCH ×2 (09:27→20:31)
[2017-10-19] MEDS: PANTOPRAZOLE 40 MG TABLET PO SCH (09:27)
[2017-10-19] MEDS: FLUTICASONE/SALMETEROL 100-50 DISKUS 14 DOSE INH SCH ×2 (09:28→20:35)
[2017-10-19] MEDS: MUPIROCIN 2% OINT 22 GM TUBE TOP SCH ×2 (09:28→20:35)
[2017-10-19] MEDS: DOCUSATE SODIUM 100 MG CAPSULE PO SCH ×2 (09:28→20:36)
[2017-10-19] MEDS: HYDROCORTISONE 0.5% CREAM 28.35 GM TUBE TOP SCH ×2 (09:28→20:50)
[2017-10-19] MEDS: COLLAGENASE OINT 30 GM TUBE TOP SCH (09:28)
[2017-10-19] MEDS: BLISTEX LIP BALM TOP SCH ×2 (09:28→20:36)
[2017-10-19] MEDS: LEVOFLOXACIN INJ 500 MG in PREMIX 1 EACH IV SCH (11:56)
[2017-10-19] MEDS: HEPARIN DRIP 25,000 UNITS/500 ML PREMIX IV SCH (15:33)
[2017-10-19] MEDS: SIMVASTATIN 10 MG TABLET PO SCH (20:32)
[2017-10-20] MEDS: VANCOMYCIN INJ 1,250 MG in SODIUM CHLORIDE 0.9% 250 ML IV SCH ×2 (00:24→19:08)
[2017-10-20] MEDS: traZODone 50 MG TABLET PO PRN (00:53)
[2017-10-20] MEDS: ALBUTEROL/IPRATROPIUM 3 ML NEB RESP TX SCH ×5 (03:30→19:29)
[2017-10-20] MEDS: methylPREDNISolone SOD SUC 40 MG/1 ML VIAL IV SCH ×3 (03:47→21:55)
[2017-10-20] MEDS: oxyCODONE/ACETAMINOPHEN 5-325 MG TABLET PO SCH ×3 (04:07→21:55)
[2017-10-20] MEDS: CALCIUM CARBONATE CHEW 500 MG TABLET PO SCH ×3 (05:42→21:54)
[2017-10-20] MEDS: DORNASE ALFA 2.5 MG/2.5 ML VIAL RESP TX SCH ×2 (07:45→19:49)
[2017-10-20] MEDS: MECLIZINE 25 MG TABLET PO SCH ×3 (09:24→21:55)
[2017-10-20] MEDS: PANTOPRAZOLE 40 MG TABLET PO SCH (09:24)
[2017-10-20] MEDS: METOPROLOL TARTRATE 50 MG TABLET PO SCH ×2 (09:24→21:55)
[2017-10-20] MEDS: GABAPENTIN 100 MG CAPSULE PO SCH ×3 (09:24→22:00)
[2017-10-20] MEDS: DUTASTERIDE 0.5 MG CAPSULE PO SCH (09:24)
[2017-10-20] MEDS: NYSTATIN 500,000 UNIT/5 ML UDCUP SWISH/SWAL SCH ×4 (09:25→21:53)
[2017-10-20] MEDS: MONTELUKAST 10 MG TABLET PO SCH ×2 (09:25→21:54)
[2017-10-20] MEDS: ALBUTEROL 2 MG TABLET PO SCH ×3 (09:25→23:46)
[2017-10-20] MEDS: THEOPHYLLINE ER (24 HR) 200 MG CAPSULE PO SCH (09:25)
[2017-10-20] MEDS: MAGNESIUM OXIDE 400 MG TABLET PO SCH ×2 (09:25→21:54)
[2017-10-20] MEDS: TAMSULOSIN 0.4 MG CAPSULE PO SCH (09:25)
[2017-10-20] MEDS: HydrOXYzine PAMOATE 25 MG CAPSULE PO SCH (09:25)
[2017-10-20] MEDS: BLISTEX LIP BALM TOP SCH ×2 (09:26→21:56)
[2017-10-20] MEDS: HYDROCORTISONE 0.5% CREAM 28.35 GM TUBE TOP SCH ×2 (09:26→21:59)
[2017-10-20] MEDS: MUPIROCIN 2% OINT 22 GM TUBE TOP SCH ×2 (09:26→21:57)
[2017-10-20] MEDS: DOCUSATE SODIUM 100 MG CAPSULE PO SCH ×2 (09:26→21:55)
[2017-10-20] MEDS: COLLAGENASE OINT 30 GM TUBE TOP SCH (09:26)
[2017-10-20] MEDS: FLUTICASONE/SALMETEROL 100-50 DISKUS 14 DOSE INH SCH ×2 (09:26→21:57)
[2017-10-20] MEDS: HEPARIN DRIP 25,000 UNITS/500 ML PREMIX IV SCH (10:13)
[2017-10-20] MEDS: ALUMINUM/MAGNES/SIMETH MAX STR 30 ML UDCUP PO PRN ×2 (12:41→21:54)
[2017-10-20] MEDS: LEVOFLOXACIN INJ 500 MG in PREMIX 1 EACH IV SCH (12:41)
[2017-10-20] MEDS: SIMVASTATIN 10 MG TABLET PO SCH (21:55)
[2017-10-21] MEDS: ALBUTEROL/IPRATROPIUM 3 ML NEB RESP TX SCH ×7 (00:09→23:51)
[2017-10-21] MEDS: methylPREDNISolone SOD SUC 40 MG/1 ML VIAL IV SCH ×3 (03:47→21:33)
[2017-10-21 06:22] LABS: Basophils % 0.1 % (0.0-0.8); Hematocrit 33.4 VOL% (42.0-52.0); Hemoglobin 10.5 GM/DL (14.0-18.0); Immature Granulocytes % 1.9 %; Lymphocytes # 0.5 10*3/uL (1.4-4.0); Lymphocytes % 4.5 % (21.2-54.2); Mean Corpuscular HGB Conc 31.4 GM/DL (32-36); Mean Corpuscular Hemoglobin 25 PG (27-34); Mean Corpuscular Volume 78.4 FL (87-102); Mean Platelet Volume 9.7 FL (9.6-12.0); Monocytes # 0.2 10*3/uL (0.11-0.8); Monocytes % 1.9 % (1.7-12.7); Neutrophils # 9.6 10*3/uL (1.4-7.4); Neutrophils % 91.6 % (38.7-73.9); Platelet Count 178 T/CUMM (130-400); Red Blood Count 4.26 MC/CUMM (3.8-5.5); Red Cell Distribution Width 18.3 % (9.3-17.3); White Blood Count 10.5 T/CUMM (4-12)
[2017-10-21 06:27] LABS: INR 0.9; Partial Thromboplastin Time 27.8 SECS (0-40)
[2017-10-21 06:44] LABS: Hypochromasia 1+; Lymphocytes 5 % (20-55); Nucleated Red Blood Cells 1 (0-5); Platelet Estimate Normal; Segmented Neutrophils 92 % (50-85); Total Cells Counted 100
[2017-10-21 06:45] LABS: Giant Platelets Few; Microcytosis 1+; Ovalocytes Slight
[2017-10-21 06:52] LABS: Calcium 8.6 MG/DL (8.5-10.1); Potassium 4.5 MMOL/L (3.5-5.1)
[2017-10-21 06:56] LABS: Calcium 8.5 MG/DL (8.5-10.1); Potassium 4.5 MMOL/L (3.5-5.1); Prealbumin 38.4 MG/DL (20-40)
[2017-10-21] MEDS: DORNASE ALFA 2.5 MG/2.5 ML VIAL RESP TX SCH ×2 (07:10→19:16)
[2017-10-21] MEDS: CALCIUM CARBONATE CHEW 500 MG TABLET PO SCH ×3 (07:41→21:37)
[2017-10-21] MEDS ORDERED: diphenhydrAMINE 50 MG/1 ML VIAL IM ONE (08:00)
[2017-10-21] MEDS: FLUTICASONE/SALMETEROL 100-50 DISKUS 14 DOSE INH SCH ×2 (08:22→22:12)
[2017-10-21] MEDS: DUTASTERIDE 0.5 MG CAPSULE PO SCH (08:23)
[2017-10-21] MEDS: DOCUSATE SODIUM 100 MG CAPSULE PO SCH ×2 (08:23→21:38)
[2017-10-21] MEDS: MECLIZINE 25 MG TABLET PO SCH ×3 (08:23→21:37)
[2017-10-21] MEDS: METOPROLOL TARTRATE 50 MG TABLET PO SCH ×2 (08:23→21:38)
[2017-10-21] MEDS: BLISTEX LIP BALM TOP SCH (08:23)
[2017-10-21] MEDS: TAMSULOSIN 0.4 MG CAPSULE PO SCH (08:23)
[2017-10-21] MEDS: MAGNESIUM OXIDE 400 MG TABLET PO SCH ×2 (08:24→21:38)
[2017-10-21] MEDS: GABAPENTIN 100 MG CAPSULE PO SCH ×3 (08:24→21:37)
[2017-10-21] MEDS: NYSTATIN 500,000 UNIT/5 ML UDCUP SWISH/SWAL SCH ×4 (08:24→21:37)
[2017-10-21] MEDS: ALBUTEROL 2 MG TABLET PO SCH ×3 (08:24→21:38)
[2017-10-21] MEDS: PANTOPRAZOLE 40 MG TABLET PO SCH (08:24)
[2017-10-21] MEDS: HydrOXYzine PAMOATE 25 MG CAPSULE PO SCH (08:24)
[2017-10-21] MEDS: MONTELUKAST 10 MG TABLET PO SCH ×2 (08:24→21:37)
[2017-10-21] MEDS: THEOPHYLLINE ER (24 HR) 200 MG CAPSULE PO SCH (08:24)
[2017-10-21] MEDS ORDERED: LIDOCAINE 1% 20 ML VIAL MISC INJ ONE (08:30)
[2017-10-21] MEDS ORDERED: LIDOCAINE 2% VISCOUS 100 ML BOTTLE SWISH/SPIT ONE (08:30)
[2017-10-21] MEDS ORDERED: LIDOCAINE 2% 20 ML VIAL RESP TX ONE (08:30)
[2017-10-21] MEDS: COLLAGENASE OINT 30 GM TUBE TOP SCH (10:15)
[2017-10-21] MEDS: HYDROCORTISONE 0.5% CREAM 28.35 GM TUBE TOP SCH ×2 (10:15→21:39)
[2017-10-21] MEDS: MUPIROCIN 2% OINT 22 GM TUBE TOP SCH ×2 (10:15→22:12)
[2017-10-21] MEDS: VANCOMYCIN INJ 1,250 MG in SODIUM CHLORIDE 0.9% 250 ML IV SCH (13:02)
[2017-10-21] MEDS: HEPARIN DRIP 25,000 UNITS/500 ML PREMIX IV SCH (13:50)
[2017-10-21 16:51] LABS: PT Patient Result 10.4 SECS
[2017-10-21] MEDS: SIMVASTATIN 10 MG TABLET PO SCH (21:38)
[2017-10-21] MEDS: oxyCODONE/ACETAMINOPHEN 5-325 MG TABLET PO SCH (22:13)
[2017-10-22] MEDS: BLISTEX LIP BALM TOP SCH ×3 (00:53→21:59)
[2017-10-22] MEDS: ALBUTEROL/IPRATROPIUM 3 ML NEB RESP TX SCH ×6 (03:23→23:44)
[2017-10-22] MEDS: methylPREDNISolone SOD SUC 40 MG/1 ML VIAL IV SCH (05:04)
[2017-10-22] MEDS: oxyCODONE/ACETAMINOPHEN 5-325 MG TABLET PO SCH ×3 (05:22→21:55)
[2017-10-22] MEDS: hydrOXYzine HCL 25 MG TABLET PO PRN ×2 (05:25→22:03)
[2017-10-22] MEDS: DORNASE ALFA 2.5 MG/2.5 ML VIAL RESP TX SCH ×2 (07:16→19:15)
[2017-10-22] MEDS: VANCOMYCIN INJ 1,250 MG in SODIUM CHLORIDE 0.9% 250 ML IV SCH (07:17)
[2017-10-22] MEDS: CALCIUM CARBONATE CHEW 500 MG TABLET PO SCH ×3 (07:33→21:55)
[2017-10-22] MEDS: MECLIZINE 25 MG TABLET PO SCH ×3 (08:54→21:56)
[2017-10-22] MEDS: ALBUTEROL 2 MG TABLET PO SCH ×3 (08:54→21:56)
[2017-10-22] MEDS: NYSTATIN 500,000 UNIT/5 ML UDCUP SWISH/SWAL SCH ×4 (08:54→21:56)
[2017-10-22] MEDS: DUTASTERIDE 0.5 MG CAPSULE PO SCH (08:54)
[2017-10-22] MEDS: METOPROLOL TARTRATE 50 MG TABLET PO SCH ×2 (08:54→21:56)
[2017-10-22] MEDS: MAGNESIUM OXIDE 400 MG TABLET PO SCH ×2 (08:54→21:55)
[2017-10-22] MEDS: TAMSULOSIN 0.4 MG CAPSULE PO SCH (08:55)
[2017-10-22] MEDS: HydrOXYzine PAMOATE 25 MG CAPSULE PO SCH (08:55)
[2017-10-22] MEDS: DOCUSATE SODIUM 100 MG CAPSULE PO SCH ×2 (08:55→21:55)
[2017-10-22] MEDS: HYDROCORTISONE 0.5% CREAM 28.35 GM TUBE TOP SCH ×2 (08:55→21:59)
[2017-10-22] MEDS: THEOPHYLLINE ER (24 HR) 200 MG CAPSULE PO SCH (08:55)
[2017-10-22] MEDS: MONTELUKAST 10 MG TABLET PO SCH ×2 (08:55→21:55)
[2017-10-22] MEDS: PANTOPRAZOLE 40 MG TABLET PO SCH (08:55)
[2017-10-22] MEDS: GABAPENTIN 100 MG CAPSULE PO SCH ×3 (08:55→21:57)
[2017-10-22] MEDS: FLUTICASONE/SALMETEROL 100-50 DISKUS 14 DOSE INH SCH ×2 (08:56→21:58)
[2017-10-22] MEDS: MUPIROCIN 2% OINT 22 GM TUBE TOP SCH ×2 (08:56→21:58)
[2017-10-22] MEDS: APIXABAN 2.5 MG TABLET PO SCH ×2 (09:01→21:56)
[2017-10-22] MEDS: predniSONE 20 MG TABLET PO SCH (09:02)
[2017-10-22] MEDS: COLLAGENASE OINT 30 GM TUBE TOP SCH (12:04)
[2017-10-22] MEDS: SIMVASTATIN 10 MG TABLET PO SCH (21:57)
[2017-10-23] MEDS: VANCOMYCIN INJ 1,250 MG in SODIUM CHLORIDE 0.9% 250 ML IV SCH (00:18)
[2017-10-23 02:22] LABS: Calcium 8.2 MG/DL (8.5-10.1); Osmolality,Calculated 278.8 MOS/KG (273-304); Potassium 3.9 MMOL/L (3.5-5.1)
[2017-10-23] MEDS: ALBUTEROL/IPRATROPIUM 3 ML NEB RESP TX SCH ×3 (02:57→10:17)
[2017-10-23] MEDS: oxyCODONE/ACETAMINOPHEN 5-325 MG TABLET PO SCH (06:18)
[2017-10-23] MEDS: CALCIUM CARBONATE CHEW 500 MG TABLET PO SCH (06:20)
[2017-10-23] MEDS: DORNASE ALFA 2.5 MG/2.5 ML VIAL RESP TX SCH (07:15)
[2017-10-23] MEDS: ALUMINUM/MAGNES/SIMETH MAX STR 30 ML UDCUP PO PRN (09:43)
[2017-10-23] MEDS: NYSTATIN 500,000 UNIT/5 ML UDCUP SWISH/SWAL SCH (09:43)
[2017-10-23] MEDS: PANTOPRAZOLE 40 MG TABLET PO SCH (09:43)
[2017-10-23] MEDS: TAMSULOSIN 0.4 MG CAPSULE PO SCH (09:43)
[2017-10-23] MEDS: MAGNESIUM OXIDE 400 MG TABLET PO SCH (09:44)
[2017-10-23] MEDS: THEOPHYLLINE ER (24 HR) 200 MG CAPSULE PO SCH (09:44)
[2017-10-23] MEDS: GABAPENTIN 100 MG CAPSULE PO SCH (09:44)
[2017-10-23] MEDS: DOCUSATE SODIUM 100 MG CAPSULE PO SCH (09:44)
[2017-10-23] MEDS: DUTASTERIDE 0.5 MG CAPSULE PO SCH (09:44)
[2017-10-23] MEDS: predniSONE 20 MG TABLET PO SCH (09:44)
[2017-10-23] MEDS: MECLIZINE 25 MG TABLET PO SCH (09:44)
[2017-10-23] MEDS: MONTELUKAST 10 MG TABLET PO SCH (09:44)
[2017-10-23] MEDS: ALBUTEROL 2 MG TABLET PO SCH (09:44)
[2017-10-23] MEDS: HydrOXYzine PAMOATE 25 MG CAPSULE PO SCH (09:45)
[2017-10-23] MEDS: MUPIROCIN 2% OINT 22 GM TUBE TOP SCH (09:45)
[2017-10-23] MEDS: FLUTICASONE/SALMETEROL 100-50 DISKUS 14 DOSE INH SCH (09:45)
[2017-10-23] MEDS: HYDROCORTISONE 0.5% CREAM 28.35 GM TUBE TOP SCH (09:45)
[2017-10-23] MEDS: METOPROLOL TARTRATE 50 MG TABLET PO SCH (09:45)
[2017-10-23] MEDS: BLISTEX LIP BALM TOP SCH (09:45)
[2017-10-23] MEDS: APIXABAN 2.5 MG TABLET PO SCH (09:45)
[2017-10-23 12:37] VITALS: BP 107/61
[2017-10-23] MEDS: COLLAGENASE OINT 30 GM TUBE TOP SCH (13:15)
== END 2017-10-23 13:34 | DRG 177 ==
LOC: EDUNIT# → N.ED 09:54 → N.EDINP 13:51 → SUATTDRO 13:51 → N.EDINP 15:39 → N.5E 16:04 → N.ICU 10-09 12:41 → N.5E 10-11 10:12
PROVIDERS: ADMIT Hospitalist; ATTEND Internal Medicine Cardiovascular Disease
PROC: EGDWPEG (ICD-10-PCS; 2017-10-18 09:05)

== ENCOUNTER 2018-02-05 13:03 | Inpatient (IN) ==
[2018-02-05] MEDS ORDERED: ONDANSETRON 4 MG/2 ML VIAL IV STA (13:17)
[2018-02-05] MEDS ORDERED: SODIUM CHLORIDE 0.9% 1,000 ML IV STA (13:17)
[2018-02-05] MEDS ORDERED: PANTOPRAZOLE 40 MG VIAL IV STA (13:17)
[2018-02-05] MEDS ORDERED: fentaNYL 100 MCG/2 ML VIAL IV STA ×2 (13:58→15:44)
[2018-02-05 14:18] LABS: Basophils % 0.4 % (0.0-0.8); Eosinophils # 0.2 10*3/uL (0.0-0.87); Hematocrit 42.9 VOL% (42.0-52.0); Hemoglobin 13.3 GM/DL (14.0-18.0); Immature Granulocytes % 1.5 %; Immature Granulocytes Absolute 0.16 #; Lymphocytes # 2.1 10*3/uL (1.4-4.0); Mean Corpuscular Hemoglobin 26 PG (27-34); Mean Corpuscular Volume 83.3 FL (87-102); Mean Platelet Volume 9.3 FL (9.6-12.0); Monocytes # 0.7 10*3/uL (0.11-0.8); Monocytes % 6.4 % (1.7-12.7); Neutrophils # 7.2 10*3/uL (1.4-7.4); Neutrophils % 69.7 % (38.7-73.9); Platelet Count 203 T/CUMM (130-400); Red Blood Count 5.15 MC/CUMM (3.8-5.5); Red Cell Distribution Width 16.9 % (9.3-17.3); White Blood Count 10.4 T/CUMM (4-12)
[2018-02-05 14:29] LABS: INR 0.9
[2018-02-05 14:34] LABS: Calcium 8.9 MG/DL (8.5-10.1); Osmolality,Calculated 276.7 MOS/KG (273-304); Potassium 3.8 MMOL/L (3.5-5.1); Total Protein 6.9 G/DL (6.4-8.3)
[2018-02-05] MEDS ORDERED: ONDANSETRON 4 MG/2 ML VIAL IV PRN (16:33)
[2018-02-05] MEDS: METOPROLOL TARTRATE 25 MG TABLET PEG SCH (21:56)
[2018-02-05] MEDS: PANTOPRAZOLE 40 MG VIAL IV SCH (21:56)
[2018-02-05 22:44] LABS: Hematocrit 39.2 VOL% (42.0-52.0); Hemoglobin 12.4 GM/DL (14.0-18.0)
[2018-02-06 05:51] LABS: Basophils # 0.1 10*3/uL (0.0-0.2); Basophils % 0.6 % (0.0-0.8); Eosinophils # 0.2 10*3/uL (0.0-0.87); Eosinophils % 2.6 % (0.00-10.9); Hematocrit 40.5 VOL% (42.0-52.0); Hemoglobin 12.2 GM/DL (14.0-18.0); Immature Granulocytes % 1.7 %; Immature Granulocytes Absolute 0.13 #; Lymphocytes # 1.3 10*3/uL (1.4-4.0); Lymphocytes % 16.3 % (21.2-54.2); Mean Corpuscular HGB Conc 30.1 GM/DL (32-36); Mean Corpuscular Hemoglobin 26 PG (27-34); Mean Corpuscular Volume 85.3 FL (87-102); Mean Platelet Volume 9.6 FL (9.6-12.0); Monocytes # 0.5 10*3/uL (0.11-0.8); Monocytes % 6.3 % (1.7-12.7); Neutrophils # 5.7 10*3/uL (1.4-7.4); Neutrophils % 72.5 % (38.7-73.9); Platelet Count 190 T/CUMM (130-400); Red Blood Count 4.75 MC/CUMM (3.8-5.5); Red Cell Distribution Width 17.1 % (9.3-17.3); White Blood Count 7.8 T/CUMM (4-12)
[2018-02-06 06:16] LABS: Osmolality,Calculated 282.1 MOS/KG (273-304); Potassium 3.8 MMOL/L (3.5-5.1)
[2018-02-06] MEDS: PANTOPRAZOLE 40 MG VIAL IV SCH ×2 (08:49→21:36)
[2018-02-06] MEDS: METOPROLOL TARTRATE 25 MG TABLET PEG SCH ×2 (08:49→21:36)
[2018-02-06 13:59] LABS: Apearance,Urine CLOUDY (Clear); Bacteria,Urine Many /HPF (Few); Bilirubin,Urine Negative (Negative); Blood, Urine Negative (Negative); Glucose,Urine (UA) Negative (Negative); Ketones,Urine 20 mg/dL (Negative); Mucus,Urine Occasional /LPF (Occasional); Nitrite,Urine Positive (Negative); Protein,Urine >=500 MG/DL; RBC,Urine 40 /HPF (0-4); Uric Acid Crystals,Urine Few /HPF (<1); Urine Color Yellow (Yellow); Urine Specific Gravity 1.023 (1.001-1.035); Urine Urobilinogen < 2.0 EU/DL (0.2-1.0); WBC,Urine 292 /HPF (0-6)
[2018-02-06] MEDS ORDERED: MEROPENEM 1,000 MG in SYRINGE 1 EACH IV SCH (18:00)
[2018-02-06] MEDS: MEROPENEM 1,000 MG in SYRINGE 1 EACH IV SCH (21:36)
[2018-02-06] MEDS: oxyCODONE/ACETAMINOPHEN 5-325 MG TABLET PO PRN (22:46)
[2018-02-07 05:45] LABS: Basophils # 0.1 10*3/uL (0.0-0.2); Basophils % 0.7 % (0.0-0.8); Eosinophils # 0.2 10*3/uL (0.0-0.87); Eosinophils % 2.3 % (0.00-10.9); Hematocrit 40.8 VOL% (42.0-52.0); Hemoglobin 12.8 GM/DL (14.0-18.0); Immature Granulocytes % 1.9 %; Immature Granulocytes Absolute 0.14 #; Lymphocytes # 1.4 10*3/uL (1.4-4.0); Lymphocytes % 18.6 % (21.2-54.2); Mean Corpuscular HGB Conc 31.4 GM/DL (32-36); Mean Corpuscular Hemoglobin 26 PG (27-34); Mean Corpuscular Volume 82.4 FL (87-102); Mean Platelet Volume 9.9 FL (9.6-12.0); Monocytes # 0.6 10*3/uL (0.11-0.8); Monocytes % 7.7 % (1.7-12.7); Neutrophils # 5.1 10*3/uL (1.4-7.4); Neutrophils % 68.8 % (38.7-73.9); Platelet Count 200 T/CUMM (130-400); Red Blood Count 4.95 MC/CUMM (3.8-5.5); Red Cell Distribution Width 16.9 % (9.3-17.3); White Blood Count 7.4 T/CUMM (4-12)
[2018-02-07 06:18] LABS: Osmolality,Calculated 284.3 MOS/KG (273-304); Potassium 3.5 MMOL/L (3.5-5.1)
[2018-02-07 06:23] LABS: Prealbumin 23.5 MG/DL (20-40)
[2018-02-07] MEDS ORDERED: PRAMOXINE 1% RECTAL FOAM 15 GM CAN TOP PRN (08:45)
[2018-02-07] MEDS ORDERED: PROPOFOL 200 MG/20 ML VIAL IV ONE (09:00)
[2018-02-07] MEDS ORDERED: ETOMIDATE 20 MG/10 ML VIAL IV ONE (09:00)
[2018-02-07] MEDS ORDERED: LIDOCAINE 100 MG/5 ML SYRINGE ONE (09:00)
[2018-02-07] MEDS: MEROPENEM 1,000 MG in SYRINGE 1 EACH IV SCH ×2 (09:10→21:18)
[2018-02-07] MEDS: PANTOPRAZOLE 40 MG VIAL IV SCH ×2 (09:12→21:21)
[2018-02-07] MEDS ORDERED: ALBUTEROL/IPRATROPIUM 3 ML NEB RESP TX ONE (09:57)
[2018-02-07] MEDS ORDERED: methylPREDNISolone SOD SUC 125 MG/2 ML VIAL ONE (09:59)
[2018-02-07] MEDS: METOPROLOL TARTRATE 25 MG TABLET PEG SCH ×2 (10:17→21:25)
[2018-02-07] MEDS ORDERED: PRAMOXINE/HYDROCORTISONE RECTAL FOAM 10 GM CAN TOP PRN (11:30)
[2018-02-07] MEDS: oxyCODONE/ACETAMINOPHEN 5-325 MG TABLET PO PRN (12:39)
[2018-02-07] MEDS: ALBUTEROL/IPRATROPIUM 3 ML NEB RESP TX SCH ×2 (13:40→20:11)
[2018-02-08] MEDS: ALBUTEROL/IPRATROPIUM 3 ML NEB RESP TX SCH ×4 (00:21→19:32)
[2018-02-08] MEDS ORDERED: BISACODYL 10 MG SUPP RECTAL ONE (01:00)
[2018-02-08] MEDS: oxyCODONE/ACETAMINOPHEN 5-325 MG TABLET PO PRN ×2 (03:16→14:21)
[2018-02-08 04:09] LABS: Basophils % 0.2 % (0.0-0.8); Eosinophils % 0.3 % (0.00-10.9); Hematocrit 39.1 VOL% (42.0-52.0); Hemoglobin 12.5 GM/DL (14.0-18.0); Immature Granulocytes Absolute 0.09 #; Lymphocytes # 1.4 10*3/uL (1.4-4.0); Lymphocytes % 15.4 % (21.2-54.2); Mean Corpuscular Hemoglobin 26 PG (27-34); Mean Corpuscular Volume 81.3 FL (87-102); Mean Platelet Volume 9.7 FL (9.6-12.0); Monocytes # 0.6 10*3/uL (0.11-0.8); Monocytes % 7.2 % (1.7-12.7); Neutrophils # 6.7 10*3/uL (1.4-7.4); Neutrophils % 75.9 % (38.7-73.9); Platelet Count 205 T/CUMM (130-400); Red Blood Count 4.81 MC/CUMM (3.8-5.5); Red Cell Distribution Width 16.8 % (9.3-17.3); White Blood Count 8.9 T/CUMM (4-12)
[2018-02-08] MEDS ORDERED: POLYETHYLENE GLYCOL POWDER 17 GM PACK PEG PRN (09:00)
[2018-02-08] MEDS: METOPROLOL TARTRATE 25 MG TABLET PEG SCH ×2 (09:14→21:52)
[2018-02-08] MEDS: PANTOPRAZOLE 40 MG VIAL IV SCH ×2 (09:14→22:00)
[2018-02-08] MEDS: MEROPENEM 1,000 MG in SYRINGE 1 EACH IV SCH ×2 (10:14→21:53)
[2018-02-08] MEDS: APIXABAN 2.5 MG TABLET PEG SCH (21:52)
[2018-02-08] MEDS: FLUTICASONE/SALMETEROL 100-50 DISKUS 14 DOSE INH SCH (21:53)
[2018-02-09] MEDS: ALBUTEROL/IPRATROPIUM 3 ML NEB RESP TX SCH ×4 (00:41→20:29)
[2018-02-09] MEDS: oxyCODONE/ACETAMINOPHEN 5-325 MG TABLET PO PRN ×3 (01:09→21:06)
[2018-02-09] MEDS: METOPROLOL TARTRATE 25 MG TABLET PEG SCH ×2 (09:31→21:05)
[2018-02-09] MEDS: FINASTERIDE 5 MG TABLET PO SCH (09:32)
[2018-02-09] MEDS: TAMSULOSIN 0.4 MG CAPSULE PO SCH (09:32)
[2018-02-09] MEDS: APIXABAN 2.5 MG TABLET PEG SCH ×2 (09:32→21:05)
[2018-02-09] MEDS: PANTOPRAZOLE 40 MG VIAL IV SCH ×2 (09:33→21:04)
[2018-02-09] MEDS: MEROPENEM 1,000 MG in SYRINGE 1 EACH IV SCH ×2 (09:33→21:05)
[2018-02-09] MEDS: FLUTICASONE/SALMETEROL 100-50 DISKUS 14 DOSE INH SCH ×2 (09:57→21:07)
[2018-02-10] MEDS: ALBUTEROL/IPRATROPIUM 3 ML NEB RESP TX SCH ×4 (01:49→19:22)
[2018-02-10] MEDS: APIXABAN 2.5 MG TABLET PEG SCH ×2 (09:08→21:58)
[2018-02-10] MEDS: TAMSULOSIN 0.4 MG CAPSULE PO SCH (09:08)
[2018-02-10] MEDS: oxyCODONE/ACETAMINOPHEN 5-325 MG TABLET PO PRN (09:09)
[2018-02-10] MEDS: FLUTICASONE/SALMETEROL 100-50 DISKUS 14 DOSE INH SCH ×2 (09:09→21:58)
[2018-02-10] MEDS: METOPROLOL TARTRATE 25 MG TABLET PEG SCH ×2 (09:09→21:58)
[2018-02-10] MEDS: MEROPENEM 1,000 MG in SYRINGE 1 EACH IV SCH (09:10)
[2018-02-10] MEDS: PANTOPRAZOLE 40 MG VIAL IV SCH ×2 (09:15→21:58)
[2018-02-10] MEDS: FINASTERIDE 5 MG TABLET PO SCH (09:19)
[2018-02-10] MEDS ORDERED: cefTRIAXone 1,000 MG in SYRINGE 1 EACH IV SCH (21:00)
[2018-02-11] MEDS: ALBUTEROL/IPRATROPIUM 3 ML NEB RESP TX SCH ×2 (00:47→07:22)
[2018-02-11 05:55] LABS: Basophils # 0.1 10*3/uL (0.0-0.2); Basophils % 0.8 % (0.0-0.8); Eosinophils # 0.2 10*3/uL (0.0-0.87); Eosinophils % 3.2 % (0.00-10.9); Hematocrit 38.5 VOL% (42.0-52.0); Immature Granulocytes % 1.5 %; Immature Granulocytes Absolute 0.11 #; Lymphocytes # 1.4 10*3/uL (1.4-4.0); Lymphocytes % 19.7 % (21.2-54.2); Mean Corpuscular HGB Conc 31.2 GM/DL (32-36); Mean Corpuscular Hemoglobin 26 PG (27-34); Mean Corpuscular Volume 83.9 FL (87-102); Mean Platelet Volume 9.7 FL (9.6-12.0); Monocytes # 0.5 10*3/uL (0.11-0.8); Monocytes % 7.1 % (1.7-12.7); Neutrophils # 4.8 10*3/uL (1.4-7.4); Neutrophils % 67.7 % (38.7-73.9); Platelet Count 182 T/CUMM (130-400); Red Blood Count 4.59 MC/CUMM (3.8-5.5); Red Cell Distribution Width 16.8 % (9.3-17.3); White Blood Count 7.1 T/CUMM (4-12)
[2018-02-11 06:25] LABS: Calcium 8.5 MG/DL (8.5-10.1); Osmolality,Calculated 277.5 MOS/KG (273-304); Potassium 4.1 MMOL/L (3.5-5.1)
[2018-02-11] MEDS: FLUTICASONE/SALMETEROL 100-50 DISKUS 14 DOSE INH SCH (09:07)
[2018-02-11] MEDS: PANTOPRAZOLE 40 MG VIAL IV SCH (09:07)
[2018-02-11] MEDS: METOPROLOL TARTRATE 25 MG TABLET PEG SCH (09:11)
[2018-02-11] MEDS: FINASTERIDE 5 MG TABLET PO SCH (09:11)
[2018-02-11] MEDS: TAMSULOSIN 0.4 MG CAPSULE PO SCH (09:11)
[2018-02-11] MEDS: APIXABAN 2.5 MG TABLET PEG SCH (09:11)
[2018-02-11 11:57] VITALS: BP 130/66
== END 2018-02-11 13:04 | DRG 378 ==
LOC: EDBD → EDUNIT# → N.ED 13:03 → SUATTDRO 15:52 → N.EDINP 15:52 → N.2E 18:15
PROVIDERS: ADMIT Internal Medicine; ATTEND Internal Medicine

== ENCOUNTER 2018-03-05 03:52 | Inpatient (IN) ==
[2018-03-05 04:35] LABS: Basophils # 0.1 10*3/uL (0.0-0.2); Basophils % 0.4 % (0.0-0.8); Hematocrit 43.5 VOL% (42.0-52.0); Hemoglobin 13.5 GM/DL (14.0-18.0); Immature Granulocytes % 3.6 %; Lymphocytes # 1.8 10*3/uL (1.4-4.0); Lymphocytes % 10.5 % (21.2-54.2); Mean Corpuscular Hemoglobin 26 PG (27-34); Mean Corpuscular Volume 83.8 FL (87-102); Monocytes # 1.5 10*3/uL (0.11-0.8); Monocytes % 8.8 % (1.7-12.7); Neutrophils % 76.7 % (38.7-73.9); Platelet Count 269 T/CUMM (130-400); Red Blood Count 5.19 MC/CUMM (3.8-5.5); Red Cell Distribution Width 16.1 % (9.3-17.3); White Blood Count 16.9 T/CUMM (4-12)
[2018-03-05 04:54] LABS: Band Neutrophils 3 % (0-10); Hypochromasia 1+; Lymphocytes 11 % (20-55); Macrocytosis Slight; Platelet Estimate Adequate; Segmented Neutrophils 76 % (50-85); Total Cells Counted 100
[2018-03-05 04:55] LABS: Polychromasia Slight
[2018-03-05 04:57] LABS: Albumin 3.2 G/DL (3.4-5.0); Bilirubin,Total 0.7 MG/DL (0.2-1.0); Calcium 9.7 MG/DL (8.5-10.1); Osmolality,Calculated 275.1 MOS/KG (273-304); Total Protein 7.7 G/DL (6.4-8.3)
[2018-03-05] MEDS ORDERED: MAGNESIUM SULF RIDER 2 GM in PREMIX 1 EACH IV PRN (05:31)
[2018-03-05] MEDS ORDERED: ONDANSETRON 4 MG/2 ML VIAL IV PRN (05:31)
[2018-03-05] MEDS ORDERED: ALBUTEROL 2.5 MG/3 ML NEB RESP TX PRN ×2 (05:31)
[2018-03-05] MEDS ORDERED: MAGNESIUM SULF RIDER 4 GM in PREMIX 1 EACH IV PRN (05:31)
[2018-03-05] MEDS ORDERED: POLYETHYLENE GLYCOL POWDER 17 GM PACK PEG PRN (06:02)
[2018-03-05] MEDS ORDERED: PRAMOXINE 1% RECTAL FOAM 15 GM CAN TOP PRN (06:02)
[2018-03-05] MEDS ORDERED: POLYVINYL ALCOHOL 1.4% OPH SOLN 15 ML BOTTLE BOTH EYES PRN (06:02)
[2018-03-05] MEDS ORDERED: guaiFENesin 200 MG/10 ML UDCUP PEG PRN (06:02)
[2018-03-05] MEDS ORDERED: CEFEPIME 1,000 MG VIAL ONE (06:18)
[2018-03-05] MEDS: methylPREDNISolone SOD SUC 40 MG/1 ML VIAL IV SCH ×3 (06:24→21:09)
[2018-03-05] MEDS: CEFEPIME 1,000 MG in SYRINGE 1 EACH IV SCH ×3 (06:26→21:09)
[2018-03-05] MEDS: ALBUTEROL/IPRATROPIUM 3 ML NEB RESP TX SCH ×3 (07:10→19:12)
[2018-03-05] MEDS: FUROSEMIDE 40 MG/4 ML VIAL IV SCH ×2 (08:04→16:05)
[2018-03-05] MEDS ORDERED: PANTOPRAZOLE 40 MG TABLET PO SCH (09:00)
[2018-03-05] MEDS ORDERED: MULTIVITAMIN (CENTRUM) TABLET PEG SCH (09:00)
[2018-03-05] MEDS: TAMSULOSIN 0.4 MG CAPSULE PO SCH (09:36)
[2018-03-05] MEDS: METOPROLOL TARTRATE 25 MG TABLET PEG SCH ×2 (09:37→21:08)
[2018-03-05] MEDS: MAGNESIUM OXIDE 400 MG TABLET PEG SCH ×2 (09:37→21:08)
[2018-03-05] MEDS: APIXABAN 2.5 MG TABLET PEG SCH ×2 (10:20→21:08)
[2018-03-05] MEDS: FINASTERIDE 5 MG TABLET PO SCH (10:57)
[2018-03-05] MEDS: FLUTICASONE/SALMETEROL 100-50 DISKUS 14 DOSE INH SCH ×2 (10:57→21:08)
[2018-03-05] MEDS: THEOPHYLLINE 5.33 MG/ML 30 ML/BOTTLE PEG SCH ×2 (10:57→21:09)
[2018-03-05] MEDS: MORPHINE 4 MG/1 ML VIAL IV PRN ×3 (11:06→20:36)
[2018-03-05] MEDS ORDERED: PRAMOXINE 1% TOP PRN (16:00)
[2018-03-05 16:21] LABS: Apearance,Urine CLEAR (Clear); Bacteria,Urine Occasional /HPF (Few); Bilirubin,Urine Negative (Negative); Blood, Urine Negative (Negative); Glucose,Urine (UA) Negative (Negative); Ketones,Urine Negative (Negative); Nitrite,Urine Negative (Negative); Protein,Urine Negative; Urine Color Straw (Yellow); Urine Specific Gravity 1.006 (1.001-1.035); Urine Urobilinogen < 2.0 EU/DL (0.2-1.0); WBC,Urine 1 /HPF (0-6)
[2018-03-05] MEDS: SIMVASTATIN 10 MG TABLET PEG SCH (21:09)
[2018-03-06] MEDS: ALBUTEROL/IPRATROPIUM 3 ML NEB RESP TX SCH ×4 (00:23→19:11)
[2018-03-06 04:47] LABS: Basophils % 0.2 % (0.0-0.8); Hematocrit 41.5 VOL% (42.0-52.0); Hemoglobin 13.4 GM/DL (14.0-18.0); Immature Granulocytes % 1.2 %; Immature Granulocytes Absolute 0.23 #; Mean Corpuscular HGB Conc 32.3 GM/DL (32-36); Mean Corpuscular Hemoglobin 26 PG (27-34); Mean Corpuscular Volume 81.9 FL (87-102); Monocytes # 1.3 10*3/uL (0.11-0.8); Monocytes % 6.7 % (1.7-12.7); Neutrophils # 16.5 10*3/uL (1.4-7.4); Neutrophils % 86.9 % (38.7-73.9); Platelet Count 269 T/CUMM (130-400); Red Blood Count 5.07 MC/CUMM (3.8-5.5); Red Cell Distribution Width 16.4 % (9.3-17.3)
[2018-03-06 05:08] LABS: Albumin 3.3 G/DL (3.4-5.0); Bilirubin,Total 0.9 MG/DL (0.2-1.0); Calcium 9.2 MG/DL (8.5-10.1); Osmolality,Calculated 293.4 MOS/KG (273-304); Potassium 4.2 MMOL/L (3.5-5.1); Total Protein 7.4 G/DL (6.4-8.3)
[2018-03-06] MEDS: methylPREDNISolone SOD SUC 40 MG/1 ML VIAL IV SCH ×3 (05:48→21:04)
[2018-03-06] MEDS: CEFEPIME 1,000 MG in SYRINGE 1 EACH IV SCH ×3 (05:50→21:04)
[2018-03-06] MEDS: FUROSEMIDE 40 MG/4 ML VIAL IV SCH ×2 (07:50→16:30)
[2018-03-06] MEDS ORDERED: NIFEdipine 10 MG CAPSULE PO PRN (09:10)
[2018-03-06] MEDS: FLUTICASONE/SALMETEROL 100-50 DISKUS 14 DOSE INH SCH ×2 (09:25→20:58)
[2018-03-06] MEDS: LANSOPRAZOLE ODT 30 MG TABLET PEG SCH (09:35)
[2018-03-06] MEDS: THEOPHYLLINE 5.33 MG/ML 30 ML/BOTTLE PEG SCH ×2 (09:35→21:04)
[2018-03-06] MEDS: METOPROLOL TARTRATE 25 MG TABLET PEG SCH ×2 (09:35→20:59)
[2018-03-06] MEDS: MULTIVITAMIN LIQUID (CENTRUM) 60 ML BOTTLE PEG SCH (09:35)
[2018-03-06] MEDS: FINASTERIDE 5 MG TABLET PO SCH (09:35)
[2018-03-06] MEDS: APIXABAN 2.5 MG TABLET PEG SCH ×2 (09:35→20:58)
[2018-03-06] MEDS: TAMSULOSIN 0.4 MG CAPSULE PO SCH (09:35)
[2018-03-06] MEDS: MAGNESIUM OXIDE 400 MG TABLET PEG SCH ×2 (09:35→20:59)
[2018-03-06] MEDS: MORPHINE 4 MG/1 ML VIAL IV PRN ×3 (11:35→21:05)
[2018-03-06] MEDS: SIMVASTATIN 10 MG TABLET PEG SCH (20:58)
[2018-03-07] MEDS: ALBUTEROL/IPRATROPIUM 3 ML NEB RESP TX SCH ×4 (00:23→19:34)
[2018-03-07] MEDS: MORPHINE 4 MG/1 ML VIAL IV PRN ×3 (02:50→22:13)
[2018-03-07 05:23] LABS: Basophils % 0.1 % (0.0-0.8); Hematocrit 39.2 VOL% (42.0-52.0); Immature Granulocytes % 0.9 %; Immature Granulocytes Absolute 0.15 #; Lymphocytes # 0.6 10*3/uL (1.4-4.0); Mean Corpuscular HGB Conc 30.6 GM/DL (32-36); Mean Corpuscular Hemoglobin 26 PG (27-34); Mean Corpuscular Volume 83.2 FL (87-102); Mean Platelet Volume 10.9 FL (9.6-12.0); Monocytes # 0.7 10*3/uL (0.11-0.8); Monocytes % 4.3 % (1.7-12.7); Neutrophils # 14.4 10*3/uL (1.4-7.4); Neutrophils % 90.7 % (38.7-73.9); Platelet Count 263 T/CUMM (130-400); Red Blood Count 4.71 MC/CUMM (3.8-5.5); Red Cell Distribution Width 15.9 % (9.3-17.3); White Blood Count 15.9 T/CUMM (4-12)
[2018-03-07 05:55] LABS: Calcium 9.2 MG/DL (8.5-10.1); Osmolality,Calculated 292.8 MOS/KG (273-304); Potassium 4.2 MMOL/L (3.5-5.1)
[2018-03-07 05:57] LABS: Prealbumin 23.7 MG/DL (20-40)
[2018-03-07] MEDS: CEFEPIME 1,000 MG in SYRINGE 1 EACH IV SCH ×3 (06:15→23:27)
[2018-03-07] MEDS: methylPREDNISolone SOD SUC 40 MG/1 ML VIAL IV SCH ×3 (06:20→17:56)
[2018-03-07 06:33] LABS: Lymphocytes 9 % (20-55); Platelet Estimate Normal; Segmented Neutrophils 91 % (50-85); Total Cells Counted 100
[2018-03-07] MEDS: APIXABAN 2.5 MG TABLET PEG SCH ×2 (08:00→21:35)
[2018-03-07] MEDS: FINASTERIDE 5 MG TABLET PO SCH (08:00)
[2018-03-07] MEDS: LANSOPRAZOLE ODT 30 MG TABLET PEG SCH (08:00)
[2018-03-07] MEDS: TAMSULOSIN 0.4 MG CAPSULE PO SCH (08:00)
[2018-03-07] MEDS: MAGNESIUM OXIDE 400 MG TABLET PEG SCH ×2 (08:00→21:35)
[2018-03-07] MEDS: METOPROLOL TARTRATE 25 MG TABLET PEG SCH ×2 (08:00→21:35)
[2018-03-07] MEDS: MULTIVITAMIN LIQUID (CENTRUM) 60 ML BOTTLE PEG SCH (08:01)
[2018-03-07] MEDS: FLUTICASONE/SALMETEROL 100-50 DISKUS 14 DOSE INH SCH ×2 (08:01→21:37)
[2018-03-07] MEDS: THEOPHYLLINE 5.33 MG/ML 30 ML/BOTTLE PEG SCH ×2 (08:01→21:36)
[2018-03-07] MEDS ORDERED: FUROSEMIDE 40 MG/4 ML VIAL IV SCH (09:00)
[2018-03-07] MEDS: SIMVASTATIN 10 MG TABLET PEG SCH (21:35)
[2018-03-08] MEDS: ALBUTEROL/IPRATROPIUM 3 ML NEB RESP TX SCH ×4 (00:11→19:26)
[2018-03-08] MEDS: methylPREDNISolone SOD SUC 40 MG/1 ML VIAL IV SCH (05:23)
[2018-03-08] MEDS: CEFEPIME 1,000 MG in SYRINGE 1 EACH IV SCH (05:26)
[2018-03-08] MEDS: FLUTICASONE/SALMETEROL 100-50 DISKUS 14 DOSE INH SCH ×2 (09:39→21:38)
[2018-03-08] MEDS: MULTIVITAMIN LIQUID (CENTRUM) 60 ML BOTTLE PEG SCH (09:39)
[2018-03-08] MEDS: THEOPHYLLINE 5.33 MG/ML 30 ML/BOTTLE PEG SCH ×2 (09:39→21:37)
[2018-03-08] MEDS: APIXABAN 2.5 MG TABLET PEG SCH ×2 (09:40→21:38)
[2018-03-08] MEDS: FUROSEMIDE 40 MG TABLET PO SCH (09:40)
[2018-03-08] MEDS: MAGNESIUM OXIDE 400 MG TABLET PEG SCH ×2 (09:40→21:38)
[2018-03-08] MEDS: CEFUROXIME 500 MG TABLET PO SCH ×2 (09:40→21:38)
[2018-03-08] MEDS: METOPROLOL TARTRATE 25 MG TABLET PEG SCH ×2 (09:40→21:38)
[2018-03-08] MEDS: TAMSULOSIN 0.4 MG CAPSULE PO SCH (09:40)
[2018-03-08] MEDS: LANSOPRAZOLE ODT 30 MG TABLET PEG SCH (09:40)
[2018-03-08] MEDS: FINASTERIDE 5 MG TABLET PO SCH (09:40)
[2018-03-08] MEDS: predniSONE 20 MG TABLET PO SCH (09:40)
[2018-03-08] MEDS ORDERED: SODIUM CHLORIDE 0.9% 500 ML IV ONE (10:55)
[2018-03-08] MEDS ORDERED: LACTULOSE 20 GM/30 ML UDCUP PO PRN (16:54)
[2018-03-08] MEDS ORDERED: DOCUSATE SODIUM 100 MG CAPSULE PO SCH (21:00)
[2018-03-08] MEDS: DOCUSATE SODIUM 100 MG/10 ML UDCUP PO SCH (21:37)
[2018-03-08] MEDS: SIMVASTATIN 10 MG TABLET PEG SCH (21:38)
[2018-03-09] MEDS: ALBUTEROL/IPRATROPIUM 3 ML NEB RESP TX SCH ×4 (01:08→19:18)
[2018-03-09] MEDS: DOCUSATE SODIUM 100 MG/10 ML UDCUP PO SCH ×2 (10:15→20:44)
[2018-03-09] MEDS: LANSOPRAZOLE ODT 30 MG TABLET PEG SCH (10:16)
[2018-03-09] MEDS: TAMSULOSIN 0.4 MG CAPSULE PO SCH (10:16)
[2018-03-09] MEDS: CEFUROXIME 500 MG TABLET PO SCH ×2 (10:16→20:45)
[2018-03-09] MEDS: FUROSEMIDE 40 MG TABLET PO SCH (10:16)
[2018-03-09] MEDS: FLUTICASONE/SALMETEROL 100-50 DISKUS 14 DOSE INH SCH ×2 (10:16→20:44)
[2018-03-09] MEDS: predniSONE 20 MG TABLET PO SCH (10:16)
[2018-03-09] MEDS: METOPROLOL TARTRATE 25 MG TABLET PEG SCH ×2 (10:16→20:45)
[2018-03-09] MEDS: MAGNESIUM OXIDE 400 MG TABLET PEG SCH ×2 (10:16→20:45)
[2018-03-09] MEDS: APIXABAN 2.5 MG TABLET PEG SCH ×2 (10:16→20:45)
[2018-03-09] MEDS: FINASTERIDE 5 MG TABLET PO SCH (10:16)
[2018-03-09] MEDS: MULTIVITAMIN LIQUID (CENTRUM) 60 ML BOTTLE PEG SCH (10:17)
[2018-03-09] MEDS: THEOPHYLLINE 5.33 MG/ML 30 ML/BOTTLE PEG SCH ×2 (10:17→20:46)
[2018-03-09] MEDS: MORPHINE 4 MG/1 ML VIAL IV PRN (10:20)
[2018-03-09] MEDS: SIMVASTATIN 10 MG TABLET PEG SCH (20:45)
[2018-03-10] MEDS: ALBUTEROL/IPRATROPIUM 3 ML NEB RESP TX SCH ×4 (00:23→19:22)
[2018-03-10] MEDS: MORPHINE 4 MG/1 ML VIAL IV PRN ×3 (00:35→18:08)
[2018-03-10] MEDS: THEOPHYLLINE 5.33 MG/ML 30 ML/BOTTLE PEG SCH (10:01)
[2018-03-10] MEDS: DOCUSATE SODIUM 100 MG/10 ML UDCUP PO SCH ×2 (10:01→22:42)
[2018-03-10] MEDS: LANSOPRAZOLE ODT 30 MG TABLET PEG SCH (10:02)
[2018-03-10] MEDS: CEFUROXIME 500 MG TABLET PO SCH ×2 (10:02→22:42)
[2018-03-10] MEDS: FINASTERIDE 5 MG TABLET PO SCH (10:03)
[2018-03-10] MEDS: predniSONE 20 MG TABLET PO SCH (10:03)
[2018-03-10] MEDS: TAMSULOSIN 0.4 MG CAPSULE PO SCH (10:03)
[2018-03-10] MEDS: FUROSEMIDE 40 MG TABLET PO SCH (10:03)
[2018-03-10] MEDS: APIXABAN 2.5 MG TABLET PEG SCH ×2 (10:03→22:42)
[2018-03-10] MEDS: MAGNESIUM OXIDE 400 MG TABLET PEG SCH ×2 (10:03→22:42)
[2018-03-10] MEDS: METOPROLOL TARTRATE 25 MG TABLET PEG SCH ×2 (10:03→22:42)
[2018-03-10] MEDS: FLUTICASONE/SALMETEROL 100-50 DISKUS 14 DOSE INH SCH ×2 (10:04→22:42)
[2018-03-10] MEDS: MULTIVITAMIN LIQUID (CENTRUM) 60 ML BOTTLE PEG SCH (10:34)
[2018-03-10] MEDS ORDERED: TUBERCULIN SKIN TEST 0.1 ML SYRINGE INTRADERM ONE (16:06)
[2018-03-10] MEDS: SIMVASTATIN 10 MG TABLET PEG SCH (22:42)
[2018-03-11] MEDS: THEOPHYLLINE 5.33 MG/ML 30 ML/BOTTLE PEG SCH ×2 (00:14→09:41)
[2018-03-11] MEDS: ALBUTEROL/IPRATROPIUM 3 ML NEB RESP TX SCH ×3 (01:34→13:20)
[2018-03-11] MEDS: TAMSULOSIN 0.4 MG CAPSULE PO SCH (09:38)
[2018-03-11] MEDS: CEFUROXIME 500 MG TABLET PO SCH (09:38)
[2018-03-11] MEDS: FINASTERIDE 5 MG TABLET PO SCH (09:38)
[2018-03-11] MEDS: LANSOPRAZOLE ODT 30 MG TABLET PEG SCH (09:39)
[2018-03-11] MEDS: APIXABAN 2.5 MG TABLET PEG SCH (09:40)
[2018-03-11] MEDS: METOPROLOL TARTRATE 25 MG TABLET PEG SCH (09:40)
[2018-03-11] MEDS: FUROSEMIDE 40 MG TABLET PO SCH (09:40)
[2018-03-11] MEDS: MAGNESIUM OXIDE 400 MG TABLET PEG SCH (09:40)
[2018-03-11] MEDS: predniSONE 20 MG TABLET PO SCH (09:40)
[2018-03-11] MEDS: MULTIVITAMIN LIQUID (CENTRUM) 60 ML BOTTLE PEG SCH (09:41)
[2018-03-11] MEDS: DOCUSATE SODIUM 100 MG/10 ML UDCUP PO SCH (09:41)
[2018-03-11] MEDS: FLUTICASONE/SALMETEROL 100-50 DISKUS 14 DOSE INH SCH (09:41)
[2018-03-11] MEDS: MORPHINE 4 MG/1 ML VIAL IV PRN (10:00)
[2018-03-11 13:02] VITALS: BP 119/83
== END 2018-03-11 14:20 | DRG 189 ==
LOC: EDUNIT# → N.ED 03:52 → N.EDINP 05:31 → SUATTDRO 05:31 → N.ICU 15:15 → N.5E 03-07 18:38
PROVIDERS: ADMIT Internal Medicine; ATTEND Internal Medicine

== ENCOUNTER 2018-07-08 10:27 | Inpatient (IN) ==
[2018-07-08] MEDS ORDERED: ALBUTEROL NEB SOLN 5 MG/ML 20 ML/BOTTLE CONT NEB STA (10:56)
[2018-07-08 11:27] LABS: Basophils % 0.4 % (0.0-0.8); Eosinophils # 0.2 10*3/uL (0.0-0.87); Eosinophils % 2.6 % (0.00-10.9); Hematocrit 40.3 VOL% (42.0-52.0); Hemoglobin 12.7 GM/DL (14.0-18.0); Immature Granulocytes % 0.7 %; Immature Granulocytes Absolute 0.05 #; Lymphocytes # 1.6 10*3/uL (1.4-4.0); Lymphocytes % 23.2 % (21.2-54.2); Mean Corpuscular HGB Conc 31.5 GM/DL (32-36); Mean Corpuscular Hemoglobin 26 PG (27-34); Mean Corpuscular Volume 83.3 FL (87-102); Mean Platelet Volume 10.2 FL (9.6-12.0); Monocytes # 0.5 10*3/uL (0.11-0.8); Monocytes % 6.8 % (1.7-12.7); Neutrophils # 4.6 10*3/uL (1.4-7.4); Neutrophils % 66.3 % (38.7-73.9); Platelet Count 165 T/CUMM (130-400); Red Blood Count 4.84 MC/CUMM (3.8-5.5); Red Cell Distribution Width 15.2 % (9.3-17.3); White Blood Count 6.9 T/CUMM (4-12)
[2018-07-08 11:35] LABS: Albumin 3.4 G/DL (3.4-5.0); Bilirubin,Total 0.4 MG/DL (0.2-1.0); Calcium 9.3 MG/DL (8.5-10.1); Osmolality,Calculated 279.7 MOS/KG (273-304); Potassium 3.8 MMOL/L (3.5-5.1)
[2018-07-08] MEDS ORDERED: ONDANSETRON 4 MG/2 ML VIAL IV PRN (13:59)
[2018-07-08] MEDS ORDERED: guaiFENesin/DM ER 600-30 MG TABLET PO PRN (13:59)
[2018-07-08] MEDS ORDERED: ENOXAPARIN 80 MG/0.8 ML SYRINGE SUBCUT SCH (14:00)
[2018-07-08] MEDS ORDERED: DOCUSATE SODIUM 100 MG/10 ML UDCUP PEG PRN (14:45)
[2018-07-08] MEDS ORDERED: LACTULOSE 20 GM/30 ML UDCUP PEG PRN (14:45)
[2018-07-08] MEDS ORDERED: POLYVINYL ALCOHOL 1.4% OPH SOLN 15 ML BOTTLE BOTH EYES PRN (14:45)
[2018-07-08] MEDS ORDERED: POLYETHYLENE GLYCOL POWDER 17 GM PACK PEG PRN (14:45)
[2018-07-08] MEDS ORDERED: GLUCAGON 1 MG VIAL IM PRN (14:48)
[2018-07-08] MEDS ORDERED: DEXTROSE 50% 25 GM/50 ML VIAL IV PRN (14:48)
[2018-07-08] MEDS ORDERED: ENOXAPARIN 100 MG/ML SYRINGE SUBCUT ONE (15:05)
[2018-07-08] MEDS: INSULIN REGULAR 100 UNIT/ML SUBCUT SCH (18:44)
[2018-07-08] MEDS ORDERED: FAMOTIDINE 20 MG TABLET PEG SCH (21:00)
[2018-07-08] MEDS ORDERED: SIMVASTATIN 10 MG TABLET PEG SCH (21:00)
[2018-07-08] MEDS: METOPROLOL TARTRATE 25 MG TABLET PEG SCH (21:01)
[2018-07-08] MEDS: APIXABAN 2.5 MG TABLET PEG SCH (21:01)
[2018-07-08] MEDS: THEOPHYLLINE 5.33 MG/ML 30 ML/BOTTLE PEG SCH (21:03)
[2018-07-08] MEDS: HYDROcod/ACETAMIN 7.5-325 MG/15 ML UDCUP PEG PRN (21:05)
[2018-07-09] MEDS: INSULIN REGULAR 100 UNIT/ML SUBCUT SCH ×3 (02:12→12:42)
[2018-07-09] MEDS ORDERED: ALBUTEROL/IPRATROPIUM 3 ML NEB RESP TX PRN (04:10)
[2018-07-09 04:41] LABS: Basophils % 0.5 % (0.0-0.8); Eosinophils # 0.2 10*3/uL (0.0-0.87); Eosinophils % 2.5 % (0.00-10.9); Hematocrit 39.8 VOL% (42.0-52.0); Hemoglobin 12.3 GM/DL (14.0-18.0); Immature Granulocytes % 0.5 %; Immature Granulocytes Absolute 0.03 #; Lymphocytes # 1.6 10*3/uL (1.4-4.0); Lymphocytes % 25.4 % (21.2-54.2); Mean Corpuscular HGB Conc 30.9 GM/DL (32-36); Mean Corpuscular Hemoglobin 26 PG (27-34); Monocytes # 0.5 10*3/uL (0.11-0.8); Monocytes % 7.4 % (1.7-12.7); Neutrophils % 63.7 % (38.7-73.9); Platelet Count 157 T/CUMM (130-400); Red Blood Count 4.74 MC/CUMM (3.8-5.5); Red Cell Distribution Width 15.2 % (9.3-17.3); White Blood Count 6.3 T/CUMM (4-12)
[2018-07-09 05:03] LABS: Prealbumin 23.9 MG/DL (20-40)
[2018-07-09 08:55] LABS: Calcium 9.2 MG/DL (8.5-10.1); Osmolality,Calculated 275.8 MOS/KG (273-304); Potassium 3.9 MMOL/L (3.5-5.1)
[2018-07-09] MEDS ORDERED: predniSONE 1 MG TABLET PEG SCH (09:00)
[2018-07-09] MEDS ORDERED: LANSOPRAZOLE ODT 30 MG TABLET PEG SCH (09:00)
[2018-07-09] MEDS ORDERED: SERTRALINE 50 MG TABLET PEG SCH (09:00)
[2018-07-09] MEDS ORDERED: FUROSEMIDE 40 MG/5 ML UDCUP PEG SCH (09:00)
[2018-07-09] MEDS: APIXABAN 2.5 MG TABLET PEG SCH (09:06)
[2018-07-09] MEDS: METOPROLOL TARTRATE 25 MG TABLET PEG SCH (09:06)
[2018-07-09] MEDS: HYDROcod/ACETAMIN 7.5-325 MG/15 ML UDCUP PEG PRN (09:08)
[2018-07-09] MEDS: THEOPHYLLINE 5.33 MG/ML 30 ML/BOTTLE PEG SCH (09:08)
[2018-07-09] MEDS ORDERED: ALBUTEROL 2.5 MG/3 ML NEB RESP TX PRN (10:36)
[2018-07-09] MEDS ORDERED: PRAMOXINE 1% RECTAL FOAM 15 GM CAN TOP PRN (10:36)
[2018-07-09] MEDS ORDERED: guaiFENesin 200 MG/10 ML UDCUP PEG PRN (10:36)
[2018-07-09] MEDS ORDERED: TAMSULOSIN 0.4 MG CAPSULE PO SCH (12:00)
[2018-07-09] MEDS ORDERED: FINASTERIDE 5 MG TABLET PO SCH (12:00)
[2018-07-09 12:56] VITALS: BP 128/67
[2018-07-09] MEDS ORDERED: MAGNESIUM OXIDE 400 MG TABLET PEG SCH (21:00)
[2018-07-10] MEDS ORDERED: MULTIVITAMIN LIQUID (CENTRUM) 60 ML BOTTLE PEG SCH (09:00)
== END 2018-07-09 13:40 | DRG 313 ==
LOC: N.ED 10:27 → N.EDINP 12:53 → N.2W 13:50 → N.2E 17:01
PROVIDERS: ADMIT Internal Medicine; ATTEND Internal Medicine

== ENCOUNTER 2018-08-20 09:48 | Observation (INO) ==
[2018-08-20] MEDS ORDERED: SODIUM CHLORIDE 0.9% 500 ML IV STA (10:20)
[2018-08-20 10:56] LABS: Basophils % 0.4 % (0.0-0.8); Eosinophils # 0.1 10*3/uL (0.0-0.87); Eosinophils % 1.8 % (0.00-10.9); Hematocrit 40.7 VOL% (42.0-52.0); Hemoglobin 12.8 GM/DL (14.0-18.0); Immature Granulocytes % 0.3 %; Immature Granulocytes Absolute 0.02 #; Lymphocytes # 1.4 10*3/uL (1.4-4.0); Lymphocytes % 20.2 % (21.2-54.2); Mean Corpuscular HGB Conc 31.4 GM/DL (32-36); Mean Corpuscular Hemoglobin 26 PG (27-34); Mean Corpuscular Volume 83.6 FL (87-102); Mean Platelet Volume 10.4 FL (9.6-12.0); Monocytes # 0.5 10*3/uL (0.11-0.8); Monocytes % 7.1 % (1.7-12.7); Neutrophils % 70.2 % (38.7-73.9); Platelet Count 140 T/CUMM (130-400); Red Blood Count 4.87 MC/CUMM (3.8-5.5); Red Cell Distribution Width 15.7 % (9.3-17.3); White Blood Count 7.1 T/CUMM (4-12)
[2018-08-20 11:05] LABS: PT Patient Result 10.5 SECS
[2018-08-20 11:22] LABS: Albumin 3.5 G/DL (3.4-5.0); Bilirubin,Total 0.7 MG/DL (0.2-1.0); Osmolality,Calculated 286.3 MOS/KG (273-304); Potassium 3.8 MMOL/L (3.5-5.1); Total Protein 6.8 G/DL (6.4-8.3)
[2018-08-20 12:19] LABS: Barbiturates Screen,Urine Negative (Negative); Benzodiazepines Screen,Urine Negative (Negative); Cannabinoid Screen,Urine Negative (Negative); Opiate Screen,Urine Positive (Negative); Phencyclidine Screen,Urine Negative (Negative)
[2018-08-20 12:21] LABS: Amorphous Crystals,Urine Occasional /HPF (Few); Apearance,Urine CLOUDY (Clear); Bacteria,Urine Many /HPF (Few); Bilirubin,Urine Negative (Negative); Blood, Urine Negative (Negative); Glucose,Urine (UA) Negative (Negative); Ketones,Urine 5 mg/dL (Negative); Nitrite,Urine Negative (Negative); Protein,Urine Negative; Urine Color Yellow (Yellow); Urine Specific Gravity 1.016 (1.001-1.035); Urine Urobilinogen < 2.0 EU/DL (0.2-1.0); WBC,Urine 80 /HPF (0-6)
[2018-08-20] MEDS ORDERED: LEVOFLOXACIN INJ 750 MG in PREMIX 1 EACH IV STA (12:55)
[2018-08-20] MEDS ORDERED: LORAZEPAM PO PRN (17:16)
[2018-08-20] MEDS ORDERED: MORPHINE SULFATE PO PRN (17:16)
[2018-08-20] MEDS ORDERED: guaiFENesin 200 MG/10 ML UDCUP PEG PRN (17:16)
[2018-08-20] MEDS ORDERED: ACETAMINOPHEN 325 MG TABLET PEG PRN (17:16)
[2018-08-20] MEDS ORDERED: ALBUTEROL 2.5 MG/3 ML NEB RESP TX PRN (17:16)
[2018-08-20] MEDS ORDERED: PRAMOXINE 1% RECTAL FOAM 15 GM CAN TOP PRN (17:16)
[2018-08-20] MEDS ORDERED: POLYVINYL ALCOHOL 1.4% OPH SOLN 15 ML BOTTLE BOTH EYES PRN (17:16)
[2018-08-20] MEDS: ALBUTEROL/IPRATROPIUM 3 ML NEB RESP TX SCH (19:21)
[2018-08-20] MEDS ORDERED: SIMVASTATIN 10 MG TABLET PEG SCH (20:00)
[2018-08-20] MEDS ORDERED: SERTRALINE 50 MG TABLET PEG SCH (20:00)
[2018-08-20] MEDS: SODIUM CHLORIDE 0.9% 1,000 ML IV SCH (20:06)
[2018-08-20] MEDS: METOPROLOL TARTRATE 25 MG TABLET PEG SCH (22:51)
[2018-08-20] MEDS: APIXABAN 2.5 MG TABLET PEG SCH (22:51)
[2018-08-20] MEDS: TAMSULOSIN 0.4 MG CAPSULE PO SCH (22:51)
[2018-08-20] MEDS: MAGNESIUM OXIDE 400 MG TABLET PEG SCH (22:51)
[2018-08-20] MEDS: FLUTICASONE/SALMETEROL 100-50 DISKUS 14 DOSE INH SCH (22:52)
[2018-08-20] MEDS: THEOPHYLLINE 5.33 MG/ML 30 ML/BOTTLE PEG SCH (22:52)
[2018-08-21] MEDS: ALBUTEROL/IPRATROPIUM 3 ML NEB RESP TX SCH ×2 (00:21→07:25)
[2018-08-21 07:50] VITALS: BP 126/65
[2018-08-21] MEDS ORDERED: PANTOPRAZOLE 40 MG TABLET PO SCH (08:00)
[2018-08-21] MEDS ORDERED: FINASTERIDE 5 MG TABLET PO SCH (08:00)
[2018-08-21] MEDS ORDERED: LORazepam 0.5 MG TABLET PEG SCH (08:00)
[2018-08-21] MEDS ORDERED: MULTIVITAMIN LIQUID (CENTRUM) 60 ML BOTTLE PEG SCH (08:00)
[2018-08-21] MEDS ORDERED: FUROSEMIDE 40 MG TABLET PEG SCH (08:00)
[2018-08-21] MEDS ORDERED: PREDNISONE PEG SCH (08:00)
[2018-08-21] MEDS: SODIUM CHLORIDE 0.9% 1,000 ML IV SCH (08:46)
[2018-08-21] MEDS: THEOPHYLLINE 5.33 MG/ML 30 ML/BOTTLE PEG SCH (08:48)
[2018-08-21] MEDS: TAMSULOSIN 0.4 MG CAPSULE PO SCH (08:49)
[2018-08-21] MEDS: FLUTICASONE/SALMETEROL 100-50 DISKUS 14 DOSE INH SCH (08:50)
[2018-08-21] MEDS: METOPROLOL TARTRATE 25 MG TABLET PEG SCH (08:50)
[2018-08-21] MEDS: APIXABAN 2.5 MG TABLET PEG SCH (08:50)
[2018-08-21] MEDS: MAGNESIUM OXIDE 400 MG TABLET PEG SCH (08:51)
[2018-08-21] MEDS ORDERED: LEVOFLOXACIN INJ 500 MG in PREMIX 1 EACH IV SCH (13:00)
[2018-08-23] MEDS ORDERED: fentaNYL 25 MCG/HR PATCH TRANSDERM SCH (09:00)
== END 2018-08-21 10:56 | disposition hospice, inpatient (51) ==
LOC: N.EDINP 09:48 → N.ED 09:48 → N.5E 15:11
PROVIDERS: ADMIT Internal Medicine; ATTEND Internal Medicine